=== PATIENT | male | born 1945 | race African-American/Black ===

== ENCOUNTER 2024-06-28 07:49 | Outpatient (AMB) | payer OTHER, SELFPAY ==
--- NOTE | 2024-06-28 07:51 | MHC.OFFVIS ---
Vital Signs 06/28/24 08:07 Height 5 ft 10 in Weight 211 lb 6.773 oz BMI 30.3 BP 132/70 Blood Pressure Location Lt brachial Position Sitting Respiration 18 Pulse 78 Pulse Source Pulse Oximeter Pulse Oximetry (%) 98 Oxygen Delivery Method Room Air Intake Visit Reasons: arthritis/cm Intake Note: Patient presents for Arthritis. I feel pain on both shoulders, neck, lower back, both hips, right knee, left heel and right ankle swells. I been in pain for over 20 years. I have taking over the counter medication for pain and Tylenol helps short term. Allergies No Known Allergies Allergy (Verified 06/28/24 08:00) Medication List - Last Reconciled 06/28/24 by Rachel Tamayo MD aspirin 81 mg PO DAILY atorvastatin 40 mg PO DAILY lisinopril 40 mg PO DAILY HPI Comments Details: Patient is a 79-year-old male with hypertension, hyperlipidemia who presents for evaluation of joint pain Patient states that for the past several years he has been having joint pain affecting several joints. Today when most concerns him is right hip pain No antecedent trauma Notes that the hip pain has been going on for several years and this has been associated with back pain also The pain is mainly located in his right buttock. He does not have intermittent claudication type symptoms. It is aggravated by prolonged sitting or driving. 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 He has previously received PRP injections, steroid injections to the right hip with improvement but the was not lasting. He is currently being evaluated for a hip replacement however was told that he does not meet criteria for a hip replacement. He also complains of back pain. Recently had an MRI of the lumbar spine which showed [id number] degenerative changes. Has seen a spinal orthopedic surgeon who stated that his spine was not severe and that there was nothing that he could offer him. He denies prolonged morning stiffness. He does get pain involving his hands but his hip pain is what most concerns him. He has also previously gotten corticosteroid injections for greater trochanteric bursitis. This provided relief but this was not sustained [facility] Medical History (Updated 06/28/24 @ 13:54 by Rachel Tamayo MD) Degenerative arthritis of lumbar spine Bilateral hip pain Social History (Updated 06/28/24 @ 08:06 by Anisa Tuttle [facility]) Household Members: None Housing: House Alcohol intake: current Comment: Daily Patient Tobacco Use Status: Never used Tobacco Review of Systems Const Details: Review of Systems Constitutional: Denies fever, chills, weight loss ENT: Denies vision changes, eye pain or eye redness, dental caries, dry mouth GI: Denies nausea, vomiting, diarrhea, abdominal pain, change in BM Pulm: Denies SOB, CATES, hemoptysis, wheezing Cards: Denies chest pain, palpitations Skin: Denies Raynaud's, rash, nail changes, photosensitivity, [employer]ER: Denies headaches, weakness, paresthesias, recurrent falls MSK: as per HPI All other systems reviewed and are unremarkable except noted above Physical Exam Vital Signs: Last Vital Signs Pulse 78 06/28/24 08:07 Resp 18 06/28/24 08:07 BP 132/70 06/28/24 08:07 Pulse Ox 98 06/28/24 08:07 Oxygen Delivery Method Room Air 06/28/24 08:07 BMI result Body Mass Index 30.3 Physical Examination CONSTITUITIONAL Patient alert and cooperative. Well appearing and in no apparent painful distress HEENT Conjunctiva and sclera clear. ?Pupils equal round and reactive to light. ?No lymphadenopathy. CHEST/RESPIRATORY SYSTEM Normal respiratory effort and able to speak in complete sentences. ?Clear to auscultation bilaterally. ?No crackles, rales, rhonchi, wheezes heard. CARDIAC SYSTEM Regular rate and rhythm. ?S1 and S2 heard no murmurs. ?Radial pulses intact bilaterally MSK Hands: ?Good plant facilities technician strength bilaterally. Heberden's nodes noted. ?No synovitis noted to the MCPs, PIPs or DIPs. ?No tenderness to palpation of these joints. Wrists: ?Full range of motion at the wrists without pain. ?No tenderness to palpation or synovitis noted to the wrists. Elbows: Full range of motion without pain. No tenderness, weakness, swelling, increased warmth or erythema. Shoulders: Full range of motion without pain. No tenderness, weakness, swelling, increased warmth or erythema. Hips: Right hip. Hip flexion leads to right buttock pain. Straight leg raise of the right leg reproduces pain extending past the knee. Left hip. Hip flexion leads to right buttock pain again. Negative straight leg raise Hip bursa: Bilateral tenderness to palpation, right worse than left Knees: ?Full range of motion. ?No tenderness, swelling, increased warmth or erythema.? Bilateral crepitations Ankles: Full range of motion. ?No tenderness, swelling, increased warmth or erythema.? Feet: ?Negative squeeze test. ?No tenderness to palpation or swelling of the MTPs. Tender points:??No tenderness to palpation of the neck, shoulders, chest, elbows, hips, buttocks or knees. SKIN Skin intact without rashes. Results Reviewed Results Reviewed: Results from referral reviewed WBC 5.1 HB 13.9 Platelets 207 Uric acid 5.1 CRP < 0.29 ESR 20 TSH 1.32 RF <10 MRI lumbar spine Degenerative changes of the lumbar spine greatest at L3-4 with [id number] central stenosis and mild crowding of the transversing left L4 nerve root XR Bilateral Hips 06/28/2024 (my read) Right hip with mild osteophytes and subcondral sclerosis Left with mild degenerative changes also Assessment & Plan Assessment & Plan (1) Bilateral hip pain: Code(s): M25.551 - Pain in right hip; M25.552 - Pain in left hip Category: Medical Plan: #Bilateral hip pain Patient here today to be evaluated for bilateral hip pain. Examination is consistent with a lumbar etiology for this hip pain especially with a positive straight leg raise. He denied intermittent claudication symptoms and he does not have any other signs of peripheral arterial disease and so this is less likely. He may also have osteoarthritis involving the right hip. At this time I do not believe the patient has any autoimmune or autoinflammatory disease such as rheumatoid arthritis, ankylosing spondylitis or seronegative arthritis. Plan - check bilateral hip x-rays - check right hip MRI without contrast - referred to pain management for evaluation of lumbar steroid injection - RTC p.r.n. (2) Degenerative arthritis of lumbar spine: Code(s): M47.816 - Spondylosis without myelopathy or radiculopathy, lumbar region Category: Medical Qualifiers: Spinal osteoarthritis complication: other spinal osteoarthritis Qualified Code(s): M47.896 - Other spondylosis, lumbar region Plan: #Lumbar OA MRI confirmed degenerative changes in L spine I think that this can be contributing to his hip pain especially with a positive leg raise consistent with sciatica Plan - refer to pain management for L spine injection Plan I spent 60 minutes reviewing the record and labs, seeing the patient, discussing the treatment plan, answering questions, contacting the patient after appointment to relay my read of his hips XRs and documenting in the medical record ? Orders: Orders XR hip RT min 2V Today M25.551 - Pain in right hip, M25.552 - Pain in left hip XR hip LT min 2V Today M25.551 - Pain in right hip, M25.552 - Pain in left hip MR hip RT wo con Today M25.551 - Pain in right hip, M25.552 - Pain in left hip Referrals Pain Management Referral M47.816 - Spondylosis without myelopathy or radiculopathy, lumbar region Coding Level of Care Code New Pt Level 5 (26261) Diagnoses Bilateral hip pain M25.551; M25.552 Other osteoarthritis of spine, lumbar region M47.896 Spinal osteoarthritis complication: other spinal osteoarthritis
[2024-06-28 08:07] VITALS: BP 132/70; PULSE 78; RESP 18; O2SAT 98; BMI 30.3
--- OUTSIDE RECORDS SUMMARY | 2024-07-03 05:05 | XMS_ITS | Continuity of Care Document ---
Author Organization [facility] Address [address] [place] [address]- Care Team Providers Care Local Truck Driver Name Role Phone Mohsen Boles MD Primary Care Physician Encounter [facility] Date(s): 05/02/24 - 06/26/24 [facility] [address] [place], [place] [address] [place] Attending Physician: Mohsen Boles MD Encounter Type: Pre Office Visit Allergies, Adverse Reactions, Alerts Substance Criticality Severity Reaction Reaction Severity Status penicillin swelling Active benzonatate headache Active Immunizations Given and Recorded Vaccine Date Status Refusal Reason influenza virus vaccine, inactivated 04/08/24 Jose Manuel rded influenza virus vaccine, inactivated 04/13/23 Jose Manuel rded influenza virus vaccine, inactivated 05/03/22 Give n influenza virus vaccine, inactivated 1 05/03/21 Gi alex influenza virus vaccine, inactivated 2 05/14/20 Gi alex influenza virus vaccine, inactivated 04/19/18 Give n influenza virus vaccine, inactivated 04/10/17 Give n SARS-CoV-2(COVID-19)mRNA-LNP vac([id number]) 04/08/24 Recorded SARS-CoV-2(COVID-19)mRNA-LNP vac([id number]) 04/13/23 Recorded [id number] 12y+ bivalent booster vax 04/27/22 Recorded SARS-CoV-2 mRNA ([id number]) vax 11/26/21 Recorded SARS-CoV-2 (COVID-19) mRNA BNT-162b2 vac 05/13/21 Recorded SARS-CoV-2 (COVID-19) mRNA BNT-162b2 vac 09/28/20 Recorded SARS-CoV-2 (COVID-19) mRNA BNT-162b2 vac 08/28/20 Recorded zoster vaccine, inactivated 05/05/21 Recorded pneumococcal 13-valent vaccine 3 10/11/17 Given tetanus/diphtheria/pertussis, acel(Tdap) 02/17/14 Given pneumococcal 23-valent vaccine 04/12/11 Given tetanus-diphtheria toxoids (Td) 4 02/21/11 Given 1Result Comment: [id number] 2Result Comment: [facility]: [id number] GIVEN WITHOUT COMPLICATIONS...DS 3Result Comment: [10/11/2017] [id number] 4Admin Note: given w/out incident, VIS info. sheet given/ mass bio Medications Aspirin Low Dose 81 mg oral delayed release tablet See Instructions, TAKE 1 TABLET BY MOUTH EVERY DAY, # 90 tablet, 3 Refills, Maintenance, 12/26/23 12:12:00 PM EDT, [facility]/pharmacy #[id number], 180, cm, 11/23/23 10:32:00 EDT, Height, 97.4, kg, 10/25/23 10:10:00 EDT, Dry Weight Start Date: 12/26/23 Status: Ordered Quantity: 90.0 Unit: tablet Repeat number: 4 atorvastatin 40 mg oral tablet 1 tablet, By Mouth, Daily, # 90 tablet, 3 Refills, Maintenance, 04/19/24 11:04:00 AM EDT, [facility]/pharmacy #[id number], 180, cm, 03/28/24 10:57:00 EDT, Height, 95.5, kg, 03/28/24 10:29:00 EDT, Dry Weight Start Date: 04/19/24 Status: Ordered Quantity: 90.0 Unit: tablet Repeat number: 4 lisinopril 40 mg oral tablet 1 tablet, By Mouth, Daily, # 90 tablet, 3 Refills, Maintenance, 11/23/23 11:14:00 AM EDT, [facility]/pharmacy #[id number], 180, cm, 11/23/23 10:32:00 EDT, Height, 97.4, kg, 10/25/23 10:10:00 EDT, Dry Weight Start Date: 11/23/23 Status: Ordered Quantity: 90.0 Unit: tablet Repeat number: 4 meloxicam 7.5 mg oral tablet 1 tablet = 7.5 mg, By Mouth, Daily, # 30 tablet, 5 Refills, Maintenance, 05/02/24 9:26:00 AM EDT, Tablet, [facility]/pharmacy #[id number], Partial fill upon patient request if the prescription is for a schedule II opioid drug., 180, cm, 05/02/24 8:58:00 EDT, Height, 95.5, kg, 05/02/24 8:58:00 EDT, Dry Weight Start Date: 05/02/24 Status: Ordered Quantity: 30.0 Unit: tablet Repeat number: 6 sertraline 100 mg oral tablet 1 tablet = 100 mg, By Mouth, Daily, # 30 tablet, 11 Refills, Maintenance, 05/02/24 9:25:00 AM EDT, Tablet, [id number], this is an increase, 180, cm, 05/02/24 8:58:00 EDT, Height, 95.5, kg, 05/02/24 8:58:00 EDT, Dry Weight Start Date: 05/02/24 Status: Ordered Quantity: 30.0 Unit: tablet Repeat number: 12 traZODone 50 mg oral tablet 1, tablet, By Mouth, Daily at bedtime, # 30 tablet, Refills 3, Maintenance, 05/20/24 5:31:00 PM EDT, Route to Pharmacy Electronically, [id number], 180, cm, 05/02/24 8:58:00 EDT, Height, 95.5, kg, 05/02/24 8:58:00 EDT, Dry Weight Start Date: 05/20/24 Status: Ordered Quantity: 30.0 Unit: tablet Repeat number: 1 Tylenol Arthritis Extended Release = 1,300 mg, By Mouth, Every 8 hours, 0 Refills, Maintenance, 04/07/22 2:26:00 PM EDT, Partial fill upon patient request if the prescription is for a schedule II opioid drug. 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 Confirmed 12/13/12 Active Glucose intolerance Confirmed 02/26/11 Active History of prostatectomy Confirmed 02/21/11 Active Hip pain, bilateral Confirmed Active History of cholecystectomy Confirmed 02/21/11 Active Personal history of prostate cancer Confirmed 02/21/11 Active Hyperlipidemia Confirmed 02/21/11 Active HBP (high blood pressure) Confirmed Active ITB syndrome- bilateral Confirmed Active Lumbar spondylosis with Moderate SS at L3-4 and mild at L4-5 Confirmed 01/30/22 Active 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 Confirmed 06/02/19 Active Polymorphous light eruption, 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, lumbar region with neurogenic claudication Confirmed Active Trochanteric bursitis Confirmed 04/12/11 Active Ulnar neuropathy at elbow of right upper extremity Confirmed Active Social History Social History Type Response Smoking Status Never smoker entered on: 07/22/13 Sex Sex Representation Male (finding) Patient Care team information Care Team Personnel Name: Shad Garcia RN Position: [facility] RN Member Role: Primary Care Nurse Name: Mohsen Boles MD Position: [facility] Physician - Primary Care Member Role: PCP Address: [address] [place] [address] [facility] [address] Telecom: Care Team Related Persons Name: PEYTON FONTENOT Name: CLAUDIA NUNES Name: JOSE NUNES Insurance Providers Guarantor name: PAUL NUNES [facility] Information #: 1 Payer: [facility] [employer] Member Number: [id number] Policy Number: NA Group Number: [id number] Health Plan Information #: 2 Payer: [facility] [employer] Member Number: [id number] Policy Number: NA Group Number: [id number]
--- OUTSIDE RECORDS SUMMARY | 2024-07-03 05:05 | XMS_ITS | Data Portability ---
Author Organization [place] [facility] [place] Address [address] [place] [address] Care Team Providers Care Park Maintenance Technician Name Role Phone MADELAINEAUDRA JANICE Referring Provider Unavailable ARABELLA BREEN OTHER [phone] Assessment Encounter Date Assessment Date Assessment LastModified by Organization Details LastModified Time 02/01/2024 02/01/2024 79-year-old male with extensive history of chronic bilateral hip pain. His history and exam today are consistent with greater trochanteric bursitis, perhaps mild contributory gluteal tendinitis as demonstrated on his imaging. Symptoms are not impressive for intra-articular etiology. No evidence of avascular necrosis on most recent MRI. At present the right seems to be slightly worse than the left. He has failed extensive injection therapy and I would not recommend that at this time. I do think it would be worthwhile to get him into some formal, regimented physical therapy and see how he responds. I reviewed with him and his that we will almost certainly take more than a couple of weeks for him to appreciate any improvement given the lengthy history of his symptoms. He is amenable to trying this. I will also send him in a prescription for meloxicam. He denies any adverse effects to NSAIDs and is not on a blood thinner. GI precautions reviewed. He will return to the office in 6 weeks for follow-up, sooner if his condition worsens. Questions invited and answered. Patient verbalizes understanding and agreement with plan. Patient was seen and evaluated by Rainer Stafford PA-C in indirect conjunction with Documenting Provider: Jose Kiran MD He/She agrees with history, physical examination, tests/diagnostic imaging, and treatment plan. Not available 03/02/2024 12:22:03 03/06/2024 03/06/2024 Chronic, refractory bilateral greater trochanteric bursitis. We again reviewed his long history of hip pain and that this will likely take more than a few weeks of therapy for him to see significant improvement. Cannot exclude potential lumbar etiology as he does demonstrate symptoms consistent with radiculopathy. It sounds like he was going to have a right bursectomy. At this time I recommended we defer an additional injection as he has previously not had lasting response and rather wait to keep his upcoming appt with Dr. Kiran on Monday. Questions invited and answered. Patient verbalizes understanding and agreement with plan. PRIOR : 79-year-old male with extensive history of chronic bilateral hip pain. His history and exam today are consistent with greater trochanteric bursitis, perhaps mild contributory gluteal tendinitis as demonstrated on his imaging. Symptoms are not impressive for intra-articular etiology. No evidence of avascular necrosis on most recent MRI. At present the right seems to be slightly worse than the left. He has failed extensive injection therapy and I would not recommend that at this time. I do think it would be worthwhile to get him into some formal, regimented physical therapy and see how he responds. I reviewed with him and his that we will almost certainly take more than a couple of weeks for him to appreciate any improvement given the lengthy history of his symptoms. He is amenable to trying this. I will also send him in a prescription for meloxicam. He denies any adverse effects to NSAIDs and is not on a blood thinner. GI precautions reviewed. He will return to the office in 6 weeks for follow-up, sooner if his condition worsens. Not available 03/11/2024 10:35:44 03/11/2024 03/11/2024 I went over my findings with him. He has fairly widespread symptomatology, certainly pain out of proportion to objective findings. He rates his pain between a 13 to a 20 on a 10 point scale. I am not certain that all of his pain is coming from the hip. This may be more of a spine etiology. I will have him see our spine team for consultation. In the interim he is going to continue home exercise program. If his symptoms localize more to the hip an intra-articular injection could be considered. He may be a candidate to consider hip arthroplasty. He is not a candidate for anything arthroscopic. Questions invited and answered at length. Greater than 20 minutes was spent with the encounter today, including face to face time with the patient, documentation, review of records/imaging if applicable, and coordination of care. PRIOR KATHE: Cannot exclude potential lumbar etiology. PRIOR : 79-year-old male with extensive history of chronic bilateral hip pain. His history and exam today are consistent with greater trochanteric bursitis, perhaps mild contributory gluteal tendinitis as demonstrated on his imaging. Symptoms are not impressive for intra-articular etiology. No evidence of avascular necrosis on most recent MRI. At present the right seems to be slightly worse than the left. He has failed extensive injection therapy and I would not recommend that at this time. I do think it would be worthwhile to get him into some formal, regimented physical therapy and see how he responds. I reviewed with him and his that we will almost certainly take more than a couple of weeks for him to appreciate any improvement given the lengthy history of his symptoms. He is amenable to trying this. I will also send him in a prescription for meloxicam. He denies any adverse effects to NSAIDs and is not on a blood thinner. GI precautions reviewed. He will return to the office in 6 weeks for follow-up, sooner if his condition worsens. [email or web address] Not available 04/25/2024 19:52:09 03/27/2024 03/27/2024 Negro Salinas is a 79 year old male who presents today for evaluation regarding his chronic low back pain. He has had low back pain for greater than 30 years. It worsened 15 years ago and now has again worsened. He complains of numbness in his bilateral lateral legs and feet. He also has lateral hip pain which he is treated for greater trochanteric bursitis and has had multiple rounds of injections with no significant relief. He did have an MRI of his lumbar spine in 2021 for similar symptoms however he reports that the focus was still on his bursitis. He recently attended physical therapy in January for 6 weeks however he did not find this helpful. He has a hard time going from the seated to standing position and with prolonged walking or standing. Other prior treatments include oxycodone, Tylenol, thermal modalities and prednisone. Denies saddle paresthesias, bowel or bladder incontinence, recent fevers or unexplained weight loss. Exam: Constitutional: appears well developed, in no acute distress. Respiratory: no respiratory distress Musculoskeletal: Normal gait Neck: Inspection of the cervical spine is unremarkable, no deformity noted. Back: Inspection of the thoracolumbar spine is unremarkable. No deformity noted. Neurologic: Sensation grossly intact to light touch in bilateral upper and lower extremities. 5/5 strength with muscle testing of the bilateral lower extremities. Able to toe raise and heel walk bilaterally Reflexes are normoactive in bilateral upper and lower extremities. Normal tone in all 4 extremities. Negative Clonus bilaterally. Negative Babinski bilaterally. Skin: skin intact Imaging: AP and lateral x-rays of the lumbar spine were obtained on 03/2024 which demonstrates multilevel degenerative changes. No acute osseous abnormalities. 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 At this time I would recommend repeating an MRI to further assess. He is interested in injection therapy versus surgical intervention should these be an option. Not wish to attend physical therapy for any additional length of time. He will continue with his medication that he currently has and thermal modalities. Plan to follow-up in 2 weeks to review results, sooner if condition worsens. Total time spent managing this patient on the date of the [id number] encounter (including direct patient interaction, wound care, review of applicable labs and imaging, documentation, and communication with other providers involved in patient s care): 25 minutes Patient was seen and evaluated by Gildardo Cullen PA-C in indirect conjunction with Documenting Provider: Zachery Hernandez MD He agrees with history, physical examination, tests/diagnostic imaging, and treatment plan [email or web address] Not available 03/27/2024 15:47:07 04/11/2024 04/11/2024 79-year-old felt to be generally healthy presents with his good friend Lora for whole body pain. He notes 20 years of worsening discomfort. More recently the pain has become intolerable. He notes hand pain arm pain neck pain low back pain foot pain hip and knee pain and ischial pain. He has difficulty getting up and down. He is seen a variety of orthopedic surgeons and has had various injections and even a proposal for a tendon reconstruction none of which has been helpful. He recently had a lumbar MRI which is shockingly normal. He has had x-rays of his hips which are quite normal in the trays of his lumbar spine are quite normal. Physical examination he appears quite uncomfortable although he has no focal neurologic findings. The patient is living I had an extended conversation. I do not believe he has a focal orthopedic condition that can be remedied with normative orthopedic care. I am concerned he has a systemic rheumatologic type disease and should be evaluated by burling and joining supervisor . He lives in the [facility] and is interested in finding a burling and joining supervisor near his home. We make the appropriate referral. In anticipation of seeing the burling and joining supervisor will order laboratory studies as noted below. He will follow-up with us on an as-needed basis [email or web address] Not available 04/11/2024 17:03:45 Plan of Treatment Reminders Order Date Submit Date Provider Last Modified By Organization Details Last Modified Time Details Appointments None recorded. Lab rf (rheumatoid factor) + anti-ccp abs, serum 2023 024 BILL Not available 13:46:47 TSH, serum or plasma 2023 024 [email or web address] Not available 11:29:48 uric acid, serum or plasma 2023 024 [email or web address] Not available 11:29:48 CBC w/ diff 2023 024 BILL Not available 13:46:47 C reactive protein, QN, serum or plasma 2023 024 BILL Not available 4 13:46:47 ESR (erythrocyt e sedimentati on rate), blood 2023 024 BILL Not available 13:46:47 lyme disease Ab, serum 2023 024 BILL Not available 13:46:47 Referral rheumatolog ist referral - Wide spread body pain. Normal X-rays,MRI. ?? Inflammator y arthritis?? 2023 024 [email or web address] Arabella Breen MD, [address], [place], [address], 17:15:27 Procedures None recorded. Surgeries None recorded. Imaging XR, hip, unilateral, 2 or 3 view 2023 024 [email or web address] 2 [facility], [address], [place], [address], 4 12:59:56 XR, hip, unilateral, 2 or 3 view 2023 024 [email or web address] 2 [facility], [address], [place], [address], 4 12:59:56 MRI, lumbar spine, w/o contrast - r/o canal stenosis 2023 024 [facility] ([facility] [address] [place], [address], 4 14:07:21 XR, lumbosacral spine, 2 or 3 view 2023 024 [email or web address] [facility], [address], [place], [address], 4 16:40:17 Medication Orders meloxicam 15 mg tablet 2023 024 [email or web address] [id number], [address] [place], [address], 4 15:14:40 Patient TargetsNo targets recorded. Patient Instructions Encounter Date Encounter Id Patient Instructions Last Modified By Organization Details Last Modified Time 02/01/2024 [id number] views of the bilateral hips were obtained today 02/01/2024 in the [place] office. Mild to moderate degenerative changes. Trace spurring versus calcification adjacent to the greater trochanters. No acute fracture or dislocation appreciated. Not available 03/02/2024 12:23:24 03/27/2024 [id number] AP and lateral x-rays of the lumbar spine were obtained on 03/2024 which demonstrates multilevel degenerative changes. No acute osseous abnormalities. 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 Normal X-rays,MRI. ?? Inflammatory arthritis?? Referring Physician: Zachery Hernandez, Orthopedic Surgery, Encounter Date: 04/11/2024 Results Created Date Observation Date Name Description Value Unit Range Abnormal Flag Note LastModifiedBy Organization Detail LastModifiedTime 01/29/20 MRI, hip, w/o contr ast No observ ation record ed. [email or web address] Not Available 2023 10:17:43 04/04/20 24 04/02/2024 MRI, lumba r spine , w/o contr ast No observ ation record ed. [email or web address] [facility] [address] [place], [address], 04/04/2024 14:14:32 Result Notes None recorded. 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 Procedures Surgical History Date Name Laterality Status Provider Name and Address Organization Details Recorded Time Shoulder Surgery completed Renetta Daniel [place] [facility] 02/01/2024 12:06:54 Knee Surgery completed Renetta Daniel [place] [facility] 02/01/2024 12:07:00 Imaging Results Imaging Date Name Status LastModified by Organiz ation Details LastModified Time 01/29/2024 MRI, hip, w/o contrast completed [email or web address] Information not available 01/29/2024 10:17:43 04/02/2024 MRI, lumbar spine, w/o contrast completed [email or web address] [facility] [address] [place], [address], 04/04/2024 14:14:32 Procedure Notes None recorded. Medical Equipment None Reported. Allergies No known drug allergies Medications Name Sig Start Date Stop Date Status Note LastModified by Organization Details LastModified Time atorvastati n 40 mg tablet TAKE 1 TABLET BY MOUTH EVERY DAY active Not Available Not Available No t Available trazodone 50 mg tablet TAKE 1 TABLET BY MOUTH EVERYDAY AT BEDTIME active Not Available Not Available No t Available meloxicam 15 mg tablet TAKE 1 TABLET BY MOUTH EVERY DAY 03/06 completed Not Available Not Available Not Available aspirin 81 mg tablet,lacey yed release TAKE 1 TABLET BY MOUTH EVERY DAY active Not Available Not Available No t Available tramadol 50 mg tablet TAKE 1 TO 2 TABS BY MOUTH EVERY 6 HOURS NEEDED FOR PAIN DO NOT DRIVE WHILE TAKING THIS MEDICATIO N active Not Available Not Available No t Available codeine 10 mg-guaifene sin 100 mg/5 mL oral liquid TAKE 5ML BY MOUTH EVERY 4 HOURS NEEDED FOR COUGH active Not Available Not Available No t Available lisinopril 40 mg tablet TAKE 1 TABLET BY MOUTH EVERY DAY active Not Available Not Available No t Available sertraline 50 mg tablet TAKE 1 TABLET BY MOUTH EVERY DAY active Not Available Not Available No t Available oxycodone 5 mg tablet TAKE ONE TAB THREE TIMES A DAY DO NOT DRIVE WHILE TAKING THIS MEDICATIO N active Not Available Not Available No t Available pregabalin 75 mg capsule TAKE 1 CAPSULE BY MOUTH AT BEDTIME active Not Available Not Available No t Available diclofenac 1 % topical gel DIRECTED APPLY 3-4 GRAMS TO AFFECTED AREA 3X DAILY active Not Available Not Available No t Available Vitals Date Recorded Body weight Provider Name an d Address Organization Details Last Updated DateTime 02/01/2024 [address] [place] [facility] 02/01/2024 12:06:02 Social History Question Answer Notes LastModified by Organizat ion Details LastModified Time Tobacco Smoking Status Never Smoker Renetta Daniel null, [place] [facility] 02/01/2024 12:06:26 What Is Your Level Of Alcohol Consumption? Moderate [email or web address] Information not available 02/01/2024 How Many Times Per Week Do You Consume Alcohol? 3-4 Times Per Week [email or web address] Information not available 02/01/2024 Do You Use Any Illicit Or Recreational Drugs? Yes [email or web address] Information not available 03/11/2024 Do You Or Have You Ever Used Any Other Forms Of Tobacco Or Nicotine? No [email or web address] Information not available 02/01/2024 Sex: Unknown Functional Status None recorded. Mental Status None recorded. Family History Nothing Reported. Medical History Condition Response Cancer Y Hypertension Y Past Encounters Encounter ID Performer Location Encounter Start Date Encounter Closed Date Diagnosis/Indication Diagnosis SNOMED-CT Code Diagnosis ICD10 Code [id number] Jose Kiran MD [place] [id number] 02/01/2024 10:36:07 02/01/2024 12:12:21 Pain in right hip joint 4632125285 56940 M25.551 Hip pain 76212843 M25.55 2 [id number] Jose Kiran MD [place] [id number] 03/06/2024 15:10:07 03/06/2024 15:45:57 Pain in right hip joint 7853930262 78478 M25.551 Hip pain 31994453 M25.55 2 [id number] Jose Kiran MD [address] [address] 03/11/2024 10:31:19 03/11/2024 11:22:02 Pain in right hip joint 5118946372 88709 M25.551 Hip pain 46707473 M25.55 2 [id number] Zachery Hernandez MD [address] [address] 03/27/2024 13:50:16 03/27/2024 14:43:09 Low back pain 296816349 M54.50 Lumbar spondylosis 66336 0009 M47.816 [id number] MD MAGALY Lubin [address] [place] [address] 04/11/2024 15:30:02 04/11/2024 16:31:06 Total body pain syndrome 166675998 R52 Health Concerns Section Related Observation LastModified by Organization Detai ls LastModified Time None Recorded Concern Status LastModified by Organization Details LastModified Time None Recorded Advance Directives Directive None Recorded Payers Encounter Date Sequence Insurance Name Policy Number Policy Blevins Covered Member ID Blevins Member ID Guarantor Name 02/01/2024 1 [employer]AN (MEDICARE REPLACEMENT HMO) [id number] Negro Salinas [id number] Negro Salinas 03/06/2024 1 [employer] PLAN (MEDICARE REPLACEMENT HMO) [id number] Negro Salinas [id number] Negro Rita 03/11/2024 1 [employer] PLAN (MEDICARE REPLACEMENT HMO) [id number] Negro Salinas [id number] Negro Rita 03/27/2024 1 [employer]AN (MEDICARE REPLACEMENT HMO) [id number] Negro Salinas [id number] Negro Rita 04/11/2024 1 [employer] (MEDICARE REPLACEMENT HMO) [id number] Negro Salinas [id number] Negro Salinas Notes Date Note Type Note Provider Name and Address Organization Details Recorded Time 02/01/2024 text/html 79-year-old male presents to the office today with his for evaluation of chronic bilateral hip pain referred by Dr. Oliveira. He estimates this has been ongoing for 30 years. States he has had extensive trusting and treatment over the years and nothing has ever provided permanent relief.He states his pain is always localized around the lateral aspect of the hips with some radiation down the thighs but consistently beyond. He has undergone numerous greater trochanteric bursal steroid injections over the years which he states helped for anywhere from a week to a month but never much longer than that. These was most recently completed bilaterally in November of this year. He has also had an intra-articular hip joint injection as well as PRP injections bilaterally in July of this year which did not help at all. He continues to have pain with ADLs and finds it difficult to sleep on either side. As an aside he reports a history of lumbar pain and has degenerative disease that has been treated nonoperatively. He uses Tylenol intermittently. He reports he has never done physical therapy for more than 4 weeks at a time. He denies saddle anesthesias. Denies groin pain. Denies bowel or bladder dysfunction. Most recently he had an MRI of the right hip in June 2023 which demonstrated mild to moderate degenerative changes as well as gluteal tendinosis and likely trochanteric bursitis. [address], [place], [address], [place] [facility] 03/02/2024 12:23:39 03/06/2024 text/html Patient returns to the office today for unscheduled visit as he is still in pain. He states he has been in physical therapy but is unable to identify if it is helping. He again recounts his long history of bilateral hip pain. He also notes chronic low back pain and the two in combination make getting up from a chair or bed particularly difficult. He continues to localize his predominant complaints over the lateral hips with radiation to the knee. He was unable to tolerate Meloxicam as it increased his blood pressure.He would like a second opinion regarding having surgery and is due to see Dr. Kiran. Chart review notes his last MRI was of the right hip in 06/2023 but he thinks he has had another more recently. PRIOR:79-year-old male presents to the office today with his for evaluation of chronic bilateral hip pain referred by Dr. Oliveira. He estimates this has been ongoing for 30 years. States he has had extensive trusting and treatment over the years and nothing has ever provided permanent relief.He states his pain is always localized around the lateral aspect of the hips with some radiation down the thighs but consistently beyond. He has undergone numerous greater trochanteric bursal steroid injections over the years which he states helped for anywhere from a week to a month but never much longer than that. These was most recently completed bilaterally in November of this year. He has also had an intra-articular hip joint injection as well as PRP injections bilaterally in July of this year which did not help at all. He continues to have pain with ADLs and finds it difficult to sleep on either side. As an aside he reports a history of lumbar pain and has degenerative disease that has been treated nonoperatively. He uses Tylenol intermittently. He reports he has never done physical therapy for more than 4 weeks at a time. He denies saddle anesthesias. Denies groin pain. Denies bowel or bladder dysfunction. Most recently he had an MRI of the right hip in June 2023 which demonstrated mild to moderate degenerative changes as well as gluteal tendinosis and likely trochanteric bursitis. RAINER STAFFORD PA-C [address], [place], [address], [place] [facility] 03/11/2024 10:35:59 03/11/2024 text/html Patient returns for ongoing evaluation of his bilateral hip pain. He tells me he has a history of multiple shots. The last injection was in November 2023 that did not provide any improvement. He also tells me he tried PRP injections. He walks with a cane. Pain has been present for at least 15 or more years. Physical therapy was ongoing for twice a week, he was going for 30 minutes at a time. He tells me that the physical therapy location would not treat him for more than 30 minutes. He was a bit frustrated at that. In general symptoms tend to be right greater than left. He notes some right sided ischial tuberosity pain with sitting. He notes pain that radiates into his hip and legs. Sometimes his feet are tender in the morning on waking up. He rates his pain at times between a 13 to a 20 on a 10 point scale. PRIOR KATHE:Patient returns to the office today for unscheduled visit as he is still in pain. PRIOR:79-year-old male presents to the office today with his for evaluation of chronic bilateral hip pain referred by Dr. Oliveira. He estimates this has been ongoing for 30 years. States he has had extensive trusting and treatment over the years and nothing has ever provided permanent relief.He states his pain is always localized around the lateral aspect of the hips with some radiation down the thighs but consistently beyond. He has undergone numerous greater trochanteric bursal steroid injections over the years which he states helped for anywhere from a week to a month but never much longer than that. These was most recently completed bilaterally in November of this year. He has also had an intra-articular hip joint injection as well as PRP injections bilaterally in July of this year which did not help at all. He continues to have pain with ADLs and finds it difficult to sleep on either side. As an aside he reports a history of lumbar pain and has degenerative disease that has been treated nonoperatively. He uses Tylenol intermittently. He reports he has never done physical therapy for more than 4 weeks at a time. He denies saddle anesthesias. Denies groin pain. Denies bowel or bladder dysfunction. Most recently he had an MRI of the right hip in June 2023 which demonstrated mild to moderate degenerative changes as well as gluteal tendinosis and likely trochanteric bursitis. oJse Kiran MD [address], [place], [address], [place] [facility] 04/25/2024 19:53:23
--- OUTSIDE RECORDS SUMMARY | 2024-07-03 05:05 | XMS_ITS | Continuity of Care Document ---
Author Organization [facility] Address [address] [place] [address]- Care Team Providers Care Polisher Brass Name Role Phone Mohsen Boles MD Primary Care Physician [place] [facility] [place]): [place]/26/24 [facility] [address] [place], [place] [address] Attending Physician: Mohsen Boles MD Encounter Type: Office Visit Allergies, Adverse Reactions, Alerts Substance [...] virus vaccine, inactivated 04/10/17 Give n SARS-CoV-2(COVID-19)mRNA-LNP vac([id number]) 04/08/24 Recorded SARS-CoV-2(COVID-19)mRNA-LNP vac([id number]) 04/13/23 Recorded [id number] 12y+ bivalent booster vax 04/27/22 Recorded SARS-CoV-2 mRNA ([id number]) vax 11/26/21 Recorded SARS-CoV-2 (COVID-19) mRNA BNT-162b2 vac 05/13/21 Recorded SARS-CoV-2 (COVID-19) mRNA BNT-162b2 vac 09/28/20 Recorded SARS-CoV-2 (COVID-19) mRNA BNT-162b2 vac 08/28/20 Recorded zoster vaccine, inactivated 05/05/21 Recorded pneumococcal 13-valent vaccine 3 10/11/17 Given tetanus/diphtheria/pertussis, acel(Tdap) 02/17/14 Given pneumococcal 23-valent vaccine 04/12/11 Given tetanus-diphtheria toxoids (Td) 4 02/21/11 Given 1Result Comment: [id number] 2Result Comment: [facility]: 33305-031-37 GIVEN WITHOUT COMPLICATIONS...DS 3Result Comment: [10/11/2017] [id number] 4Admin Note: given w/out incident, VIS info. sheet given/ mass bio Medications Aspirin Low Dose 81 mg oral delayed release tablet See Instructions, TAKE 1 TABLET BY MOUTH EVERY DAY, # 90 tablet, 3 Refills, Maintenance, 12/26/23 12:12:00 PM EDT, [facility]/pharmacy #[id number], 180, cm, 11/23/23 10:32:00 EDT, Height, 97.4, kg, 10/25/23 10:10:00 EDT, Dry Weight Start Date: 12/26/23 Status: Ordered Quantity: 90.0 Unit: tablet Repeat number: 4 atorvastatin 40 mg oral tablet 1 tablet, By Mouth, Daily, # 90 tablet, 3 Refills, Maintenance, 04/19/24 11:04:00 AM EDT, [facility]/pharmacy #[id number], 180, cm, 03/28/24 10:57:00 EDT, Height, 95.5, kg, 03/28/24 10:29:00 EDT, Dry Weight Start Date: 04/19/24 Status: Ordered Quantity: 90.0 Unit: tablet Repeat number: 4 lisinopril 40 mg oral tablet 1 tablet, By Mouth, Daily, # 90 tablet, 3 Refills, Maintenance, 11/23/23 11:14:00 AM EDT, [facility]/pharmacy #[id number], 180, cm, 11/23/23 10:32:00 EDT, Height, 97.4, kg, 10/25/23 10:10:00 EDT, Dry Weight Start Date: 11/23/23 Status: Ordered Quantity: 90.0 Unit: tablet Repeat number: 4 meloxicam 7.5 mg oral tablet 1 tablet = 7.5 mg, By Mouth, Daily, # 30 tablet, 5 Refills, Maintenance, 05/02/24 9:26:00 AM EDT, Tablet, [facility]/pharmacy #[id number], Partial fill upon patient request [...] Refills, Maintenance, 05/02/24 9:25:00 AM EDT, Tablet, [facility]/pharmacy #[id number], this is an increase, 180, cm, 05/02/24 8:58:00 EDT, Height, 95.5, kg, 05/02/24 8:58:00 EDT, Dry Weight Start Date: 05/02/24 Status: Ordered Quantity: 30.0 Unit: tablet Repeat number: 12 traZODone 50 mg oral tablet 1, tablet, By Mouth, Daily at bedtime, # 30 tablet, Refills 3, Maintenance, 05/20/24 5:31:00 PM EDT, Route to Pharmacy Electronically, [facility] STORE [id number], 180, cm, 05/02/24 8:58:00 EDT, Height, 95.5, [...] ventricle with trace to mild 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/13 Active Glucose intolerance Confirmed 02/26/11 Active History [...] elbow of right upper extremity Confirmed Active Vital Signs Most recent to oldest [Reference Range]: 1 2 Height 180 cm (06/19/24 10:52 AM) 180 cm (06/19/24 10:31 AM) Weight 93.9 kg (06/19/24 10:31 AM) Oxygen Saturation [94-100 %] 96 % (06/19/24 10:31 AM) Pulse Rate [55-90 bpm] 76 bpm (06/19/24 10:31 AM) Body Mass Index [18.5-24.99 kg/m2] 28.98 kg/m2 *H* (06/19/24 10:31 AM) Blood Pressure [90-138/55-84 mm Hg] 130/ 78mm Hg (06/19/24 10:52 AM) 151/79mm Hg *H* (06/19/24 10:31 AM) Mode of Delivery (Oxygen) Room air (06/19/24 10:31 AM) Blood pressure sites Arm, left (06/19/24 10:31 AM) Dry Weight 93.9 kg (06/19/24 10:31 AM) Weight Obtained Via Standing scale (06/19/24 10:31 AM) Social History Social History Type Response Smoking Status Never smoker entered on: 07/22/13 Sex Sex Representation Male (finding) Note * Sanjana Culver: PERFORM Event Display: Patient Education/Instruction Authored Date: [id number] Ambulatory Adult Visit Summary [facility] [address] [place] [address] Name: PAUL NUNES : 1945?? Visit: 06/19/2024 10:15?? Ambulatory Visit Instructions ?? Your Care Team Primary Care Provider Mohsen Boles MD? 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 Scheduled Follow-Up Appointments Monday 3:40 PM EST ?? With: Mohsen Boles MD Where: [facility] [address] [place] [address]- Status: Pending Medications The list below reflects the information in our records and provided by you today along with any changes made during this visit. Please continue your medications until treatment is completed or stopped by your provider. If this is different from the information you have or there are other questions,please contact the prescribing provider. What How Much When Instructions Unchanged Acetaminophen (Tylenol Arthritis Extended Release) 1,300 Milligram Oral Every 8 hours Unchanged Aspirin (Aspirin Low Dose 81 mg oral delayed release tablet) See instructions TAKE 1 TABLET BY MOUTH EVERY DAY ?? Unchanged Atorvastatin (atorvastatin 40 mg oral tablet) 1 tab(s) Oral Daily Unchanged Lisinopril (lisinopril 40 mg oral tablet) 1 tab(s) Oral Daily Unchanged Meloxicam (meloxicam 7.5 mg oral tablet) 1 tab(s) Oral Daily Unchanged Sertraline (sertraline 100 mg oral tablet) 1 tab(s) Oral Daily Unchanged Trazodone (traZODone 50 mg oral tablet) 1 tab(s) Oral Daily at Bedtime Medications and Immunizations Administered Medications Given During Visit No medications given during this visit.?? Allergies (NKA means No Known Allergies) benzonatate??(headache) penicillin??(swelling) Common Emergency Awareness Tips IS IT A STROKE? Act FAST and Check for these signs: FACE Does the face look uneven? ARM Does one arm drift down? SPEECH Does their speech sound strange? TIME Call at any sign of stroke ?? Heart Attack Signs Chest discomfort: Most heart attacks involve discomfort in the center of the chest and lasts more than a few minutes, or goes away and comes back. It can feel like uncomfortable pressure, squeezing, fullness or pain. Discomfort in upper body: Symptoms can include pain or discomfort in one or both arms, back, neck, jaw or stomach. Shortness of breath: With or without discomfort. Other signs: Breaking out in a cold sweat, nausea, or lightheaded. Remember, MINUTES DO MATTER. If you experience any of these heart attack warning signs, call to get immediate medical attention! ?? Smoking can increase your chances of developing chronic health problems and can cause harmful effects to other family members in your house. If you smoke, you are strongly encouraged to quit. Please call [employer] [place] Link at [phone] or [phone] ([phone]) or log in to [email or web address] for referrals to smoking cessation programs. ?? The National Suicide Prevention Hotline is available 13/02 if you or someone you know needs to find a reason to keep living. By calling 9-191-358-[employer] (2600) you'll be connected to a skilled, trained counselor at a crisis center in your area. [facility] [employer] Portal You can view and manage your care through the patient portal or by using a health care jennifer of your choosing. [employer] is a website that allows you to securely view your medical information including your hospital discharge summary, office visit summaries, medications and follow-up visits. You can also request appointments, renew medications, and request access to your medical information using a health care jennifer of your choosing, or just ask a question. You can enroll at [email or web address] or register during your next office visit. [facility], in keeping with [facility] guidance, no longer requires face masks for staff, patientsor visitors in most situations. Similiar to time spent indoors at other locations, there is the chance that you were exposed to repiratory viruses during your time with us (such as flu or COVID-19). If you develop symptoms concerning for a viral respiratory infection, please seek testing (and treatment if indicated) from your medical provider or home test kit. ?? Disclaimer: The information provided is of a general nature and is intended to be used in conjunction with the recommendations and advice of your health care practitioner. Every effort has been made to ensure that the information provided is accurate and complete at the time it is provided to you however, as your needs change, or, as new information becomes available, different or additional instructions may be required. ?? If you have questions, please consult with your primary care provider or pharmacist, as appropriate. This information is not intended to serve as substitution for assessment and evaluation by a qualified health care provider. If you do not have a primary care provider, you may find a [facility] provider by calling [facility] at [phone]. Patient Care team information Care Team Personnel Name: Shad Garcia RN Position: [facility] RN Member Role: Primary Care Nurse Name: Mohsen Boles MD Position: [facility] Physician - Primary Care Member Role: PCP Address: [address] [place] [address] Adult [facility] Pediatric [address] Telecom: Care Team Related Persons Name: PEYTON FONTENOT Name: CLAUDIA NUNES Name: JOSE NUNES Insurance Providers Guarantor name: PAUL NUNES Health Plan Information #: 1 Payer: [facility] [employer] Member Number: [id number] Policy Number: NA Group Number: [id number] Health Plan Information #: 2 Payer: [facility] [employer] Member Number: [id number] Policy Number: NA Group Number: [id number]
--- OUTSIDE RECORDS SUMMARY | 2024-07-03 05:05 | XMS_ITS | Continuity of Care Document ---
Author Organization [place] [facility] [place] Address [address] [place] [address] Care Team Providers Care Business Excellence Manager Name Role Phone JANICE REED Referring Provider Unavailable ARABELLA BREEN OTHER Assessment Encounter Date Assessment Date Assessment LastModified by Organization Details LastModified Time 04/11/2024 04/11/2024 79-year-old felt to be generally [...] type disease and should be evaluated by professional poker player . He lives in the [place] area and is interested in finding a professional poker player near his home. We make the appropriate referral. In anticipation of seeing the professional poker player will order laboratory studies as noted below. He will follow-up with us on an as-needed basis [email or web address] Not available 04/11/2024 17:03:45 Plan of Treatment Reminders Order Date Submit Date Provider Last Modified By Organization Details Last Modified Time Details Appointments None recorded. Lab rf (rheumatoid factor) + anti-ccp abs, serum 2023 024 BILL Not available 4 13:46:47 TSH, serum or plasma 2023 024 [email or web address] Not available 4 11:29:48 uric acid, serum or plasma 2023 024 [email or web address] Not available 4 11:29:48 CBC w/ diff 2023 024 BILL Not available 4 13:46:47 C reactive protein, QN, serum or plasma 2023 024 BILL Not available 4 13:46:47 ESR (erythrocyt e sedimentati on rate), blood 2023 024 BILL Not available 4 13:46:47 lyme disease Ab, serum 2023 024 BILL Not available 4 13:46:47 Referral rheumatolog ist referral - Wide spread body pain. Normal X-rays,MRI. ?? Inflammator y arthritis?? 2023 024 [email or web address] Arabella Breen MD, [address] , [place], [address], 4 17:15:27 Procedures None recorded. Surgeries None recorded. Imaging None recorded. Medication Orders None recorded. Patient TargetsNo targets recorded. Patient InstructionsNo instructions recorded. Reason for Referral [facility] Referral for Total body pain syndrome Wide spread body pain. Normal X-rays,MRI. ?? Inflammatory arthritis?? Referring Physician: Zachery Hernandez, Orthopedic Surgery, Encounter Date: 04/11/2024 Results Created Date Observation Date Name Description Value Unit Range Abnormal Flag Note LastModifiedBy Organization Detail LastModifiedTime 04/04/20 24 04/02/2024 MRI, lumba r spine , w/o contr ast No observ ation record ed. [email or web address] Maria Mri [address] [place], [address], 04/04/2024 14:14:32 Result Notes None recorded. 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 Procedures Surgical History Date Name Laterality Status Provider Name and Address Organization Details Recorded Time Shoulder Surgery completed [facility] [place] [facility] 02/01/2024 12:06:54 Knee Surgery completed [facility] [place] [facility] 02/01/2024 12:07:00 Imaging Results None recorded. Procedure Notes None recorded. Medical Equipment None [...] Available Not Available No t Available Vitals None Recorded Social History Question Answer Notes LastModified by Organizat ion Details LastModified Time Tobacco Smoking Status Never Smoker Renetta Fredy [place], [place] - [facility], 02/01/2024 12:06:26 What Is Your Level Of Alcohol Consumption? Moderate [email or web address] Information not available 02/01/2024 How Many Times Per Week Do You Consume Alcohol? 3-4 Times Per Week [email or web address] Information not available 02/01/2024 Do You Use Any Illicit Or Recreational Drugs? Yes [email or web address] Information not available 03/11/2024 Do You Or Have You Ever Used Any Other Forms Of Tobacco Or Nicotine? No [email or web address] Information not available 02/01/2024 Sex: Unknown Functional Status None recorded. Mental Status None recorded. Family History Nothing Reported. Medical History Condition Response Cancer Y Hypertension Y Past Encounters Encounter ID Performer Location Encounter Start Date Encounter Closed Date Diagnosis/Indication Diagnosis SNOMED-CT Code Diagnosis ICD10 Code [id number] Jose Kiran MD [address] [address] 03/11/2024 10:31:19 03/11/2024 11:22:02 Pain in right hip joint 7571036468 78669 M25.551 Hip pain 55777095 M25.55 2 [id number] Zachery Hernandez MD [address] [address] 03/27/2024 13:50:16 03/27/2024 14:43:09 Low back pain 322078716 M54.50 Lumbar spondylosis 10179 0009 M47.816 [id number] MD MAGALY Lubin [address] [place], [place] [address] [address] 04/11/2024 15:30:02 04/11/2024 16:31:06 Total body pain syndrome 923919394 R52 Health Concerns Section Related Observation LastModified by Organization Detai ls LastModified Time None Recorded Concern Status LastModified by Organization Details LastModified Time None Recorded Payers Encounter Date Sequence Insurance Name Policy Number Policy Blevins Covered Member ID Blevins Member ID Guarantor Name 04/11/2024 1 [facility] - MEDICARE ADVANTAGE PLAN (MEDICARE REPLACEMENT HMO) [id number] Negro Salinas [id number] Negro Salinas
--- OUTSIDE RECORDS SUMMARY | 2024-07-03 05:06 | XMS_ITS | Continuity of Care Document ---
Author Organization [place] - [facility] [address] [place] [address] Care Team Providers Care Bufferer Name Role Phone JANICE REED Primary Care Provider Assessment Encounter Date Assessment Date Assessment LastModified by Organization Details LastModified Time 05/08/2024 05/08/2024 A: See Eval P: 2xwk 6wk [email or web address] Not available 05/06/2024 19:26:04 Plan of Treatment Reminders Order Date Submit Date Provider Last Modified By Organization Details Last Modified Time Details Appointments NEW PATIENT 20 2024 10:20A M Nilo Garcia MD Not available Not available Not available RECHECK 15 2024 09:15A M Ghazala Medrano PA-C Not available Not available Not available Lab None recorded . Referral None recorded . Procedures None recorded . Surgeries None recorded . Imaging None recorded . Medication Orders None recorded . 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 -481783 Not available Not available Not available USP goal of Left Ankle/Foot Strength -974108 Not available Not available Not available USP goal of Left Ankle/Foot Strength -396067 Not available Not available Not available USP goal of Left Ankle/Foot Strength -539345 Not available Not available Not available 3 weeks of Walking up or down stairs NOTE Not available Not available Not available USP goal of Walking up or down stairs -835473 Not available Not available Not available 3 weeks of Ankle ROM Left -293573 Not available Not available Not available 3 weeks of Ankle ROM Left -766493 Not available Not available Not available 3 weeks of Ankle ROM Left -731502 Not available Not available Not available 3 weeks of Ankle ROM Left -582627 Not available Not available Not available USP goal of Ankle ROM Left -642889 Not available Not available Not available 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 [email or web address] Not available 05/08/2024 17:58:20 Patient InstructionsNo instructions recorded. Reason for Referral None Reported. Problems Name Problem SNOMED Code Status Onset Date Resolution Date Notes Provider Name and Address Organization Details Recorded Time Tear of lateral meniscus of knee 298499439 Active 2015 Problem Code: S83.271A ; Problem Code Type: ICD-10; Status: 'A'; Not Available Formerly [facility] 4 11:59:13 Spasm 25155933 Active 2018 Problem Code: R25.2; Problem Code Type: ICD-10; Status: 'A'; Not Available [facility] 4 11:59:13 Problem Notes None recorded. Procedures Surgical History Date Name Laterality Status Provider Name and Address Organization Details Recorded Time 05/23/20 Hip Kenalog 1cc Injection, L/R completed Ramsey Roach MD [address], [place], [address], [facility] 05/23/2024 17:43:54 05/20/20 24 19394 Therapeutic Exercise (1:1) completed Gil Pereira PTA [address], [place], [address], [facility] 05/20/2024 16:16:50 05/20/20 03721: Hot or Cold Pack completed Gil Pereira, [employer] [address], [place], [address], [facility] 05/17/2024 16:20:49 05/17/20 16532 Therapeutic Exercise (1:1) completed Gil Pereira, GRE[employer]UMBER [address], [place], [address], [facility] 05/17/2024 16:17:37 05/17/20 91488: Hot or Cold Pack completed Gil Pereira, GREEN PLUMBER [address], [place], [address], [facility] 05/17/2024 16:18:55 05/17/20 04620: Ultrasound completed Gil Pereira, GRE[employer]UMBER [address], [place], [address], [facility] 05/16/2024 14:10:17 05/15/20 45892 Therapeutic Exercise (1:1) completed Negro Louie, PT [address], [place], [address], [facility] 05/15/2024 17:16:28 05/15/20 39015: Ultrasound completed Negro Louie, PT [address], [place], [address], [facility] 05/15/2024 17:18:11 05/15/20 86289: Manual therapy completed Negro Louie, PT [address], [place], [address], [facility] 05/15/2024 17:16:36 05/08/20 65315 Therapeutic Exercise (1:1) completed Negro Louie, PT [address], [place], [address], [facility] 05/08/2024 17:55:08 05/08/20 32018: Low complexity PT Eval completed Negro Louie, PT [address], [place], [address], [facility] 05/06/2024 19:24:50 11/24/19 24 Hip Kenalog 1cc Injection, Bilateral completed Ramsey Roach MD [address], [place], [address], [facility] 11/24/2023 12:49:22 [facility]/03/[facility] Ned Botello [facility]-C [address], [place], [address], [facility] 11/03/2023 13:23:35 10/19/19 24 70351 Therapeutic Exercise (1:1) completed Alyse Haywodo PTA [address], [place], [address], [facility] 10/19/2023 10:57:43 10/17/19 24 80557 Therapeutic Exercise (1:1) completed Alyse Haywood PTA [address], [place], [address], [facility] 10/17/2023 11:12:56 10/12/19 24 08396 Therapeutic Exercise (1:1) completed Edgar Krishna DPT [address], [place], [address], [facility] 10/11/2023 20:23:25 10/10/19 24 54344 Therapeutic Exercise (1:1) completed Edgar Krishna DPT [address], [place], [address], [facility] 10/09/2023 20:08:30 10/06/19 24 20002 Therapeutic Exercise (1:1) completed Edgar Krishna DPT [address], [place], [address], [facility] 10/06/2023 10:28:11 10/04/19 24 06653 Therapeutic Exercise (1:1) completed Edgar Krishna DPT [address], [place], [address], [facility] 10/04/2023 15:18:09 incision of prostate completed [facility] 10/13/2023 10:19:04 Knee Surgery completed [facility] 10/13/2023 10:19:10 Shoulder Surgery completed [facility] 10/13/2023 10:19:15 Hand Surgery completed [facility] 10/13/2023 10:19:20 Head or Neck Surgery completed [facility] 10/13/2023 10:19:27 Imaging Results None recorded. Procedure Notes None recorded. Medical Equipment None Reported. Allergies Allergen ID Allergen Name Allergen Category Reaction Reaction Severity Criticality Documentation Date Start Date Code Code System Note Provider Name and Address Organization Details Recorded Time 048216 Medicinal product containin g penicilli n and acting as antibacte rial agent (product) medicatio n Not available Not available Not available 09/25/20232006 67614 05 SNOMED Aller gyRea ction : 'Skin React ion, rash' ; Not Available [facility] 15:39:03 Medications Name Sig Start Date Stop Date Status Note LastModified by Organization Details LastModified Time celecoxib 200 mg capsule TAKE 1 CAPSULE BY MOUTH EVERY DAY 05/23 completed Not Available Not Available Not Available atorvastati n 40 mg tablet TAKE 1 TABLET BY MOUTH EVERY DAY active Not Available Not Available No t Available trazodone 50 mg tablet TAKE 1 TABLET BY MOUTH EVERYDAY AT BEDTIME active Not Available Not Available No t Available meloxicam 15 mg tablet TAKE 1 TABLET BY MOUTH EVERY DAY 05/23 completed Not Available Not Available Not Available doxycycline hyclate 50 mg capsule TAKE 1 CAPSULE BY MOUTH TWICE A DAY 05/23 completed Not Available Not Available Not Available sertraline 100 mg tablet TAKE 1 TABLET BY MOUTH EVERY DAY active Not Available Not Available No t Available aspirin 81 mg tablet,lacey yed release TAKE 1 TABLET BY MOUTH EVERY DAY active Not Available Not Available No t Available tramadol 50 mg tablet TAKE 1 TO 2 TABS BY MOUTH EVERY 6 HOURS NEEDED FOR PAIN DO NOT DRIVE WHILE TAKING THIS MEDICATIO N 10/26 completed Not Available Not Available Not Available sildenafil 100 mg tablet PLEASE SEE ATTACHED FOR DETAILED DIRECTION S active Not Available Not Available No t Available meloxicam 7.5 mg tablet TAKE 1 TABLET BY MOUTH EVERY DAY 05/23 completed Not Available Not Available Not Available pseudoephed rine-guaife nesin ER 80-700 mg tablet,exte nded release DO NOT DRIVE WHILE ON THIS MEDICATIO N 10/18 completed Statu s: 'Disc ontin ued'; Not Available Not Available Not Available codeine 10 mg-guaifene sin 100 mg/5 mL oral liquid TAKE 5ML BY MOUTH EVERY 4 HOURS NEEDED FOR COUGH 11/02 completed Not Available Not Available Not Available lisinopril 40 mg tablet TAKE 1 TABLET BY MOUTH EVERY DAY active Not Available Not Available No t Available sertraline 50 mg tablet TAKE 1 TABLET BY MOUTH EVERY DAY active Not Available Not Available No t Available oxycodone 5 mg tablet TAKE ONE TAB THREE TIMES A DAY DO NOT DRIVE WHILE TAKING THIS MEDICATIO N 10/26 completed Not Available Not Available Not Available neomycin 3.5 mg/g-polymy desmond B 10,000 unit/g-dexa meth 0.1 % eye oint APPLY TO LEFT EYE THREE TIMES A DAY active Not Available Not Available No t Available pregabalin 75 mg capsule TAKE 1 CAPSULE BY MOUTH AT BEDTIME 05/23 completed Not Available Not Available Not Available fluticasone propionate Fluticaso ne Propionat e 0.005% Ointment 10/18 completed Statu s: 'Disc ontin ued'; Not Available Not Available Not Available diclofenac 1 % topical gel DIRECTED APPLY 3-4 GRAMS TO AFFECTED AREA 3X DAILY active Not Available Not Available No t Available oxycodone HCl-oxycodo ne-ASA take one tab three times a dayDO NOT DRIVE WHILE TAKING THIS MEDICATIO N 05/23 completed Statu s: 'Curr ent'; Not Available Not Available Not Available Vitals None Recorded Social History Question Answer Notes LastModified by Organizat ion Details LastModified Time Tobacco Smoking Status Never Smoker MANASA white [place] - [facility] 10/13/2023 10:18:39 What Is Your Level Of Alcohol Consumption? Moderate Information not available 10/13/2023 How Many Times Per Week Do You Consume Alcohol? 5-7 Times Per Week Information not available 10/13/2023 Have You Ever Been Counseled For Unhealthy Alcohol Use? No Information not available 10/13/2023 Do You Use Any Illicit Or Recreational Drugs? No Information not available 10/13/2023 Do You Or Have You Ever Used Any Other Forms Of Tobacco Or Nicotine? No Information not available 10/13/2023 Sex: Unknown Functional Status None recorded. Mental Status None recorded. Family History Nothing Reported. Medical History Condition Response Coronary Artery Disease N Anxiety/Depression N Emphysema N COPD N Pacemaker N Vascular Disease N Gastrointestinal Disease N Autoimmune disease N Orthotics N Arthritis N Blood Clot N Acid Reflux (GERD) N Cancer N Stroke N Rheumatoid Arthritis N Arrhythmia N Fibromyalgia N Allergies/Hayfever N Thyroid Problems N Anemia N Kidney/Bladder Problems N Heart Attack ([place]) N Diabetes N Bleeding Disorder Y Seizures/Epilepsy N AIDS/HIV N Congestive Heart Failure (CHF) N Asthma N Peripheral Vascular Disease N Sleep Apnea N Hepatitis N Heart Disease N Pulmonary Embolism N Hypertension Y Osteoporosis N Past Encounters Encounter ID Performer Location Encounter Start Date Encounter Closed Date Diagnosis/Indication Diagnosis SNOMED-CT Code Diagnosis ICD10 Code [id number] MD [facility] [address] [place] [address] 05/02/2024 12:32:42 05/28/2024 11:53:21 Bilateral plantar fasciitis 0533885280 7092203 M72.2 Tightness of left gastrocnemius muscle 7761862499 6693379 R29.898 Tightness of right gastrocnemius muscle 5614818260 2613675 R29.035 [id number] MARCY Spangler PT [address] [place] [address] 05/08/2024 16:42:48 05/08/2024 17:58:46 Plantar fasciitis 058761999 M72.2 Health Concerns Section Related Observation LastModified by Organization Detai ls LastModified Time None Recorded Concern Status LastModified by Organization Details LastModified Time None Recorded Payers Encounter Date Sequence Insurance Name Policy Number Policy Blevins Covered Member ID Blevins Member ID Guarantor Name 05/08/2024 1 [facility] [id number] Negro Salinas [id number] Nergo Salinas Notes Date Note Type Note Provider Name and Address Organization Details Recorded Time 05/08/2024 text/html Pt states that his feet started bothering him about 15 years ago. Over the past two years it worsened. Pain is 0/10 now. Pain is 15/10 at its worst. It is worse in the morning. He is using a spc. His left foot is worse than his right. He limps all the time. He ascends/descends stairs one at a time. Negro Louie, PT [address], [place], [address], [facility] [place] [facility] 05/08/2024 17:58:39
--- OUTSIDE RECORDS SUMMARY | 2024-07-03 05:06 | XMS_ITS | Continuity of Care Document ---
Author Organization [facility] Clinical Address [address] [place] [address] Care Team Providers Care Admitting Representative Name Role Phone JANICE REED Primary Care Provider Assessment No assessment recorded. Plan of Treatment Reminders Order Date Submit [...] . Medication Orders None recorded . Patient TargetsNo targets recorded. Patient InstructionsNo instructions recorded. Reason for Referral None Reported. Problems Name Problem SNOMED Code Status Onset Date Resolution Date Notes Provider Name and Address Organization Details Recorded Time Tear of lateral meniscus of knee 706296226 Active 2015 Problem Code: S83.271A ; Problem Code Type: ICD-10; Status: 'A'; Not Available [facility] 4 11:59:13 Spasm 15728873 Active 2018 Problem Code: R25.2; Problem Code Type: ICD-10; Status: 'A'; Not Available [facility] 4 11:59:13 Problem Notes None recorded. Procedures Surgical History Date Name Laterality Status Provider Name and Address Organization Details Recorded Time 05/23/20 24 Hip Kenalog 1cc Injection, L/R completed Ramsey Roach MD [address] [facility], [place], [address], [facility] 05/23/2024 17:43:54 05/20/20 24 76358 Therapeutic Exercise (1:1) completed Gil Pereira, FILBERT GROWER [address], [place], [address], [facility] 05/20/2024 16:16:50 05/20/20 96737: Hot or Cold Pack completed Gil Pereira, FILBERT GROWER [address], [place], [address], [facility] 05/17/2024 16:20:49 05/17/20 33674 Therapeutic Exercise (1:1) completed Gil Pereira, FILBERT GROWER [address], [place], [address], [facility] 05/17/2024 16:17:37 05/17/20 35355: Hot or Cold Pack completed Gil Pereira, FILBERT GROWER [address], [place], [address], [facility] 05/17/2024 16:18:55 05/17/20 32234: Ultrasound completed Gil Pereira, FILBERT GROWER [address], [place], [address], [facility] 05/16/2024 14:10:17 05/15/20 30479 Therapeutic Exercise (1:1) completed Negro Louie, PT [address], [place], [address], [facility] 05/15/2024 17:16:28 05/15/20 04781: Ultrasound completed Negro Louie PT [address], [place], [address], [facility] 05/15/2024 17:18:11 05/15/20 46208: Manual therapy completed Negro Louie PT [address], [place], [address], [facility] 05/15/2024 17:16:36 05/08/20 84597 Therapeutic Exercise (1:1) completed Negro Louie PT [address], [place], [address], [facility] 05/08/2024 17:55:08 05/08/20 42382: Low complexity PT Eval completed Negro Louie, PT [address], [place], [address], [facility] 05/06/2024 19:24:50 11/24/19 Hip Kenalog 1cc Injection, Bilateral completed Ramsey Roahc MD [address], [place], [address], [facility] 11/24/2023 12:49:22 11/03/19 24 JZHip completed Ned Botello PA-C [address], [place], [address], [facility] 11/03/2023 13:23:35 10/19/19 93159 Therapeutic Exercise (1:1) completed Alyse Haywood PTA [address], [place], [address], [facility] 10/19/2023 10:57:43 10/17/19 69367 Therapeutic Exercise (1:1) completed Alyse Haywood PTA [address], [place], [address], [facility] 10/17/2023 11:12:56 10/12/19 75151 Therapeutic Exercise (1:1) completed Edgar Krishna DPT [address], [place], [address], [facility] 10/11/2023 20:23:25 10/10/19 80411 Therapeutic Exercise (1:1) completed Edgar Krishna DPT [address], [place], [address], [facility] 10/09/2023 20:08:30 10/06/19 20340 Therapeutic Exercise (1:1) completed Edgar Krishna DPT [address], [place], [address], [facility] 10/06/2023 10:28:11 10/04/19 24 67672 Therapeutic Exercise (1:1) completed Edgar Krishna DPT [address], [place], [address], [facility] 10/04/2023 15:18:09 incision of prostate completed [facility] 10/13/2023 10:19:04 Knee Surgery completed [facility] 10/13/2023 10:19:10 Shoulder Surgery completed [facility] 10/13/2023 10:19:15 Hand Surgery completed [facility] 10/13/2023 10:19:20 Head or Neck Surgery completed [facility] 10/13/2023 10:19:27 Imaging Results None recorded. Procedure Notes None recorded. Medical Equipment None Reported. Allergies Allergen ID Allergen Name Allergen Category Reaction Reaction Severity Criticality Documentation Date Start Date Code Code System Note Provider Name and Address Organization Details Recorded Time 168231 Medicinal product containin g penicilli n and acting as antibacte rial agent (product) medicatio n Not available Not available Not available 09/25/20232006 35924 05 SNOMED Aller gyRea ction : 'Skin React ion, rash' ; Not Available [facility] 15:39:03 Medications Name Sig Start Date Stop [...] Not Available Not Available Not Available Vitals Date Recorded Body height Body mass index (BMI) Body weight Provider Name and Address Organization Details Last Updated DateTime 05/23/2024 177.8 cm 30.1 kg/m2 41217.4 g Tonja garza [facility] 05/23/2024 10:20:08 Social History Question Answer Notes LastModified by Organizat ion Details LastModified Time Tobacco Smoking Status Never Smoker MANASA BROOKS cindy [facility] [place] [facility] 10/13/2023 10:18:39 What Is Your Level Of [...] Anemia N Kidney/Bladder Problems N Heart Attack ([place]) N Diabetes N Bleeding Disorder Y Seizures/Epilepsy N AIDS/HIV N Congestive Heart Failure (CHF) N Asthma N Peripheral Vascular Disease N Sleep Apnea N Hepatitis N Heart Disease N Pulmonary Embolism N Hypertension Y Osteoporosis N Past Encounters Encounter ID Performer Location Encounter Start Date Encounter Closed Date Diagnosis/Indication Diagnosis SNOMED-CT Code Diagnosis ICD10 Code [id number] MD Sabina Panchal Clinical [address] [place] [address] 05/02/2024 12:32:42 05/28/2024 11:53:21 Bilateral plantar fasciitis 4015924817 1845351 M72.2 Tightness of left gastrocnemius muscle 7079886022 1979272 R29.898 Tightness of right gastrocnemius muscle 9459892702 9883555 R29.183 [id number] MARCY Spangleron PT [address] [address] 05/08/2024 16:42:48 05/08/2024 17:58:46 Plantar fasciitis 066523849 M72.2 [id number] Negro Louie, PT Ang PT [address] [place] [address] 05/15/2024 16:26:09 05/15/2024 17:18:47 Plantar fasciitis 937394901 M72.2 [id number] Negro Louie, PT Ang PT [address] [place] [address] 05/17/2024 14:55:45 05/17/2024 16:19:59 Plantar fasciitis M72.2 [id number] Negro Louie, PT Ang PT [address] [facility] [place] [address] 05/20/2024 15:26:16 05/20/2024 16:17:42 Plantar fasciitis 116092477 M72.2 [id number] Ramsey Roach MD [facility] Clinical [address] [place] [address] 05/23/2024 09:43:38 06/15/2024 06:31:59 Osteoarthritis of right hip joint 3097937240 73714 M16.11 Health Concerns Section Related Observation LastModified by Organization Detai ls LastModified Time None Recorded Concern Status LastModified by Organization Details LastModified Time None Recorded Payers Encounter Date Sequence Insurance Name Policy Number Policy Blevins Covered Member ID Blevins Member ID Guarantor Name 05/23/[address] [place] [address] [id number] Negro Salinas [id number] Negro Salinas Notes Date Note Type Note Provider Name and Address Organization Details Recorded Time 05/23/2024 text/html Chief complaint: Right hip painInterval history: Patient following up today for his right hip. We last discussedover telemedicine visit in November 2023. He continues to have complaints of severe pain to the right lateral hip, posterior hip, groin, and lower back. He has been attending physical therapy for left foot plantar fasciitis which was stopped secondary to his hip pain. He recently saw a spine surgeon in [place]. MRI of the lumbar spine obtained demonstrating degenerative changes greatest at L3-L4 with moderate stenosis. He reports spine surgeon recommended nonoperative treatment, referral to rheumatology, and to have evaluation for possible hip replacement. Physical examAmbulates with a Trendelenburg gait Unable to perform single leg squat. Pain with single leg stance with pelvic tilt bilaterally.SIDE: RightINSPECTION: No swelling, ecchymosis, or muscle atrophy of the hipPALPATION: Positive tenderness to palpation over the posterolateral aspect of the greater trochanter Positive tenderness to palpation over the ischial gluteal bursaROM:Supine hip flexion: 90 degreesInternal rotation: 20degreesExternal rotation.20DegreesMil d pain with passive hip range of motion.FADIR: NegativeFABER:. NegativeOBER: NegativeTHOMAS: NegativeLogroll: NegativeSTRENGTH: 5/5 strength to resisted straight leg raise bilateral. 5/5 strength resisted hip abduction with pain Imaging previously reviewed:X-rays AP pelvis, false profile view, and 45?? Otoole view of the bilateral hip shows: Bilateral hip osteoarthritis with joint space narrowing and sclerosisMRI bilateral hips have been obtained on July 22, 2023. Images and report independent reviewedRight: It is not reported however my interpretration there is a partial thickness tear involving gluteus medius and minimus with tendinosis of gluteus medius and minimus. There is atrophy and fatty infiltration of anterior gluteus minimus. Right hip arthritis diffuse chondral thinning hip joint. MRI lumbar spine obtained on April 02, 2024, images and report independently reviewed demonstrating multilevel degenerative changes greatest at L3-L4 with central stenosis and crowding of the left side L4 traversing nerve rootImpression: 1. Right hip osteoarthritis 2. Greater trochanteric pain syndrome 3. Lower back pain/lumbar radiculopathy Plan: We had another long discussion with the patient and his today. He has complaints of pain multiple areas likely secondary to multiple etiologies including right hip arthritis, trochanteric bursitis/abductor tendinosis/partial tear, and spinal stenosis. He recently saw spine surgeon in [place] who recommended nonsurgical care for his spine. He has been referred for rheumatology evaluation which is pending. In regards to his hip symptoms, he has right hip arthritis and remains symptomatic despite extensive conservative management. He may benefit from total hip arthroplasty which should improve any potential pain from the hip joint. We did discuss that he may continue to have lateral hip symptoms. If we were not a candidate for total hip arthroplasty or did not wish to have the surgery, we did discuss role for right hip trochanteric bursectomy, IT band lengthening, and abductor tendon repair. We are going to refer the patient to Dr. Garcia to discuss hip replacement. Repeat right hip trochanteric bursa steroid injection was administered today. Follow-up with me can be arranged as needed after discussion for hip replacement. Ramsey Roach MD [address] [place], [place] [address], [place], [address], [facility] [place] [facility] 05/23/2024 17:44:16
--- OUTSIDE RECORDS SUMMARY | 2024-07-03 05:06 | XMS_ITS | Continuity of Care Document ---
Author Organization [place] [facility] [place] [facility] [address] [place] [address] Care Team Providers Care Charting Clerk Name Role Phone MADELAINEAUDRA JANICE Primary Care Provider Assessment Encounter Date Assessment Date Assessment LastModified by Organization Details LastModified Time 05/20/2024 05/20/2024 A: Pt is unable to progress 2/2 to R hip pain. Pt experience more pain with exercises. Pt agreed to DC bc therapy is not helping and only exacerbating symptoms. P: cont Progress to tolerance. Pt DC [email or web address] Not available 05/20/2024 16:16:03 Plan of Treatment Reminders Order Date Submit [...] Time Tear of lateral meniscus of knee 246258548 Active 2015 Problem Code: S83.271A ; Problem Code Type: ICD-10; Status: 'A'; Not Available [facility] 4 11:59:13 Spasm 92352033 Active 2018 Problem Code: R25.2; Problem Code Type: ICD-10; Status: 'A'; Not Available [facility] 4 11:59:13 Problem Notes None recorded. Procedures Surgical History Date Name Laterality Status Provider Name and Address Organization Details Recorded Time 05/23/20 Hip Kenalog 1cc Injection, L/R completed Ramsey Roach MD [address], [place], [address], [facility] 05/23/2024 17:43:54 05/20/20 84183 Therapeutic Exercise (1:1) completed Gil Pereira PTA [address], [place], [address], [facility] [employer] [facility] 05/20/2024 16:16:50 05/20/20 36711: Hot or Cold Pack completed Gil Pereira PTA [address], [place], [address], [facility] 05/17/2024 16:20:49 05/17/20 55309 Therapeutic Exercise (1:1) completed Gil Pereira PTA [address], [place], [address], [facility] [employer] [facility] 05/17/2024 16:17:37 05/17/20 31582: Hot or Cold Pack completed Gil Pereira PTA [address], [place], [address], [facility] [employer] [facility] 05/17/2024 16:18:55 05/17/20 67297: Ultrasound completed Gil Pereira PTA [address], [place], [address], [facility] 05/16/2024 14:10:17 05/15/20 62665 Therapeutic Exercise (1:1) completed Negro Louie, PT [address], [place], [address], [facility] 05/15/2024 17:16:28 05/15/20 53520: Ultrasound completed Negro Louie, PT [address], [place], [address], [facility] 05/15/2024 17:18:11 10/23/20 24 08122: Manual therapy completed Negro Louie, PT [address], [place], [address], [facility] 05/15/2024 17:16:36 05/08/20 24 73326 Therapeutic Exercise (1:1) completed Negro Louie, PT [address], [place], [address], [facility] 05/08/2024 17:55:08 05/08/20 13766: Low complexity PT Eval completed Negro Louie, PT [address], [place], [address], [facility] 05/06/2024 19:24:50 11/24/19 Hip Kenalog 1cc Injection, Bilateral completed Ramsey Roach MD [address], [place], [address], [facility] 11/24/2023 12:49:22 11/03/19 24 [facility] completed Ned Botello PA-C [address], [place], [address], [facility] 11/03/2023 13:23:35 10/19/19 24 19521 Therapeutic Exercise (1:1) completed Alyse Haywood PTA [address], [place], [address], [facility] 10/19/2023 10:57:43 10/17/19 24 59047 Therapeutic Exercise (1:1) completed Alyse Haywood PTA [address], [place], [address], [facility] 10/17/2023 11:12:56 10/12/19 24 66107 Therapeutic Exercise (1:1) completed Edgar Krishna DPT [address], [place], [address], [facility] 10/11/2023 20:23:25 10/10/19 24 52715 Therapeutic Exercise (1:1) completed Edgar Krishna DPT [address], [place], [address], [facility] 10/09/2023 20:08:30 10/06/19 24 54080 Therapeutic Exercise (1:1) completed Edgar Krishna DPT [address], [place], [address], [facility] 10/06/2023 10:28:11 10/04/19 24 09990 Therapeutic Exercise (1:1) completed Edgar Krishna DPT [address], [place], [address], [facility] 10/04/2023 15:18:09 incision of prostate completed [facility] 10/13/2023 10:19:04 Knee Surgery completed [facility] 10/13/2023 10:19:10 Shoulder Surgery completed [facility] 10/13/2023 10:19:15 Hand Surgery completed [facility] 10/13/2023 10:19:20 Head or Neck Surgery completed [facility] 10/13/2023 10:19:27 Imaging Results None recorded. Procedure Notes None recorded. Medical Equipment None Reported. Allergies Allergen ID Allergen Name Allergen Category Reaction Reaction Severity Criticality Documentation Date Start Date Code Code System Note Provider Name and Address Organization Details Recorded Time 468749 Medicinal product containin g penicilli n and acting as antibacte rial agent (product) medicatio n Not available Not available Not available 09/25/20232006 27678 05 SNOMED Aller gyRea ction : 'Skin [...] Status Never Smoker MANASA white [place] [facility] 10/13/2023 10:18:39 What Is Your Level Of [...] History Nothing Reported. Medical History Condition Response Allergies/Hayfever N Coronary Artery Disease N Anxiety/Depression N Emphysema N Thyroid Problems N COPD N Pacemaker N Anemia N Kidney/Bladder Problems N Vascular Disease N Gastrointestinal Disease N Heart Attack ([place]) N Diabetes N Autoimmune disease N Bleeding Disorder Y Orthotics N Seizures/Epilepsy N Arthritis N Blood Clot N AIDS/HIV N Congestive Heart Failure (CHF) N Acid Reflux (GERD) N Cancer N Stroke N Asthma N Peripheral Vascular Disease N Sleep Apnea N Hepatitis N Heart Disease N Rheumatoid Arthritis N Pulmonary Embolism N Arrhythmia N Fibromyalgia N Hypertension Y Osteoporosis N Past Encounters Encounter ID Performer Location Encounter Start Date Encounter Closed Date Diagnosis/Indication Diagnosis SNOMED-CT Code Diagnosis ICD10 Code [id number] MD [facility]ina Panchal Clinical [address] [place] [address] 05/02/2024 12:32:42 05/28/2024 11:53:21 Bilateral plantar fasciitis [id number] 7268632 M72.2 Tightness of left gastrocnemius muscle 7615027718 3246466 R29.898 Tightness of right gastrocnemius muscle 1025880984 6370867 R29.049 [id number] Negro Louie, PT Ang [place] [address] [place] [address] 05/08/2024 16:42:48 05/08/2024 17:58:46 Plantar fasciitis M72.2 [id number] Negro Louie, PT Ang [place] [address] [place] [address] 05/15/2024 16:26:09 05/15/2024 17:18:47 Plantar fasciitis M72.2 [id number] Negro Louie, PT Ang PT [address] [place] [address] 05/17/2024 14:55:45 05/17/2024 16:19:59 Plantar fasciitis M72.2 [id number] Negro Louie, PT Ang [place] [address] [place] [address] 05/20/2024 15:26:16 05/20/2024 16:17:42 Plantar fasciitis M72.2 Health Concerns Section Related Observation LastModified by Organization Detai ls LastModified Time None Recorded Concern Status LastModified by Organization Details LastModified Time None Recorded Payers Encounter Date Sequence Insurance Name Policy Number Policy Blevins Covered Member ID Blevins Member ID Guarantor Name 05/20/2024 1 [facility] [id number] Negro Salinas [id number] Negro Salinas Notes Date Note Type Note Provider Name and Address Organization Details Recorded Time 05/20/2024 text/html Pt states symptoms unchanged. I can't do a lof of the exercises bc of the R hip pain and the pain is very high 07/05. Gil Pereira, FOOD PREP WORKER [address] [facility] [address], [place], [address], [facility] - [place] [facility] 05/20/2024 16:17:08
--- OUTSIDE RECORDS SUMMARY | 2024-07-03 05:06 | XMS_ITS | Data Portability ---
Author Organization [facility], [facility] Address [address] [place] [address] Care Team Providers Care [employer] Officer Name Role Phone MADELAINEJANICE ZHU Primary Care Provider [phone] Assessment Encounter Date Assessment Date Assessment LastModified by Organization Details LastModified Time 05/08/2024 05/08/2024 A: See Eval P: 2xwk 6wk [email or web address] Not available 05/06/2024 19:26:04 05/15/2024 05/15/2024 A: Pt had less heel discomfort after treatment. P: cont [email or web address] Not available 05/15/2024 17:17:48 05/17/2024 05/17/2024 A: Pt is very limited in therapy d/t R hip pain. Pt have a difficult time wbing or performing ckc exercises bc of R hip pain and L heel pain. P: cont Progress to tolerance. [email or web address] Not available 05/17/2024 16:17:16 05/20/2024 05/20/2024 A: Pt is unable to progress 2/2 to R hip pain. Pt experience more pain with exercises. Pt agreed to DC bc therapy is not helping and only exacerbating symptoms. P: cont Progress to tolerance. Pt DC [email or web address] Not available 05/20/2024 16:16:03 Plan of Treatment [...] By Organization Details Last Modified Time 05/08/2024 [id number] 3 weeks of Left Ankle/Foot Strength -11796 Not available Not available Not available 3 weeks of Left Ankle/Foot Strength -66368 Not available Not available Not available 3 weeks of Left Ankle/Foot Strength -50769 Not available Not available Not available 3 weeks of Left Ankle/Foot Strength -49231 Not available Not available Not available long term care social worker goal of Left Ankle/Foot Strength -340682 Not available Not available Not available long term care social worker goal of Left Ankle/Foot Strength -647796 Not available Not available Not available long term care social worker goal of Left Ankle/Foot Strength -107491 Not available Not available Not available long term care social worker goal of Left Ankle/Foot Strength -290366 Not available Not available Not available 3 weeks of Walking up or down stairs NOTE Not available Not available Not available senior care goal of Walking up or down stairs -388129 Not available Not available Not available 3 weeks of Ankle ROM Left -500860 Not available Not available Not available 3 weeks of Ankle ROM Left -958293 Not available Not available Not available 3 weeks of Ankle ROM Left -108993 Not available Not available Not available 3 weeks of Ankle ROM Left -784369 Not available Not available Not available senior care goal of Ankle ROM Left -358704 Not available Not available Not available senior care goal of Ankle ROM Left -694910 Not available Not available Not available long term care social worker goal of Ankle ROM Left -319158 Not available Not available Not available long term care social worker goal of Ankle ROM Left -049524 Not available Not available Not available 3 weeks of Gait and Stance: NOTE Not available Not available Not available senior care goal of Gait and Stance: -279307 Not available Not available Not available 3 weeks of Pain NOTE Not available Not available Not available long term care social worker goal of Pain NOTE Not available Not available Not available ambulate with a normal gait. [email or web address] Not available 05/08/2024 17:58:20 Patient InstructionsNo instructions recorded. Reason for Referral None Reported. Problems Name Problem SNOMED Code Status Onset Date Resolution Date Notes Provider Name and Address Organization Details Recorded Time Tear of lateral meniscus of knee 005605270 Active 2015 Problem Code: S83.271A ; Problem Code Type: ICD-10; Status: 'A'; Not Available [facility] 4 11:59:13 Spasm 47972170 Active 2018 Problem Code: R25.2; Problem Code Type: ICD-10; Status: 'A'; Not Available [facility] 4 11:59:13 Problem Notes None recorded. Procedures Surgical History Date Name Laterality Status Provider Name and Address Organization Details Recorded Time 05/23/20 Hip Kenalog 1cc Injection, L/R completed Ramsey Roach MD [address], [place], [address], [facility] 05/23/2024 17:43:54 05/20/20 57845 Therapeutic Exercise (1:1) completed Gil Pereira PTA [address], [place], [address], [facility] 05/20/2024 16:16:50 05/20/20 71578: Hot or Cold Pack completed Gil Pereira PRODUCT DEVELOPMENT SCIENTIST [address], [place], [address], [facility] 05/17/2024 16:20:49 05/17/20 17045 Therapeutic Exercise (1:1) completed Gil Pereira PTA [address], [place], [address], [facility] 05/17/2024 16:17:37 05/17/20 87047: Hot or Cold Pack completed Gil Pereira PTA [address], [place], [address], [facility] 05/17/2024 16:18:55 05/17/20 99175: Ultrasound completed Gil Pereira PRODUCT DEVELOPMENT SCIENTIST [address], [place], [address], [facility] 05/16/2024 14:10:17 05/15/20 86534 Therapeutic Exercise (1:1) completed Negro Louie PT [address], [place], [address], [facility] 05/15/2024 17:16:28 05/15/20 77471: Ultrasound completed Negro Louie, PT [address], [place], [address], [facility] 05/15/2024 17:18:11 05/15/20 41793: Manual therapy completed Negro Louie, PT [address], [place], [address], [facility] 05/15/2024 17:16:36 05/08/20 42352 Therapeutic Exercise (1:1) completed Negro Louie, PT [address], [place], [address], [facility] 05/08/2024 17:55:08 05/08/20 30448: Low complexity PT Eval completed Negro Louie, PT [address], [place], [address], [facility] 05/06/2024 19:24:50 11/24/19 Hip Kenalog 1cc Injection, Bilateral completed Ramsey Roach MD [address], [place], [address], [facility] 11/24/2023 12:49:22 11/03/19 [facility] completed Ned Botello PA-C [address], [place], [address], [facility] 11/03/2023 13:23:35 10/19/19 46552 Therapeutic Exercise (1:1) completed Alyse Haywood PTA [address], [place], [address], [facility] 10/19/2023 10:57:43 10/17/19 87947 Therapeutic Exercise (1:1) completed Alyse Haywood PTA [address], [place], [address], [facility] 10/17/2023 11:12:56 10/12/19 71122 Therapeutic Exercise (1:1) completed Edgar Krishna DPT [address], [place], [address], [facility] 10/11/2023 20:23:25 10/10/19 24 77037 Therapeutic Exercise (1:1) completed Edgar Krishna DPT [address], [place], [address], [facility] 10/09/2023 20:08:30 10/06/19 24 37770 Therapeutic Exercise (1:1) completed Edgar Krishna DPT [address], [place], [address], [facility] 10/06/2023 10:28:11 10/04/19 24 64660 Therapeutic Exercise (1:1) completed Edgar Krishna DPT [address], [place], [address], [facility] 10/04/2023 15:18:09 incision of prostate completed MANASA THERRIAULT [facility] 10/13/2023 10:19:04 Knee Surgery completed MANASA THERRIAULT [facility] 10/13/2023 10:19:10 Shoulder Surgery completed MANASA THERRIAULT [facility] 10/13/2023 10:19:15 Hand Surgery completed MANASA THERRIAULT [facility] 10/13/2023 10:19:20 Head or Neck Surgery completed MANASA THERRIAULT [facility] 10/13/2023 10:19:27 Imaging Results None recorded. Procedure Notes None recorded. Medical Equipment None Reported. Allergies Allergen ID Allergen Name Allergen Category Reaction Reaction Severity Criticality Documentation Date Start Date Code Code System Note Provider Name and Address Organization Details Recorded Time 023613 Medicinal product containin g penicilli n and acting as antibacte rial agent (product) medicatio n Not available Not available Not available 09/25/20232006 84068 05 SNOMED Aller gyRea ction : 'Skin [...] Updated DateTime 05/23/2024 177.8 cm 30.1 kg/m2 54279.4 g Tonja garza [facility] 05/23/2024 10:20:08 Social History Question Answer Notes LastModified by Organizat ion Details LastModified Time Tobacco Smoking Status Never Smoker MANASA white [place] [facility] 10/13/2023 10:18:39 What Is Your Level [...] Thyroid Problems N COPD N Pacemaker N Kidney/Bladder Problems N Anemia N Vascular Disease N Heart Attack ([place]) N Gastrointestinal Disease N Diabetes N Autoimmune disease N Bleeding [...] Diagnosis/Indication Diagnosis SNOMED-CT Code Diagnosis ICD10 Code [id number] Edgar Krishna DPT [facility] [address] [place] [address] 10/04/2023 13:25:53 10/04/2023 18:04:24 Trochanteric bursitis of right hip 1749226071 20041 M70.61 Trochanter ic bursitis of left hip 1404317519 25818 M70.62 [id number] Edgar Krishna DPT [facility] [address] [place] [address] 10/06/2023 09:26:11 10/06/2023 11:28:37 Trochanteric bursitis of right hip 6139681153 04860 M70.61 Trochanter ic bursitis of left hip 2117801392 17226 M70.62 [id number] Edgar Krishna DPT [facility] [address] [place] [address] 10/10/2023 11:26:31 10/10/2023 14:37:41 Trochanteric bursitis of right hip 0105804817 59232 M70.61 Trochanter ic bursitis of left hip 9138871438 77752 M70.62 [id number] Edgar Krishna DPT [facility] [address] [place] [address] 10/12/2023 11:21:37 10/12/2023 12:26:16 Trochanteric bursitis of right hip 8864894025 91854 M70.61 Trochanter ic bursitis of left hip 3945119448 20283 M70.62 [id number] Ramsey Roach MD [facility] [address] [place] [address] 10/13/2023 09:53:31 11/06/2023 12:23:09 Pain in right hip joint 7443758166 25530 M25.453 [id number] Edgar Krishna DPT [facility] [address] [place] [address] 10/17/2023 09:56:04 10/17/2023 10:45:55 Trochanteric bursitis of right hip 9769800306 81971 M70.61 Trochanter ic bursitis of left hip 3697901113 16494 M70.62 [id number] Edgar Krishna, DPT [facility] [address] [place] [address] 10/19/2023 10:00:42 10/19/2023 10:48:39 Trochanteric bursitis of right hip 5406354417 37949 M70.61 Trochanter ic bursitis of left hip 1347127198 33926 M70.62 [id number] SAUL Agrawal [address] [place] [address] 11/03/2023 12:39:53 11/23/2023 13:16:31 Osteoarthritis of hip 852782224 M16.9 [id number] Ramsey Roach MD [facility] [address] [place] [address] 11/24/2023 10:37:27 12/17/2023 08:40:49 Pain in right hip joint 1660420583 71029 M25.551 Bilateral trochanteric bursitis 3865609870 4122192 M70.61 M70.62 [id number] Ramsey Roach MD [facility] [address] [place] [address] 12/22/2023 10:58:16 01/22/2024 12:32:13 Trochanteric bursitis of right hip 5952392923 05048 M70.61 [id number] MD [facility] [address] [place] [address] 05/02/2024 12:32:42 05/28/2024 11:53:21 Bilateral plantar fasciitis 0582593995 6722038 M72.2 Tightness of left gastrocnemius muscle 0113216374 9784652 R29.898 Tightness of right gastrocnemius muscle 2480636324 7671714 R29.492 [id number] Negro Louie, MARCY [facility] [address] [place] [address] 05/08/2024 16:42:48 05/08/2024 17:58:46 Plantar fasciitis M72.2 [id number] Negro Louie, PT [facility] [address] [place] [address] 05/15/2024 16:26:09 05/15/2024 17:18:47 Plantar fasciitis 184758402 M72.2 [id number] Negro Louie, PT [facility] [address] [place] [address] 05/17/2024 14:55:45 05/17/2024 16:19:59 Plantar fasciitis M72.2 [id number] Negro Louie, PT [facility] [address] [place] [place] [address] 05/20/2024 15:26:16 05/20/2024 16:17:42 Plantar fasciitis M72.[id number] [facility] [address] [address] 05/23/2024 09:43:38 06/15/2024 06:31:59 Osteoarthritis of right hip joint 1457075356 48818 M16.11 Health Concerns Section Related Observation LastModified by Organization Detai ls LastModified Time None Recorded Concern Status LastModified by Organization Details LastModified Time None Recorded Advance Directives Directive None Recorded Payers Encounter Date Sequence Insurance Name Policy Number Policy Blevins Covered Member ID Blevins Member ID Guarantor Name 05/08/2024 [facility] [id number] Negro Rita [id number] Negro Rita 05/15/[address] [place] [address] [id number] Negro Rita [id number] Negro Rita 05/17/2024 [facility] [id number] Negro [place] [id number] Negro Rita 05/20/2024 [facility] [id number] Negro Rita [id number] Negro Rita 05/23/2024 [facility] [id number] Negro Rita [id number] Negro Rita Notes Date Note Type Note Provider Name and Address Organization Details Recorded Time 05/08/2024 text/html Pt states that h is feet started bothering him about 15 years ago. Over the past two years it worsened. Pain is 0/10 now. Pain is 15/10 at its worst. It is worse in the morning. He is using a spc. His left foot is worse than his right. He limps all the time. He ascends/descends stairs one at a time. Negro Louie, PT [address], [place], [address], [facility] 05/08/2024 17:58:39 05/15/2024 text/html Pt states that h is hip bothers him more than his foot. He has difficulty sleeping. Negro Louie, PT [address], [place], [address], [facility] 05/15/2024 17:18:26 05/17/2024 text/html Pt reporting 9/1 0 L hip pain. My L foot is hurting a lot bc my R hip is killing me, I can't sleep good at night w/o the pain waking me up. Gil Pereira, PRODUCT DEVELOPMENT SCIENTIST [address], [place], [address], [facility] 05/17/2024 16:19:51 05/20/2024 text/html Pt states sympto ms unchanged. I can't do a lof of the exercises bc of the R hip pain and the pain is very high 15/10. Gil Pereira, PRODUCT DEVELOPMENT SCIENTIST [address], [place], [address], [facility] 05/20/2024 16:17:08 05/23/2024 text/html Chief complaint: Right hip painInterval [...] He recently saw a spine surgeon in [place]. MRI of the lumbar spine obtained demonstrating [...] stenosis. He recently saw spine surgeon in [place] who recommended nonsurgical care for his spine. [...] discussion for hip replacement. Ramsey Roach MD [address] [place] [address] [address], [place], [address], [facility] 05/23/2024 17:44:16
--- OUTSIDE RECORDS SUMMARY | 2024-07-03 05:06 | XMS_ITS | Continuity of Care Document ---
Author Organization [place] [facility] [address] [facility] [place] [address] Care Team Providers Care Grad Intern Name Role Phone MADELAINEAUDRA JANICE Primary Care Provider [phone] Assessment Encounter Date Assessment Date Assessment LastModified by Organization Details LastModified Time 05/17/2024 05/17/2024 A: Pt is very limited in therapy d/t R hip pain. Pt have a difficult time wbing or performing ckc exercises bc of R hip pain and L heel pain. P: cont Progress to tolerance. [email or web address] Not available 05/17/2024 16:17:16 Plan of Treatment Reminders Order Date Submit [...] Time Tear of lateral meniscus of knee [id number] Active 2015 Problem Code: S83.271A ; Problem Code Type: ICD-10; Status: 'A'; Not Available [facility] 4 11:59:13 Spasm [id number] Active 2018 Problem Code: R25.2; Problem Code Type: ICD-10; Status: 'A'; Not Available [facility] 4 11:59:13 Problem Notes None recorded. Procedures Surgical History Date Name Laterality Status Provider Name and Address Organization Details Recorded Time 05/23/20 Hip Kenalog 1cc Injection, L/R completed Ramsey Roach MD [address], [place], [address], [facility] 05/23/2024 17:43:54 05/20/20 39043 Therapeutic Exercise (1:1) completed Gil Pereira FOLLOW UP CLERK [address], [place], [address], [facility] 05/20/2024 16:16:50 05/20/20 02659: Hot or Cold Pack completed Gil Pereira FOLLOW UP CLERK [address], [place], [address], [facility] 05/17/2024 16:20:49 05/17/20 24235 Therapeutic Exercise (1:1) completed Gil Pereira FOLLOW UP CLERK [address], [place], [address], [facility] 05/17/2024 16:17:37 05/17/20 24773: Hot or Cold Pack completed Gil Pereira PTA [address], [place], [address], [facility] 05/17/2024 16:18:55 05/17/20 91538: Ultrasound completed Gil Pereira PTA [address], [place], [address], [facility] 05/16/2024 14:10:17 05/15/20 35771 Therapeutic Exercise (1:1) completed Negro Louie PT [address], [place], [address], [facility] 05/15/2024 17:16:28 05/15/20 83234: Ultrasound completed Negro Louie PT [address], [place], [address], [facility] 05/15/2024 17:18:11 05/15/20 36925: Manual therapy completed Negro Louie, PT [address], [place], [address], [facility] 05/15/2024 17:16:36 05/08/20 77447 Therapeutic Exercise (1:1) completed Negro Louie, PT [address], [place], [address], [facility] 05/08/2024 17:55:08 05/08/20 38095: Low complexity PT Eval completed Negro Louie, PT [address], [place], [address], [facility] 05/06/2024 19:24:50 11/24/19 Hip Kenalog 1cc Injection, Bilateral completed Ramsey Roach MD [address], [place], [address], [facility] 11/24/2023 12:49:22 11/03/19 [facility] Ned Botello PA-C [address], [place], [address], [facility] 11/03/2023 13:23:35 10/19/19 24 63771 Therapeutic Exercise (1:1) completed Alyse Haywood PTA [address], [place], [address], [facility] 10/19/2023 10:57:43 10/17/19 09845 Therapeutic Exercise (1:1) completed Alyse Haywood PTA [address], [place], [address], [facility] 10/17/2023 11:12:56 10/12/19 24 79738 Therapeutic Exercise (1:1) completed Edgar Krishna DPT [address], [place], [address], [facility] 10/11/2023 20:23:25 10/10/19 24 87018 Therapeutic Exercise (1:1) completed Edgar Krishna DPT [address], [place], [address], [facility] 10/09/2023 20:08:30 10/06/19 24 72097 Therapeutic Exercise (1:1) completed Edgar Krishna DPT [address], [place], [address], [facility] 10/06/2023 10:28:11 10/04/19 24 56958 Therapeutic Exercise (1:1) completed Edgar Krishna DPT [address], [place], [address], [facility] 10/04/2023 15:18:09 incision of prostate completed [facility] 10/13/2023 10:19:04 Knee Surgery completed MANASA THERRIAULT [facility] 10/13/2023 10:19:10 Shoulder Surgery completed MANASA THERRIAULT [facility] 10/13/2023 10:19:15 Hand Surgery completed MANASA THERRIAULT [facility] 10/13/2023 10:19:20 Head or Neck Surgery completed MANASA THERRIAULT [facility] 10/13/2023 10:19:27 Imaging Results None recorded. Procedure Notes None recorded. Medical Equipment None Reported. Allergies Allergen ID Allergen Name Allergen Category Reaction Reaction Severity Criticality Documentation Date Start Date Code Code System Note Provider Name and Address Organization Details Recorded Time 896084 Medicinal product containin g penicilli n and acting as antibacte rial agent (product) medicatio n Not available Not available Not available 09/25/20232006 59608 05 SNOMED Aller gyRea ction : 'Skin [...] Status Never Smoker MANASA white [place] [facility] 10/13/2023 10:18:39 What Is Your Level [...] Diagnosis/Indication Diagnosis SNOMED-CT Code Diagnosis ICD10 Code [id number] MD Sabina Panchal [address] [place] [address] 05/02/2024 12:32:42 05/28/2024 11:53:21 Bilateral plantar fasciitis [id number] 1388238 M72.2 Tightness of left gastrocnemius muscle 8103629181 6172295 R29.898 Tightness of right gastrocnemius muscle 1121894562 1777228 R29.980 [id number] Ngero Louie, PT [facility] [address] [place] [address] 05/08/2024 16:42:48 05/08/2024 17:58:46 Plantar fasciitis M72.2 [id number] Negro Louie, PT [facility] [address] [place] [address] 05/15/2024 16:26:09 05/15/2024 17:18:47 Plantar fasciitis M72.2 [id number] Negro Louie, PT [facility] [address] [place] [address] 05/17/2024 14:55:45 05/17/2024 16:19:59 Plantar fasciitis M72.2 Health Concerns Section Related Observation LastModified by Organization Detai ls LastModified Time None Recorded Concern Status LastModified by Organization Details LastModified Time None Recorded Payers Encounter Date Sequence Insurance Name Policy Number Policy Blevins Covered Member ID Blevins Member ID Guarantor Name 05/17/2024 1 [facility] [id number] Negro Salinas [id number] Negro Salinas Notes Date Note Type Note Provider Name and Address Organization Details Recorded Time 05/17/2024 text/html Pt reporting 04/02 L hip pain. My L foot is hurting a lot bc my R hip is killing me, I can't sleep good at night w/o the pain waking me up. Gil Pereira, FOLLOW UP CLERK [address], [place], [address], [facility] 05/17/2024 16:19:51
--- OUTSIDE RECORDS SUMMARY | 2024-07-03 05:06 | XMS_ITS | Continuity of Care Document ---
Author Organization [place] [facility] Address [address] [place] [address] Care Team Providers Care Matcher Operator Name Role Phone MADELAINEJANICE ZHU Primary Care Provider Assessment Encounter Date Assessment Date Assessment LastModified by Organization Details LastModified Time 05/15/2024 05/15/2024 A: Pt had less heel discomfort after treatment. P: cont [email or web address] Not available 05/15/2024 17:17:48 Plan of Treatment Reminders Order Date Submit [...] Time Tear of lateral meniscus of knee 057915860 Active 2015 Problem Code: S83.271A ; Problem Code Type: ICD-10; Status: 'A'; Not Available [facility] 4 11:59:13 Spasm 23177709 Active 2018 Problem Code: R25.2; Problem Code Type: ICD-10; Status: 'A'; Not Available [facility] 4 11:59:13 Problem Notes None recorded. Procedures Surgical History Date Name Laterality Status Provider Name and Address Organization Details Recorded Time 05/23/20 24 Hip Kenalog 1cc Injection, L/R completed Ramsey Roach MD [address], [place], [address], [facility] 05/23/2024 17:43:54 05/20/20 39551 Therapeutic Exercise (1:1) completed Gil Pereira [facility]ANCE SERVICES [facility] [address], [place], [address], [facility] 05/20/2024 16:16:50 05/20/20 42376: Hot or Cold Pack completed Gil Pereira [facility]ANCE SERVICES [facility] [address], [place], [address], [facility] 05/17/2024 16:20:49 05/17/20 20031 Therapeutic Exercise (1:1) completed Gil Pereira PTA [address], [place], [address], [facility] 05/17/2024 16:17:37 05/17/20 43894: Hot or Cold Pack completed Gil Pereira PTA [address], [place], [address], [facility] 05/17/2024 16:18:55 05/17/20 76262: Ultrasound completed Gil Pereira PTA [address], [place], [address], [facility] 05/16/2024 14:10:17 05/15/20 80106 Therapeutic Exercise (1:1) completed Negro Louie PT [address], [place], [address], [facility] 05/15/2024 17:16:28 05/15/20 21336: Ultrasound completed Negro Louie PT [address], [place], [address], [facility] 05/15/2024 17:18:11 05/15/20 78188: Manual therapy completed Negro Louie PT [address], [place], [address], [facility] 05/15/2024 17:16:36 05/08/20 09765 Therapeutic Exercise (1:1) completed Negro Louie PT [address] [facility], [place], [address], [facility] 05/08/2024 17:55:08 05/08/20 34805: Low complexity PT Eval completed Negro Louie, PT [address], [place], [address], [facility] 05/06/2024 19:24:50 11/24/19 Hip Kenalog 1cc Injection, Bilateral completed Ramsey Roach MD [address], [place], [address], [facility] 11/24/2023 12:49:22 11/03/19 [facility] Ned Botello PA-C [address], [place], [address], [facility] 11/03/2023 13:23:35 10/19/19 46096 Therapeutic Exercise (1:1) completed Alyse Haywood PTA [address], [place], [address], [facility] 10/19/2023 10:57:43 10/17/19 52071 Therapeutic Exercise (1:1) completed Alyse Haywood PTA [address], [place], [address], [facility] 10/17/2023 11:12:56 10/12/19 70409 Therapeutic Exercise (1:1) completed Edgar Krishna DPT [address], [place], [address], [facility] 10/11/2023 20:23:25 10/10/19 92139 Therapeutic Exercise (1:1) completed Edgar Krishna DPT [address], [place], [address], [facility] 10/09/2023 20:08:30 10/06/19 95732 Therapeutic Exercise (1:1) completed GIBRAN TaylorT [address], [place], [address], [facility] 10/06/2023 10:28:11 10/04/19 04398 Therapeutic Exercise (1:1) completed GIBRAN TaylorT [address], [place], [address], [facility] 10/04/2023 15:18:09 incision [facility] prostate [facility] 10/13/2023 10:19:04 Knee Surgery completed [place] [facility] 10/13/2023 10:19:10 Shoulder Surgery completed [facility] 10/13/2023 10:19:15 Hand Surgery completed [facility] 10/13/2023 10:19:20 Head or Neck Surgery completed [facility] 10/13/2023 10:19:27 Imaging Results None recorded. Procedure Notes None recorded. Medical Equipment None Reported. Allergies Allergen ID Allergen Name Allergen Category Reaction Reaction Severity Criticality Documentation Date Start Date Code Code System Note Provider Name and Address Organization Details Recorded Time 699435 Medicinal product containin g penicilli n and acting as antibacte rial agent (product) medicatio n Not available Not available Not available 09/25/20232006 96190 05 SNOMED Aller gyRea ction : 'Skin [...] Time Tobacco Smoking Status Never Smoker MANASA TODD white [place] - [facility] 10/13/2023 10:18:39 What Is Your Level [...] Anemia N Kidney/Bladder Problems N Heart Attack ([place]) N Diabetes N Bleeding Disorder Y Seizures/Epilepsy N AIDS/HIV N Congestive Heart Failure (CHF) N Asthma N Peripheral Vascular Disease N Sleep Apnea N Hepatitis N Heart Disease N Pulmonary Embolism N Hypertension Y Osteoporosis N Past Encounters Encounter ID Performer Location Encounter Start Date Encounter Closed Date Diagnosis/Indication Diagnosis SNOMED-CT Code Diagnosis ICD10 Code [id number] MD Sabina Panchal Clinical [address] [place] [address] 05/02/2024 12:32:42 05/28/2024 11:53:21 Bilateral plantar fasciitis [id number] 7176446 M72.2 Tightness of left gastrocnemius muscle 6621111258 0804893 R29.898 Tightness of right gastrocnemius muscle 9012474364 1633694 R29.577 [id number] Negro Louie, PT [facility] [address] [place] [address] 05/08/2024 16:42:48 05/08/2024 17:58:46 Plantar fasciitis 504803419 M72.2 [id number] MARCY Spangler PT [address] [place] [address] 05/15/2024 16:26:09 05/15/2024 17:18:47 Plantar fasciitis 349520029 M72.2 Health Concerns Section Related Observation LastModified by Organization Detai ls LastModified Time None Recorded Concern Status LastModified by Organization Details LastModified Time None Recorded Payers Encounter Date Sequence Insurance Name Policy Number Policy Blevins Covered Member ID Blevins Member ID Guarantor Name 05/15/2024 1 [facility] [id number] Negro Salinas [id number] Negro Salinas Notes Date Note Type Note Provider Name and Address Organization Details Recorded Time 05/15/2024 text/html Pt states that his hip bothers him more than his foot. He has difficulty sleeping. Negro Louie, PT [address], [place], [address], [facility] - [facility] 05/15/2024 17:18:26
--- OUTSIDE RECORDS SUMMARY | 2024-07-03 05:07 | XMS_ITS ---
Author Name [facility] Organization Unknown History of Medication Use Medication Directions Dispensed Refills Start Date End Date Stat pregabalin 75 mg capsule TAKE 1 CAPSULE BY MOUTH AT BEDTIME 04/14/2024 active atorvastatin 40 mg tablet TAKE 1 TABLET BY MOUTH EVERY DAY 04/13/2024 active trazodone 50 mg tablet TAKE 1 TABLET BY MOUTH EVERYDAY AT BEDTIME 04/14/2024 active codeine 10 mg-guaifenesin 100 mg/5 mL oral liquid TAKE 5ML BY MOUTH EVERY 4 HOURS NEEDED FOR COUGH 04/14/2024 active oxycodone 5 mg tablet TAKE ONE TAB THREE TIMES A DAY DO NOT DRIVE WHILE TAKING THIS MEDICATION 04/14/2024 active lisinopril 40 mg tablet TAKE 1 TABLET BY MOUTH EVERY DAY 04/14/2024 active tramadol 50 mg tablet TAKE 1 TO 2 TABS B Y MOUTH EVERY 6 HOURS NEEDED FOR PAIN DO NOT DRIVE WHILE TAKING THIS MEDICATION 04/13/2024 active sertraline 50 mg tablet TAKE 1 TABLET BY MOUTH EVERY DAY 04/14/2024 active aspirin 81 mg tablet,delayed release TAKE 1 TABLET BY MOUTH EVERY DAY 04/14/2024 active diclofenac 1 % topical gel DIRECTED APPLY 3-4 GRAMS TO AFFECTED AREA 3X DAILY 04/13/2024 active meloxicam 15 mg tablet TAKE 1 TABLET BY MOUTH EVERY DAY 03/04/2024 active Problems Problem Status Onset Date Problem Type Date of Resoluti on Source Hip pain active 2024-03-06 ProblemAct [facility] 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
--- OUTSIDE RECORDS SUMMARY | 2024-07-03 05:07 | XMS_ITS | Continuity of Care Document ---
[facility] [address] [place] [address] Care Team Providers Care Steel Pan Form Placing Supervisor Name Role Phone JANICE REED Primary Care Provider Assessment Encounter Date Assessment Date Assessment LastModified by Organization Details LastModified Time 05/02/2024 05/02/2024 HPI: Negro is a very pleasant 79-year-old gentleman here today with his who has experienced chronic bilateral plantar heel pain, left greater than right. This has been going on for years. He saw Ghazala KEBEDE in early September 2023. He has been treated with OTC orthotics and a left plantar fascial origin cortisone injection. The injection provided mild temporary relief. He comes in today wearing a pair of dress shoes without orthotics. He has not tried physical therapy, does not stretch regularly and has not tried a Viscoheel insert. He is troubled by bilateral trochanteric bursitis was well his lumbar spine arthritis. He has difficulty externally rotating his right hip secondary to arthritis. He is here today to discuss additional treatment options. He has seen Dr. Roach for his hips. He paid out of pocket for PRP injections, which were not beneficial. Past family, medical, social history and review of systems has been reviewed, updated and signed by me and is located in the patient? s chart. PHYSICAL EXAM: General: 5'9 , 210 lbs, healthy appearing, in no acute distress Psych: alert and oriented x3, normal mood Skin: intact without ulceration or lesion, normal turgor Lungs: respirations unlabored Cardiac: heart rate regular, normal peripheral pulses Musculoskeletal: He has symmetric pes planus alignment. On seated exam, he is most tender over the left plantar fascial origin. He is tender about the right plantar fascial origin to a lesser degree. He has significant bilateral gastrocnemius contractures, left greater than right. There is no pain with calcaneal squeeze. There is no Achilles tenderness. He is otherwise nontender and distally neurovascularly intact. X-RAYS: Previous x-ray images were independently reviewed, demonstrate pes planus alignment, left posterior calcaneal traction enthesophyte. IMPRESSION: Bilateral plantar fasciitis, gastrocnemius contractures, pes planus PLAN: I discussed these findings with Negro and his . We agree to maximize conservative treatment. I have recommended trial of Viscoheel inserts along with frequent calf and hamstring stretching exercises. I explained the association between gastrocnemius contracture and plantar fasciitis. I recommended a course of physical therapy focusing on stretching exercises and plantar fasciitis protocol. He will follow up in 2-3 months for reevaluation. If conservative measures fail, surgical options include gastrocnemius recession and plantar fascial release. I discussed this with them today. All questions were answered. Risks include, but are not limited to, wound healing problems, deep infection, persistent pain, stiffness, nerve injury/neuritis, need for further surgery. The expected postoperative course was outlined in detail. The patient understands the nature and magnitude of this surgery. All questions were answered. The patient is ambulatory, but has weakness and/or instability of their extremity which requires stabilization from this semi-rigid/rigid orthosis to improve their function. Verbal and written instructions for the use and application of this item were given. Patient was instructed that should the brace result in increased pain, decreased sensation, increased swelling or an overall worsening of their medical condition, to please contact our office immediately. [email or web address] Not available 05/02/2024 13:02:35 Plan of Treatment Reminders Order Date Submit Date Provider Last Modified By Organization Details Last Modified Time Details Appointments NEW PATIENT 20 2024 10:20A M Nilo Garcia MD Not available Not available Not available RECHECK 15 2024 09:15A Emmanuel Medrano PA-C Not available Not available Not available Lab None recorded . Referral physical therapis t referral 2023 024 [email or web address] Not available 05/28/2024 11:53:21 Procedures None recorded . Surgeries None recorded . Imaging None recorded . Medication Orders None recorded . Patient TargetsNo targets recorded. Patient InstructionsNo instructions recorded. Reason for Referral Physical Therapist Referral for Bilateral plantar fasciitis Referring Physician: Tod Arreguin, Orthopedic Surgery, Encounter Date: 05/02/2024 Problems Name Problem SNOMED Code Status Onset Date Resolution Date Notes Provider Name and Address Organization Details Recorded Time Tear of lateral meniscus of knee 011655905 Active 2015 Problem Code: S83.271A ; Problem Code Type: ICD-10; Status: 'A'; Not Available [facility] 4 11:59:13 Spasm 44189942 Active 2018 Problem Code: R25.2; Problem Code Type: ICD-10; Status: 'A'; Not Available [facility] 4 11:59:13 Problem Notes None recorded. Procedures Surgical History Date Name Laterality Status Provider Name and Address Organization Details Recorded Time 05/23/20 Hip Kenalog 1cc Injection, L/R completed Ramsey Roach MD [address], [place], [address], [facility] 05/23/2024 17:43:54 05/20/20 [id number] Therapeutic Exercise (1:1) completed Gil Pereira CINDER CRUSHER OPERATOR [address], [place], [address], [facility] 05/20/2024 16:16:50 05/20/20 36542: Hot or Cold Pack completed Gil Pereira CINDER CRUSHER OPERATOR [address], [place], [address], [facility] 05/17/2024 16:20:49 05/17/20 [id number] Therapeutic Exercise (1:1) completed Gil Pereira CINDER CRUSHER OPERATOR [address], [place], [address], [facility] 05/17/2024 16:17:37 05/17/20 [id number]: Hot or Cold Pack completed Gil Pereira CINDER CRUSHER OPERATOR [address], [place], [address], [facility] 05/17/2024 16:18:55 05/17/20 88829: Ultrasound completed Gil Pereira, CINDER CRUSHER OPERATOR [address], [place], [address], [facility] 05/16/2024 14:10:17 05/15/20 45586 Therapeutic Exercise (1:1) completed Negro Louie, PT [address], [place], [address], [facility] 05/15/2024 17:16:28 05/15/20 04244: Ultrasound completed Negro Louie, PT [address], [place], [address], [facility] 05/15/2024 17:18:11 05/15/20 69790: Manual therapy completed Negro Louie, PT [address], [place], [address], [facility] 05/15/2024 17:16:36 05/08/20 54805 Therapeutic Exercise (1:1) completed Negro Louie, PT [address], [place], [address], [facility] 05/08/2024 17:55:08 05/08/20 56796: Low complexity PT Eval completed Negro Louie, PT [address], [place], [address], [facility] 05/06/2024 19:24:50 11/24/19 Hip Kenalog 1cc Injection, Bilateral completed Ramsey Roach MD [address], [place], [address], [facility] 11/24/2023 12:49:22 [facility]03[facility] Ned Botello PA-C [address], [place], [address], [facility] 11/03/2023 13:23:35 10/19/19 [id number] Therapeutic Exercise (1:1) completed Alyse Haywood, CINDER CRUSHER OPERATOR [address], [place], [address], [facility] 10/19/2023 10:57:43 10/17/19 68295 Therapeutic Exercise (1:1) completed Alyse Haywood PTA [address], [place], [address], [facility] 10/17/2023 11:12:56 10/12/19 44634 Therapeutic Exercise (1:1) completed Edgar Krishna DPT [address], [place], [address], [facility] 10/11/2023 20:23:25 10/10/19 [id number] Therapeutic Exercise (1:1) completed Edgar Krishna DPT [address], [place], [address], [facility] 10/09/2023 20:08:30 10/06/19 71376 Therapeutic Exercise (1:1) completed Edgar Krishna DPT [address], [place], [address], [facility] 10/06/2023 10:28:11 10/04/19 34859 Therapeutic Exercise (1:1) completed Edgar Krishna DPT [address], [place], [address], [facility] 10/04/2023 15:18:09 incision of prostate completed MANASA [facility] 10/13/2023 10:19:04 Knee Surgery completed MANASA THERRIA[facility] 10/13/2023 10:19:10 Shoulder Surgery completed MANASA [facility]RIA[facility] 10/13/2023 10:19:15 Hand Surgery completed MANASA [facility]RIA[facility] 10/13/2023 10:19:20 Head or Neck Surgery completed MANASA [facility] 10/13/2023 10:19:27 Imaging Results None recorded. Procedure Notes None recorded. Medical Equipment None Reported. Allergies Allergen ID Allergen Name Allergen Category Reaction Reaction Severity Criticality Documentation Date Start Date Code Code System Note Provider Name and Address Organization Details Recorded Time 178477 Medicinal product containin g penicilli n and acting as antibacte rial agent (product) medicatio n Not available Not available Not available 09/25/20232006 38824 05 SNOMED Aller gyRea ction : 'Skin React ion, rash' ; Not Available [facility] 15:39:03 Medications Name Sig Start Date Stop [...] and Address Organization Details Last Updated DateTime 05/02/2024 177.8 cm 30.1 kg/m2 99140.4 g ROSSI Siddiqui [facility] 05/02/2024 12:43:09 Social History Question Answer Notes LastModified by Organizat ion Details LastModified Time Tobacco Smoking Status [facility] Smoker [facility] 10/13/2023 10:18:39 What Is Your Level [...] Anemia N Kidney/Bladder Problems N Heart Attack ([place]) N Diabetes N Bleeding Disorder Y Seizures/Epilepsy N AIDS/HIV N Congestive Heart Failure (CHF) N Asthma N Peripheral Vascular Disease N Sleep Apnea N Hepatitis N Heart Disease N Pulmonary Embolism N Hypertension Y Osteoporosis N Past Encounters Encounter ID Performer Location Encounter Start Date Encounter Closed Date Diagnosis/Indication Diagnosis SNOMED-CT Code Diagnosis ICD10 Code [id number] MD [facility] [address] [place] [address] 05/02/2024 12:32:42 05/28/2024 11:53:21 Bilateral plantar fasciitis 0551447029 3903230 M72.2 Tightness of left gastrocnemius muscle 0391939469 6314784 R29.898 Tightness of right gastrocnemius muscle 0123496228 2987466 R29.898 Health Concerns Section Related Observation LastModified by Organization Detai ls LastModified Time None Recorded Concern Status LastModified by Organization Details LastModified Time None Recorded Payers Encounter Date Sequence Insurance Name Policy Number Policy Blevins Covered Member ID Blevins Member ID Guarantor Name 05/02/[address] [place] [address] [id number] Negro Salinas [id number] Negro Salinas
== END 2024-06-28 09:32 | disposition home or self-care (01) ==
PROVIDERS: Visit Provider Student in an Organized Health Care Education/Training Program
DX: M25.551 Pain in right hip (principal); M25.552 Pain in left hip; M47.896 Other spondylosis, lumbar region
CPT/HCPCS: 99205

== ENCOUNTER 2024-06-28 07:49 | Outpatient (REF) | payer OTHER, SELFPAY | END 2024-06-28 07:50 | disposition home or self-care (01) | LOC: HO.XRAY 07:49 | PROVIDERS: Visit Provider Student in an Organized Health Care Education/Training Program | DX: M25.551 Pain in right hip (principal); M25.552 Pain in left hip | CPT/HCPCS: 73502 ==

== ENCOUNTER 2024-07-11 10:58 | Outpatient (AMB) | payer OTHER, SELFPAY ==
--- NOTE | 2024-07-11 11:01 | A.OFFVIS_ITS ---
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 Pain affects his daily activities and functioning, mood, recreational and social activities, mobility, and quality of life. Patient was previously seen by Neurosurgery few years ago and was told he was not a surgical candidate and that there was nothing that they could offer him. Patient reports I was kicked out from PT one month ago due to not able to do what they wanted me to do due to severe pain in my back and hips. He reports multiple stairs at home which increases his pain with climbing stairs. Patient also reports he has to stop on the road when driving over 20-30 minutes due to worsening low back and right leg pain with increasing numbness and paresthesia. Patient was previously treated by Orthopedic surgeons and pain management and has received multiple injections including PRP injections, right hip and greater trochanteric bursitis cortisone injections with temporary but good pain relief. He was recently evaluated by his Orthopedic provider and was deemed nonsurgical. He has pending right hip MRI per Rheumatology. Patient reports radicular back pain and right hip pain have been progressively getting worse and limiting his daily functioning and walking capacity. Patient denies fever, chills, cough, shortness of breath, abdominal pain, bladder or bowel dysfunction or saddle anesthesia. Reports right lower extremity weakness. Location: Lower back radiates down bilateral legs, right hip, RLE weakness Duration: Chronic pain for > 10 + years Characteristics of symptom or complaint: Spasming, stabbing, shooting, burning, numbness, tingling, sore, sharp Aggravating or associated factors: Prolonged driving, sitting, bending, lifting, twisting, climbing stairs Relieving factors: Tylenol, tried opioids and pregabalin in the past, activity modifications Treatment: PT, right hip/GTBinjections, h/o Ortho and Neurosugery evaluations, cane [facility] Medical History (Updated 07/11/24 @ 22:35 by COOPER Mccabe) Polyarthralgia Lumbosacral spondylosis Chronic pain syndrome Degenerative arthritis of lumbar spine Bilateral hip pain Surgical History (Updated 07/11/24 @ 22:35 by COOPER Mccabe) History of shoulder surgery H/O right knee surgery Social History (Updated 07/11/24 @ 11:34 by COOPER Mccabe) Household Members: Family Housing: House Alcohol intake: current Alcohol intake frequency: 0-2 drinks per day Alcohol type: other Comment: [employer] Patient Tobacco Use Status: Never used Tobacco Use of substances other than those prescribed or required for medical reasons: No Review of Systems Const All systems reviewed & are unremarkable except as noted in HPI and below Physical Exam Vital Signs: Last Vital Signs Pulse 81 07/11/24 11:06 BP 139/77 07/11/24 11:06 Pulse Ox 96 07/11/24 11:06 Oxygen Delivery Method Room Air 07/11/24 11:06 BMI result Body Mass Index 29.4 General: Appears afebrile. Alert and oriented. Mood and affect appropriate. Follows and participates in conversation appropriately. Respiratory effort is unlabored. No cough. Able to transition from sit to stand unassisted. Uses cane with ambulation. Ambulates with normal heel strike and toe off on the left, increased back and right leg pain with weakness with heel standing. General: Yes no CVA tenderness Back/Spine/Pelvis Other: Limited lumbar ROM due to pain. Antalgic gait with limping. Lumbar extension, flexion forward and bending reproduce moderate-severe pain. Demonstrates 5/5 left and 4/5 right strength of quadriceps bilaterally as well as flexion/dorsiflexion of bilateral feet against resistance. 2+ pedal pulses bilaterally. Straight leg rise with dorsiflexion positive bilaterally, worse on the right. Diminished patellar and achilles reflexes bilaterally. Facet loading test positive bilaterally. María sign positive bilaterally, Oscar?s limited test reproduces lateral right hip pain and mild groin pain. Pelvic compression and Stinchfield tests are positive on the right. Moderate right and mild left groin pain with I/E hip rotations, worse on the right with external hip rotations and weight bearing. Mild TTP to right GTB. Valsalva maneuver is positive. Back: no CVA tenderness Cervical Spine: loss of normal cervical lordosis, cervical muscular tenderness, pain with cervical ROM, Cervical spine scars present (anterior neck) and No Cervical spine tenderness Thoracic/Lumbar Spine: thoracic and lumbar spine normal to inspection, No Thoracic/lumbar spine scar(s), Lasegue's sign positive (diffuse on the left L5- S1, localized on the right L4-L5 distribution) bilateral, pain with thoraco- lumbar ROM, paraspinal muscle tenderness on the right greater than left, thoraco-lumbar ROM limited, No thoracic spinal tenderness and lumbar spinal tenderness (L4-S1) Pelvis: buttock tenderness bilaterally Sacroiliac joints: bilaterally tender to palpation Extrem General: Yes capillary refill normal, Yes no clubbing, cyanosis or edema and Yes no calf tenderness Results Reviewed Results Reviewed: MR LUMBAR SPINE WITHOUT CONTRAST 01/07/22 CLINICAL INFORMATION: Lumbar pain radiating down the legs. FINDINGS: Minimal degenerative retrolisthesis of L1 on L2. Otherwise, normal anatomic alignment. Moderate degenerative disc disease at T12-L1 and L5-S1. Mild degenerative disc disease at all additional levels. Associated mixed Modic type discogenic endplate changes including minimal Modic type I discogenic edema from T11-L2 and at L4-L5. No additional suspicious marrow edema. Moderate central endplate depressions throughout without associated endplate edema. Otherwise, the vertebral body heights are well-maintained. The conus medullaris terminates at the level of L1-L2. The distal spinal cord is normal in appearance. Moderate subcutaneous edema within the soft tissues of the back from L3-S1. No significant abnormalities of the paraspinal musculature. Bilateral T2 hyperintense renal cysts, measuring up to 4.1 cm in the right kidney. Otherwise, limited evaluation of the intra-abdominal structures without significant abnormalities. The abdominal aorta is of normal contour and caliber. AXIAL SPINAL LEVELS: T12-L1: Normal annular contour. There is mild bilateral facet joint arthropathy. There is no neural foraminal stenosis. There is no spinal canal stenosis. L1-L2: Mild diffuse disc bulge. There is moderate left and mild right facet joint arthropathy. There is mild bilateral neural foraminal stenosis. There is no spinal canal stenosis. L2-L3: Moderate diffuse disc bulge. There is moderate bilateral facet joint arthropathy. There is moderate left and mild right neural foraminal stenosis. There is narrowing of the subarticular zones with minimal spinal canal stenosis centrally. L3-L4: Moderate diffuse disc bulge. There is moderate to severe bilateral facet joint arthropathy. There is moderate left and mild right neural foraminal stenosis. There is stenosis of the left greater than right subarticular zones with moderate spinal canal stenosis centrally exacerbated by prominent dorsal epidural lipomatous tissue. L4-L5: Moderate diffuse disc bulge. There is moderate bilateral facet joint arthropathy. There is moderate bilateral neural foraminal stenosis. There is stenosis of the subarticular zones with mild spinal canal stenosis centrally exacerbated by prominent dorsal epidural lipomatous tissue. L5-S1: Mild diffuse disc bulge. There is moderate right and mild left facet joint arthropathy. There is mild bilateral neural foraminal stenosis. There is no spinal canal stenosis. IMPRESSION: Moderate multilevel degenerative spondyloarthropathy of the lumbar spine as described in detail above. Most notably, there is moderate spinal canal stenosis at L3-L4. Mild spinal canal stenosis at L4-L5. Narrowings/stenoses of the subarticular zones and moderate neural foraminal stenoses from L2-L5. Moderate central endplate depressions throughout the visualized spine without residual marrow edema. This appearance is nonspecific but may be seen in the setting of underlying metabolic or hematopoietic disorders. Assessment & Plan Assessment & Plan (1) Degenerative arthritis of lumbar spine: Code(s): M47.816 - Spondylosis without myelopathy or radiculopathy, lumbar region Category: Medical Qualifiers: Spinal osteoarthritis complication: other spinal osteoarthritis Qualified Code(s): M47.896 - Other spondylosis, lumbar region (2) Bilateral hip pain: Code(s): M25.551 - Pain in right hip; M25.552 - Pain in left hip Category: Medical (3) Chronic pain syndrome: Code(s): G89.4 - Chronic pain syndrome Category: Medical (4) Polyarthralgia: Code(s): M25.50 - Pain in unspecified joint Category: Medical (5) Lumbosacral spondylosis: Code(s): M47.817 - Spondylosis without myelopathy or radiculopathy, lumbosacral region Category: Medical (6) Lumbar spinal stenosis: Code(s): M48.061 - Spinal stenosis, lumbar region without neurogenic claudication Category: Medical (7) Vertebrogenic low back pain: Code(s): M54.51 - Vertebrogenic low back pain Category: Medical Plan Discussed interventional treatments for chronic low back pain with right-sided radiculopathy and right hip pain. Lumbar spine imaging to assess degree of degenerative changes, any subluxation, listhesis, compression fractures or pars defects. MRI of the lumbar spine to assess for neural integrity and compression and follow up on previous MRI findings. His pain generators have been resistant to conservative treatments, including to physical therapy which she could not tolerate due to significant increase in back and hip pain this exercises. Patient will return to the clinic to discuss results of the MRI findings when it is done and consider interventional therapy as indicated. In meantime, we will proceed with right hip intra-articular steroid injection with local and fluoroscopy guidance. Expectations, risks and benefits were reviewed. Patient is aware he will be contacted to schedule this procedure. All questions were answered and the patient is in agreement of plan. Follow-up for MRI/xray review and sooner as needed. Orders: Orders MR lumbar spine wo con Today M47.817 - Spondylosis without myelopathy or radiculopathy, lumbosacral region, M47.896 - Other spondylosis, lumbar region, M48.061 - Spinal stenosis, lumbar region without neurogenic claudication, M54.51 - Vertebrogenic low back pain XR lumbar spine 4V min Today M47.817 - Spondylosis without myelopathy or radiculopathy, lumbosacral region, M47.896 - Other spondylosis, lumbar region, M48.061 - Spinal stenosis, lumbar region without neurogenic claudication Coding Level of Care Code New Pt Level 4 (10896) Complex EM visit Add On G2211 Diagnoses Other osteoarthritis of spine, lumbar region M47.896 Spinal osteoarthritis complication: other spinal osteoarthritis Bilateral hip pain M25.551; M25.552 Chronic pain syndrome G89.4 Polyarthralgia M25.50 Lumbosacral spondylosis M47.817 Lumbar spinal stenosis M48.061 Vertebrogenic low back pain M54.51
--- OUTSIDE RECORDS SUMMARY | 2024-07-11 11:01 | XMS_ITS | Data Portability ---
Author Organization [facility], [facility] Address [address] [place] [address] Care Team Providers Care Supervisor Tree Trimming Name Role Phone MADELAINEJANICE ZHU Primary Care Provider Assessment Encounter Date Assessment Date Assessment LastModified by Organization Details LastModified Time 05/08/2024 05/08/2024 A: See Eval P: 2xwk 6wk [email or web address] Not available 05/06/2024 19:26:04 05/15/2024 05/15/2024 A: Pt had less heel discomfort after treatment. P: cont [email or web address] Not available 05/15/2024 17:17:48 05/17/2024 05/17/2024 A: Pt is very limited in therapy d/t R hip pain. Pt have a difficult time wbing or performing ckc exercises bc of R hip pain and L heel pain. P: cont Progress to tolerance. [email or web address] Not available 05/17/2024 16:17:16 05/20/2024 05/20/2024 A: Pt is unable to progress 2/2 to R hip pain. Pt experience more pain with exercises. Pt agreed to DC bc therapy is not helping and only exacerbating symptoms. P: cont Progress to tolerance. 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/Foot Strength -454685 Not available Not available 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/Foot Strength -525304 Not available Not available 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/Foot Strength -287859 Not available Not available Not available 3 weeks of Walking up or down stairs NOTE Not available Not available Not available [facility] goal of Walking up or down stairs -541477 Not available Not available Not available 3 weeks of Ankle ROM Left -207337 Not available Not available Not available 3 weeks of Ankle ROM Left -328407 Not available Not available Not available 3 weeks of Ankle ROM Left -020836 Not available Not available Not available 3 weeks of Ankle ROM Left -079284 Not available Not available Not available [facility]FP goal of Ankle ROM Left -354392 Not available Not available Not available [facility] goal of Ankle ROM Left -460739 Not available Not available Not available [employer] goal of Ankle ROM Left -455097 Not available Not available Not available [employer]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 Not available 05/08/2024 17:58:20 Patient InstructionsNo instructions recorded. Reason for Referral None Reported. Problems Name Problem SNOMED Code Status Onset Date Resolution Date Notes Provider Name and Address Organization Details Recorded Time Tear of lateral meniscus of knee 003375197 Active 2015 Problem Code: S83.271A ; Problem Code Type: ICD-10; Status: 'A'; Not Available [facility] 4 11:59:13 Spasm 39772624 Active 2018 Problem Code: R25.2; Problem Code Type: ICD-10; Status: 'A'; Not Available [facility] 4 11:59:13 Problem Notes None recorded. Procedures Surgical History Date Name Laterality Status Provider Name and Address Organization Details Recorded Time 05/23/20 Hip Kenalog 1cc Injection, L/R completed Ramsey Roach MD [address], [place], [address], [facility] 05/23/2024 17:43:54 05/20/20 82341 Therapeutic Exercise (1:1) completed Gil Pereira PTA [address], [place], [address], [facility] 05/20/2024 16:16:50 05/20/20 67075: Hot or Cold Pack completed Gil Pereira PANTOGRAPH TRANSFERRER [address], [place], [address], [facility] [employer] [facility] 05/17/2024 16:20:49 05/17/20 21390 Therapeutic Exercise (1:1) completed Gil Pereira PTA [address], [place], [address], [facility] [employer] [facility] 05/17/2024 16:17:37 05/17/20 56710: Hot or Cold Pack completed Gil Pereira PTA [address], [place], [address], [facility] 05/17/2024 16:18:55 05/17/20 68079: Ultrasound completed Gil Pereira PANTOGRAPH TRANSFERRER [address], [place], [address], [facility] 05/16/2024 14:10:17 05/15/20 92274 Therapeutic Exercise (1:1) completed Negro Louie PT [address], [place], [address], [facility] 05/15/2024 17:16:28 05/15/20 10229: Ultrasound completed Negro Louie, PT [address], [place], [address], [facility] 05/15/2024 17:18:11 05/15/20 13627: Manual therapy completed Negro Louie, PT [address], [place], [address], [facility] 05/15/2024 17:16:36 05/08/20 17562 Therapeutic Exercise (1:1) completed Negro Louie, PT [address], [place], [address], [facility] 05/08/2024 17:55:08 05/08/20 02602: Low complexity PT Eval completed Negro Louie, PT [address], [place], [address], [facility] 05/06/2024 19:24:50 11/24/19 Hip Kenalog 1cc Injection, Bilateral completed Ramsey Roach MD [address], [place], [address], [facility], [facility] 11/24/2023 12:49:22 11/03/19 [facility] completed Ned Botello PA-C [address], [place], [address], [facility] 11/03/2023 13:23:35 10/19/19 27354 Therapeutic Exercise (1:1) completed Alyse Haywood PTA [address], [place], [address], [facility] 10/19/2023 10:57:43 10/17/19 48402 Therapeutic Exercise (1:1) completed Alyse Haywood PTA [address], [place], [address], [facility] 10/17/2023 11:12:56 10/12/19 56616 Therapeutic Exercise (1:1) completed Edgar Krishna DPT [address], [place], [address], [facility] 10/11/2023 20:23:25 10/10/19 24 65384 Therapeutic Exercise (1:1) completed Edgar Krishna DPT [address], [place], [address], [facility] 10/09/2023 20:08:30 10/06/19 24 81415 Therapeutic Exercise (1:1) completed Edgar Krishna DPT [address], [place], [address], [facility] 10/06/2023 10:28:11 10/04/19 24 13141 Therapeutic Exercise (1:1) completed Edgar Krishna DPT [address], [place], [address], [facility] 10/04/2023 15:18:09 incision of prostate completed MANASA THERRIAULT [facility] 10/13/2023 10:19:04 Knee Surgery completed MANASA THERRIAULT [facility] 10/13/2023 10:19:10 Shoulder Surgery completed MANASA THERRIAULT [facility] 10/13/2023 10:19:15 Hand Surgery completed MANASA THERRIAULT [facility] 10/13/2023 10:19:20 Head or Neck Surgery completed MANASA THERRIAULT [facility] 10/13/2023 10:19:27 Imaging Results None recorded. Procedure Notes None recorded. Medical Equipment None Reported. Allergies Allergen ID Allergen Name Allergen Category Reaction Reaction Severity Criticality Documentation Date Start Date Code Code System Note Provider Name and Address Organization Details Recorded Time 147032 Medicinal product containin g penicilli n and acting as antibacte rial agent (product) medicatio n Not available Not available Not available 09/25/20232006 72109 05 SNOMED Aller gyRea ction : 'Skin [...] Updated DateTime 05/23/2024 177.8 cm 30.1 kg/m2 06803.4 g Tonja garza [facility] 05/23/2024 10:20:08 Social History Question Answer Notes LastModified by Organizat ion Details LastModified Time Tobacco Smoking Status Never Smoker MANASA white [place] [facility] 10/13/2023 10:18:39 What Is Your Level [...] N Kidney/Bladder Problems N Vascular Disease N Heart Attack (HI) N Gastrointestinal Disease N Diabetes N Autoimmune disease N Bleeding Disorder Y Orthotics N Arthritis N Seizures/Epilepsy N Blood Clot N AIDS/HIV N Congestive Heart Failure (CHF) N Acid Reflux (GERD) N Cancer N Stroke N Asthma N Peripheral Vascular Disease N Sleep Apnea N Hepatitis N Heart Disease N Rheumatoid Arthritis N Arrhythmia N Pulmonary Embolism N Fibromyalgia N Hypertension Y Osteoporosis N Past Encounters Encounter ID Performer Location Encounter Start Date Encounter Closed Date Diagnosis/Indication Diagnosis SNOMED-CT Code Diagnosis ICD10 Code [id number] Edgar Krishna DPT [facility] [address] [place] [address] 10/04/2023 13:25:53 10/04/2023 18:04:24 Trochanteric bursitis of right hip 0548112357 87463 M70.61 Trochanter ic bursitis of left hip 2389515137 81427 M70.62 [id number] Edgar Krishna DPT [facility] [address] [place] [address] 10/06/2023 09:26:11 10/06/2023 11:28:37 Trochanteric bursitis of right hip 2361625471 80566 M70.61 Trochanter ic bursitis of left hip 0596503106 60070 M70.62 [id number] Edgar Krishna DPT [facility] [address] [place] [address] 10/10/2023 11:26:31 10/10/2023 14:37:41 Trochanteric bursitis of right hip 2199790835 42586 M70.61 Trochanter ic bursitis of left hip 7636583147 24889 M70.62 [id number] Edgar Krishna DPT [facility] [address] [place] [address] 10/12/2023 11:21:37 10/12/2023 12:26:16 Trochanteric bursitis of right hip 8357153623 52379 M70.61 Trochanter ic bursitis of left hip 5956502435 41071 M70.62 [id number] Ramsey Roach MD [facility] [address] [address] 10/13/2023 09:53:31 11/06/2023 12:23:09 Pain in right hip joint 2160553145 11392 M25.271 [id number] Edgar Krishna DPT [facility] [address] [place] [address] 10/17/2023 09:56:04 10/17/2023 10:45:55 Trochanteric bursitis of right hip 0441363704 26261 M70.61 Trochanter ic bursitis of left hip 0743837201 29783 M70.62 [id number] Edgar Krishna, DPT [facility] [address] [place] [address] 10/19/2023 10:00:42 10/19/2023 10:48:39 Trochanteric bursitis of right hip 5797566139 60561 M70.61 Trochanter ic bursitis of left hip 8237702292 24071 M70.62 [id number] SAUL Agrawal [address] [place] [address] 11/03/2023 12:39:53 11/23/2023 13:16:31 Osteoarthritis of hip 494731920 M16.9 [id number] Ramsey Roach MD [facility] [address] [place] [address] 11/24/2023 10:37:27 12/17/2023 08:40:49 Pain in right hip joint 1442314316 38449 M25.551 Bilateral trochanteric bursitis 5499416667 2073849 M70.61 M70.62 [id number] Ramsey Roach MD [facility] [address] [place] [address] 12/22/2023 10:58:16 01/22/2024 12:32:13 Trochanteric bursitis of right hip 1412355947 71567 M70.61 [id number] MD [facility] [address] [place] [address] 05/02/2024 12:32:42 05/28/2024 11:53:21 Bilateral plantar fasciitis 4760681703 3103860 M72.2 Tightness of left gastrocnemius muscle 0943259341 1707081 R29.898 Tightness of right gastrocnemius muscle 6386045436 6114064 R29.510 [id number] Negro Louie, MARCY [facility] [address] [place] [address] 05/08/2024 16:42:48 05/08/2024 17:58:46 Plantar fasciitis M72.2 [id number] Negro Louie, PT [facility] [address] [place] [address] 05/15/2024 16:26:09 05/15/2024 17:18:47 Plantar fasciitis 245205897 M72.2 [id number] Negro Louie, PT [facility] [address] [place] [address] 05/17/2024 14:55:45 05/17/2024 16:19:59 Plantar fasciitis M72.2 [id number] Negro Louie, PT [facility] [address] [place] [address] 05/20/2024 15:26:16 05/20/2024 16:17:42 Plantar fasciitis M72.[id number] [facility] [address], [place] [address] 05/23/2024 09:43:38 06/15/2024 06:31:59 Osteoarthritis of right hip joint 0133765137 17386 M16.11 Health Concerns Section Related Observation LastModified by Organization Detai ls LastModified Time None Recorded Concern Status LastModified by Organization Details LastModified Time None Recorded Advance Directives Directive None Recorded Payers Encounter Date Sequence Insurance Name Policy Number Policy Blevins Covered Member ID Blevins Member ID Guarantor Name 05/08/2024 [facility] [id number] Negro Rita [id number] Negro Rita 05/15/[address] [place] [address] [id number] Negro Rita [id number] Negro Rita 05/17/2024 [facility] [id number] Negro Salinas [id number] Negro Rita 05/20/2024 [facility] [id number] Negro Rita [id number] Negro Rita 05/23/2024 [facility] [id number] Negro Rita [id number] Negro Rita Notes Date Note Type Note [...] Louie, PT [address], [place], [address], [facility] 05/08/2024 17:58:39 05/15/2024 text/html Pt states that h is hip bothers him more than his foot. He has difficulty sleeping. Negro Louie, PT [address], [place], [address], [facility] 05/15/2024 17:18:26 05/17/2024 text/html Pt reporting 9/1 0 L hip pain. My L foot is hurting a lot bc my R hip is killing me, I can't sleep good at night w/o the pain waking me up. Gil Pereira, PANTOGRAPH [employer]SF[employer] [address], [place], [address], [facility] 05/17/2024 16:19:51 05/20/2024 text/html Pt states sympto ms unchanged. I can't do a lof of the exercises bc of the R hip pain and the pain is very high 15/10. Gil Pereira, PANTOGRAPH TRANSFERRER [address], [place], [address], [facility] 05/20/2024 16:17:08 05/23/2024 text/html [...] He recently saw a spine surgeon in [place]. MRI of the lumbar spine obtained demonstrating [...] stenosis. He recently saw spine surgeon in [place] who recommended nonsurgical care for his spine. [...] discussion for hip replacement. Ramsey Roach MD [address] [place] [address] [address], [place], [address], [facility] 05/23/2024 17:44:16
--- OUTSIDE RECORDS SUMMARY | 2024-07-11 11:01 | XMS_ITS | Continuity of Care Document ---
Author Organization [place] [facility] [address] [place] [address] Care Team Providers Care Etl Tester Name Role Phone MADELAINEAUDRA JANICE Primary Care Provider [phone] Assessment Encounter Date Assessment Date Assessment LastModified by Organization Details LastModified Time 05/17/2024 05/17/2024 A: Pt is very limited in therapy d/t R hip pain. Pt have a difficult time wbing or performing ckc exercises bc of R hip pain and L heel pain. P: cont Progress to tolerance. Not available 05/17/2024 16:17:16 Plan of Treatment [...] Time Tear of lateral meniscus of knee [id number] Active 2015 Problem Code: S83.271A ; Problem Code Type: ICD-10; Status: 'A'; Not Available [facility] 4 11:59:13 Spasm [id number] Active 2018 Problem Code: R25.2; Problem Code Type: ICD-10; Status: 'A'; Not Available [facility] hospital 4 11:59:13 Problem Notes None recorded. Procedures Surgical History Date Name Laterality Status Provider Name and Address Organization Details Recorded Time 05/23/20 Hip Kenalog 1cc Injection, L/R completed Ramsey Roach MD [address], [place], [address], [facility] 05/23/2024 17:43:54 05/20/20 [id number] Therapeutic Exercise (1:1) completed Gil Pereira [employer] [address], [place], [address], [facility] 05/20/2024 16:16:50 05/20/20 81388: Hot or Cold Pack completed Gil Pereira [employer] [address], [place], [address], [facility] 05/17/2024 16:20:49 05/17/20 67515 Therapeutic Exercise (1:1) completed Gil Pereira [employer] [address], [place], [address], [facility] 05/17/2024 16:17:37 05/17/20 81819: Hot or Cold Pack completed Gil Pereira PTA [address], [place], [address], [facility] 05/17/2024 16:18:55 05/17/20 65655: Ultrasound completed Gil Pereira PTA [address], [place], [address], [facility] 05/16/2024 14:10:17 05/15/20 61755 Therapeutic Exercise (1:1) completed Negro Louie PT [address], [place], [address], [facility] 05/15/2024 17:16:28 05/15/20 77816: Ultrasound completed Negro Louie PT [address], [place], [address], [facility] 05/15/2024 17:18:11 05/15/20 78584: Manual therapy completed Negro Louie, PT [address], [place], [address], [facility] 05/15/2024 17:16:36 05/08/20 71324 Therapeutic Exercise (1:1) completed Negro Louie, PT [address], [place], [address], [facility] 05/08/2024 17:55:08 05/08/20 89889: Low complexity PT Eval completed Negro Louie, PT [address], [place], [address], [facility] 05/06/2024 19:24:50 11/24/19 Hip Kenalog 1cc Injection, Bilateral completed Ramsey Roach MD [address], [place], [address], [facility] 11/24/2023 12:49:22 11/03/[facility] Ned Botello PA-C [address], [place], [address], [facility] 11/03/2023 13:23:35 10/19/19 24 47071 Therapeutic Exercise (1:1) completed Alyse Haywood PTA [address], [place], [address], [facility] 10/19/2023 10:57:43 10/17/19 18961 Therapeutic Exercise (1:1) completed Alyse Haywood PTA [address], [place], [address], [facility] 10/17/2023 11:12:56 10/12/19 24 15887 Therapeutic Exercise (1:1) completed Edgar Krishna DPT [address], [place], [address], [facility] 10/11/2023 20:23:25 10/10/19 24 51112 Therapeutic Exercise (1:1) completed Edgar Krishna DPT [address], [place], [address], [facility] 10/09/2023 20:08:30 10/06/19 24 46216 Therapeutic Exercise (1:1) completed Edgar Krishna DPT [address], [place], [address], [facility] 10/06/2023 10:28:11 10/04/19 24 43848 Therapeutic Exercise (1:1) completed Edgar Krishna DPT [address], [place], [address], [facility] 10/04/2023 15:18:09 [facility] 10/13/2023 10:19:04 Knee Surgery completed MANASA THERRIAULT [facility] 10/13/2023 10:19:10 Shoulder Surgery completed MANASA THERRIAULT [facility] 10/13/2023 10:19:15 Hand Surgery completed MANASA THERRIAULT [facility] 10/13/2023 10:19:20 Head or Neck Surgery completed MANASA THERRIAULT [facility] 10/13/2023 10:19:27 Imaging Results None recorded. Procedure Notes None recorded. Medical Equipment None Reported. Allergies Allergen ID Allergen Name Allergen Category Reaction Reaction Severity Criticality Documentation Date Start Date Code Code System Note Provider Name and Address Organization Details Recorded Time 555774 Medicinal product containin g penicilli n and acting as antibacte rial agent (product) medicatio n Not available Not available Not available 09/25/20232006 18258 05 SNOMED Aller gyRea ction : 'Skin [...] Status Never Smoker MANASA white [place] [facility] 10/13/2023 10:18:39 What Is Your Level [...] Disease N Gastrointestinal Disease N Heart Attack (PR) N Diabetes N Autoimmune disease N Bleeding [...] Diagnosis/Indication Diagnosis SNOMED-CT Code Diagnosis ICD10 Code [id number] MD Sabina Panchal [address] [place] [address] 05/02/2024 12:32:42 05/28/2024 11:53:21 Bilateral plantar fasciitis [id number] 9438101 M72.2 Tightness of left gastrocnemius muscle 1420640615 9945667 R29.898 Tightness of right gastrocnemius muscle 4906385584 5411604 R29.758 [id number] Negro Louie, PT [facility] [address] [place] [address] 05/08/2024 16:42:48 05/08/2024 17:58:46 Plantar fasciitis M72.2 [id number] Negro Louie, PT [facility] [address] [place] [address] 05/15/2024 16:26:09 05/15/2024 17:18:47 Plantar fasciitis M72.2 [id number] Negro Louie, PT [facility] [address] [place] [address] 05/17/2024 14:55:45 05/17/2024 16:19:59 Plantar fasciitis M72.2 Health Concerns Section Related Observation LastModified by Organization Detai ls LastModified Time None Recorded Concern Status LastModified by Organization Details LastModified Time None Recorded Payers Encounter Date Sequence Insurance Name Policy Number Policy Blevins Covered Member ID Blevins Member ID Guarantor Name 05/17/2024 1 [facility] [id number] Negro Salinas [id number] Negro Salinas Notes Date Note Type Note Provider Name and Address Organization Details Recorded Time 05/17/2024 text/html Pt reporting 04/02 L hip pain. My L foot is hurting a lot bc my R hip is killing me, I can't sleep good at night w/o the pain waking me up. Gil Pereira, [employer] [address], [place], [address], [facility] 05/17/2024 16:19:51
[2024-07-11 11:06] VITALS: BP 139/77; PULSE 81; O2SAT 96; BMI 29.4
== END 2024-07-11 11:47 | disposition home or self-care (01) ==
PROVIDERS: Referring Provider Student in an Organized Health Care Education/Training Program; Visit Provider Nurse Practitioner Family
DX: M47.896 Other spondylosis, lumbar region (principal); M25.551 Pain in right hip; M25.552 Pain in left hip; G89.4 Chronic pain syndrome; M25.50 Pain in unspecified joint; M47.817 Spondylosis without myelopathy or radiculopathy, lumbosacral region; M48.061 Spinal stenosis, lumbar region without neurogenic claudication; M54.51 Vertebrogenic low back pain
CPT/HCPCS: 99204

== ENCOUNTER → 2024-07-11 10:58 | Outpatient (BNVA) | payer OTHER, SELFPAY | PROVIDERS: Referring Provider Student in an Organized Health Care Education/Training Program; Visit Provider Nurse Practitioner Family ==

== ENCOUNTER 2024-08-02 12:48 | Outpatient (AMB) | payer OTHER, SELFPAY ==
[2024-08-02 12:53] VITALS: BP 158/77; PULSE 78; RESP 16; O2SAT 100; BMI 29.4
--- NOTE | 2024-08-02 12:53 | A.OFFVIS_ITS ---
Vital Signs 3 08/02/24 12:53 Height 5 ft 10 in Weight 205 lb BMI 29.4 BP 158/77 H Blood Pressure Location Lt brachial Position Sitting Respiration 16 Pulse 78 Pulse Source Pulse Oximeter Pulse Oximetry (%) 100 Oxygen Delivery Method Room Air Intake Visit Reasons: MRI results Accompanied by: Spouse Allergies No Known Allergies Allergy (Verified 08/02/24 12:55) Medication List - Last Reconciled 08/02/24 by Regla Juan LPN aspirin 81 mg PO DAILY atorvastatin 40 mg PO DAILY lisinopril 40 mg PO DAILY sertraline 100 mg PO DAILY HPI Comments Details: Patient presents today for follow up to discuss recent lumbar spine MRI and xray results. Patient reports worsening low back pain with right leg weakness and pain and intermittent left leg pain. He also suffers from chronic right hip pain without significant groin pain. He was seen by Rheumatology last month, right hip MRI was ordered on 06/28/24 but has not been scheduled yet. Patient request to resubmit this to [facility] as his hip pain is worsening. He is seeing Orthopedic provider at [facility] tomorrow morning for diagnostic right GTB injection. Aj is interested to undergo therapeutic CHATA injection to address lumbar spinal stenosis related pain. Denies bladder or bowel dysfunction or saddle anesthesia. Pain radiates into his buttocks and lateral hips and into right anterior thigh and lateral right leg with weakness, numbness and tingling. Denies any recent cough, cold, infection, fever, or any significant changes in his medical history, medications or recent hospitalizations. PRIOR: Patient is a pleasant 79-year-old male with prior history of polyarthralgia, lumbar degenerative arthritis, bilateral hip pain, h/o C7-C8 ACDF (1986), right shoulder surgery, and right knee arthroscopic surgery, presents today for initial evaluation of low back pain with radiation into hips and down into his bilateral lower extremities, worse on the right side. Pain affects his daily activities and functioning, mood, recreational and social activities, mobility, and quality of life. Patient was previously seen by Neurosurgery few years ago and was told he was not a surgical candidate and that there was nothing that they could offer him. Patient reports I was kicked out from PT one month ago due to not able to do what they wanted me to do due to severe pain in my back and hips. He reports multiple stairs at home which increases his pain with climbing stairs. Patient also reports he has to stop on the road when driving over 20-30 minutes due to worsening low back and right leg pain with increasing numbness and paresthesia. Patient was previously treated by Orthopedic surgeons and pain management and has received multiple injections including PRP injections, right hip and greater trochanteric bursitis cortisone injections with temporary but good pain relief. He was recently evaluated by his Orthopedic provider and was deemed nonsurgical. He has pending right hip MRI per Rheumatology. Patient reports radicular back pain and right hip pain have been progressively getting worse and limiting his daily functioning and walking capacity. Patient denies fever, chills, cough, shortness of breath, abdominal pain, bladder or bowel dysfunction or saddle anesthesia. Reports right lower extremity weakness. Location: Lower back radiates down bilateral legs, right hip, RLE weakness Duration: Chronic pain for > 10 + years Characteristics of symptom or complaint: Spasming, stabbing, shooting, burning, numbness, tingling, sore, sharp Aggravating or associated factors: Prolonged driving, sitting, bending, lifting, twisting, climbing stairs Relieving factors: Tylenol, tried opioids and pregabalin in the past, activity modifications Treatment: PT, right hip/GTBinjections, h/o Ortho and Neurosugery evaluations, cane [facility] Medical History Polyarthralgia Lumbosacral spondylosis Chronic pain syndrome Degenerative arthritis of lumbar spine Bilateral hip pain Surgical History History of shoulder surgery H/O right knee surgery Social History Household Members: Family Housing: House Alcohol intake: current Alcohol intake frequency: 0-2 drinks per day Alcohol type: other Comment: [employer] Child and [place] [employer] Patient Tobacco Use Status: Never used Tobacco Review of Systems Const All systems reviewed & are unremarkable except as noted in HPI and below Physical Exam Vital Signs: Last Vital Signs Pulse 78 08/02/24 12:53 Resp 16 08/02/24 12:53 BP 158/77 H 08/02/24 12:53 Pulse Ox 100 08/02/24 12:53 Oxygen Delivery Method Room Air 08/02/24 12:53 BMI result Body Mass Index 29.4 General: Appears afebrile. Alert and oriented. Mood and affect appropriate. Follows and participates in conversation appropriately. Respiratory effort is unlabored. No cough. Able to transition from sit to stand unassisted. Uses cane with ambulation. Ambulates with normal heel strike and toe off on the left, increased back and right leg pain with weakness with heel and toe standing. General: Yes no CVA tenderness Back/Spine/Pelvis Other: Limited lumbar ROM due to pain. Antalgic gait with limping. Lumbar extension, flexion forward and bending reproduce moderate-severe pain. Demonstrates 5/5 left and 4/5 right strength of quadriceps bilaterally as well as flexion/dorsiflexion of bilateral feet against resistance. 2+ pedal pulses bilaterally. Straight leg rise with dorsiflexion positive bilaterally, worse on the right. Diminished patellar and achilles reflexes bilaterally. Facet loading test positive bilaterally. María sign positive bilaterally, Oscar?s limited test reproduces lateral right hip pain and mild groin pain. Pelvic compression and Stinchfield tests are positive on the right. Moderate right and mild left groin pain with I/E hip rotations, worse on the right with external hip rotations and weight bearing. Mild TTP to right GTB. Valsalva maneuver is positive. Back: no CVA tenderness Cervical Spine: cervical muscular tenderness, pain with cervical ROM, Cervical spine scars present (anterior neck) and No Cervical spine tenderness Thoracic/Lumbar Spine: thoracic and lumbar spine normal to inspection, No Thoracic/lumbar spine scar(s), Lasegue's sign positive bilateral and localized, pain with thoraco-lumbar ROM, paraspinal muscle tenderness on the right greater than left, thoraco-lumbar ROM limited, No thoracic spinal tenderness and lumbar spinal tenderness (L4-S1) Pelvis: buttock tenderness bilaterally Sacroiliac joints: bilaterally tender to palpation Extrem General: Yes capillary refill normal, Yes no clubbing, cyanosis or edema and Yes no calf tenderness Results Reviewed Results Reviewed: MR SPINE LUMBAR without CONTRAST 07/30/24 at [facility] INDICATION: Spondylosis, lumbar region. Spinal stenosis. Lower back pain radiating to bilateral hips, legs and feet for 20 years. TECHNIQUE: Unenhanced multiplanar, multisequence MR imaging of the lumbar spine. COMPARISON: MR lumbar spine 01/07/2022. FINDINGS: Normal lumbar alignment is demonstrated. Vertebral heights are well maintained. Bone marrow signal is within normal limits, and no suspicious osseous lesion is identified. There appears to be some congenital narrowing of the lumbar portion of the canal. This is causing a generalized mild stenosis starting at L2-3 and extending down to L4-5. The findings are again most severe at L3-4 where there is facet joint arthropathy and hypertrophy of the ligamentum flavum, as well as a mild diffuse bulge causing a moderate stenosis. There has been slight worsening when compared to the prior exam. Normal signal intensity in the distal cord. Conus ends normally at L1 level. Paraspinal soft tissues are unremarkable. Incidental finding of multiple cystic lesions in both renal cortices. At L1-2 there is no significant disc herniation or protrusion. No central canal or neural foraminal stenosis is demonstrated. At L2-3 there is no significant disc herniation or protrusion. No neural foraminal stenosis is demonstrated. At L3-4 there is no significant disc herniation or protrusion. There is facet joint arthropathy and hypertrophy of the ligamentum flavum, as well as a mild diffuse bulge causing a moderate stenosis. There has been slight worsening when compared to the prior exam. No neural foraminal stenosis is demonstrated. At L4-5 there is no significant disc herniation or protrusion. There is bilateral facet joint arthropathy not causing any significant mass effect at L4-5. No central canal or neural foraminal stenosis is demonstrated. At L5-S1 there is no significant disc herniation or protrusion. There is bilateral facet joint arthropathy not causing any significant mass effect at L5-S1. No neural foraminal stenosis is demonstrated. 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 More moderate stenosis at L3-4 due to the narrowing and diffuse bulge facet joint arthropathy and hypertrophy of ligamentum flavum. Slight worsening when compared to the prior exam. Assessment & Plan Assessment & Plan (1) Degenerative arthritis of lumbar spine: Code(s): M47.816 - Spondylosis without myelopathy or radiculopathy, lumbar region Category: Medical Qualifiers: Spinal osteoarthritis complication: other spinal osteoarthritis Q ualified Code(s): M47.896 - Other spondylosis, lumbar region (2) Bilateral hip pain: Code(s): M25.551 - Pain in right hip; M25.552 - Pain in left hip Category: Medical (3) Chronic pain syndrome: Code(s): G89.4 - Chronic pain syndrome Category: Medical (4) Lumbosacral spondylosis: Code(s): M47.817 - Spondylosis without myelopathy or radiculopathy, lumbosacral region Category: Medical (5) Lumbar spinal stenosis: Code(s): M48.061 - Spinal stenosis, lumbar region without neurogenic claudication Category: Medical (6) Low back pain radiating to both legs: Code(s): M54.50 - Low back pain, unspecified; M79.604 - Pain in right leg; M79.605 - Pain in left leg Category: Medical Plan Discussed lumbar spine imaging xray and MRI results. Patient has pending right hip MRI from 06/28/24, will resubmit to [facility] per patient's request due to worsening right hip pain. He is undergoing diagnostic right GTB injection at [facility] tomorrow. Schedule Bilateral L3-L4 TFESI with local and fluoroscopy guidance. Expectations, risks and benefits were reviewed. Patient is aware he will be contacted to schedule this procedure. Patient will stop Aspirin 1 week prior to injections. He is aware of hyperglycemic effects of steroids. Short script provided for Tylenol #3 for symptomatic relief. Patient reported drowsiness with oxycodone and tramadol use last 2 year. Side effects and precautions were discussed with patient and his . All questions were answered and the patient is in agreement of plan. Follow-up after injections and sooner as needed. Orders: Orders 2 MR hip RT wo con 06/28/24 M25.551 - Pain in right hip, M25.552 - Pain in left hip Medications: New 2 acetaminophen-codeine 300-30 mg 1 tab PO Q8H 10 days PRN 30 tabs 0RF pain M25.551 - Pain in right hip, M25.552 - Pain in left hip, M47.896 - Other spondylosis, lumbar region, M48.061 - Spinal stenosis, lumbar region without neurogenic claudication Coding Level of Care Code Est Pt Level 4 (83982) Complex EM visit Add On G2211 Diagnoses Other osteoarthritis of spine, lumbar region M47.896 Spinal osteoarthritis complication: other spinal osteoarthritis Bilateral hip pain M25.551; M25.552 Chronic pain syndrome G89.4 Lumbosacral spondylosis M47.817 Lumbar spinal stenosis M48.061 Low back pain radiating to both legs M54.50; M79.604; M79.605
== END 2024-08-02 13:49 | disposition home or self-care (01) ==
PROVIDERS: PCP Internal Medicine; Visit Provider Nurse Practitioner Family
DX: M47.896 Other spondylosis, lumbar region (principal); M25.551 Pain in right hip; M25.552 Pain in left hip; G89.4 Chronic pain syndrome; M47.817 Spondylosis without myelopathy or radiculopathy, lumbosacral region; M48.061 Spinal stenosis, lumbar region without neurogenic claudication; M54.50 Low back pain, unspecified; M79.604 Pain in right leg; M79.605 Pain in left leg
CPT/HCPCS: 99214

== ENCOUNTER 2024-08-20 09:56 | Outpatient (AMB) | payer OTHER, SELFPAY ==
[2024-08-20 09:57] VITALS: BMI 30.1
--- NOTE | 2024-08-20 09:57 | MHC.OFFVIS ---
Vital Signs 08/20/24 09:57 Height 5 ft 10 in Weight 210 lb BMI 30.1 Intake Visit Reasons: MRI results Intake Note: Pain today 12/31 Performance Engineer Required: No Accompanied by: Self / Same As Patient Allergies No Known Allergies Allergy (Verified 08/20/24 09:57) HPI Comments Details: Patient presents today via telehealth encounter to discuss recent right hip MRI results. He continues to endorse significant right hip and right buttock pain with walking, climbing stairs or sleeping on his right side. Patient reports he has not received right GTB injection at [facility] yet. Denies any recent cough, cold, infection, fever or other significant changes in medical history since last office visit. PRIOR: Patient presents today for follow up to discuss recent lumbar spine MRI and xray results. Patient reports worsening low back pain with right leg weakness and pain and intermittent left leg pain. He also suffers from chronic right hip pain without significant groin pain. He was seen by Rheumatology last month, right hip MRI was ordered on 06/28/24 but has not been scheduled yet. Patient request to resubmit this to [facility] as his hip pain is worsening. He is seeing Orthopedic provider at [facility] tomorrow morning for diagnostic right GTB injection. Aj is interested to undergo therapeutic CHATA injection to address lumbar spinal stenosis related pain. Denies bladder or bowel dysfunction or saddle anesthesia. Pain radiates into his buttocks and lateral hips and into right anterior thigh and lateral right leg with weakness, numbness and tingling. Denies any recent cough, cold, infection, fever, or any significant changes in his medical history, medications or recent hospitalizations. PRIOR: Patient is a pleasant 79-year-old male with prior history of polyarthralgia, lumbar degenerative arthritis, bilateral hip pain, h/o C7-C8 ACDF (1986), right shoulder surgery, and right knee arthroscopic surgery, presents today for initial evaluation of low back pain with radiation into hips and down into his bilateral lower extremities, worse on the right side. Pain affects his daily activities and functioning, mood, recreational and social activities, mobility, and quality of life. Patient was previously seen by Neurosurgery few years ago and was told he was not a surgical candidate and that there was nothing that they could offer him. Patient reports I was kicked out from PT one month ago due to not able to do what they wanted me to do due to severe pain in my back and hips. He reports multiple stairs at home which increases his pain with climbing stairs. Patient also reports he has to stop on the road when driving over 20-30 minutes due to worsening low back and right leg pain with increasing numbness and paresthesia. Patient was previously treated by Orthopedic surgeons and pain management and has received multiple injections including PRP injections, right hip and greater trochanteric bursitis cortisone injections with temporary but good pain relief. He was recently evaluated by his Orthopedic provider and was deemed nonsurgical. He has pending right hip MRI per Rheumatology. Patient reports radicular back pain and right hip pain have been progressively getting worse and limiting his daily functioning and walking capacity. Patient denies fever, chills, cough, shortness of breath, abdominal pain, bladder or bowel dysfunction or saddle anesthesia. Reports right lower extremity weakness. Location: Lower back radiates down bilateral legs, right hip, RLE weakness Duration: Chronic pain for > 10 + years Characteristics of symptom or complaint: Spasming, stabbing, shooting, burning, numbness, tingling, sore, sharp Aggravating or associated factors: Prolonged driving, sitting, bending, lifting, twisting, climbing stairs Relieving factors: Tylenol, tried opioids and pregabalin in the past, activity modifications Treatment: PT, right hip/GTBinjections, h/o Ortho and Neurosugery evaluations, cane [facility] Medical History (Updated 08/20/24 @ 10:40 by COOPER Mccabe) Greater trochanteric bursitis of right hip Polyarthralgia Lumbosacral spondylosis Chronic pain syndrome Degenerative arthritis of lumbar spine Bilateral hip pain Surgical History History of shoulder surgery H/O right knee surgery Social History Household Members: Family Housing: House Alcohol intake: current Alcohol intake frequency: 0-2 drinks per day Alcohol type: other Comment: Abram Child and Jovi Diaz Patient Tobacco Use Status: Never used Tobacco Review of Systems Const All systems reviewed & are unremarkable except as noted in HPI and below ENT Reports Normal hearing present Neuro Reports Normal hearing present and Denies confusion Psych Denies confusion Physical Exam Vital Signs: BMI result Body Mass Index 30.1 Const General: cooperative, alert and awake; No confusion Orientation/consciousness: patient oriented x3 and No confusion Resp Effort & Inspection: able to speak in complete sentences, no audible wheezes and no cough Neuro General: patient oriented x3 and No confusion Cranial nerves: Yes Normal hearing present Cognition (Neuro): normal cognition Psych Mental Status: mental status grossly normal Speech and movement: Clear speech present Affect: normal affect Attitude: cooperative Thought process: Normal thought process present Thought content: Normal thought content present and No Depressive thoughts present Insight: Good insight present (Psych) Judgement: Good judgement present (Psych) Telehealth Telehealth Telehealth Platform: Telephone Location of provider rendering services: practice address Location of patient: address on file Patient Identification confirmed using: Name, : Yes Telehealth method: voice only Patient verbally consented to treatment: Yes Patient verbally consented to billing insurance company: Yes Patient informed of any privacy concerns related to visit: Yes Minutes spent on Phone/Video with Pt.: 17 Results Reviewed Results Reviewed: MR SPINE LUMBAR without CONTRAST 07/30/24 at [facility] INDICATION: Spondylosis, lumbar region. Spinal stenosis. Lower back pain radiating to bilateral hips, legs and feet for 20 years. TECHNIQUE: Unenhanced multiplanar, multisequence MR imaging of the lumbar spine. COMPARISON: MR lumbar spine 01/07/2022. FINDINGS: Normal lumbar alignment is demonstrated. Vertebral heights are well maintained. Bone marrow signal is within normal limits, and no suspicious osseous lesion is identified. There appears to be some congenital narrowing of the lumbar portion of the canal. This is causing a generalized mild stenosis starting at L2-3 and extending down to L4-5. The findings are again most severe at L3-4 where there is facet joint arthropathy and hypertrophy of the ligamentum flavum, as well as a mild diffuse bulge causing a moderate stenosis. There has been slight worsening when compared to the prior exam. Normal signal intensity in the distal cord. Conus ends normally at L1 level. Paraspinal soft tissues are unremarkable. Incidental finding of multiple cystic lesions in both renal cortices. At L1-2 there is no significant disc herniation or protrusion. No central canal or neural foraminal stenosis is demonstrated. At L2-3 there is no significant disc herniation or protrusion. No neural foraminal stenosis is demonstrated. At L3-4 there is no significant disc herniation or protrusion. There is facet joint arthropathy and hypertrophy of the ligamentum flavum, as well as a mild diffuse bulge causing a moderate stenosis. There has been slight worsening when compared to the prior exam. No neural foraminal stenosis is demonstrated. At L4-5 there is no significant disc herniation or protrusion. There is bilateral facet joint arthropathy not causing any significant mass effect at L4-5. No central canal or neural foraminal stenosis is demonstrated. At L5-S1 there is no significant disc herniation or protrusion. There is bilateral facet joint arthropathy not causing any significant mass effect at L5-S1. No neural foraminal stenosis is demonstrated. 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 More moderate stenosis at L3-4 due to the narrowing and diffuse bulge facet joint arthropathy and hypertrophy of ligamentum flavum. Slight worsening when compared to the prior exam. Assessment & Plan Assessment & Plan (1) Bilateral hip pain: Code(s): M25.551 - Pain in right hip; M25.552 - Pain in left hip Category: Medical (2) Tear of right gluteus medius tendon: Code(s): S76.011A - Strain of muscle, fascia and tendon of right hip, initial encounter Category: Medical (3) Tear of right gluteus minimus tendon: Code(s): S76.011A - Strain of muscle, fascia and tendon of right hip, initial encounter Category: Medical (4) Osteoarthritis of right hip: Code(s): M16.11 - Unilateral primary osteoarthritis, right hip Category: Medical (5) Greater trochanteric bursitis of right hip: Code(s): M70.61 - Trochanteric bursitis, right hip Category: Medical (6) Lumbar spinal stenosis: Code(s): M48.061 - Spinal stenosis, lumbar region without neurogenic claudication Category: Medical (7) Low back pain radiating to both legs: Code(s): M54.50 - Low back pain, unspecified; M79.604 - Pain in right leg; M79.605 - Pain in left leg Category: Medical Plan Discussed right hip MRI results with patient today as noted above. Plan to proceed with Orthopedic re-evaluation for right hip tendinopathy related to right gluteal medius and minimus tears. Recommend dedicated formal PT for right hip tendinopathy to reduce pain, strengthen both hip muscles and improve range of motion and stability. Script sent to location closer to patient's home. He tried several right hip and GTB cortisone injections in the past and physical therapy with continued symptoms and debilitating pain which affects his ADLs, mobility, sleep and quality of life. Patient is scheduled for Bilateral L3-L4 TFESI with local and fluoroscopy guidance on 08/27/24 for radicular low back pain. All questions were answered and the patient is in agreement of plan. Follow-up after injections and sooner as needed. I hereby testify that I spent 17 minutes in conversation with this patient as well as with planning and coordinating care for this patient and organizing this note. Orders: Orders PT Evaluation and Treatment Today M16.11 - Unilateral primary osteoarthritis, right hip, M25.551 - Pain in right hip, M25.552 - Pain in left hip, M70.61 - Trochanteric bursitis, right hip, S76.011A - Strain of muscle, fascia and tendon of right hip, initial encounter Coding Level of Care Code Tele Est Pt Level 4 (03116) Complex EM visit Add On G2211 Diagnoses Bilateral hip pain M25.551; M25.552 Tear of right gluteus medius tendon S76.011A Tear of right gluteus minimus tendon S76.011A Osteoarthritis of right hip M16.11 Greater trochanteric bursitis of right hip M70.61 Lumbar spinal stenosis M48.061 Low back pain radiating to both legs M54.50; M79.604; M79.605
--- OUTSIDE RECORDS SUMMARY | 2024-08-20 10:38 | XMS_ITS | Clinical Summary ---
Author Organization [address] [place] [address] [place] [address] Phone Care Team Providers Care Podiatric Physician Name Role Phone Mohsen Boles MD Primary Care Provider [phone] Encounters Date Type Department Care Team Description 07/11/2024 1:30 PM EST Office Visit [facility] [address] [address] Zachery Horton MD Acute rhinitis (Primary Dx); COVID-19 ruled out by laboratory testing from Last 3 Months Social History Tobacco Use Types Packs/Day Years Used Date Smoking Tobacco: Never Assessed Sex and Gender Information Value Date Recorded Sex Assigned at Not on file Gender Identity Not on file Sexual Orientation Not on file Job Start Date Occupation Industry Not on file Not on file Not on file Last Filed Vital Signs Vital Sign Reading Time Taken Comments Blood Pressure 136/70 07/11/2024 1:24 PM EST Pulse 78 07/11/2024 1:24 PM EST Temperature 36.2 ??C (97.2 ??F) 07/11/2024 1:24 PM ES T Respiratory Rate - - Oxygen Saturation 97% 07/11/2024 1:24 PM EST Inhaled Oxygen Concentration - - Weight - - Height - - Body Mass Index - - Plan of Treatment Health Maintenance Due Date Last Done Comments RSV Immunization Patients 60+ Years Old (1 - 1-dose 75+ series) 02/24/2020 Zoster Vaccines (2 of 2) 06/30/2021 05/05/2021 DTaP,Tdap,and Td Vaccines (3 - Td or Tdap) 02/18/2024 02/17/2014, 02/21/2011 Cholesterol Screening (Lipid Panel) 04/30/2024 Depression Screening 04/30/2024 Falls Risk Assessment 04/30/2024 Hepatitis C Screening 04/30/2024 Medicare Annual Wellness Visit 04/30/2024 Social Influencers of Health Screening 04/30/2024 Hypertension/CHF/CAD Annual BMP Blood Test 03/09/2025 03/09/2024 Pneumococcal Vaccine: 65+ Years Completed 10/11/2017, 04/12/2011 COVID-19 Vaccine Completed 04/08/2024, , 04/27/2022, Additional history exists Influenza Vaccine Completed 04/08/2024, , 05/03/2022, Additional history exists HIB Vaccines Aged Out No longer eligi ble based on patient's age to complete this topic HPV Vaccines Aged Out No longer eligi ble based on patient's age to complete this topic Hepatitis A Vaccines Aged Out No long er eligible based on patient's age to complete this topic Hepatitis B Vaccines Aged Out No long er eligible based on patient's age to complete this topic IPV Vaccines Aged Out No longer eligi ble based on patient's age to complete this topic MMR Vaccines Aged Out No longer eligi ble based on patient's age to complete this topic Meningococcal ACWY Vaccine Aged Out N o longer eligible based on patient's age to complete this topic RSV Immunization Patients Under 20 months Aged Out No longer eligible based on patient's age to complete this topic Varicella Vaccines Aged Out No longer eligible based on patient's age to complete this topic Procedures Procedure Name Priority Date/Time Associated Diagnosis Comments POC RAPID [id number], MOLECULAR Routine 07/11/2024 3:27 PM EST Acute rhinitis from Last 3 Months Results * Poc Rapid [id number], MOLECULAR (07/11/2024 3:27 PM EST) COVID-19/SARS- COV-2 Rapid POC Negative Negative Internal Control Pass Yes Yes Swab Nasopharyngeal structure / Unknown 07/11/2024 3:27 PM EST Zachery Horton MD POINT OF CARE TEST E NTER/EDIT ORDERABLES from Last 3 Months Care Teams Podiatric Physician Relationship Specialty Start Date End Date Mohsen Boles MD [address] [place] [address] PCP - General Internal Medicine 01/30/18
--- OUTSIDE RECORDS SUMMARY | 2024-08-20 10:38 | XMS_ITS | Data Portability ---
Author Organization [facility] [place] Address [address] [place] [address] Care Team Providers Care Otr Tanker Truck Driver Name Role Phone MADELAINEAUDRA JANICE Referring Provider Unavailable ARABELLA BREEN OTHER Assessment [...] this patient on the date of the retq-bk-upjv encounter (including direct patient interaction, wound care, review of applicable labs and imaging, documentation, and communication with other providers involved in patient s care): 25 minutes Patient was seen and evaluated by Gildardo Cullen PA-C in indirect conjunction with Documenting Provider: Zachery Hernandez MD He agrees with history, physical examination, tests/diagnostic imaging, and treatment plan [email or web address] Not available 03/27/2024 15:47:07 04/11/2024 04/11/2024 79-year-old [...] type disease and should be evaluated by gum dipper . He lives in the [facility] and is interested in finding a gum dipper near his home. We make the appropriate referral. In anticipation of seeing the gum dipper will order laboratory studies as noted below. He will follow-up with us on an as-needed basis [email or web address] Not available 04/11/2024 17:03:45 Plan of Treatment Reminders Order Date Submit Date Provider Last Modified By Organization Details Last Modified Time Details Appointments None recorded. Lab rf (rheumatoid factor) + anti-ccp abs, serum 2023 024 BILL Not available 13:46:47 TSH, serum or plasma 2023 024 Not available 11:29:48 uric acid, serum or plasma 2023 024 [email or web address] Not available 11:29:48 CBC w/ diff 2023 [...] X-rays,MRI. ?? Inflammator y arthritis?? 2023 024 [email or web address] Arabella Breen MD, [address], [place], [address], 17:15:27 Procedures None recorded. Surgeries None recorded. Imaging XR, hip, unilateral, 2 or 3 view 2023 024 [email or web address] 2 [facility], [address], [place], [address], 4 12:59:56 XR, hip, unilateral, 2 or 3 view 2023 024 [email or web address] 2 [facility], [address], [address], [place], [address], 4 12:59:56 MRI, lumbar spine, w/o contrast - r/o canal stenosis 2023 024 [facility] ([facility]), [address] [place], [address], 4 14:07:21 XR, lumbosacral spine, 2 or 3 view 2023 024 [email or web address] [facility], [address], [address], [place], [address], 4 16:40:17 Medication Orders meloxicam 15 mg tablet 2023 024 [email or web address] [facility] #[id number], [address] [place], [address], 4 15:14:40 Patient TargetsNo targets recorded. Patient Instructions Encounter Date Encounter Id Patient Instructions Last Modified By Organization Details Last Modified Time 02/01/2024 [id number] 2 views of the bilateral hips were obtained today 02/01/2024 in the [place] office. Mild to moderate degenerative changes. Trace spurring versus calcification adjacent to the greater trochanters. No acute fracture or dislocation appreciated. Not available 03/02/2024 12:23:24 03/27/2024 [id number] AP and lateral x-rays of the lumbar spine were obtained on 03/2024 which demonstrates multilevel degenerative changes. No acute osseous abnormalities. 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 Normal X-rays,MRI. ?? Inflammatory arthritis?? Referring Physician: Zacehry Hernandez, Orthopedic Surgery, Encounter Date: 04/11/2024 Results Created Date Observation Date Name Description Value Unit Range Abnormal Flag Note LastModifiedBy Organization Detail LastModifiedTime 01/29/20 MRI, hip, w/o contr ast No observ ation record ed. [email or web address] Not Available 2023 10:17:43 04/04/20 24 04/02/2024 MRI, lumba r spine , w/o contr ast No observ ation record ed. [facility] [address] [place], [address], 04/04/2024 14:14:32 Result Notes None recorded. 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 Procedures Surgical History Date Name Laterality Status Provider Name and Address Organization Details Recorded Time Shoulder Surgery completed Renetta Daniel [facility] 02/01/2024 12:06:54 Knee Surgery completed Renetta Daniel [facility] 02/01/2024 12:07:00 Imaging Results Imaging Date Name Status LastModified by Organiz ation Details LastModified Time 01/29/2024 MRI, hip, w/o contrast completed [email or web address] Information not available 01/29/2024 10:17:43 04/02/2024 MRI, lumbar spine, w/o contrast completed [email or web address] [facility] [address] [place], [address], 04/04/2024 14:14:32 Procedure Notes None recorded. Medical [...] Address Organization Details Last Updated DateTime 02/01/2024 [address] [place] [facility] 02/01/2024 12:06:02 Social History Question Answer Notes LastModified by Organizat ion Details LastModified Time Tobacco Smoking Status Never Smoker Renetta Daniel null, [place] [facility] 02/01/2024 12:06:26 What Is Your Level Of Alcohol Consumption? Moderate [email or web address] Information not available 02/01/2024 How Many Times Per Week Do You Consume Alcohol? 3-4 Times Per Week Information not available 02/01/2024 Do You Use Any Illicit Or Recreational Drugs? Yes [email or web address] Information not available 03/11/2024 Do You Or Have You Ever Used Any Other Forms Of Tobacco Or Nicotine? No [email or web address] Information not available 02/01/2024 Sex: Unknown Functional Status None recorded. Mental Status None recorded. Family History Nothing Reported. Medical History Condition Response Cancer Y Hypertension Y Past Encounters Encounter ID Performer Location Encounter Start Date Encounter Closed Date Diagnosis/Indication Diagnosis SNOMED-CT Code Diagnosis ICD10 Code Diagnosis Note [id number] Jose Kiran MD [place] [id number] 02/01/2024 10:36:07 02/01/2024 12:12:21 Pain in right hip joint 1445378370 13470 M25.551 Additional diagnosis detail: Hip pain, right Hip pain 80380910 M25.55 2 Additional diagnosis detail: Left hip pain [id number] Jose Kiran MD [place] [id number] 03/06/2024 15:10:07 03/06/2024 15:45:57 Pain in right hip joint 0191190611 68713 M25.551 Additional diagnosis detail: Hip pain, right Hip pain 29886695 M25.55 2 Additional diagnosis detail: Left hip pain [id number] Jose Kiran MD [address] [id number] 03/11/2024 10:31:19 03/11/2024 11:22:02 Pain in right hip joint 9292033631 35667 M25.551 Additional diagnosis detail: Hip pain, right Hip pain 54354689 M25.55 2 Additional diagnosis detail: Left hip pain [id number] Zachery Hernandez MD [place] [id number] 03/27/2024 13:50:16 03/27/2024 14:43:09 Low back pain 901562613 M54.50 Lumbar spondylosis 60451 0009 M47.816 [id number] MD GUILLERMO LubinSID Younon [address] [place] [address] [place] [address] 04/11/2024 15:30:02 04/11/2024 16:31:06 Total body pain syndrome 939066847 R52 Health Concerns Section Related Observation LastModified by Organization Detai ls LastModified Time None Recorded Concern Status LastModified by Organization Details LastModified Time None Recorded Advance Directives Directive None Recorded Payers Encounter Date Sequence Insurance Name Policy Number Policy Blevins Covered Member ID Blevins Member ID Guarantor Name 02/01/2024 1 [employer] MEDICARE ADVANTAGE PLAN (MEDICARE REPLACEMENT HMO) [id number] [employer] [place] [id number] [employer] [place] 03/06/2024 1 [employer] - MEDIC[employer] ADVANTAGE PLAN (MEDICARE REPLACEMENT HMO) [id number] [employer] [place] [id number] [employer] [place] 03/11/2024 1 [employer] - MEDICARE ADVANTAGE PLAN (MEDICARE REPLACEMENT HMO) [id number] [employer] [place] [id number] Negro [place] 03/27/2024 1 [employer] - MEDICARE ADVANTAGE PLAN (MEDICARE REPLACEMENT HMO) [id number] [employer] [place] [id number] Negro [place] 04/11/2024 1 [employer] MEDIC[employer] ADVANTAGE PLAN (MEDICARE REPLACEMENT HMO) [id number] [employer] [place] [id number] Negro [place] Notes Date Note Type Note [...] RAINER STAFFORD PA-C [address], [place], [address], [place] [facility] 03/02/2024 12:23:39 03/06/2024 text/html Patient returns [...] RAINER STAFFORD PA-C [address], [place], [address], [place] [facility] 03/11/2024 10:35:59 03/11/2024 text/html Patient returns [...] as gluteal tendinosis and likely trochanteric bursitis. Jose Kiran MD [address], [place], [address], [place] [facility] 04/25/2024 19:53:23
== END 2024-08-20 10:06 | disposition home or self-care (01) ==
LOC: HO.PMC 09:56
PROVIDERS: PCP Internal Medicine; Visit Provider Nurse Practitioner Family
DX: M25.551 Pain in right hip (principal); M25.552 Pain in left hip; S76.011A Strain of muscle, fascia and tendon of right hip, initial encounter; M16.11 Unilateral primary osteoarthritis, right hip; M70.61 Trochanteric bursitis, right hip; M48.061 Spinal stenosis, lumbar region without neurogenic claudication; M54.50 Low back pain, unspecified; M79.604 Pain in right leg; M79.605 Pain in left leg
CPT/HCPCS: 98014

== ENCOUNTER → 2024-08-20 09:56 | Outpatient (BNVA) | payer OTHER, SELFPAY | PROVIDERS: PCP Internal Medicine; Visit Provider Nurse Practitioner Family ==

== ENCOUNTER 2024-08-27 06:15 | Outpatient (REF) | payer OTHER, SELFPAY ==
--- NOTE | ~2024-08-27 | FL_ITS ---
EXAMINATION: FL GUIDANCE ONLY HISTORY: M54.50 - Low back pain, unspecified COMPARISON: None available. TECHNIQUE: Fluoroscopy time: 0.5 minutes. Cumulative Dose: 7.10 mGy. DAP: 0.123 mGym2 Images: 3. FINDINGS: Images demonstrate needles and contrast in the regions of the bilateral L3-4 facet joints. FL/FL guidance in treatment room IMPRESSION: Fluoroscopy during procedure. Please see procedure report for additional information. Electronically signed by: Constantin Thomason MD 08/27/2024 12:25 PM TED
--- OUTSIDE RECORDS SUMMARY | 2024-08-27 06:17 | XMS_ITS | Clinical Summary ---
Author Organization [address] [place] [address] [place] [phone] Phone Care Team Providers Care Arranging Funeral Director Name Role Phone Mohsen Boles MD Primary Care Provider [phone] Encounters Date Type Department Care Team Description 07/11/2024 1:30 PM EST Office Visit [facility] Clinic [address] [address] Zachery Horton MD Acute rhinitis [...] Priority Date/Time Associated Diagnosis Comments POC RAPID [id number], MOLECULAR Routine 07/11/2024 3:27 PM EST Acute rhinitis from Last 3 Months Results * Poc Rapid [id number], MOLECULAR (07/11/2024 3:27 PM EST) COVID-19/SARS- COV-2 Rapid POC Negative Negative Internal Control Pass Yes Yes Swab Nasopharyngeal structure / Unknown 07/11/2024 3:27 PM EST Zachery Horton MD POINT OF CARE TEST E NTER/EDIT ORDERABLES from Last 3 Months Care Teams Arranging Funeral Director Relationship Specialty Start Date End Date Mohsen Boles MD [address] [place] [address] PCP - General Internal Medicine 01/30/18
--- OUTSIDE RECORDS SUMMARY | 2024-08-27 06:17 | XMS_ITS | Data Portability ---
Author Organization [facility] [place] Address [address] [place] [address] Care Team Providers Care Social Group Worker Name Role Phone MADELAINEAUDRA JANICE Referring Provider Unavailable ARABELLA BREEN OTHER [phone] Assessment Encounter Date Assessment Date Assessment LastModified [...] this patient on the date of the eime-yx-zbvl encounter (including direct patient interaction, wound care, review of applicable labs and imaging, documentation, and communication with other providers involved in patient s care): 25 minutes Patient was seen and evaluated by Gildardo Cullen PA-C in indirect conjunction with Documenting Provider: Zachery Hernandez MD He agrees with history, physical examination, tests/diagnostic imaging, and treatment plan [email or web address] Not available 03/27/2024 15:47:07 04/11/2024 04/11/2024 79-year-old [...] type disease and should be evaluated by signal intelligence analyst . He lives in the [facility] and is interested in finding a signal intelligence analyst near his home. We make the appropriate referral. In anticipation of seeing the signal intelligence analyst will order laboratory studies as noted below. He will follow-up with us on an as-needed basis [email or web address] Not available 04/11/2024 17:03:45 Plan of Treatment Reminders Order Date Submit Date Provider Last Modified By Organization Details Last Modified Time Details Appointments None recorded. Lab rf (rheumatoid factor) + anti-ccp abs, serum 2023 024 BILL Not available 13:46:47 TSH, serum or plasma 2023 024 [email or web address] Not available 11:29:48 uric acid, serum or plasma 2023 024 [email or web address] Not available 11:29:48 CBC w/ diff 2023 [...] X-rays,MRI. ?? Inflammator y arthritis?? 2023 024 [email or web address] Arabella Breen MD, [address], [place], [address], 17:15:27 Procedures None recorded. Surgeries None recorded. Imaging XR, hip, unilateral, 2 or 3 view 2023 024 [email or web address] 2 [facility], [address], [place], [address], 4 12:59:56 XR, hip, unilateral, 2 or 3 view 2023 024 [email or web address] 2 [facility], [address], [address], [place], [address], 4 12:59:56 MRI, lumbar spine, w/o contrast - r/o canal stenosis [address] [facility] ([facility]), [address] [place], [address], 4 14:07:21 XR, lumbosacral spine, 2 or 3 view 2023 024 [email or web address] [facility], [address], [place], [address], 4 16:40:17 Medication Orders meloxicam 15 mg tablet 2023 024 [email or web address] [facility] #[id number], [address] [place], [address], 4 15:14:40 Patient TargetsNo targets recorded. Patient Instructions Encounter Date Encounter Id Patient Instructions Last Modified By Organization Details Last Modified Time 02/01/2024 [id number] 2 views of the bilateral hips were obtained today 02/01/2024 in the [place] office. Mild to moderate degenerative changes. Trace spurring versus calcification adjacent to the greater trochanters. No acute fracture or dislocation appreciated. Not available 03/02/2024 12:23:24 03/27/2024 [id number] AP and lateral x-rays of the lumbar spine were obtained on 03/2024 which demonstrates multilevel degenerative changes. No acute osseous abnormalities. 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 Normal X-rays,MRI. ?? Inflammatory arthritis?? Referring Physician: Zachery Hernandez, Orthopedic Surgery, Encounter Date: 04/11/2024 Results Created Date Observation Date Name Description Value Unit Range Abnormal Flag Note LastModifiedBy Organization Detail LastModifiedTime 01/29/20 MRI, hip, w/o contr ast No observ ation record ed. Not Available 2023 10:17:43 04/04/20 24 04/02/2024 MRI, lumba r spine , w/o contr ast No observ ation record ed. [email or web address] [facility] [address] [place], [address], 04/04/2024 14:14:32 Result Notes None recorded. 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 Procedures Surgical History Date Name Laterality Status Provider Name and Address Organization Details Recorded Time Shoulder Surgery completed Renetta Daniel [facility] 02/01/2024 12:06:54 Knee Surgery completed Renetta Daniel [facility] 02/01/2024 12:07:00 Imaging Results Imaging Date Name Status LastModified by Organiz ation Details LastModified Time 01/29/2024 MRI, hip, w/o contrast completed [email or web address] Information not available 01/29/2024 10:17:43 04/02/2024 MRI, lumbar spine, w/o contrast completed [email or web address] [facility] [address] [place], [address], 04/04/2024 14:14:32 Procedure Notes None recorded. Medical [...] Address Organization Details Last Updated DateTime 02/01/2024 [address] [facility] 02/01/2024 12:06:02 Social History Question Answer Notes LastModified by Organizat ion Details LastModified Time Tobacco Smoking Status Never Smoker Renetta Daniel null, [place] [facility] 02/01/2024 12:06:26 What Is Your Level Of Alcohol Consumption? Moderate [email or web address] Information not available 02/01/2024 How Many Times Per Week Do You Consume Alcohol? 3-4 Times Per Week [email or web address] Information not available 02/01/2024 Do You Use Any Illicit Or Recreational Drugs? Yes [email or web address] Information not available 03/11/2024 Do You Or Have You Ever Used Any Other Forms Of Tobacco Or Nicotine? No [email or web address] Information not available 02/01/2024 Sex: Unknown Functional Status None recorded. Mental Status None recorded. Family History Nothing Reported. Medical History Condition Response Cancer Y Hypertension Y Past Encounters Encounter ID Performer Location Encounter Start Date Encounter Closed Date Diagnosis/Indication Diagnosis SNOMED-CT Code Diagnosis ICD10 Code Diagnosis Note [id number] Jose Kiran MD [place] [id number] 02/01/2024 10:36:07 02/01/2024 12:12:21 Pain in right hip joint 6622941730 03875 M25.551 Additional diagnosis detail: Hip pain, right Hip pain 50858106 M25.55 2 Additional diagnosis detail: Left hip pain 10145 Jose Kiran MD [place] [id number] 03/06/2024 15:10:07 03/06/2024 15:45:57 Pain in right hip joint 2592089784 82540 M25.551 Additional diagnosis detail: Hip pain, right Hip pain 65879005 M25.55 2 Additional diagnosis detail: Left hip pain [id number] Jose Kiran MD [address] [address] 03/11/2024 10:31:19 03/11/2024 11:22:02 Pain in right hip joint 1843271418 69530 M25.551 Additional diagnosis detail: Hip pain, right Hip pain 20002929 M25.55 2 Additional diagnosis detail: Left hip pain [id number] Zachery Hernandez MD [place] [id number] 03/27/2024 13:50:16 03/27/2024 14:43:09 Low back pain 867085762 M54.50 Lumbar spondylosis 46715 0009 M47.816 [id number] MD GUILLERMO LubinSID Younon [address] [place] [address] [place] [address] 04/11/2024 15:30:02 04/11/2024 16:31:06 Total body pain syndrome 176428175 R52 Health Concerns Section Related Observation LastModified by Organization Detai ls LastModified Time None Recorded Concern Status LastModified by Organization Details LastModified Time None Recorded Advance Directives Directive None Recorded Payers Encounter Date Sequence Insurance Name Policy Number Policy Blevins Covered Member ID Blevins Member ID Guarantor Name 02/01/2024 1 [employer] - MED[employer]ARE ADVANTAGE PLAN (MEDICARE REPLACEMENT HMO) [id number] [employer] [place] [id number] [employer] [place] 03/06/2024 1 [employer] - MEDICARE ADVANTAGE PLAN (MEDICARE REPLACEMENT HMO) [id number] [employer] [place] [id number] Negro [place] 03/11/2024 1 [employer] - MEDICARE ADVANTAGE PLAN (MEDICARE REPLACEMENT HMO) [id number] Negro [place] [id number] Negro [place] 03/27/2024 1 [employer] - MEDICARE ADVANTAGE PLAN (MEDICARE REPLACEMENT HMO) [id number] Negro [place] [id number] Negro [place] 04/11/2024 1 [employer] - MEDICARE ADVANTAGE PLAN (MEDICARE REPLACEMENT HMO) [id number] [employer] [place] [id number] Negro [place] Notes Date Note Type Note [...] RAINER STAFFORD PA-C [address], [place], [address], [place] [facility] 03/02/2024 12:23:39 03/06/2024 text/html Patient returns [...] RAINER STAFFORD PA-C [address], [place], [address], [place] [facility] 03/11/2024 10:35:59 03/11/2024 text/html Patient returns [...] Jose Kiran MD [address], [place], [address], [facility] 04/25/2024 19:53:23
== END 2024-08-27 06:16 | disposition home or self-care (01) ==
LOC: CF 06:15
PROVIDERS: Visit Provider Anesthesiology
DX: M54.16 Radiculopathy, lumbar region (principal); M54.50 Low back pain, unspecified; M79.604 Pain in right leg; M79.605 Pain in left leg
CPT/HCPCS: 64483; J2003; J3301; Q9967

== ENCOUNTER 2024-08-27 10:04 | Outpatient (AMB) | payer OTHER, SELFPAY ==
[2024-08-27 10:29] VITALS: BP 158/82; PULSE 88; RESP 16; O2SAT 93
--- NOTE | 2024-08-27 10:29 | A.OFFVIS_ITS ---
Vital Signs 08/27/24 10:29 08/27/24 11:22 BP 158/82 H 140/84 H Blood Pressure Location Rt brachial Lt brachial Position Sitting Sitting Respiration 16 16 Pulse 88 78 Pulse Source Pulse Oximeter Pulse Oximeter Pulse Oximetry (%) 93 94 Oxygen Delivery Method Room Air Room Air Intake Visit Reasons: BILATERAL L3, L4 TFESI Vp [employer] Required: No Allergies No Known Allergies Allergy (Verified 08/27/24 10:29) Medication List - Last Reconciled 08/27/24 by Regla Juan LPN acetaminophen-codeine 300-30 mg 1 tab PO Q8H PRN 10 days aspirin 81 mg PO DAILY atorvastatin 40 mg PO DAILY lisinopril 40 mg PO DAILY sertraline 100 mg PO DAILY trazodone mg PO PFSH Medical History (Updated 08/27/24 @ 12:52 by Stephen Cohen MD) Greater trochanteric bursitis of right hip Polyarthralgia Lumbosacral spondylosis Chronic pain syndrome Degenerative arthritis of lumbar spine Bilateral hip pain Surgical History History of shoulder surgery H/O right knee surgery Social History Household Members: Family Housing: House Alcohol intake: current Alcohol intake frequency: 0-2 drinks per day Alcohol type: other Comment: [employer] and Jovi Caballerosal[employer] Patient Tobacco Use Status: Never used Tobacco Physical Exam Vital Signs: Last Vital Signs Pulse 78 08/27/24 11:22 Resp 16 08/27/24 11:22 BP 140/84 H 08/27/24 11:22 Pulse Ox 94 08/27/24 11:22 Oxygen Delivery Method Room Air 08/27/24 11:22 Assessment & Plan Assessment & Plan (1) Radiculopathy, lumbar region: Code(s): M54.16 - Radiculopathy, lumbar region Category: Medical Plan Transforaminal bilateral L3-L4 epidural steroid injection . Informed consent was thoroughly explained to the patient before the procedure.? The patient came to the operating room.? He was positioned prone on operating table with a pillow under his abdomen.? Time-out was performed delineating correct site and side of the procedure, nature of the injection, name and date of of the patient. The lower back of the patient was prepped with ChloraPrep and draped with sterile utility towels.? C-arm was brought over the operating field and sq picture of L3 was demonstrated on the screen.? The right side was chosen 1st as the side of the injection.? Tilting machine ipsilateral to the right at the level of L3 1st the most prominent picture of the right pedicle was obtained on the screen.? 3 mm below the level of the lowest point of the pedicle projection to the skin small amount of lidocaine 1% 3-4 cc was injected to anesthetize the skin.? After that 5 in 22 gauge Quincke point needle was inserted through the skin wheal and was advanced toward the L3-L4 right foramina on anterior posterior ,and oblique views intermittently.? When needle reached appropriate positioned injection of the contrast was performed delineating epidural and perineural spread of the contrast. No intravascular no intraneural and no intrathecal spread of the contrast was noted. After that injection of the 3 cc of lidocaine 1% mixed with Kenalog 20 mg was performed into the needle. Upon completion of the injection needle was removed and the procedure was repeated on the left side in the mirroring fashion. Upon completion of the procedure needle was removed, sterile Band-Aid was applied. Patient tolerated the procedure well. Orders: Orders FL guidance in treatment room Today M54.50 - Low back pain, unspecified, M79.604 - Pain in right leg, M79.605 - Pain in left leg Coding Level of Care Code Procedure Only Diagnoses Radiculopathy, lumbar region M54.16
--- OUTSIDE RECORDS SUMMARY | 2024-08-27 10:47 | XMS_ITS | Clinical Summary ---
Author Organization [address] [place] [address] [place] [phone] Phone Care Team Providers Care Instructional Systems Designer Name Role Phone Mohsen Boles MD Primary Care Provider [phone] Encounters Date Type Department Care Team Description 07/11/2024 1:30 PM EST Office Visit [facility] [address] [id number] Zachery Horton MD Acute rhinitis [...] Priority Date/Time Associated Diagnosis Comments POC RAPID [id number], MOLECULAR Routine 07/11/2024 3:27 PM EST Acute rhinitis from Last 3 Months Results * Poc Rapid [id number], MOLECULAR (07/11/2024 3:27 PM EST) COVID-19/SARS- COV-2 Rapid POC Negative Negative Internal Control Pass Yes Yes Swab Nasopharyngeal structure / Unknown 07/11/2024 3:27 PM EST Zachery Horton MD POINT OF CARE TEST E NTER/EDIT ORDERABLES from Last 3 Months Care Teams Instructional Systems Designer Relationship Specialty Start Date End Date Mohsen Boles MD [address] [place] [id number] PCP - General Internal Medicine 01/30/18
[2024-08-27 11:22] VITALS: BP 140/84; PULSE 78; RESP 16; O2SAT 94
== END 2024-08-27 11:45 | disposition home or self-care (01) ==
LOC: HO.PMCPRC 10:04
PROVIDERS: PCP Internal Medicine; Visit Provider Anesthesiology
DX: M54.16 Radiculopathy, lumbar region (principal)
CPT/HCPCS: 64483

== ENCOUNTER 2024-09-12 10:30 | Outpatient (AMB) | payer OTHER, SELFPAY ==
--- NOTE | 2024-09-12 10:40 | A.OFFVIS_ITS ---
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 Cohen. Patient reports 20-30% pain relief since procedure with minimal improvement in his daily activities and functioning, mobility and sleep. He reports persistent right hip pain with radiation into his right buttock and lateral hip with mild to moderate groin pain. Patient requests referral to Dr. Roach for Orthopedic re-evaluation given ongoing right hip pain and recent right hip MRI findings. He has not started PT and will reach out to [facility] today to schedule PT. Patient continues to endorse significant right hip and right buttock pain with walking, climbing stairs or sleeping on his right side. Denies any recent cough, cold, infection, fever or other significant changes in medical history since last office visit. Past Procedures: 08/27/24: Bilateral L3-L4 TFESI-20-30% pain relief PRIOR: Patient presents today for follow up to discuss recent lumbar spine MRI and xray results. Patient reports worsening low back pain with right leg weakness and pain and intermittent left leg pain. He also suffers from chronic right hip pain without significant groin pain. He was seen by Rheumatology last month, right hip MRI was ordered on 06/28/24 but has not been scheduled yet. Patient request to resubmit this to [facility] as his hip pain is worsening. He is seeing Orthopedic provider at [facility] tomorrow morning for diagnostic right GTB injection. Aj is interested to undergo therapeutic CHATA injection to address lumbar spinal stenosis related pain. Denies bladder or bowel dysfunction or saddle anesthesia. Pain radiates into his buttocks and lateral hips and into right anterior thigh and lateral right leg with weakness, numbness and tingling. Denies any recent cough, cold, infection, fever, or any significant changes in his medical history, medications or recent hospitalizations. PRIOR: Patient is a pleasant 79-year-old male with prior history of polyarthralgia, lumbar degenerative arthritis, bilateral hip pain, h/o C7-C8 ACDF (1986), right shoulder surgery, and right knee arthroscopic surgery, presents today for initial evaluation of low back pain with radiation into hips and down into his bilateral lower extremities, worse on the right side. Pain affects his daily activities and functioning, mood, recreational and social activities, mobility, and quality of life. Patient was previously seen by Neurosurgery few years ago and was told he was not a surgical candidate and that there was nothing that they could offer him. Patient reports I was kicked out from PT one month ago due to not able to do what they wanted me to do due to severe pain in my back and hips. He reports multiple stairs at home which increases his pain with climbing stairs. Patient also reports he has to stop on the road when driving over 20-30 minutes due to worsening low back and right leg pain with increasing numbness and paresthesia. Patient was previously treated by Orthopedic surgeons and pain management and has received multiple injections including PRP injections, right hip and greater trochanteric bursitis cortisone injections with temporary but good pain relief. He was recently evaluated by his Orthopedic provider and was deemed nonsurgical. He has pending right hip MRI per Rheumatology. Patient reports radicular back pain and right hip pain have been progressively getting worse and limiting his daily functioning and walking capacity. Patient denies fever, chills, cough, shortness of breath, abdominal pain, bladder or bowel dysfunction or saddle anesthesia. Reports right lower extremity weakness. Location: Lower back radiates down bilateral legs, right hip, RLE weakness Duration: Chronic pain for > 10 + years Characteristics of symptom or complaint: Spasming, stabbing, shooting, burning, numbness, tingling, sore, sharp Aggravating or associated factors: Prolonged driving, sitting, bending, lifting, twisting, climbing stairs Relieving factors: Tylenol, tried opioids and pregabalin in the past, activity modifications Treatment: PT, right hip/GTBinjections, h/o Ortho and Neurosugery evaluations, cane [facility] Medical History Greater trochanteric bursitis of right hip Polyarthralgia Lumbosacral spondylosis Chronic pain syndrome Degenerative arthritis of lumbar spine Bilateral hip pain Surgical History History of shoulder surgery H/O right knee surgery Social History Household Members: Family Housing: House Alcohol intake: current Alcohol intake frequency: 0-2 drinks per day Alcohol type: other Comment: [employer] Child and Jovi Caballeroa Patient Tobacco Use Status: Never used Tobacco Review of Systems Const All systems reviewed & are unremarkable except as noted in HPI and below Physical Exam Vital Signs: Last Vital Signs Pulse 78 09/12/24 10:45 BP 178/96 H 09/12/24 10:45 Pulse Ox 97 09/12/24 10:45 Oxygen Delivery Method Room Air 09/12/24 10:45 General: Appears afebrile. Alert and oriented. Mood and affect appropriate. Follows and participates in conversation appropriately. Respiratory effort is unlabored. No cough. Able to transition from sit to stand unassisted. Uses cane with ambulation. Ambulates with normal heel strike and toe off on the left, increased back and right leg pain with weakness with heel and toe standing. General: Yes no CVA tenderness Back/Spine/Pelvis Other: Limited lumbar ROM due to pain. Antalgic gait with limping. Lumbar extension, flexion forward and bending reproduce moderate pain. Demonstrates 5/5 left and 4/5 right strength of quadriceps bilaterally as well as flexion/dorsiflexion of bilateral feet against resistance. 2+ pedal pulses bilaterally. Straight leg rise with dorsiflexion positive bilaterally, worse on the right. Diminished patellar and achilles reflexes bilaterally. Facet loading test positive bilaterally. María sign positive bilaterally, Oscar?s limited test reproduces lateral right hip pain and mild groin pain. Pelvic compression and Stinchfield tests are positive on the right. Moderate right and mild left groin pain with I/E hip rotations, worse on the right with external hip rotations and weight bearing. Mild TTP to right GTB. Valsalva maneuver is positive. Back: no CVA tenderness Cervical Spine: cervical muscular tenderness, pain with cervical ROM, Cervical spine scars present (anterior neck) and No Cervical spine tenderness Thoracic/Lumbar Spine: thoracic and lumbar spine normal to inspection, No Thoracic/lumbar spine scar(s), Lasegue's sign positive bilateral and diffuse, pain with thoraco-lumbar ROM, paraspinal muscle tenderness on the right greater than left, thoraco-lumbar ROM limited, No thoracic spinal tenderness and lumbar spinal tenderness (L4-S1) Pelvis: buttock tenderness bilaterally Sacroiliac joints: bilaterally tender to palpation Extrem General: Yes capillary refill normal, Yes no clubbing, cyanosis or edema and Yes no calf tenderness Results Reviewed Results Reviewed: MR SPINE LUMBAR without CONTRAST 07/30/24 at [facility] INDICATION: Spondylosis, lumbar region. Spinal stenosis. Lower back pain radiating to bilateral hips, legs and feet for 20 years. TECHNIQUE: Unenhanced multiplanar, multisequence MR imaging of the lumbar spine. COMPARISON: MR lumbar spine 01/07/2022. FINDINGS: Normal lumbar alignment is demonstrated. Vertebral heights are well maintained. Bone marrow signal is within normal limits, and no suspicious osseous lesion is identified. There appears to be some congenital narrowing of the lumbar portion of the canal. This is causing a generalized mild stenosis starting at L2-3 and extending down to L4-5. The findings are again most severe at L3-4 where there is facet joint arthropathy and hypertrophy of the ligamentum flavum, as well as a mild diffuse bulge causing a moderate stenosis. There has been slight worsening when compared to the prior exam. Normal signal intensity in the distal cord. Conus ends normally at L1 level. Paraspinal soft tissues are unremarkable. Incidental finding of multiple cystic lesions in both renal cortices. At L1-2 there is no significant disc herniation or protrusion. No central canal or neural foraminal stenosis is demonstrated. At L2-3 there is no significant disc herniation or protrusion. No neural foraminal stenosis is demonstrated. At L3-4 there is no significant disc herniation or protrusion. There is facet joint arthropathy and hypertrophy of the ligamentum flavum, as well as a mild diffuse bulge causing a moderate stenosis. There has been slight worsening when compared to the prior exam. No neural foraminal stenosis is demonstrated. At L4-5 there is no significant disc herniation or protrusion. There is bilateral facet joint arthropathy not causing any significant mass effect at L4-5. No central canal or neural foraminal stenosis is demonstrated. At L5-S1 there is no significant disc herniation or protrusion. There is bilateral facet joint arthropathy not causing any significant mass effect at L5-S1. No neural foraminal stenosis is demonstrated. 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 More moderate stenosis at L3-4 due to the narrowing and diffuse bulge facet joint arthropathy and hypertrophy of ligamentum flavum. Slight worsening when compared to the prior exam. Assessment & Plan Assessment & Plan (1) Bilateral hip pain: Code(s): M25.551 - Pain in right hip; M25.552 - Pain in left hip Category: Medical (2) Tear of right gluteus medius tendon: Code(s): S76.011A - Strain of muscle, fascia and tendon of right hip, initial encounter Category: Medical (3) Tear of right gluteus minimus tendon: Code(s): S76.011A - Strain of muscle, fascia and tendon of right hip, initial encounter Category: Medical (4) Osteoarthritis of right hip: Code(s): M16.11 - Unilateral primary osteoarthritis, right hip Category: Medical (5) Greater trochanteric bursitis of right hip: Code(s): M70.61 - Trochanteric bursitis, right hip Category: Medical (6) Lumbar spinal stenosis: Code(s): M48.061 - Spinal stenosis, lumbar region without neurogenic claudication Category: Medical (7) Low back pain radiating to both legs: Code(s): M54.50 - Low back pain, unspecified; M79.604 - Pain in right leg; M79.605 - Pain in left leg Category: Medical Plan Reviewed right hip MRI results again with patient and his with patient today as noted above. Plan to proceed with Orthopedic re-evaluation for right hip tendinopathy related to right gluteal medius and minimus tears. He requests referral to Dr. Roach. Recommend dedicated formal PT for right hip tendinopathy to reduce pain, strengthen both hip muscles and improve range of motion and stability. Script was sent to location closer to patient's home, he will reach out to PT today for scheduling. Patient reports minimal pain relief with recent Bilateral L3-L4 TFESI on 08/27/24 for radicular low back pain. He reports right hip and right buttock pain is worse than low back with radicular symptoms. He tried several right hip and GTB cortisone injections in the past and physical therapy with continued symptoms and debilitating pain which affects his ADLs, mobility, sleep and quality of life. All questions were answered and the patient is in agreement of plan. Follow-up as needed. Orders: Referrals 2 Orthopedics Referral M16.11 - Unilateral primary osteoarthritis, right hip, M25.551 - Pain in right hip, M25.552 - Pain in left hip, S76.011A - Strain of muscle, fascia and tendon of right hip, initial encounter Medications: New 2 oxycodone Partial Fill upon patient request. 5 mg PO BID 10 days PRN 20 tabs 0RF pain M16.11 - Unilateral primary osteoarthritis, right hip, S76.011A - Strain of muscle, fascia and tendon of right hip, initial encounter Discontinued 2 acetaminophen-codeine 300-30 mg Discontinued Reason: Patient Completed Course 1 tab PO Q8H 10 days PRN 30 tabs 0RF pain M25.551 - Pain in right hip, M25.552 - Pain in left hip, M47.896 - Other spondylosis, lumbar region, M48.061 - Spinal stenosis, lumbar region without neurogenic claudication Coding Level of Care Code Est Pt Level 4 (96843) Complex EM visit Add On G2211 Diagnoses Bilateral hip pain M25.551; M25.552 Tear of right gluteus medius tendon S76.011A Tear of right gluteus minimus tendon S76.011A Osteoarthritis of right hip M16.11 Greater trochanteric bursitis of right hip M70.61 Lumbar spinal stenosis M48.061 Low back pain radiating to both legs M54.50; M79.604; M79.605
[2024-09-12 10:45] VITALS: BP 178/96; PULSE 78; O2SAT 97
--- OUTSIDE RECORDS SUMMARY | 2024-09-12 11:39 | XMS_ITS | Clinical Summary ---
Author Organization [address] [place] [address] [place] [phone] Phone Care Team Providers Care Fisheries Diver Name Role Phone Mohsen Boles MD Primary Care Provider [phone] Encounters Date Type Department Care Team Description 07/11/2024 1:30 PM EST Office Visit [facility] [address] [phone] Zachery Horton MD Acute rhinitis (Primary Dx); COVID-19 ruled out by laboratory testing from Last 3 Months Social History Tobacco Use Types Packs/Day Years Used Date Smoking Tobacco: Never Assessed Sex and Gender Information Value Date Recorded Sex Assigned at Not on file Legal Sex Male 11:49 PM EST Gender Identity Not on file Sexual Orientation Not on file Last Filed Vital Signs [...] BMP Blood Test 03/09/2025 03/09/2024 Pneumococcal Vaccine: 50+ Years Completed 10/11/2017, 04/12/2011 COVID-19 Vaccine Completed [...] patient's age to complete this topic Meningococcal B Vacine Aged Out No lo nger eligible based on patient's age to complete this topic RSV Immunization Patients Under 20 months Aged Out No longer eligible based on patient's age to complete this topic Varicella Vaccines Aged Out No longer eligible based on patient's age to complete this topic Procedures Procedure Name Priority Date/Time Associated Diagnosis Comments POC RAPID [id number], MOLECULAR Routine 07/11/2024 3:27 PM EST Acute rhinitis from Last 3 Months Results * Poc Rapid [id number], MOLECULAR (07/11/2024 3:27 PM EST) COVID-19/SARS- COV-2 Rapid POC Negative Negative Internal Control Pass Yes Yes Swab Nasopharyngeal structure / Unknown 07/11/2024 3:27 PM EST Zachery Horton MD POINT OF CARE TEST ENTER/EDIT OR DERABLES Final Result from Last 3 Months Insurance [employer] Care Teams Fisheries Diver Relationship Specialty Start Date End Date Mohsen Boles MD [address] [place] [phone] PCP - General Internal Medicine 01/30/18
--- OUTSIDE RECORDS SUMMARY | 2024-09-12 11:40 | XMS_ITS | Data Portability ---
Author Organization [place] [facility] [place] Address [address] [place] [address] Care Team Providers Care Commercial Loan Reviewer Name Role Phone MADELAINEAUDRA JANICE Referring Provider Unavailable ARABELLA BREEN OTHER [phone] Assessment Encounter Date Assessment Date Assessment LastModified [...] this patient on the date of the [id number] encounter (including direct patient interaction, wound care, review of applicable labs and imaging, documentation, and communication with other providers involved in patient s care): 25 minutes Patient was seen and evaluated by Gildardo Cullen PA-C in indirect conjunction with Documenting Provider: Zachery Hernandez MD He agrees with history, physical examination, tests/diagnostic imaging, and treatment plan Not available 03/27/2024 15:47:07 04/11/2024 04/11/2024 79-year-old [...] type disease and should be evaluated by it technical support specialist . He lives in the [facility] and is interested in finding a it technical support specialist near his home. We make the appropriate referral. In anticipation of seeing the it technical support specialist will order laboratory studies as noted below. He will follow-up with us on an as-needed basis [email or web address] Not available 04/11/2024 17:03:45 Plan of Treatment Reminders Order Date Submit Date Provider Last Modified By Organization Details Last Modified Time Details Appointments None recorded. Lab rf (rheumatoid factor) + anti-ccp abs, serum 2023 024 [email or web address] Not available 13:46:47 TSH, serum or plasma 2023 024 [email or web address] Not available 11:29:48 uric acid, serum or plasma 2023 024 [email or web address] Not available 11:29:48 CBC w/ diff 2023 [...] X-rays,MRI. ?? Inflammator y arthritis?? 2023 024 [email or web address] Arabella Breen MD, [address], [place], [address], 17:15:27 Procedures None recorded. Surgeries None recorded. Imaging MRI, lumbar spine, w/o contrast - r/o canal stenosis 2023 024 [facility] [address], [place], [address], 14:07:21 XR, lumbosacral spine, 2 or 3 view 2023 024 [email or web address] [facility], [address], [place], [address], 4 16:40:17 XR, hip, unilateral, 2 or 3 view 2023 024 [email or web address] 2 [facility], [address], [place], [address], 4 12:59:56 XR, hip, unilateral, 2 or 3 view 2023 024 [email or web address] [facility], [address], [place], [address], 4 12:59:56 Medication Orders meloxicam 15 mg tablet 2023 024 [email or web address] [id number], [address] , [place], [address], 4 15:14:40 Patient TargetsNo targets recorded. Patient Instructions Encounter Date Encounter Id Patient Instructions Last Modified By Organization Details Last Modified Time 02/01/2024 [id number] views of the bilateral hips were obtained today 02/01/2024 in the [place] office. Mild to moderate degenerative changes. Trace spurring versus calcification adjacent to the greater trochanters. No acute fracture or dislocation appreciated. Not available 03/02/2024 12:23:24 03/27/2024 [id number] AP and lateral x-rays of the lumbar spine were obtained on 03/2024 which demonstrates multilevel degenerative changes. No acute osseous abnormalities. [email or web address] Not available 03/27/2024 15:46:42 Reason for Referral Section Crews Activities Clerk Referral for Total body pain syndrome Wide spread body pain. Normal X-rays,MRI. ?? Inflammatory arthritis?? Referring Physician: Zachery Hernandez, Orthopedic Surgery, Encounter Date: 04/11/2024 Results Created Date Observation Date Name Description Value Unit Range Abnormal Flag Note LastModifiedBy Organization Detail LastModifiedTime 01/29/20 MRI, hip, w/o contr ast No observ ation record ed. [email or web address] Not Available 2023 10:17:43 04/04/20 24 04/02/2024 MRI, lumba r spine , w/o contr ast No observ ation record ed. [email or web address] [facility] [address] [place], [address], 04/04/2024 14:14:32 Result Notes None recorded. 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 Procedures Surgical History Date Name Laterality Status Provider Name and Address Organization Details Recorded Time Shoulder Surgery completed Renetta Daniel [facility] 02/01/2024 12:06:54 Knee Surgery completed Renetta Daniel [place] [facility] 02/01/2024 12:07:00 Imaging Results Imaging Date Name Status LastModified by Organiz ation Details LastModified Time 01/29/2024 MRI, hip, w/o contrast completed Information not available 01/29/2024 10:17:43 04/02/2024 MRI, lumbar spine, w/o contrast completed [email or web address] [facility] [address] [place], [address], 04/04/2024 14:14:32 Procedure Notes None recorded. Medical [...] Address Organization Details Last Updated DateTime 02/01/2024 [address] [place] [facility] 02/01/2024 12:06:02 Social History Question Answer Notes LastModified by Organizat ion Details LastModified Time Tobacco Smoking Status Never Smoker Renetta Daniel null, [place] [facility] 02/01/2024 12:06:26 What Is Your Level Of Alcohol Consumption? Moderate [email or web address] Information not available 02/01/2024 How Many Times Per Week Do You Consume Alcohol? 3-4 Times Per Week [email or web address] Information not available 02/01/2024 Do You Use Any Illicit Or Recreational Drugs? Yes [email or web address] Information not available 03/11/2024 Do You Or Have You Ever Used Any Other Forms Of Tobacco Or Nicotine? No [email or web address] Information not available 02/01/2024 Sex: Unknown Functional Status None recorded. Mental Status None recorded. Family History Nothing Reported. Medical History Condition Response Cancer Y Hypertension Y Past Encounters Encounter ID Performer Location Encounter Start Date Encounter Closed Date Diagnosis/Indication Diagnosis SNOMED-CT Code Diagnosis ICD10 Code Diagnosis Note [id number] Jose Kiran MD [place] [id number] 02/01/2024 10:36:07 02/01/2024 12:12:21 Pain in right hip joint 2576417479 12074 M25.551 Additional diagnosis detail: Hip pain, right Hip pain 60555080 M25.55 2 Additional diagnosis detail: Left hip pain [id number] Jose Kiran MD [place] [id number] 03/06/2024 15:10:07 03/06/2024 15:45:57 Pain in right hip joint 1815172685 61582 M25.551 Additional diagnosis detail: Hip pain, right Hip pain 24931945 M25.55 2 Additional diagnosis detail: Left hip pain [id number] Jose Kiran MD [address] [address] 03/11/2024 10:31:19 03/11/2024 11:22:02 Pain in right hip joint 3678242034 95719 M25.551 Additional diagnosis detail: Hip pain, right Hip pain 26262236 M25.55 2 Additional diagnosis detail: Left hip pain [id number] Zachery Hernandez MD [place] [id number] 03/27/2024 13:50:16 03/27/2024 14:43:09 Low back pain 520755664 M54.50 Lumbar spondylosis 27773 0009 M47.816 [id number] MD GUILLERMO LubinSID Younon [address] [place] [address] [place] [address] 04/11/2024 15:30:02 04/11/2024 16:31:06 Total body pain syndrome 030137668 R52 Health Concerns Section Related Observation LastModified by Organization Detai ls LastModified Time None Recorded Concern Status LastModified by Organization Details LastModified Time None Recorded Advance Directives Directive None Recorded Payers Encounter Date Sequence Insurance Name Policy Number Policy Blevins Covered Member ID Blevins Member ID Guarantor Name 02/01/2024 1 [employer] - MEDICARE ADVANTAGE PLAN (MEDICARE REPLACEMENT HMO) [id number] Negro Salinas [id number] Negro [place]inas 03/06/2024 1 [employer] - MED[employer]ARE ADVANTAGE PLAN (MEDICARE REPLACEMENT HMO) [id number] [employer] [place] [id number] [employer] [place] 03/11/2024 1 [employer] - MEDICARE ADVANTAGE PLAN (MEDICARE REPLACEMENT HMO) [id number] Negro [place] [id number] Negro [place] 03/27/2024 1 [employer] - MEDICARE ADVANTAGE PLAN (MEDICARE REPLACEMENT HMO) [id number] [employer] [place] [id number] Negro [place] 04/11/2024 1 [employer] - MEDICARE ADVANTAGE PLAN (MEDICARE REPLACEMENT HMO) [id number] Negro [place] [id number] Negro [place] Notes Date Note Type Note [...] RAINER STAFFORD PA-C [address], [place], [address], [place] [facility] 03/02/2024 12:23:39 03/06/2024 text/html Patient returns [...] RAINER STAFFORD PA-C [address], [place], [address], [place] [facility] 03/11/2024 10:35:59 03/11/2024 text/html Patient returns [...] Jose Kiran MD [address], [place], [address], [place] [facility] 04/25/2024 19:53:23
== END 2024-09-12 11:28 | disposition home or self-care (01) ==
PROVIDERS: PCP Internal Medicine; Visit Provider Nurse Practitioner Family
DX: M25.551 Pain in right hip (principal); M25.552 Pain in left hip; S76.011A Strain of muscle, fascia and tendon of right hip, initial encounter; M16.11 Unilateral primary osteoarthritis, right hip; M70.61 Trochanteric bursitis, right hip; M48.061 Spinal stenosis, lumbar region without neurogenic claudication; M54.50 Low back pain, unspecified; M79.604 Pain in right leg; M79.605 Pain in left leg
CPT/HCPCS: 99214

== ENCOUNTER 2025-04-11 14:59 | Outpatient (AMB) | payer OTHER, SELFPAY ==
--- NOTE | 2025-04-11 15:02 | MHC.OFFVIS ---
Vital Signs 04/11/25 15:05 Height 5 ft 10 in Weight 201 lb BMI 28.8 BP 138/69 Blood Pressure Location Rt brachial Position Sitting Pulse 82 Pulse Source Pulse Oximeter Pulse Oximetry (%) 98 Oxygen Delivery Method Room Air Intake Visit Reasons: Back Pain Intake Note: Pain today 01/30 Ground Hand Required: No Accompanied by: Self / Same As Patient Allergies No Known Allergies Allergy (Verified 10/10/24 09:38) HPI Comments Details: The patient is an 80-year-old male presenting with back pain and swelling in the feet post-hip surgery. The patient underwent hip surgery on February 03, which was initially planned for October but postponed due to an emergency. Post-surgery, the patient reports that his right hip pain has been manageable, but he has developed significant back pain and swelling in the feet with numbness and tingling in his right calf and foot. The patient describes the back pain as tender and affecting the lower back region, with numbness extending to the right foot. He has been receiving physical therapy and had an MRI of the back in July, which showed no significant disc herniation or protrusion. There is bilateral facet joint arthropathy not causing any significant mass effect at L4-L5 and L5-S1. No neural foraminal stenosis is demonstrated at these levels. 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 More moderate stenosis at L3-4 due to the narrowing and diffuse bulge facet joint arthropathy and hypertrophy of ligamentum flavum. Despite receiving a L3-L4 TFESI injection in August, the patient experienced only minimal pain relief. The swelling in the feet began the day after the hip surgery, with the patient noting that his feet were not swollen prior to the procedure. The surgeon suggested the symptoms might originate from the back, but the patient is unsure about this explanation. The patient has been advised to continue physical therapy and is awaiting an EMG study to further investigate the cause of his symptoms. - Onset: Pain began post-hip surgery on February 03. - Quality: Described as tender in the lower back, with numbness and burning sensation in the right foot. - Location: Lower back, radiating to the right lower leg and right foot. - Exacerbating factors: Movement and pressure on the foot. - Relieving factors: None - Affect: Pain impacts daily activities and mood, causing frustration. - Analgesia: Currently taking gabapentin and oxycodone, with limited relief from gabapentin. - Adverse Effects: No specific adverse effects mentioned. - Activities of Daily Living: Pain limits mobility and daily functioning. - Aberrant Drug Related Behaviors: None reported. Past Procedures: 02/03/25: Right hip tendon repair surgery Dr. Roach 08/27/24: Bilateral L3-L4 TFESI-20-30% pain relief PRIOR: Patient presents today for follow up to discuss recent lumbar spine MRI and xray results. Patient reports worsening low back pain with right leg weakness and pain and intermittent left leg pain. He also suffers from chronic right hip pain without significant groin pain. He was seen by Rheumatology last month, right hip MRI was ordered on 06/28/24 but has not been scheduled yet. Patient request to resubmit this to [facility] as his hip pain is worsening. He is seeing Orthopedic provider at [facility] tomorrow morning for diagnostic right GTB injection. Aj is interested to undergo therapeutic CHATA injection to address lumbar spinal stenosis related pain. Denies bladder or bowel dysfunction or saddle anesthesia. Pain radiates into his buttocks and lateral hips and into right anterior thigh and lateral right leg with weakness, numbness and tingling. Denies any recent cough, cold, infection, fever, or any significant changes in his medical history, medications or recent hospitalizations. PRIOR: Patient is a pleasant 79-year-old male with prior history of polyarthralgia, lumbar degenerative arthritis, bilateral hip pain, h/o C7-C8 ACDF (1986), right shoulder surgery, and right knee arthroscopic surgery, presents today for initial evaluation of low back pain with radiation into hips and down into his bilateral lower extremities, worse on the right side. Pain affects his daily activities and functioning, mood, recreational and social activities, mobility, and quality of life. Patient was previously seen by Neurosurgery few years ago and was told he was not a surgical candidate and that there was nothing that they could offer him. Patient reports I was kicked out from PT one month ago due to not able to do what they wanted me to do due to severe pain in my back and hips. He reports multiple stairs at home which increases his pain with climbing stairs. Patient also reports he has to stop on the road when driving over 20-30 minutes due to worsening low back and right leg pain with increasing numbness and paresthesia. Patient was previously treated by Orthopedic surgeons and pain management and has received multiple injections including PRP injections, right hip and greater trochanteric bursitis cortisone injections with temporary but good pain relief. He was recently evaluated by his Orthopedic provider and was deemed nonsurgical. He has pending right hip MRI per Rheumatology. Patient reports radicular back pain and right hip pain have been progressively getting worse and limiting his daily functioning and walking capacity. Patient denies fever, chills, cough, shortness of breath, abdominal pain, bladder or bowel dysfunction or saddle anesthesia. Reports right lower extremity weakness. Location: Lower back radiates down bilateral legs, right hip, RLE weakness Duration: Chronic pain for > 10 + years Characteristics of symptom or complaint: Spasming, stabbing, shooting, burning, numbness, tingling, sore, sharp Aggravating or associated factors: Prolonged driving, sitting, bending, lifting, twisting, climbing stairs Relieving factors: Tylenol, tried opioids and pregabalin in the past, activity modifications Treatment: PT, right hip/GTBinjections, h/o Ortho and Neurosugery evaluations, cane [facility] Medical History (Updated 04/11/25 @ 15:17 by COOPER Mccabe) Greater trochanteric bursitis of right hip Polyarthralgia Lumbosacral spondylosis Chronic pain syndrome Degenerative arthritis of lumbar spine Bilateral hip pain Surgical History (Updated 04/11/25 @ 16:17 by COOPER Mccabe) History of hip surgery (~02/03/25) History of shoulder surgery H/O right knee surgery Social History Household Members: Family Housing: House Alcohol intake: current Alcohol intake frequency: 0-2 drinks per day Alcohol type: other Comment: [employer] Child and Jovi Diaz Patient Tobacco Use Status: Never used Tobacco Review of Systems Const Details: - Musculoskeletal: Reports back pain and tenderness, swelling in feet. - Neurological: Reports numbness and burning sensation in the right foot. - General: Denies significant hip pain post-surgery. All systems reviewed & are unremarkable except as noted in HPI and below Physical Exam Vital Signs: Last Vital Signs Pulse 82 04/11/25 15:05 BP 138/69 04/11/25 15:05 Pulse Ox 98 04/11/25 15:05 Oxygen Delivery Method Room Air 04/11/25 15:05 BMI result Body Mass Index 28.8 General: Appears afebrile. Alert and oriented. Mood and affect appropriate. Follows and participates in conversation appropriately. Respiratory effort is unlabored. No cough. Able to transition from sit to stand unassisted. Uses cane with ambulation. Ambulates with normal heel strike and toe off on the left, increased back and right leg pain with weakness with heel and toe standing. General: Yes no CVA tenderness Back/Spine/Pelvis Other: Limited lumbar ROM due to pain. Antalgic gait with mild limping. Lumbar extension, flexion forward and bending reproduce mild to moderate pain. Demonstrates 5/5 left and 4/5 right strength of quadriceps bilaterally as well as flexion/dorsiflexion of bilateral feet against resistance. 2+ pedal pulses bilaterally. Straight leg rise with dorsiflexion positive bilaterally, worse on the right. Diminished patellar and achilles reflexes bilaterally. Facet loading test positive bilaterally. Back: no CVA tenderness Cervical Spine: cervical ROM normal, Cervical spine scars present (anterior neck) and No Cervical spine tenderness Thoracic/Lumbar Spine: thoracic and lumbar spine normal to inspection, No Thoracic/lumbar spine scar(s), Lasegue's sign positive bilateral and diffuse, pain with thoraco-lumbar ROM, paraspinal muscle tenderness on the right greater than left, thoraco-lumbar ROM limited, No thoracic spinal tenderness and lumbar spinal tenderness (L4-S1) Pelvis: buttock tenderness bilaterally Sacroiliac joints: bilaterally tender to palpation Extrem General: Yes capillary refill normal, Yes no clubbing, cyanosis or edema and Yes no calf tenderness Results Reviewed Results Reviewed: MR SPINE LUMBAR without CONTRAST 07/30/[address] [facility] INDICATION: Spondylosis, lumbar region. Spinal stenosis. Lower back pain radiating to bilateral hips, legs and feet for 20 years. TECHNIQUE: Unenhanced multiplanar, multisequence MR imaging of the lumbar spine. COMPARISON: MR lumbar spine 01/07/2022. FINDINGS: Normal lumbar alignment is demonstrated. Vertebral heights are well maintained. Bone marrow signal is within normal limits, and no suspicious osseous lesion is identified. There appears to be some congenital narrowing of the lumbar portion of the canal. This is causing a generalized mild stenosis starting at L2-3 and extending down to L4-5. The findings are again most severe at L3-4 where there is facet joint arthropathy and hypertrophy of the ligamentum flavum, as well as a mild diffuse bulge causing a moderate stenosis. There has been slight worsening when compared to the prior exam. Normal signal intensity in the distal cord. Conus ends normally at L1 level. Paraspinal soft tissues are unremarkable. Incidental finding of multiple cystic lesions in both renal cortices. At L1-2 there is no significant disc herniation or protrusion. No central canal or neural foraminal stenosis is demonstrated. At L2-3 there is no significant disc herniation or protrusion. No neural foraminal stenosis is demonstrated. At L3-4 there is no significant disc herniation or protrusion. There is facet joint arthropathy and hypertrophy of the ligamentum flavum, as well as a mild diffuse bulge causing a moderate stenosis. There has been slight worsening when compared to the prior exam. No neural foraminal stenosis is demonstrated. At L4-5 there is no significant disc herniation or protrusion. There is bilateral facet joint arthropathy not causing any significant mass effect at L4-5. No central canal or neural foraminal stenosis is demonstrated. At L5-S1 there is no significant disc herniation or protrusion. There is bilateral facet joint arthropathy not causing any significant mass effect at L5-S1. No neural foraminal stenosis is demonstrated. 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 More moderate stenosis at L3-4 due to the narrowing and diffuse bulge facet joint arthropathy and hypertrophy of ligamentum flavum. Slight worsening when compared to the prior exam. Assessment & Plan Assessment & Plan (1) Osteoarthritis of right hip: Code(s): M16.11 - Unilateral primary osteoarthritis, right hip Category: Medical (2) Radiculopathy, lumbar region: Code(s): M54.16 - Radiculopathy, lumbar region Category: Medical (3) Right leg paresthesias: Code(s): R20.2 - Paresthesia of skin Category: Medical (4) Degenerative arthritis of lumbar spine: Code(s): M47.816 - Spondylosis without myelopathy or radiculopathy, lumbar region Category: Medical Qualifiers: Spinal osteoarthritis complication: other spinal osteoarthritis Qualified Code(s): M47.896 - Other spondylosis, lumbar region (5) Lumbosacral spondylosis: Code(s): M47.817 - Spondylosis without myelopathy or radiculopathy, lumbosacral region Category: Medical (6) Lumbar spinal stenosis: Code(s): M48.061 - Spinal stenosis, lumbar region without neurogenic claudication Category: Medical Plan The plan includes continuing physical therapy to manage symptoms, continue right hip rehab s/p recent surgery and improve mobility. An EMG study is scheduled to determine if the symptoms are due to peripheral neuropathy and rule out lumbar radiculopathy. Depending on the EMG results, further imaging such as an MRI may be considered to further evaluate acute radiculopathy. All questions and concerns have been answered and patient agreed with the treatment plan. Follow up for EMG results and sooner as needed. Patient was informed and verbally consented to the use of an ambient scribe for clinic note documentation during this visit. Orders: Orders NE electromyogram (EMG) Today M54.16 - Radiculopathy, lumbar region, R20.2 - Paresthesia of skin NE nerve conduction velocity Today M54.16 - Radiculopathy, lumbar region, R20.2 - Paresthesia of skin Coding Level of Care Code Est Pt Level 4 (06579) Complex EM visit Add On G2211 Diagnoses Osteoarthritis of right hip M16.11 Radiculopathy, lumbar region M54.16 Right leg paresthesias R20.2 Other osteoarthritis of spine, lumbar region M47.896 Spinal osteoarthritis complication: other spinal osteoarthritis Lumbosacral spondylosis M47.817 Lumbar spinal stenosis M48.061
--- OUTSIDE RECORDS SUMMARY | 2025-04-11 15:02 | XMS_ITS | Encounter Summary ---
Author Organization [facility] Address [address] [place] [address] Care Team Providers Care Frame Stripper And Crusher Name Role Phone Mohsen Boles MD Primary Care Provider [phone] Encounter Details Date Type Department Care Team (Late st Contact Info) Description 02/08/2025 Lab Requisition [facility] - Main Lab [address] [place] [address] Brad Laboy MD [address] [place] [address] Essential (primary) hypertension; Hyperlipidemia, unspecified; Trochanteric bursitis, unspecified hip Social History Tobacco Use Types Packs/Day Years Used Date Smoking Tobacco: Never Assessed Sex and Gender Information Value Date Recorded Sex Assigned at Not on file Legal Sex Male 11:49 PM EST Gender Identity Not on file Sexual Orientation Not on file documented as of this encounter Plan of Treatment Not on file documented as of this encounter Procedures Procedure Name Priority Date/Time Associated Diagnosis Comments COMPLETE BLOOD COUNT Routine 02/10/2025 7:43 AM EDT Essential (primary) hypertension Hyperlipidemia, unspecified Trochanteric bursitis, unspecified hip BASIC METABOLIC PANEL Routine 02/10/2025 7:43 AM EDT Essential (primary) hypertension Hyperlipidemia, unspecified Trochanteric bursitis, unspecified hip documented in this encounter Results * (ABNORMAL) Basic metabolic panel (02/10/2025 7:43 AM EDT) Sodium 140 133 - 145 mmol/L LAB CHEMISTRY METHOD 02/10/2025 3:14 PM [facility] Potassium 4.2 3.5 - 5.5 mmol/L LAB CHEMISTRY METHOD 02/10/2025 3:14 PM [facility] Chloride 106 96 - 110 mmol/L LAB CHEMISTRY METHOD 02/10/2025 3:14 PM [facility] CO2 28 21 - 32 mmol/L LAB CHEMISTRY METHOD 02/10/2025 3:14 PM [facility] Anion Gap 6 3 - 11 LAB CHEMISTRY METHOD 02/10/2025 3:14 PM [facility] Glucose 106(H) 70 - 100 mg/dL LAB CHEMISTRY METHOD 02/10/2025 3:14 PM [facility] BUN 18 5 - 25 mg/dL LAB CHEMISTRY METHOD 02/10/2025 3:14 PM [facility] Creatinine 1.24 0.70 - 1.30 mg/dL LAB CHEMISTRY METHOD 02/10/2025 3:14 PM [facility] eGFR 59(L) >=60 mL/min/1. 73m2 LAB CHEMISTRY METHOD 02/10/2025 3:14 PM [facility] Comment:Calculation based on the Chronic Kidney Disease Epidemiology Collaboration (CKD-EPI) equation refit without adjustment for race. BUN/Creatinine Ratio 14.5 LAB CHEMISTRY METHOD 02/10/2025 3:14 PM [facility] Calcium 8.6 8.5 - 10.5 mg/dL LAB CHEMISTRY METHOD 02/10/2025 3:14 PM [facility] Blood Venous blood specimen / Unknown Venipuncture / Unknown 02/10/2025 7:43 AM EDT 02/10/2025 11:46 AM EDT us Brad Laboy MD LAB BLOOD ORDERABLES Final Result [facility] [address] [place] [address], * (ABNORMAL) Complete blood count (02/10/2025 7:43 AM EDT) [facility] WBC 5.6 4.8 - 10.8 K/mcL LAB HEMETOLOGY [facility] RBC 3.60(L) 4.50 - 5.50 M/mcL LAB HEMETOLOGY METHOD [facility]25 [facility] Hemoglobin 11.2(L) 13.5 - 17.5 g/dL LAB HEMETOLOGY METHOD 02/10/2025 1:05 PM [facility] Hematocrit 34.8(L) 42.0 - 54.0 % LAB HEMETOLOGY METHOD 02/10/2025 1:05 PM [facility] MCV 96.9 79.0 - 98.0 FL LAB HEMETOLOGY METHOD 02/10/2025 1:05 PM [facility] MCH 31.2 27.0 - 32.0 pcg LAB HEMETOLOGY METHOD 02/10/2025 1:05 PM [facility] MCHC 32.2 32.0 - 37.0 g/dL LAB HEMETOLOGY METHOD 02/10/2025 1:05 PM [facility] RDW 12.9 11.0 - 15.0 % LAB HEMETOLOGY METHOD 02/10/2025 1:05 PM [facility] Platelets 234 130 - 400 K/mcL LAB HEMETOLOGY METHOD 02/10/2025 1:05 PM [facility] MPV 11.3(H) 7.0 - 11.0 FL LAB HEMETOLOGY METHOD 02/10/2025 1:05 PM [facility] NRBC 0.0 <1.0 % LAB HEMETOLOGY METHOD 02/10/2025 1:05 PM EDT [facility] NRBC Absolute 0.00 <0.10 K/mcL LAB HEMETOLOGY METHOD 02/10/2025 1:05 PM EDT [facility] Blood Venous blood specimen / Unknown Venipuncture / Unknown 02/10/2025 7:43 AM EDT 02/10/2025 11:46 AM EDT us Brad Laboy MD LAB BLOOD ORDERABLES Final Result [facility] [address] [place] [address], documented in this encounter Visit Diagnoses Diagnosis Essential (primary) hypertension Unspecified essential hypertension Hyperlipidemia, unspecified Trochanteric bursitis, unspecified hip documented in this encounter Care Teams Frame Stripper And Crusher Relationship Specialty Start Date End Date Mohsen Boles MD [address] [place] [address] PCP - General Internal Medicine 01/30/18 documented as of this encounter
--- OUTSIDE RECORDS SUMMARY | 2025-04-11 15:02 | XMS_ITS | Encounter Summary ---
Author Organization [facility] Address [address] [place] [address] Care Team Providers Care Windows Systems Engineer Name Role Phone Mohsen Boles MD Primary Care Provider [phone] Encounter Details Date Type Department Care Team (Late st Contact Info) Description 02/14/2025 Lab Requisition [facility] - Main Lab [address] [place] [address] Brad Laboy MD [address] [place] [address] Essential (primary) hypertension; Hyperkalemia Social History Tobacco Use Types Packs/Day Years [...] Associated Diagnosis Comments COMPLETE BLOOD COUNT Routine 02/17/2025 8:30 AM EDT Essential (primary) hypertension Hyperkalemia BASIC METABOLIC PANEL Routine 02/17/2025 8:30 AM EDT Essential (primary) hypertension Hyperkalemia documented in this encounter Results * (ABNORMAL) Basic metabolic panel (02/17/2025 8:30 AM EDT) Sodium 138 133 - 145 mmol/L LAB CHEMISTRY METHOD 02/17/2025 1:48 PM EDT [facility] Potassium 4.3 3.5 - 5.5 mmol/L LAB CHEMISTRY METHOD 02/17/2025 1:48 PM EDT [facility] Chloride 105 96 - 110 mmol/L LAB CHEMISTRY METHOD 02/17/2025 1:48 PM EDT [facility] CO2 28 21 - 32 mmol/L LAB CHEMISTRY METHOD 02/17/2025 1:48 PM [facility] Anion Gap 5 3 - 11 LAB CHEMISTRY METHOD 02/17/2025 1:48 PM EDT [facility] Glucose 146(H) 70 - 100 mg/dL LAB [facility]STR[facility] BUN 21 5 - 25 mg/dL LAB CHEMISTRY METHOD 02/17/2025 1:48 PM [facility] Creatinine 1.28 0.70 - 1.30 mg/dL LAB CHE[facility]STR[facility] METHOD [facility] eGFR 57(L) >=60 mL/min/1. 73m2 LAB CHEMISTRY METHOD 02/17/2025 1:48 PM EDT [facility] Comment:Calculation based on the Chronic Kidney Disease Epidemiology Collaboration (CKD-EPI) equation refit without adjustment for race. BUN/Creatinine Ratio 16.4 LAB CHEMISTRY METHOD 02/17/2025 1:48 PM [facility] Calcium 9.4 8.5 - 10.5 mg/dL LAB CHEMISTRY METHOD 02/17/2025 1:48 PM [facility] Blood Venous blood specimen / Unknown Venipuncture / Unknown 02/17/2025 8:30 AM EDT 02/17/2025 11:45 AM EDT us Brad Laboy MD LAB BLOOD ORDERABLES Final Result [facility] [address] [place] [address], * (ABNORMAL) Complete blood count (02/17/2025 8:30 AM EDT) [facility] Signature WBC 6.8 4.8 - 10.8 K/mcL LAB HEMETOLOGY METHOD 02/17/2025 12:45 PM [facility] RBC 4.20(L) 4.50 - 5.50 M/mcL LAB HEMETOLOGY METHOD [facility] Hemoglobin 13.0(L) 13.5 - 17.5 g/dL LAB HEMETOLOGY METHOD 02/17/2025 12:45 PM [facility] Hematocrit 39.8(L) 42.0 - 54.0 % LAB HEMETOLOGY METHOD 02/17/2025 12:45 PM [facility] MCV 94.8 79.0 - 98.0 FL LAB HEMETOLOGY METHOD 02/17/2025 12:45 PM [facility] MCH 31.0 27.0 - 32.0 pcg LAB HEMETOLOGY METHOD 02/17/2025 12:45 PM [facility] MCHC 32.7 32.0 - 37.0 g/dL LAB HEMETOLOGY METHOD 02/17/2025 12:45 PM [facility] RDW 13.0 11.0 - 15.0 % LAB HEMETOLOGY METHOD 02/17/2025 12:45 PM [facility] Platelets 394 130 - 400 K/mcL LAB HEMETOLOGY METHOD 02/17/2025 12:45 PM [facility] MPV 10.3 7.0 - 11.0 FL LAB HEMETOLOGY METHOD [facility] NRBC 0.0 <1.0 % LAB HEMETOLOGY METHOD [facility] NRBC Absolute 0.00 <0.10 K/mcL LAB HEMETOLOGY METHOD 02/17/2025 12:45 PM EDT [facility] Blood Venous blood specimen / Unknown Venipuncture / Unknown 02/17/2025 8:30 AM EDT 02/17/2025 11:45 AM EDT us Brad Laboy MD LAB BLOOD ORDERABLES Final Result [facility] [address] [place] [address], [place] [phone] documented in this encounter Visit Diagnoses Diagnosis Essential (primary) hypertension Unspecified essential hypertension Hyperkalemia Hyperpotassemia documented in this encounter Care Teams Windows Systems Engineer Relationship Specialty Start Date End Date Mohsen Boles MD [address] [place] [address] PCP - General Internal Medicine 01/30/18 documented as of this encounter
--- OUTSIDE RECORDS SUMMARY | 2025-04-11 15:02 | XMS_ITS | Clinical Summary ---
Author Organization [facility] Address [address] [place] [phone] Phone Care Team Providers Care Special Projects Coordinator Name Role Phone Pcp, Unknown Primary Care Provider Unavailabl e Social History Tobacco Use Types Packs/Day Years Used Date Smoking Tobacco: Never Assessed Education Answer Date Recorded Are you interested in more education? Not on radha e 04/19/2024 Are you concerned about learning? Not on file 04/19/2024 No 04/19/2024 No 04/19/2024 Digital Access Answer Date Recorded No 04/19/2024 No 04/19/2024 Reliable internet access at home? Not on file 04/19/2024 Device with a working camera? Not on file Sex and Gender Information Value Date Recorded Sex Assigned at Not on file Legal Sex Male 6:35 PM EST Gender Identity Not on file Sexual Orientation Not on file Plan of Treatment Health Maintenance Due Date Last Done Comments Adult Td,Tdap Booster 1945 LIPID PANEL 1945 DEPRESSION SCREENING 1957 SMOKING Hx and SMOKELESS TOB ACCO SCREENING 1958 PNEUMOCOCCAL VACCINES (50+ y ears) (1 of 1 - PCV) 1995 ZOSTER VACCINES (1 of 2) 1995 RSV VACCINE (1 - 1-dose 75+ series) 02/24/2020 INFLUENZA VACCINE (#1) 2025 COVID-19 VACCINE ( - 2023-2 5 season) 2025 HEPATITIS A VACCINES Aged Out No long er eligible based on patient's age to complete this topic HIB VACCINES Aged Out No longer eligi ble based on patient's age to complete this topic MENINGOCOCCAL VACCINES (ACWY) Aged Out No longer eligible based on patient's age to complete this topic MENINGOCOCCAL VACCINES (B) Aged Out N o longer eligible based on patient's age to complete this topic Medical Devices Not on file Insurance MEDICARE HMO REPLACEMENT MEDICARE HMO REPLACEMENT MEDICARE HMO REPLACEMENT [employer] MED[employer] H[employer]PLACEMENT [employer] MED[employer] HMO REPLACEMENT [employer] MED[employer] HMO REPLACEMENT Care Teams Special Projects Coordinator Relationship Specialty Start Date End Date Pcp, Unknown PCP - General 04/17/24 Additional Source Comments The information contained in this document represents components of the legal health record. It is not the complete legal health record.[facility]
--- OUTSIDE RECORDS SUMMARY | 2025-04-11 15:02 | XMS_ITS | Clinical Summary ---
Author Organization [address] [place] [address] [place] [phone] Phone Care Team Providers Care Esthetician/Owner Name Role Phone Mohsen Boles MD Primary Care Provider [phone] Encounters Date Type Department Care Team Description 2025 Lab Requisition [facility] Lab [address] [place] [phone] Brad Laboy MD Essential (primary) hypertension; Hyperkalemia; Trochanteric bursitis, unspecified hip 02/14/2025 Lab Requisition [facility] Lab [address] [place] [phone] Brad Laboy MD Essential (primary) hypertension; Hyperkalemia 02/08/2025 Lab Requisition [facility] Lab [address] [place] [phone] Brad Laboy MD Essential (primary) hypertension; Hyperlipidemia, unspecified; Trochanteric bursitis, unspecified hip 02/07/2025 Lab Requisition [facility] Lab [address] [place] [phone] Brad Laboy MD Essential (primary) hypertension; Hyperlipidemia, unspecified; Trochanteric bursitis, unspecified hip from Last 3 Months Social History Tobacco [...] 78 07/11/2024 1:24 PM EST Temperature 36.2 C (97.2 F) 07/11/2024 1:24 PM EST Respiratory Rate - - Oxygen Saturation 97% 07/11/2024 1:24 PM EST Inhaled Oxygen Concentration - - Weight - - Height - - Body Mass Index - - Plan of Treatment Health Maintenance Due Date Last Done Comments RSV Immunization Adult Patients (1 - 1-dose 75+ series) 02/24/2020 Zoster Vaccines (2 of 2) 06/30/2021 05/05/2021 DTaP,Tdap,and Td Vaccines (3 - Td or Tdap) 02/18/2024 02/17/2014, 02/21/2011 Cholesterol Screening (Lipid Panel) 04/30/2024 Falls Risk Assessment 04/30/2024 Medicare Annual Wellness Visit 04/30/2024 Social Influencers of Health Screening 04/30/2024 Depression Screening 07/24/2024 COVID-19 Vaccine ( season) 2025 04/08/2024, 04/13/2023, 04/27/2022, Additional history exists Influenza Vaccine (#1) 2025 , 04/13/2023, 05/03/2022, Additional history exists Hypertension/CHF/CAD Annual BMP Blood Test 02/17/2026 02/17/2025, 02/10/2025, 02/07/2025, Additional history exists Pneumococcal Vaccine: 50+ Years Completed 10/11/2017, 04/12/2011 HIB Vaccines Aged Out No longer eligi [...] age to complete this topic Meningococcal B Vaccine Aged Out No l onger eligible based on patient's age to complete this topic RSV Immunization Patients Under 20 months Aged Out No longer eligible based on patient's age to complete this topic Varicella Vaccines Aged Out No longer eligible based on patient's age to complete this topic Procedures Procedure Name Priority Date/Time Associated Diagnosis Comments BASIC METABOLIC PANEL Routine 02/17/2025 8:30 AM EDT Essential (primary) hypertension Hyperkalemia COMPLETE BLOOD COUNT Routine 02/17/2025 8:30 AM EDT Essential (primary) hypertension Hyperkalemia BASIC METABOLIC PANEL Routine 02/10/2025 7:43 AM EDT Essential (primary) hypertension Hyperlipidemia, unspecified Trochanteric bursitis, unspecified hip COMPLETE BLOOD COUNT Routine 02/10/2025 7:43 AM EDT Essential (primary) hypertension Hyperlipidemia, unspecified Trochanteric bursitis, unspecified hip CBC WITH AUTO DIFFERENTIAL Routine 02/07/2025 5:50 AM EDT Essential (primary) hypertension Hyperlipidemia, unspecified Trochanteric bursitis, unspecified hip COMPREHENSIVE METABOLIC PANEL Routine 02/07/2025 5:50 AM EDT Essential (primary) hypertension Hyperlipidemia, unspecified Trochanteric bursitis, unspecified hip CBC AND DIFFERENTIAL Routine 02/07/2025 5:50 AM EDT Essential (primary) hypertension Hyperlipidemia, unspecified Trochanteric bursitis, unspecified hip from Last 3 Months Results * (ABNORMAL) Complete blood count (02/17/2025 8:30 AM EDT) Only the most recent of2 resultswithin the time period is included. WBC 6.8 4.8 - 10.8 K/[facility] LAB HEMETOLOGY METHOD 02/17/2025 12:45 PM EDT [facility] RBC 4.20(L) 4.50 - 5.50 M/[facility] LAB [facility] Hemoglobin 13.0(L) 13.5 - 17.5 g/dL LAB HEMETOLOGY METHOD 02/17/2025 12:45 PM EDT [facility] LAB Hematocrit 39.8(L) 42.0 - 54.0 % LAB HEMETOLOGY METHOD 02/17/2025 12:[address] [facility] LAB MCV 94.8 79.0 - 98.0 FL LAB HEMETOLOGY METHOD 02/17/2025 12:45 PM EDT [facility] LAB MCH 31.0 27.0 - 32.0 pcg LAB HEMETOLOGY METHOD 02/17/2025 12:[address] [facility] MCHC 32.7 32.0 - 37.0 g/dL LAB HEMETOLOGY METHOD 02/17/2025 12:[address] [facility] RDW 13.0 11.0 - 15.0 % LAB HEMETOLOGY METHOD 02/17/2025 12:[address] [facility] Platelets 394 130 - 400 K/mcL LAB HEMETOLOGY METHOD 02/17/2025 12:[address] [facility] MPV 10.3 7.0 - 11.0 FL LAB HEMETOLOGY METHOD 02/17/2025 12:[address] [facility] NRBC 0.0 <1.0 % LAB HEMETOLOGY METHOD 02/17/2025 12:45 PM T [facility] LAB NRBC Absolute 0.00 <0.10 K/mcL LAB HEMETOLOGY METHOD 02/17/2025 12:[address] [facility] Blood Venous blood specimen / Unknown Venipuncture / Unknown 02/17/2025 8:30 AM EDT 02/17/2025 11:45 AM EDT Brad Laboy MD LAB BLOOD ORDERABLES Final Result [facility] LAB [address] [place] [address], * (ABNORMAL) Basic metabolic panel (02/17/2025 8:30 AM EDT) Only the most recent of2 resultswithin the time period is included. Sodium 138 133 - 145 mmol/L LAB CHEMISTRY METHOD 02/[facility]/2025 1[facility]48 [facility] Potassium 4.3 3.5 - 5.5 mmol/L LAB CHEMISTRY METHOD 02/17/2025 1:48 PM EDT [facility] LAB Chloride 105 96 - 110 mmol/L LAB CHEMISTRY METHOD 02/17/2025 1:[address] [facility] CO2 28 21 - 32 mmol/L LAB CHEMISTRY METHOD 02/17/2025 1:48 PM EDT [facility] Anion Gap 5 3 - 11 LAB CHEMISTRY METHOD 02/17/2025 1:48 [facility] Glucose 146(H) 70 - 100 mg/dL LAB CHEMISTRY METHOD 02/17/2025 1:48 [facility] BUN 21 5 - 25 mg/dL LAB CHEMISTRY METHOD 02/17/2025 1:48 [facility] Creatinine 1.28 0.70 - 1.30 mg/dL LAB CHEMISTRY METHOD 02/17/2025 1:48 PM EDT [facility] LAB eGFR 57(L) >=60 mL/min/1. 73m2 LAB CHEMISTRY METHOD 02/17/2025 1:48 [facility] Comment:Calculation based on the Chronic Kidney Disease Epidemiology Collaboration (CKD-EPI) equation refit without adjustment for race. BUN/Creatinine Ratio 16.4 LAB CHEMISTRY METHOD 02/17/2025 1:48 PM EDT [facility] LAB Calcium 9.4 8.5 - 10.5 mg/dL LAB CHEMISTRY METHOD 02/17/2025 1:48 PM EDT [facility] LAB Blood Venous blood specimen / Unknown Venipuncture / Unknown 02/17/2025 8:30 AM EDT 02/17/2025 11:45 AM EDT us Brad Laboy MD LAB BLOOD ORDERABLES Final Result [facility] [address] [place] [address], * (ABNORMAL) CBC auto differential (02/07/2025 5:50 AM EDT) WBC 6.6 4.8 - 10.8 K/mcL LAB HEMETOLOGY METHOD 02/07/2025 10:55 AM EDT [facility] LAB RBC 3.50(L) 4.50 - 5.50 M/mcL LAB HEMETOLOGY METHOD 02/07/2025 10:55 AM EDT [facility] LAB Hemoglobin 11.0(L) 13.5 - 17.5 g/dL LAB HEMETOLOGY METHOD 02/07/2025 10:55 AM EDT [facility] LAB Hematocrit 33.3(L) 42.0 - 54.0 % LAB HEMETOLOGY METHOD 02/07/2025 10:55 AM EDT [facility] LAB MCV 96.2 79.0 - 98.0 FL LAB HEMETOLOGY METHOD 02/07/2025 10:55 AM EDT [facility] LAB MCH 31.8 27.0 - 32.0 pcg LAB HEMETOLOGY METHOD 02/07/2025 10:55 AM EDT [facility] LAB MCHC 33.0 32.0 - 37.0 g/dL LAB HEMETOLOGY METHOD 02/07/2025 10:55 AM EDT [facility] LAB RDW 12.9 11.0 - 15.0 % LAB HEMETOLOGY METHOD 02/07/2025 10:[address] [facility] Platelets 197 130 - 400 K/mcL LAB HEMETOLOGY METHOD 02/07/2025 10:[address] [facility] LAB MPV 11.1(H) 7.0 - 11.0 FL LAB HEMETOLOGY METHOD 02/07/2025 10:[address] [facility] NRBC 0.0 <1.0 % LAB HEMETOLOGY METHOD 02/07/2025 10:[address] [facility] LAB NRBC Absolute 0.00 <0.10 K/mcL LAB HEMETOLOGY METHOD 02/07/2025 10:[address] [facility] Neutrophils Relative 62.8 % LAB HEMETOLOGY METHOD 02/07/2025 10:[address] [facility] Lymphocytes Relative 19.0 % LAB HEMETOLOGY METHOD 02/07/2025 10:[address] [facility] Monocytes Relative 14.0 % LAB HEMETOLOGY METHOD 02/07/2025 10:[address] [facility] Eosinophils Relative 3.6 % LAB HEMETOLOGY METHOD 02/07/2025 10:[address] [facility] Basophils Relative 0.3 % LAB HEMETOLOGY METHOD 02/07/2025 10:[address] [facility] Immature Granulocytes Relative 0.3 % LAB HEMETOLOGY METHOD 02/07/2025 10:[address] [facility] LAB Neutrophils Absolute 4.17 1.50 - 7.00 K/mcL LAB HEMETOLOGY METHOD 02/07/2025 10:[address] [facility] Lymphocytes Absolute 1.26 1.00 - 5.00 K/mcL LAB HEMETOLOGY METHOD 02/07/2025 10:[address] [facility] Monocytes Absolute 0.93 0.20 - 1.00 K/mcL LAB HEMETOLOGY METHOD 02/07/2025 10:55 AM EDT [facility] LAB Eosinophils Absolute 0.24 0.00 - 0.50 K/[facility] LAB HEMETOLOGY METHOD 02/07/2025 10:55 AM EDT [facility] LAB Basophils Absolute 0.02 0.00 - 0.20 K/[facility] LAB HEMETOLOGY METHOD 02/07/2025 10:55 AM EDT [facility] LAB Immature Granulocytes Absolute 0.02 0.00 - 0.03 K[facility] 02/07/2025 10:55 AM EDT [facility] Blood Venous blood specimen / Unknown 02/07/2025 5:50 AM EDT 02/07/2025 10:15 AM EDT Brad Laboy MD LAB BLOOD ORDERABLES Final Result [facility] [address] [place] [address], [place] [phone] * (ABNORMAL) Comprehensive metabolic panel (02/07/2025 5:50 AM EDT) Sodium 140 133 - 145 mmol/L LAB CHEMISTRY METHOD 02/07/2025 11:[address] [facility] Potassium 3.9 3.5 - 5.5 mmol/L LAB CHEMISTRY METHOD 02/07/2025 11:[address] [facility] Chloride 106 96 - 110 mmol/L LAB CHEMISTRY METHOD 02/07/2025 11:[address] [facility] CO2 29 21 - 32 mmol/L LAB CHEMISTRY METHOD 02/07/2025 11:[address] [facility] Anion Gap 5 3 - 11 LAB CHEMISTRY METHOD 02/07/2025 11:[address] [facility] Glucose 87 70 - 100 mg/dL LAB CHEMISTRY METHOD 02/07/2025 11:[address] [facility] BUN 19 5 - 25 mg/dL LAB CHEMISTRY METHOD 02/07/2025 11:[address] [facility] Creatinine 1.16 0.70 - 1.30 mg/dL LAB CHEMISTRY METHOD 02/07/2025 11:[address] [facility] LAB eGFR 64 >=60 mL/min/1. 73m2 LAB CHEMISTRY METHOD 02/07/2025 11:[address] [facility] LAB Comment:Calculation based on the Chronic Kidney Disease Epidemiology Collaboration (CKD-EPI) equation refit without adjustment for race. BUN/Creatinine Ratio 16.4 LAB CHEMISTRY METHOD 02/07/2025 11:[address] [facility] Calcium 8.3(L) 8.5 - 10.5 mg/dL LAB CHEMISTRY METHOD 02/07/2025 11:[address] [facility] AST (SGOT) 23 10 - 42 unit/L LAB CHEMISTRY METHOD 02/07/2025 11:[address] [facility] ALT (SGPT) 18 10 - 60 unit/L LAB CHEMISTRY METHOD 02/07/2025 11:[address] [facility] Alkaline Phosphatase 51 42 - 121 unit/L LAB CHEMISTRY METHOD 02/07/2025 11:[address] [facility] Total Protein 5.9(L) 6.0 - 8.0 g/dL LAB CHEMISTRY METHOD 02/07/2025 11:[address] [facility] Albumin 3.0(L) 3.2 - 5.0 g/dL LAB CHEMISTRY METHOD 02/07/2025 11:[address] [facility] Total Bilirubin 1.5(H) 0.0 - 1.4 mg/dL LAB CHEMISTRY METHOD 02/07/2025 11:[address] [facility] Blood Venous blood specimen / Unknown Venipuncture / Unknown 02/07/2025 5:50 AM EDT 02/07/2025 10:15 AM EDT us Brad Laboy MD LAB BLOOD ORDERABLES Final Result [facility] LAB [address] [place] [address], from Last 3 Months Insurance [employer] Care Teams Esthetician/Owner Relationship Specialty Start Date End Date Mohsen Boles MD [address] [place] [phone] PCP - General Internal Medicine 01/30/18
--- OUTSIDE RECORDS SUMMARY | 2025-04-11 15:02 | XMS_ITS | Encounter Summary ---
Author Organization [facility] Address [address] [place] [address] Care Team Providers Care Medical Coding Instructor Name Role Phone Mohsen Boles MD Primary Care Provider [phone] Encounter Details Date Type Department Care Team (Late st Contact Info) Description 2025 Lab Requisition [facility] Lab [address] [facility] [place] [phone] Brad Laboy MD [address] [place] [address] Essential (primary) hypertension; Hyperkalemia; Trochanteric bursitis, unspecified hip Social History Tobacco Use Types Packs/Day Years Used Date Smoking Tobacco: Never Assessed Sex and Gender Information Value Date Recorded Sex Assigned at Not on file Legal Sex Male 11:49 PM EST Gender Identity Not on file Sexual Orientation Not on file documented as of this encounter Plan of Treatment Not on file documented as of this encounter Visit Diagnoses Diagnosis Essential (primary) hypertension Unspecified essential hypertension Hyperkalemia Hyperpotassemia Trochanteric bursitis, unspecified hip documented in this encounter Care Teams Medical Coding Instructor Relationship Specialty Start Date End Date Mohsen Boles MD [address] [place] [phone] PCP - General Internal Medicine 01/30/18 documented as of this encounter
--- OUTSIDE RECORDS SUMMARY | 2025-04-11 15:02 | XMS_ITS ---
Author Name [facility] Organization Unknown History of Medication Use Medication Directions Dispensed Refills Start Date End Date [facility] meloxicam 15 mg tablet TAKE 1 TABLET BY MOUTH EVERY DAY 02/28/2024 03/06/2024 active aspirin 81 mg tablet,delayed release TAKE 1 TABLET BY MOUTH EVERY DAY active codeine 10 mg-guaifenesin 100 mg/5 mL oral liquid TAKE 5ML BY MOUTH EVERY 4 HOURS NEEDED FOR COUGH active diclofenac 1 % topical gel DIRECTED APPLY 3-4 GRAMS TO AFFECTED AREA 3X DAILY active oxycodone 5 mg tablet TAKE ONE TAB THREE TIMES A DAY DO NOT DRIVE WHILE TAKING THIS MEDICATION active tramadol 50 mg tablet TAKE 1 TO 2 TABS BY MOUTH EVERY 6 HOURS NEEDED FOR PAIN DO NOT DRIVE WHILE TAKING THIS MEDICATION active trazodone 50 mg tablet TAKE 1 TABLET BY MOUTH EVERYDAY AT BEDTIME active Problems Problem Status Onset Date Problem Type Date of Resoluti on Source Lumbar spondylosis active 2024-03-27 ProblemAct [facility] Pain in right hip joint active 2024-03-06 ProblemAct [facility] 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 [facility] Hip pain active 2024-03-06 ProblemAct [facility] Encounters Encounter Type Encounter Reason Primary Diagnosis Location Date Ambulatory [facility] [place] 04/26/2024 Ambulatory [facility] [place] 04/12/2024 Ambulatory [facility] [place] 04/11/2024 Ambulatory [facility] [place] 03/28/2024 Ambulatory [facility] [place] 03/28/2024 Ambulatory [facility] [place] 03/27/2024 Ambulatory [facility] [place] 03/12/2024 Ambulatory [facility] [place] 03/11/2024 Ambulatory [facility] [place] 03/06/2024 Ambulatory [facility] [place] 03/05/2024 Ambulatory [facility] [place] 03/04/2024 Ambulatory [facility] [place] 02/01/2024 Ambulatory [facility] [place] 02/01/2024 Ambulatory [facility] [place] 02/01/2024 Ambulatory [facility] [place] 01/22/2024 Ambulatory [facility] [place] 01/22/2024
--- OUTSIDE RECORDS SUMMARY | 2025-04-11 15:02 | XMS_ITS | Encounter Summary ---
Author Organization [facility] Address [address] [place] [address] Care Team Providers Care Rn Homecare Name Role Phone Mohsen Boles MD Primary Care Provider [phone] Encounter Details Date Type Department Care Team (Late st Contact Info) Description 02/07/2025 Lab Requisition [facility] - Main Lab [address] [facility] [place] [phone] Brad Laboy MD [address] [place] [address] Essential (primary) hypertension; Hyperlipidemia, unspecified; Trochanteric bursitis, [...] Procedure Name Priority Date/Time Associated Diagnosis Comments CBC WITH AUTO DIFFERENTIAL Routine 02/07/2025 5:50 AM EDT Essential (primary) hypertension Hyperlipidemia, unspecified Trochanteric bursitis, unspecified hip CBC AND DIFFERENTIAL Routine 02/07/2025 5:50 AM EDT Essential (primary) hypertension Hyperlipidemia, unspecified Trochanteric bursitis, unspecified hip COMPREHENSIVE METABOLIC PANEL Routine 02/07/2025 5:50 AM EDT Essential (primary) hypertension Hyperlipidemia, unspecified Trochanteric bursitis, unspecified hip documented in this encounter Results * (ABNORMAL) CBC auto differential (02/07/2025 5:50 AM EDT) [facility] WBC 6.6 4.8 - 10.8 K/mcL LAB HEMETOLOGY METHOD 02/07/2025 10:[address] [facility] LAB RBC 3.50(L) 4.50 - 5.50 M/mcL LAB HEMETOLOGY METHOD 02/07/2025 10:[address] [facility] LAB Hemoglobin 11.0(L) 13.5 - 17.5 g/dL LAB HEMETOLOGY METHOD 02/07/2025 10:[address] [facility] LAB Hematocrit 33.3(L) 42.0 - 54.0 % LAB HEMETOLOGY METHOD 02/07/2025 10:[address] [facility] LAB MCV 96.2 79.0 - 98.0 FL LAB HEMETOLOGY METHOD 02/07/2025 10:[address] [facility] LAB MCH 31.8 27.0 - 32.0 pcg LAB HEMETOLOGY METHOD 02/07/2025 10:[address] [facility] LAB MCHC 33.0 32.0 - 37.0 g/dL LAB HEMETOLOGY METHOD 02/07/2025 10:[address] [facility] LAB RDW 12.9 11.0 - 15.0 % LAB HEMETOLOGY METHOD 02/07/2025 10:[address] [facility] LAB Platelets 197 130 - 400 K/mcL LAB HEMETOLOGY METHOD 02/07/2025 10:[address] [facility] LAB MPV 11.1(H) 7.0 - 11.0 FL LAB HEMETOLOGY METHOD 02/07/2025 10:[address] [facility] LAB NRBC 0.0 <1.0 % LAB HEMETOLOGY [facility] NRBC Absolute 0.00 <0.10 K/mcL LAB HEMETOLOGY METHOD 02/07/2025 10:[address] [facility] Neutrophils Relative 62.8 % LAB HEMETOLOGY METHOD 02/07/2025 10:[address] [facility] Lymphocytes Relative 19.0 % LAB HEMETOLOGY METHOD [facility]/07[facility] Monocytes Relative 14.0 % LAB HEMETOLOGY METHOD 02/07/2025 10:[address] [facility] Eosinophils Relative 3.6 % LAB HEMETOLOGY METHOD 02/07/2025 10:[address] [facility] Basophils Relative 0.3 % LAB HEMETOLOGY METHOD 02/07/2025 10:[address] [facility] Immature Granulocytes Relative 0.3 % LAB HEMETOLOGY METHOD 02/07/2025 10:[address] [facility] LAB Neutrophils Absolute 4.17 1.50 - 7.00 K/mcL LAB HEMETOLOGY METHOD 02/07/2025 10:[address] [facility] Lymphocytes Absolute 1.26 1.00 - 5.00 K/mcL LAB HEMETOLOGY METHOD 02/07/2025 10:[address] [facility] Monocytes Absolute 0.93 0.20 - 1.00 K/mcL LAB HEMETOLOGY METHOD 02/07/2025 10:[address] [facility] LAB Eosinophils Absolute 0.24 0.00 - 0.50 K/mcL LAB HEMETOLOGY METHOD 02/07/2025 10:[address] [facility] Basophils Absolute 0.02 0.00 - 0.20 K/mcL LAB HEMETOLOGY METHOD 02/07/2025 10:[address] [facility] Immature Granulocytes Absolute 0.02 0.00 - 0.03 K/mcL LAB HEMETOLOGY METHOD 02[facility]07[facility] Blood Venous blood specimen / Unknown 02/07/2025 5:50 AM EDT 02/07/2025 10:15 AM EDT Brad Laboy MD LAB BLOOD ORDERABLES Final Result [facility] [address] [place] [address], [place] [phone] * (ABNORMAL) Comprehensive metabolic panel (02/07/2025 5:50 AM EDT) Sodium 140 133 - 145 mmol/L LAB CHEMISTRY METHOD 02/07/2025 11:[address] [facility] Potassium 3.9 3.5 - 5.5 mmol/L LAB CHEMISTRY METHOD 02/07/2025 11:[address] [facility] Chloride 106 96 - 110 mmol/L LAB CHEMISTRY METHOD 02/07/2025 11:[address] [facility] CO2 29 21 - 32 mmol/L LAB CHEMISTRY METHOD 02/07/2025 11:[address] [facility] Anion Gap 5 3 - 11 LAB CHEMISTRY METHOD 02/07/2025 11:[address] [facility] Glucose 87 70 - 100 mg/dL LAB CHEMISTRY METHOD 02/07/2025 11:[address] [facility] BUN 19 5 - 25 mg/dL LAB CHEMISTRY METHOD 02/07/2025 11:[address] [facility] Creatinine 1.16 0.70 - 1.30 mg/dL LAB CHEMISTRY METHOD 02/07/2025 11:[address] [facility] LAB eGFR 64 >=60 mL/min/1. 73m2 LAB CHEMISTRY METHOD 02/07/2025 11:[address] [facility] Comment:Calculation based on the Chronic Kidney Disease Epidemiology Collaboration (CKD-EPI) equation refit without adjustment for race. BUN/Creatinine Ratio 16.4 LAB CHEMISTRY METHOD 02/07/2025 11:[address] [facility] Calcium 8.3(L) 8.5 - 10.5 mg/dL LAB CHEMISTRY METHOD 02/07/2025 11:[address] [facility] AST (SGOT) 23 10 - 42 unit/L LAB CHEMISTRY METHOD 02/07/2025 11:[address] [facility] ALT (SGPT) 18 10 - 60 unit/L LAB CHEMISTRY METHOD 02/07/2025 11:[address] [facility] Alkaline Phosphatase 51 42 - 121 unit/L LAB CHEMISTRY METHOD 02/07/2025 11:[address] [facility] Total Protein 5.9(L) 6.0 - 8.0 g/dL LAB CHEMISTRY METHOD 02/07/2025 11:[address] [facility] Albumin 3.0(L) 3.2 - 5.0 g/dL LAB CHEMISTRY METHOD 02/07/2025 11:[address] [facility] Total Bilirubin 1.5(H) 0.0 - 1.4 mg/dL LAB CHEMISTRY METHOD 02/07/2025 11:[address] [facility] Blood Venous blood specimen / Unknown Venipuncture / Unknown 02/07/2025 5:50 AM EDT 02/07/2025 10:15 AM EDT us Brad Laboy MD LAB BLOOD ORDERABLES Final Result [facility] [address] [place] [address], documented in this encounter Visit Diagnoses Diagnosis Essential (primary) hypertension Unspecified essential hypertension Hyperlipidemia, unspecified Trochanteric bursitis, unspecified hip documented in this encounter Care Teams Rn Homecare Relationship Specialty Start Date End Date Mohsen Boles MD [address] [place] [phone] PCP - General Internal Medicine 01/30/18 documented as of this encounter
[2025-04-11 15:05] VITALS: BP 138/69; PULSE 82; O2SAT 98; BMI 28.8
== END 2025-04-11 15:23 | disposition home or self-care (01) ==
LOC: HO.PMC 15:00
PROVIDERS: PCP Internal Medicine; Visit Provider Nurse Practitioner Family
DX: M16.11 Unilateral primary osteoarthritis, right hip (principal); M54.16 Radiculopathy, lumbar region; R20.2 Paresthesia of skin; M47.896 Other spondylosis, lumbar region; M47.817 Spondylosis without myelopathy or radiculopathy, lumbosacral region; M48.061 Spinal stenosis, lumbar region without neurogenic claudication
CPT/HCPCS: 99214; G2211

== ENCOUNTER 2025-04-23 09:29 | Outpatient (REF) | payer OTHER, SELFPAY ==
--- NOTE | 2025-04-23 09:44 | EMG_ITS ---
Chief complaint: Right hip tendon repair surgery 02/03/2025. One day after, started noticing numbness on right foot, particularly plantar aspect and 3rd 5th digits. Difficulty with both dorsiflexion and plantar flexion. Reason for referral: Evaluate for lumbar radiculopathy Referred by: Zeenat Morse NP Procedure done: Right lower extremity NCS/EMG Precautions and/or limitations: None The limb temperature was monitored continuously and remained between 32-36 degrees C during the performance of the NCS. Nerve Conduction Studies Anti Sensory Summary Table ?Stim Site NR Onset (ms) Norm Onset (ms) Peak (ms) Norm Peak (ms) O-P Amp (?V) Norm O-P Amp Site1 Site2 Delta-0 (ms) Dist (cm) Deo (m/s) Norm Deo (m/s) Right Sural Anti Sensory (Lat Mall) Calf ? 3.5 4.5 <4.0 1.5 >5.0 Calf Lat Mall 3.5 14.0 40 Motor Summary Table ?Stim Site NR Onset (ms) Norm Onset (ms) O-P Amp (mV) Norm O-P Amp iAmp (mV) Amp (1st) (%) Site1 Site2 Delta-0 (ms) Dist (cm) Deo (m/s) Norm Deo (m/s) Right Peroneal Motor (Ext Dig Brev) Ankle ? 4.1 <4.0 3.5 >2.5 4.1 100.0 Ankle Ext Dig Brev 4.1 0.0 B Fib ? 11.6 3.5 4.2 100.0 B Fib Ankle 7.5 33.5 45 >40 Poplt ? 13.6 3.4 4.2 97.1 Poplt B Fib 2.0 6.5 33 >40 Right Tibial Motor (Abd Zuniga Brev) Ankle ? 5.1 <5 0.8 >2.5 0.7 100.0 Ankle Abd Zuniga Brev 5.1 0.0 Knee ? 13.4 1.1 1.1 137.5 Knee Ankle 8.3 45.0 54 >40 EMG ?Side Muscle Nerve Root Ins Act Fibs Psw Amp Dur Poly Recrt Int Pat Comment Right AbdHallucis MedPlantar S1-2 Nml Nml Nml Nml Nml 0 Nml Complete Right AntTibialis Dp Br Peron L4-5 Nml Nml Nml Nml Nml 0 Reduced Complete Right MedGastroc Tibial S1-2 Nml Nml Nml Nml Nml 0 Nml Complete Right VastusMed Femoral L2-4 Nml Nml Nml Nml Nml 0 Nml Complete Right Peroneus Long Sup Br Peron L5-S1 Nml Nml Nml Nml Nml 0 Nml Complete Right BicepsFemS Sciatic L5-S1 Nml Nml Nml Nml Nml 0 Nml Complete Right GluteusMed SupGluteal L4-S1 Nml Nml Nml Nml Nml 0 Nml Complete Paraspinal EMG ?Side Muscle Nerve Root Ins Act Fibs Psw Comment Right Lumbar Upper Rami Nml Nml Nml Right Lumbar Mid Rami Nml Nml Nml Right Lumbar Lower Rami Nml Nml Nml FINDINGS: Right peroneal nerve showed prolonged distal latency, normal amplitude and slow conduction velocity across fibular neck. Right tibial nerve showed very small amplitudes, with prolonged distal latency and normal conduction velocity. Right sural nerve showed prolonged peak latencies and small amplitude. Concentric needle EMG was performed in selected muscles of the right lower extremity and lumbar paraspinals. Study revealed signs of electric abnormalities as shown in the table above. Right TA showed reduced recruitment. IMPRESSION: 1. This is an abnormal study. 2. 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 3. There is electrodiagnostic evidence for right acute peroneal neuropathy at fibular neck. 4. There is no electrodiagnostic evidence for lumbar radiculopathy, Thank you for your kind referral. Zita Santos MD, FARZANEH Board Certified, [place] Board [employer] Physical Medicine and Rehabilitation (ABPMR) Board Certified, [place] Board of Electrodiagnostic Medicine (ABEM) CODIN [id number] [facility]
--- OUTSIDE RECORDS SUMMARY | 2025-04-23 10:22 | XMS_ITS | Encounter Summary ---
Author Organization [facility] Address [address] [place] [address] Care Team Providers Care Health Education Assistant Name Role Phone Mohsen Boles MD Primary Care Provider [phone] Encounter Details Date Type Department Care Team (Late st Contact Info) Description 02/08/2025 Lab Requisition [facility] - Main Lab [address] [place] [address] Brad Laboy MD [address] [place] [address] Essential (primary) hypertension; Hyperlipidemia, unspecified; Trochanteric bursitis, [...] mmol/L LAB CHEMISTRY METHOD 02/10/2025 3:14 PM [facility] Potassium 4.2 3.5 - 5.5 mmol/L LAB CHEMISTRY METHOD 02/10/2025 3:14 PM [facility] Chloride 106 96 - 110 mmol/L LAB CHEMISTRY METHOD 02/10/2025 3:14 PM [facility] CO2 28 21 - 32 mmol/L LAB CHEMISTRY METHOD 02/10/2025 3:14 PM [facility] Anion Gap 6 3 - 11 LAB CHEMISTRY METHOD 02/10/2025 3:14 PM [facility] Glucose 106(H) 70 - 100 mg/dL LAB CHEMISTRY METHOD 02/10/2025 3:14 PM [facility] BUN 18 5 - 25 mg/dL LAB CHEMISTRY METHOD 02/10/2025 3:14 PM [facility] Creatinine 1.24 0.70 - 1.30 mg/dL LAB CHEMISTRY METHOD 02/10/2025 3:14 PM [facility] eGFR 59(L) >=60 mL/min/1. 73m2 LAB CHEMISTRY METHOD 02/10/2025 3:14 PM [facility] Comment:Calculation based on the Chronic Kidney Disease Epidemiology Collaboration (CKD-EPI) equation refit without adjustment for race. BUN/Creatinine Ratio 14.5 LAB CHEMISTRY METHOD 02/10/2025 3:14 PM [facility] Calcium 8.6 8.5 - 10.5 mg/dL LAB CHEMISTRY METHOD 02/10/2025 3:14 PM [facility] Blood Venous blood specimen / Unknown Venipuncture / Unknown 02/10/2025 7:43 AM EDT 02/10/2025 11:46 AM EDT us Brad Laboy MD LAB BLOOD ORDERABLES Final Result [facility] [address] [place] [address], * (ABNORMAL) Complete blood count (02/10/2025 7:43 AM EDT) [facility] [address] WBC 5.6 4.8 - 10.8 K/mcL LAB HEMETOLOGY METHOD [facility] RBC 3.60(L) 4.50 - 5.50 M/mcL LAB HEMETOLOGY METHOD [facility]25 [facility] Hemoglobin 11.2(L) 13.5 - 17.5 g/dL LAB HEMETOLOGY METHOD 02/10/2025 1:05 PM [facility] Hematocrit 34.8(L) 42.0 - 54.0 % LAB HEMETOLOGY METHOD 02/10/2025 1:05 PM [facility] MCV 96.9 79.0 - 98.0 FL LAB HEMETOLOGY METHOD 02/10/2025 1:05 PM [facility] MCH 31.2 27.0 - 32.0 pcg LAB HEMETOLOGY METHOD 02/10/2025 1:05 PM [facility] MCHC 32.2 32.0 - 37.0 g/dL LAB HEMETOLOGY METHOD 02/10/2025 1:05 PM [facility] RDW 12.9 11.0 - 15.0 % LAB HEMETOLOGY METHOD 02/10/2025 1:05 PM [facility] Platelets 234 130 - 400 K/mcL LAB HEMETOLOGY METHOD 02/10/2025 1:05 PM [facility] MPV 11.3(H) 7.0 - 11.0 FL LAB HEMETOLOGY METHOD 02/10/2025 1:05 PM [facility] NRBC 0.0 <1.0 % LAB HEMETOLOGY METHOD 02/10/2025 1:05 PM EDT [facility] NRBC Absolute 0.00 <0.10 K/mcL LAB HEMETOLOGY METHOD 02/10/2025 1:05 PM EDT [facility] Blood Venous blood specimen / Unknown Venipuncture / Unknown 02/10/2025 7:43 AM EDT 02/10/2025 11:46 AM EDT us Brad Laboy MD LAB BLOOD ORDERABLES Final Result [facility] [address] [place] [address], documented in this encounter Visit Diagnoses Diagnosis Essential (primary) hypertension Unspecified essential hypertension Hyperlipidemia, unspecified Trochanteric bursitis, unspecified hip documented in this encounter Care Teams Health Education Assistant Relationship Specialty Start Date End Date Mohsen Boles MD [address] [place] [address] PCP - General Internal Medicine 01/30/18 documented as of this encounter
--- OUTSIDE RECORDS SUMMARY | 2025-04-23 10:22 | XMS_ITS | Encounter Summary ---
Author Organization [facility] Address [address] [place] [address] Care Team Providers Care Communications Technician Name Role Phone Mohsen Boles MD Primary Care Provider [phone] Encounter Details Date Type Department Care Team (Late st Contact Info) Description 02/14/[address] [facility] - Main Lab [address] [place] [address] Brad Laboy MD [address] [place] [address] Essential (primary) hypertension; Hyperkalemia Social History Tobacco [...] CHEMISTRY METHOD 02/17/2025 1:48 PM EDT [facility] ([facility] Potassium 4.3 3.5 - 5.5 mmol/L LAB CHEMISTRY METHOD 02/17/2025 1:48 PM EDT [facility] LAB Chloride 105 96 - 110 mmol/L LAB CHEMISTRY METHOD 02/17/2025 1:48 PM EDT [facility] LAB CO2 28 21 - 32 mmol/L LAB CHEMISTRY METHOD 02/17/2025 1:[address] [facility] Anion Gap 5 3 - 11 LAB CHEMISTRY METHOD 02/17/2025 1:48 PM EDT [facility] LAB Glucose 146(H) 70 - 100 mg/dL LAB [facility]STR[facility] BUN 21 5 - 25 mg/dL LAB CHEMISTRY METHOD 02/17/2025 1:[address] [facility] Creatinine 1.28 0.70 - 1.30 mg/dL LAB CHEMISTRY METHOD [facility] eGFR 57(L) >=60 mL/min/1. 73m2 LAB CHEMISTRY METHOD 02/17/2025 1:48 PM EDT [facility] LAB Comment:Calculation based on the Chronic Kidney Disease Epidemiology Collaboration (CKD-EPI) equation refit without adjustment for race. BUN/Creatinine Ratio 16.4 LAB CHEMISTRY METHOD 02/17/2025 1:[address] [facility] Calcium 9.4 8.5 - 10.5 mg/dL LAB CHEMISTRY METHOD 02/17/2025 1:[address] [facility] Blood Venous blood specimen / Unknown Venipuncture / Unknown 02/17/2025 8:30 AM EDT 02/17/2025 11:45 AM EDT us Brad Laboy MD LAB BLOOD ORDERABLES Final Result [facility] LAB [address] [place] [address], * (ABNORMAL) Complete blood count (02/17/2025 8:30 AM EDT) [facility] Signature WBC 6.8 4.8 - 10.8 K/mcL LAB HEMETOLOGY METHOD 02/17/2025 12:[address] [facility] RBC 4.20(L) 4.50 - 5.50 M/mcL LAB HEMETOLOGY METHOD [facility] Hemoglobin 13.0(L) 13.5 - 17.5 g/dL LAB HEMETOLOGY METHOD 02/17/2025 12:[address] [facility] Hematocrit 39.8(L) 42.0 - 54.0 % LAB HEMETOLOGY METHOD 02/17/2025 12:[address] [facility] MCV 94.8 79.0 - 98.0 FL LAB HEMETOLOGY METHOD 02/17/2025 12:[address] [facility] MCH 31.0 27.0 - 32.0 [...] FL LAB HEMETOLOGY METHOD [facility] NRBC 0.0 <1.0 % LAB HEMETOLOGY METHOD [facility] NRBC Absolute 0.00 <0.10 K/mcL LAB HEMETOLOGY METHOD 02/17/2025 12:45 PM EDT [facility] LAB Blood Venous blood specimen / Unknown Venipuncture / Unknown 02/17/2025 8:30 AM EDT 02/17/2025 11:45 AM EDT us Brad Laboy MD LAB BLOOD ORDERABLES Final Result [facility] [address] [place] [address], [place] [phone] documented in this encounter Visit Diagnoses Diagnosis Essential (primary) hypertension Unspecified essential hypertension Hyperkalemia Hyperpotassemia documented in this encounter Care Teams Communications Technician Relationship Specialty Start Date End Date Mohsen Boles MD [address] [place] [phone] PCP - General Internal Medicine 01/30/18 documented as of this encounter
--- OUTSIDE RECORDS SUMMARY | 2025-04-23 10:22 | XMS_ITS | Clinical Summary ---
Author Organization [facility] Address [address] [place] [phone] Phone Care Team Providers Care Mold Capper Name Role Phone Pcp, Unknown Primary Care [...] [place] [employer] [place] Care Teams Mold Capper Relationship Specialty Start Date End Date Pcp, Unknown PCP - General 04/17/24 Additional Source Comments The information contained in this document represents components of the legal health record. It is not the complete legal health record.[facility]
--- OUTSIDE RECORDS SUMMARY | 2025-04-23 10:22 | XMS_ITS | Encounter Summary ---
Author Organization [facility] Address [address] [place] [address] Care Team Providers Care Systems Analyst Developer Name Role Phone Mohsen Boles MD Primary Care Provider [phone] Encounter Details Date Type Department Care Team (Late st Contact Info) Description 2025 Lab Requisition [facility] - Main Lab [address] [facility] [place] [phone] Brad Laboy MD [address] [place] [address] Essential (primary) hypertension; Hyperkalemia; Trochanteric bursitis, unspecified [...] hip documented in this encounter Care Teams Systems Analyst Developer Relationship Specialty Start Date End Date Mohsen Boles MD [address] [place] [phone] PCP - General Internal Medicine 01/30/18 documented as of this encounter
--- OUTSIDE RECORDS SUMMARY | 2025-04-23 10:22 | XMS_ITS | Clinical Summary ---
Author Organization [address] [place] [address] [place] [phone] Phone Care Team Providers Care Balance Weigher Name Role Phone Mohsen Boles MD Primary Care Provider [phone] Encounters Date Type Department Care Team Description 2025 Lab Requisition [facility] Lab [address] [place] [phone] Brad Laboy MD Essential (primary) hypertension; Hyperkalemia; Trochanteric bursitis, unspecified hip 02/14/2025 Lab Requisition [facility] Lab [address] [place] [phone] Brad Laboy MD Essential (primary) hypertension; Hyperkalemia 02/08/2025 Lab Requisition [facility] Lab [address] [place] [phone] Brad Laboy MD Essential (primary) hypertension; Hyperlipidemia, unspecified; Trochanteric bursitis, unspecified hip 02/07/2025 Lab Requisition [facility] Lab [address] [place] [phone] Brad Laboy MD Essential (primary) hypertension; Hyperlipidemia, [...] is included. WBC 6.8 4.8 - 10.8 K/[facility] LAB HEMETOLOGY METHOD 02/17/2025 12:45 PM EDT [facility] ([facility] RBC 4.20(L) 4.50 - 5.50 M/[facility] LAB [facility] Hemoglobin 13.0(L) 13.5 - 17.5 g/dL LAB HEMETOLOGY METHOD 02/17/2025 12:45 PM EDT [facility] LAB Hematocrit 39.8(L) 42.0 - 54.0 % LAB HEMETOLOGY METHOD 02/17/2025 12:45 PM [facility] LAB MCV 94.8 79.0 - 98.0 FL LAB HEMETOLOGY METHOD 02/17/2025 12:45 PM EDT [facility] LAB MCH 31.0 27.0 - 32.0 pcg LAB HEMETOLOGY METHOD 02/17/2025 12:45 PM [facility] LAB MCHC 32.7 32.0 - 37.0 g/dL LAB HEMETOLOGY METHOD 02/17/2025 12:45 PM [facility] LAB RDW 13.0 11.0 - 15.0 % LAB HEMETOLOGY METHOD 02/17/2025 12:45 PM [facility] LAB Platelets 394 130 - 400 K/mcL LAB HEMETOLOGY METHOD 02/17/2025 12:45 PM [facility] LAB MPV 10.3 7.0 - 11.0 FL LAB HEMETOLOGY METHOD 02/17/2025 12:45 PM [facility] LAB NRBC 0.0 <1.0 % LAB HEMETOLOGY METHOD 02/17/2025 12:45 PM T [facility] LAB NRBC Absolute 0.00 <0.10 K/mcL LAB HEMETOLOGY METHOD 02/17/2025 12:45 PM [facility] LAB Blood Venous blood specimen / Unknown Venipuncture / Unknown 02/17/2025 8:30 AM EDT 02/17/2025 11:45 AM EDT Brad Laboy MD LAB BLOOD ORDERABLES Final Result [facility] [address] [place] [address], * (ABNORMAL) Basic metabolic panel (02/17/2025 8:30 AM EDT) Only the most recent of2 resultswithin the time period is included. Sodium 138 133 - 145 mmol/L LAB CHEMISTRY METHOD [facility] Potassium 4.3 3.5 - 5.5 mmol/L LAB CHEMISTRY METHOD 02/17/2025 1:48 PM EDT [facility] LAB Chloride 105 96 - 110 mmol/L LAB CHEMISTRY METHOD 02/17/2025 1:48 PM [facility] LAB CO2 28 21 - 32 mmol/L LAB CHEMISTRY METHOD 02/17/2025 1:48 PM EDT [facility] LAB Anion Gap 5 3 - 11 LAB CHEMISTRY METHOD 02/17/2025 1[facility] Glucose 146(H) 70 - 100 mg/dL LAB CHEMISTRY METHOD 02/17/2025 1:[facility] BUN 21 5 - 25 mg/dL LAB CHEMISTRY METHOD 02/17/2025 1:[facility] Creatinine 1.28 0.70 - 1.30 mg/dL LAB CHEMISTRY METHOD 02/17/2025 1:48 PM EDT [facility] LAB eGFR 57(L) >=60 mL/min/1. 73m2 LAB CHEMISTRY METHOD 02/17/2025 1:48 PM [facility] Comment:Calculation based on the Chronic Kidney Disease Epidemiology Collaboration (CKD-EPI) equation refit without adjustment for race. BUN/Creatinine Ratio 16.4 LAB CHEMISTRY METHOD 02/17/2025 1:48 PM EDT [facility] LAB Calcium 9.4 8.5 - 10.5 mg/dL LAB CHEMISTRY METHOD 02/17/2025 1:48 PM EDT [facility] LAB Blood Venous blood specimen / Unknown Venipuncture / Unknown 02/17/2025 8:30 AM EDT 02/17/2025 11:45 AM EDT us Brad Laboy MD LAB BLOOD ORDERABLES Final Result [facility] [address] [place] [address], * (ABNORMAL) CBC auto differential (02/07/2025 5:50 AM EDT) WBC 6.6 4.8 - 10.8 K/mcL LAB HEMETOLOGY METHOD 02/07/2025 10:55 AM EDT [facility] LAB RBC 3.50(L) 4.50 - 5.50 M/mcL LAB HEMETOLOGY METHOD 02/07/2025 10:55 AM EDT [facility] LAB Hemoglobin 11.0(L) 13.5 - 17.5 g/dL LAB HEMETOLOGY METHOD 02/07/2025 10:55 AM EDT [facility] LAB Hematocrit 33.3(L) 42.0 - 54.0 % LAB HEMETOLOGY METHOD 02/07/2025 10:55 AM EDT [facility] LAB MCV 96.2 79.0 - 98.0 FL LAB HEMETOLOGY METHOD 02/07/2025 10:55 AM EDT [facility] LAB MCH 31.8 27.0 - 32.0 pcg LAB HEMETOLOGY METHOD 02/07/2025 10:55 AM EDT [facility] LAB MCHC 33.0 32.0 - 37.0 g/dL LAB HEMETOLOGY METHOD 02/07/2025 10:55 AM EDT [facility] LAB RDW 12.9 11.0 - 15.0 % LAB HEMETOLOGY METHOD 02/07/2025 10:55 AM [facility] LAB Platelets 197 130 - 400 K/mcL LAB HEMETOLOGY METHOD 02/07/2025 10:55 AM [facility] LAB MPV 11.1(H) 7.0 - 11.0 FL LAB HEMETOLOGY METHOD 02/07/2025 10:55 AM [facility] LAB NRBC 0.0 <1.0 % LAB HEMETOLOGY METHOD 02/07/2025 10:55 AM [facility] LAB NRBC Absolute 0.00 <0.10 K/mcL LAB HEMETOLOGY METHOD 02/07/2025 10:55 AM [facility] LAB Neutrophils Relative 62.8 % LAB HEMETOLOGY METHOD 02/07/2025 10:55 AM [facility] LAB Lymphocytes Relative 19.0 % LAB HEMETOLOGY METHOD 02/07/2025 10:55 AM [facility] Monocytes Relative 14.0 % LAB HEMETOLOGY METHOD 02/07/2025 10:55 AM [facility] LAB Eosinophils Relative 3.6 % LAB HEMETOLOGY METHOD 02/07/2025 10:55 AM [facility] Basophils Relative 0.3 % LAB HEMETOLOGY METHOD 02/07/2025 10:55 AM [facility] LAB Immature Granulocytes Relative 0.3 % LAB HEMETOLOGY METHOD 02/07/2025 10:55 AM [facility] LAB Neutrophils Absolute 4.17 1.50 - 7.00 K/mcL LAB HEMETOLOGY METHOD 02/07/2025 10:55 AM [facility] LAB Lymphocytes Absolute 1.26 1.00 - 5.00 K/mcL LAB HEMETOLOGY METHOD 02/07/2025 10:55 AM [facility] LAB Monocytes Absolute 0.93 0.20 - 1.00 K/mcL LAB HEMETOLOGY METHOD 02/07/2025 10:55 AM EDT [facility] LAB Eosinophils Absolute 0.24 0.00 - 0.50 K/[facility] LAB HEMETOLOGY METHOD 02/07/2025 10:55 AM EDT [facility] LAB Basophils Absolute 0.02 0.00 - 0.20 K/[facility] LAB HEMETOLOGY METHOD 02/07/2025 10:55 AM EDT [facility] LAB Immature Granulocytes Absolute 0.02 0.00 - 0.03 K/[facility] 02/07/2025 10:55 AM EDT [facility] LAB Blood Venous blood specimen / Unknown 02/07/2025 5:50 AM EDT 02/07/2025 10:15 AM EDT Brad Laboy MD LAB BLOOD ORDERABLES Final Result [facility] [address] [place] [address], [place] [phone] * (ABNORMAL) Comprehensive metabolic panel (02/07/2025 5:50 AM EDT) Sodium 140 133 - 145 mmol/L LAB CHEMISTRY METHOD 02/07/2025 11:23 AM [facility] Potassium 3.9 3.5 - 5.5 mmol/L LAB CHEMISTRY METHOD 02/07/2025 11:23 AM [facility] LAB Chloride 106 96 - 110 mmol/L LAB CHEMISTRY METHOD 02/07/2025 11:23 AM [facility] LAB CO2 29 21 - 32 mmol/L LAB CHEMISTRY METHOD 02/07/2025 11:23 AM [facility] LAB Anion Gap 5 3 - 11 LAB CHEMISTRY METHOD 02/07/2025 11:23 AM [facility] LAB Glucose 87 70 - 100 mg/dL LAB CHEMISTRY METHOD 02/07/2025 11:23 AM [facility] BUN 19 5 - 25 mg/dL LAB CHEMISTRY METHOD 02/07/2025 11:23 AM [facility] Creatinine 1.16 0.70 - 1.30 mg/dL LAB CHEMISTRY METHOD 02/07/2025 11:23 AM [facility] LAB eGFR 64 >=60 mL/min/1. 73m2 LAB CHEMISTRY METHOD 02/07/2025 11:23 AM [facility] LAB Comment:Calculation based on the Chronic Kidney Disease Epidemiology Collaboration (CKD-EPI) equation refit without adjustment for race. BUN/Creatinine Ratio 16.4 LAB CHEMISTRY METHOD 02/07/2025 11:23 AM [facility] LAB Calcium 8.3(L) 8.5 - 10.5 mg/dL LAB CHEMISTRY METHOD 02/07/2025 11:23 AM [facility] LAB AST (SGOT) 23 10 - 42 unit/L LAB CHEMISTRY METHOD 02/07/2025 11:23 AM [facility] LAB ALT (SGPT) 18 10 - 60 unit/L LAB CHEMISTRY METHOD 02/07/2025 11:23 AM [facility] LAB Alkaline Phosphatase 51 42 - 121 unit/L LAB CHEMISTRY METHOD 02/07/2025 11:23 AM [facility] LAB Total Protein 5.9(L) 6.0 - 8.0 g/dL LAB CHEMISTRY METHOD 02/07/2025 11:23 AM [facility] Albumin 3.0(L) 3.2 - 5.0 g/dL LAB CHEMISTRY METHOD 02/07/2025 11:23 AM [facility] Total Bilirubin 1.5(H) 0.0 - 1.4 mg/dL LAB CHEMISTRY METHOD 02/07/2025 11:23 AM [facility] LAB Blood Venous blood specimen / Unknown Venipuncture / Unknown 02/07/2025 5:50 AM EDT 02/07/2025 10:15 AM EDT us Brad Laboy MD LAB BLOOD ORDERABLES Final Result [facility] ([facility] [address] [place] [address], from Last 3 Months Insurance [employer] [employer] Care Teams Balance Weigher Relationship Specialty Start Date End Date Mohsen Boles MD [address] [place] [phone] PCP - General Internal Medicine 01/30/18
--- OUTSIDE RECORDS SUMMARY | 2025-04-23 10:22 | XMS_ITS | Encounter Summary ---
Author Organization [facility] Address [address] [place] [address] Care Team Providers Care Nurse College Name Role Phone Mohsen Boles MD Primary Care Provider [phone] Encounter Details Date Type Department Care Team (Late st Contact Info) Description 02/07/2025 Lab Requisition [facility] - Main Lab [address] [facility] [place] [address] Brad Laboy MD [address] [place] [address] Essential (primary) hypertension; Hyperlipidemia, unspecified; Trochanteric bursitis, [...] CBC auto differential (02/07/2025 5:50 AM EDT) [facility] WBC 6.6 4.8 - 10.8 K/mcL LAB HEMETOLOGY METHOD 02/07/2025 10:55 AM [facility] LAB RBC 3.50(L) 4.50 - 5.50 M/mcL LAB HEMETOLOGY METHOD 02/07/2025 10:55 AM [facility] LAB Hemoglobin 11.0(L) 13.5 - 17.5 g/dL LAB HEMETOLOGY METHOD 02/07/2025 10:55 AM [facility] LAB Hematocrit 33.3(L) 42.0 - 54.0 % LAB HEMETOLOGY METHOD 02/07/2025 10:55 AM [facility] LAB MCV 96.2 79.0 - 98.0 FL LAB HEMETOLOGY METHOD 02/07/2025 10:55 AM [facility] LAB MCH 31.8 27.0 - 32.0 pcg LAB HEMETOLOGY METHOD 02/07/2025 10:55 AM [facility] LAB MCHC 33.0 32.0 - 37.0 g/dL LAB HEMETOLOGY METHOD 02/07/2025 10:55 AM [facility] LAB RDW 12.9 11.0 - 15.0 % LAB HEMETOLOGY METHOD 02/07/2025 10:55 AM [facility] LAB Platelets 197 130 - 400 K/mcL LAB HEMETOLOGY METHOD 02/07/2025 10:55 AM [facility] LAB MPV 11.1(H) 7.0 - 11.0 FL LAB HEMETOLOGY METHOD 02/07/2025 10:55 AM [facility] LAB NRBC 0.0 <1.0 % LAB HEMETOLOGY METHOD [facility] NRBC Absolute 0.00 <0.10 K/mcL LAB HEMETOLOGY METHOD 02/07/2025 10:55 AM EDT [facility] Neutrophils Relative 62.8 % LAB HEMETOLOGY METHOD 02/07/2025 10:55 AM [facility] Lymphocytes Relative 19.0 % LAB HEMETOLOGY METHOD [facility]/07[facility] Monocytes Relative 14.0 % LAB HEMETOLOGY METHOD 02/07/2025 10:55 AM [facility] Eosinophils Relative 3.6 % LAB HEMETOLOGY METHOD 02/07/2025 10:55 AM [facility] Basophils Relative 0.3 % LAB HEMETOLOGY METHOD 02/07/2025 10:55 AM [facility] LAB Immature Granulocytes Relative 0.3 % LAB HEMETOLOGY METHOD 02/07/2025 10:55 AM [facility] LAB Neutrophils Absolute 4.17 1.50 - 7.00 K/mcL LAB HEMETOLOGY METHOD 02/07/2025 10:55 AM [facility] LAB Lymphocytes Absolute 1.26 1.00 - 5.00 K/mcL LAB HEMETOLOGY METHOD 02/07/2025 10:55 AM [facility] LAB Monocytes Absolute 0.93 0.20 - 1.00 K/mcL LAB HEMETOLOGY METHOD 02/07/2025 10:55 AM [facility] LAB Eosinophils Absolute 0.24 0.00 - 0.50 K/mcL LAB HEMETOLOGY METHOD 02/07/2025 10:55 AM [facility] Basophils Absolute 0.02 0.00 - 0.20 K/mcL LAB HEMETOLOGY METHOD 02/07/2025 10:55 AM [facility] LAB Immature Granulocytes Absolute 0.02 0.00 - 0.03 K/mcL LAB HEMETOLOGY METHOD 02[facility]07[facility] Blood Venous blood specimen / Unknown 02/07/2025 5:50 AM EDT 02/07/2025 10:15 AM EDT Brad Laboy MD LAB BLOOD ORDERABLES Final Result [facility] [address] [place] [address], [place] [phone] * (ABNORMAL) Comprehensive metabolic panel (02/07/2025 5:50 AM EDT) Sodium 140 133 - 145 mmol/L LAB CHEMISTRY METHOD 02/07/2025 11:23 AM [facility] LAB Potassium 3.9 3.5 - 5.5 mmol/L LAB CHEMISTRY METHOD 02/07/2025 11:23 AM [facility] LAB Chloride 106 96 - 110 mmol/L LAB CHEMISTRY METHOD 02/07/2025 11:23 AM [facility] LAB CO2 29 21 - 32 mmol/L LAB CHEMISTRY METHOD 02/07/2025 11:23 AM [facility] LAB Anion Gap 5 3 - 11 LAB CHEMISTRY METHOD 02/07/2025 11:23 AM [facility] LAB Glucose 87 70 - 100 mg/dL LAB CHEMISTRY METHOD 02/07/2025 11:23 AM [facility] BUN 19 5 - 25 mg/dL LAB CHEMISTRY METHOD 02/07/2025 11:23 AM [facility] LAB Creatinine 1.16 0.70 - 1.30 mg/dL LAB CHEMISTRY METHOD 02/07/2025 11:23 AM [facility] LAB eGFR 64 >=60 mL/min/1. 73m2 LAB CHEMISTRY METHOD 02/07/2025 11:23 AM [facility] LAB Comment:Calculation based on the Chronic Kidney Disease Epidemiology Collaboration (CKD-EPI) equation refit without adjustment for race. BUN/Creatinine Ratio 16.4 LAB CHEMISTRY METHOD 02/07/2025 11:23 AM [facility] LAB Calcium 8.3(L) 8.5 - 10.5 mg/dL LAB CHEMISTRY METHOD 02/07/2025 11:23 AM [facility] LAB AST (SGOT) 23 10 - 42 unit/L LAB CHEMISTRY METHOD 02/07/2025 11:23 AM [facility] ALT (SGPT) 18 10 - 60 unit/L LAB CHEMISTRY METHOD 02/07/2025 11:23 AM [facility] LAB Alkaline Phosphatase 51 42 - 121 unit/L LAB CHEMISTRY METHOD 02/07/2025 11:23 AM [facility] LAB Total Protein 5.9(L) 6.0 - 8.0 g/dL LAB CHEMISTRY METHOD 02/07/2025 11:23 AM [facility] LAB Albumin 3.0(L) 3.2 - 5.0 g/dL LAB CHEMISTRY METHOD 02/07/2025 11:23 AM [facility] Total Bilirubin 1.5(H) 0.0 - 1.4 mg/dL LAB CHEMISTRY METHOD 02/07/2025 11:23 AM [facility] LAB Blood Venous blood specimen / Unknown Venipuncture / Unknown 02/07/2025 5:50 AM EDT 02/07/2025 10:15 AM EDT us Brad Laboy MD LAB BLOOD ORDERABLES Final Result [facility] [address] [place] [address], documented in this encounter Visit Diagnoses Diagnosis Essential (primary) hypertension Unspecified essential hypertension Hyperlipidemia, unspecified Trochanteric bursitis, unspecified hip documented in this encounter Care Teams Nurse College Relationship Specialty Start Date End Date Mohsen Boles MD [address] [place] [phone] PCP - General Internal Medicine 01/30/18 documented as of this encounter
--- OUTSIDE RECORDS SUMMARY | 2025-04-23 10:22 | XMS_ITS | Data Portability ---
Author Organization [place] [facility] [place] Address [address] [place] [address] Care Team Providers Care Washroom Cleaner Name Role Phone JANICE REED Referring Provider Unavailable ARABELLA BREEN OTHER [phone] Assessment Encounter Date Assessment Date Assessment LastModified [...] this patient on the date of the [id number]-mz-[id number] encounter (including direct patient interaction, wound care, review of applicable labs and imaging, documentation, and communication with other providers involved in patient s care): 25 minutes Patient was seen and evaluated by Gildardo Cullen PA-C in indirect conjunction with Documenting Provider: Zachery Hernandez MD He agrees with history, physical examination, tests/diagnostic imaging, and treatment plan [email or web address] Not available 03/27/2024 15:47:07 04/11/2024 04/11/2024 79-year-old [...] type disease and should be evaluated by orchid worker . He lives in the [facility] and is interested in finding a orchid worker near his home. We make the appropriate referral. In anticipation of seeing the orchid worker will order laboratory studies as noted below. He will follow-up with us on an as-needed basis [email or web address] Not available 04/11/2024 17:03:45 Plan of Treatment Reminders Order Date Submit Date Provider Last Modified By Organization Details Last Modified Time Details Appointments None recorded. Lab rf (rheumatoid factor) + anti-ccp abs, serum 2023 BILL Not available 4 13:46:47 TSH, serum or plasma 2023 024 [email or web address] Not available 11:29:48 uric acid, serum or plasma 2023 024 [email or web address] Not available 11:29:48 CBC w/ diff 2023 BILL Not available 4 13:46:47 C reactive protein, QN, serum or plasma 2023 024 BILL Not available 4 13:46:47 ESR (erythrocyt e sedimentati on rate), blood 2023 024 BILL Not available 13:46:47 lyme disease Ab, serum 2023 024 BILL Not available 4 13:46:47 Referral rheumatolog ist referral - Wide spread body pain. Normal X-rays,MRI. ?? Inflammator y arthritis?? 2023 [email or web address] Arabella Breen MD, [address], [place], [address], 17:15:27 Procedures None recorded. Surgeries None recorded. Imaging MRI, lumbar spine, w/o contrast - r/o canal stenosis 2023 024 [facility] [address], [place], [address], 4 14:07:21 XR, lumbosacral spine, 2 or 3 view 2023 024 [facility], [address], [address], [place], [address], 4 16:40:17 XR, hip, unilateral, 2 or 3 view 2023 024 [email or web address] 2 [facility], [address], [place], [address], 4 12:59:56 XR, hip, unilateral, 2 or 3 view 2023 024 [email or web address] 2 [facility], [address], [place], [address], 4 12:59:56 Medication Orders meloxicam 15 mg tablet [id number], [address] [facility], [place], [address], 4 15:14:40 Patient TargetsNo targets recorded. Patient Instructions Encounter Date Encounter Id Patient Instructions Last Modified By Organization Details Last Modified Time 02/01/2024 [id number] views of the bilateral hips were obtained today 02/01/2024 in the [place] office. Mild to moderate degenerative changes. Trace spurring versus calcification adjacent to the greater trochanters. No acute fracture or dislocation appreciated. Not available 03/02/2024 12:23:24 03/27/2024 [id number] AP and lateral x-rays of the lumbar spine were obtained on 03/2024 which demonstrates multilevel degenerative changes. No acute osseous abnormalities. 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 Normal X-rays,MRI. ?? Inflammatory arthritis?? Referring Physician: Zachery Hernandez, Orthopedic Surgery, Encounter Date: 04/11/2024 Results Created Date Observation Date Name Description Value Unit Range Abnormal Flag Note LastModifiedBy Organization Detail LastModifiedTime 01/29/20 MRI, hip, w/o contr ast No observ ation record ed. [email or web address] Not Available 2023 10:17:43 04/04/20 24 04/02/2024 MRI, lumba r spine , w/o contr ast No observ ation record ed. [email or web address] [facility] [address] [place], [address], 04/04/2024 14:14:32 Result Notes None recorded. 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 Procedures Surgical History Date Name Laterality Status Provider Name and Address Organization Details Recorded Time Shoulder Surgery completed Renetta Daniel [place] [facility] 02/01/2024 12:06:54 Knee Surgery completed Renetta Daniel [place] [facility] 02/01/2024 12:07:00 Imaging Results None recorded. [...] Address Organization Details Last Updated DateTime 02/01/2024 [address] [place] [facility] 02/01/2024 12:06:02 Social History None recorded. Functional Status Question Answer Note LastModified by Organizat ion Details LastModified Time How many times per week do you consume alcohol? 3-4 times per week [email or web address] Information not available 02/01/2024 Do you use any illicit or recreational drugs? Yes [email or web address] Information not available 03/11/2024 Do you or have you ever used any other forms of tobacco or nicotine? No [email or web address] Information not available 02/01/2024 What is your level of alcohol consumption? Moderate [email or web address] Information not available 02/01/2024 Mental Status None recorded. Family History Nothing Reported. Medical History Condition Response Cancer Y Hypertension Y Past Encounters Encounter ID Performer Location Encounter Start Date Encounter Closed Date Diagnosis/Indication Diagnosis SNOMED-CT Code Diagnosis ICD10 Code Diagnosis IMO Codes Diagnosis Note [id number] RAINER STAFFORD PA-C [address] [address] 02/01/2024 10:36:07 02/01/2024 12:12:21 Pain of right hip joint 7805050354 57677 M25.551 Additional diagnosis detail: Hip pain, right Pain of hip region 31933 002 M25.552 Additional diagnosis detail: Left hip pain [id number] RAINER STAFFORD PA-C [address] [address] 03/06/2024 15:10:07 03/06/2024 15:45:57 Pain of right hip joint 3639223796 77066 M25.551 Additional diagnosis detail: Hip pain, right Pain of hip region 21749 002 M25.552 Additional diagnosis detail: Left hip pain [id number] Jose Kiran MD [address] [address] 03/11/2024 10:31:19 03/11/2024 11:22:02 Pain of right hip joint 7573687836 15682 M25.551 Additional diagnosis detail: Hip pain, right Pain of hip region 86933 002 M25.552 Additional diagnosis detail: Left hip pain [id number] GILDARDO CULLEN PA-C [address] [address] 03/27/2024 13:50:16 03/27/2024 14:43:09 Low back pain 071144346 M54.50 99204 Lumbar spondylosis 96011 0009 M47.816 [id number] MD MAGALY Lubin [address] [address] 04/11/2024 15:30:02 04/11/2024 16:31:06 Total body pain syndrome 303436165 R52 [id number] Health Concerns Section Related Observation LastModified by Organization Detai ls LastModified Time None Recorded Concern Status LastModified by Organization Details LastModified Time None Recorded Advance Directives Directive None Recorded Payers Insurance Date Sequence Insurance Name Policy Number Policy Blevins Covered Member ID Blevins Member ID Guarantor Name 04/08/2024 1 [facility] - MEDICARE ADVANTAGE PLAN (MEDICARE REPLACEMENT HMO) [id number] Negro Salinas [id number] Negro Salinas Notes Date Note Type Note Provider Name and Address Organization Details Recorded Time 02/01/2024 text/html ROS as noted in the HPI 79-year-old male presents to the office today [...] RAINER STAFFORD PA-C [address], [place], [address], [place] [facility] 03/02/2024 12:23:39 03/06/2024 text/html ROS as noted in the HPI Patient returns to the office today for [...] RAINER STAFFORD PA-C [address], [place], [address], [place] [facility] 03/11/2024 10:35:59 03/11/2024 text/html ROS as noted in the HPI Patient returns for ongoing evaluation of his [...] Jose Kiran MD [address], [place], [address], [place] [facility] 04/25/2024 19:53:23
== END 2025-04-23 09:30 | disposition home or self-care (01) ==
LOC: HO.NEURO 09:29
PROVIDERS: PCP Internal Medicine; Visit Provider Nurse Practitioner Family
DX: M54.16 Radiculopathy, lumbar region (principal); R20.2 Paresthesia of skin
CPT/HCPCS: 95886; 95908

== ENCOUNTER → 2025-04-23 09:44 | Outpatient (BNV) | payer OTHER, SELFPAY | PROVIDERS: PCP Internal Medicine; Visit Provider Physical Medicine & Rehabilitation | DX: M54.31 Sciatica, right side (principal); G62.89 Other specified polyneuropathies | CPT/HCPCS: 95886; 95908 ==

== ENCOUNTER 2025-05-08 10:22 | Outpatient (AMB) | payer OTHER, SELFPAY ==
--- NOTE | 2025-05-08 10:30 | MHC.OFFVIS ---
Vital Signs 05/08/25 10:35 05/08/25 10:36 Height 5 ft 10 in Weight 205 lb BMI 29.4 BP 166/92 H 155/67 H Blood Pressure Location Rt brachial Lt brachial Position Sitting Sitting Pulse 72 Pulse Source Pulse Oximeter Pulse Oximetry (%) 97 Oxygen Delivery Method Room Air Comment bp recheck Intake Visit Reasons: Discuss EMG Results Intake Note: Pain today 710 Manager Social Responsibility Required: No Accompanied by: Spouse Allergies No Known Allergies Allergy (Verified 05/08/25 10:36) HPI Comments Details: The patient is an 80-year-old male presenting to discuss recent EMG study finginds. He continues to endorse acute right lower extremity following recent right hip surgery in January after which he developed manageable hip pain but worsening right lower leg and right foot pain in the right calf and foot. He reports swelling in his feet the day after the hip surgery, which has slightly reduced over time. Patient denies back pain. The patient underwent an L3-L4 transforaminal injection in August, which provided minimal pain relief. He has been prescribed gabapentin, which he picked up on April 04, but reports it is not providing significant relief. The patient also mentions taking oxycodone for hip pain, which does not alleviate his neuropathic symptoms. 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 Patient is frustrated about ongoing symptoms and plans to follow up with his Orthopedic provider. In meantime, he is interested to continue with physical therapy and undergo interventional treatments to alleviate his persistent and disabling pain. Pain is rated at 7/10. - Pain onset after right hip surgery on February 03. - Pain is located in the right hip, calf, and foot, with numbness in the toes and bottom of the foot. - Pain worsens with certain movements, such as flexing the leg, and is described as pulling and numb. - Pain interferes with walking, requiring the use of a cane. - Affect: The patient expresses frustration and concern about the persistent pain and its impact on his quality of life. - Analgesia: Currently taking gabapentin 300 mg at bedtime and oxycodone for hip pain, but reports inadequate relief from neuropathic pain. - Adverse Effects: No specific adverse effects from medications were discussed. - Activities of Daily Living: Pain has significantly impacted mobility, requiring the use of a cane and affecting the ability to wear dress shoes. - Aberrant Drug Related Behaviors: No aberrant behaviors were reported or discussed. PRIOR: The patient is an 80-year-old male presenting with back pain and swelling in the feet post-hip surgery. The patient underwent hip surgery on February 03, which was initially planned for October but postponed due to an emergency. Post-surgery, the patient reports that his right hip pain has been manageable, but he has developed significant back pain and swelling in the feet with numbness and tingling in his right calf and foot. The patient describes the back pain as tender and affecting the lower back region, with numbness extending to the right foot. He has been receiving physical therapy and had an MRI of the back in July, which showed no significant disc herniation or protrusion. There is bilateral facet joint arthropathy not causing any significant mass effect at L4-L5 and L5-S1. No neural foraminal stenosis is demonstrated at these levels. 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 More moderate stenosis at L3-4 due to the narrowing and diffuse bulge facet joint arthropathy and hypertrophy of ligamentum flavum. Despite receiving a L3-L4 TFESI injection in August, the patient experienced only minimal pain relief. The swelling in the feet began the day after the hip surgery, with the patient noting that his feet were not swollen prior to the procedure. The surgeon suggested the symptoms might originate from the back, but the patient is unsure about this explanation. The patient has been advised to continue physical therapy and is awaiting an EMG study to further investigate the cause of his symptoms. - Onset: Pain began post-hip surgery on February 03. - Quality: Described as tender in the lower back, with numbness and burning sensation in the right foot. - Location: Lower back, radiating to the right lower leg and right foot. - Exacerbating factors: Movement and pressure on the foot. - Relieving factors: None - Affect: Pain impacts daily activities and mood, causing frustration. - Analgesia: Currently taking gabapentin and oxycodone, with limited relief from gabapentin. - Adverse Effects: No specific adverse effects mentioned. - Activities of Daily Living: Pain limits mobility and daily functioning. - Aberrant Drug Related Behaviors: None reported. Past Procedures: 02/03/25: Right hip tendon repair surgery Dr. Roach 02/04/25: Bilateral L3-L4 TFESI-20-30% pain relief PRIOR: Patient presents today for follow up to discuss recent lumbar spine MRI and xray results. Patient reports worsening low back pain with right leg weakness and pain and intermittent left leg pain. He also suffers from chronic right hip pain without significant groin pain. He was seen by Rheumatology last month, right hip MRI was ordered on 06/28/24 but has not been scheduled yet. Patient request to resubmit this to [facility] as his hip pain is worsening. He is seeing Orthopedic provider at [facility] tomorrow morning for diagnostic right GTB injection. Aj is interested to undergo therapeutic CHATA injection to address lumbar spinal stenosis related pain. Denies bladder or bowel dysfunction or saddle anesthesia. Pain radiates into his buttocks and lateral hips and into right anterior thigh and lateral right leg with weakness, numbness and tingling. Denies any recent cough, cold, infection, fever, or any significant changes in his medical history, medications or recent hospitalizations. PRIOR: Patient is a pleasant 79-year-old male with prior history of polyarthralgia, lumbar degenerative arthritis, bilateral hip pain, h/o C7-C8 ACDF (1986), right shoulder surgery, and right knee arthroscopic surgery, presents today for initial evaluation of low back pain with radiation into hips and down into his bilateral lower extremities, worse on the right side. Pain affects his daily activities and functioning, mood, recreational and social activities, mobility, and quality of life. Patient was previously seen by Neurosurgery few years ago and was told he was not a surgical candidate and that there was nothing that they could offer him. Patient reports I was kicked out from PT one month ago due to not able to do what they wanted me to do due to severe pain in my back and hips. He reports multiple stairs at home which increases his pain with climbing stairs. Patient also reports he has to stop on the road when driving over 20-30 minutes due to worsening low back and right leg pain with increasing numbness and paresthesia. Patient was previously treated by Orthopedic surgeons and pain management and has received multiple injections including PRP injections, right hip and greater trochanteric bursitis cortisone injections with temporary but good pain relief. He was recently evaluated by his Orthopedic provider and was deemed nonsurgical. He has pending right hip MRI per Rheumatology. Patient reports radicular back pain and right hip pain have been progressively getting worse and limiting his daily functioning and walking capacity. Patient denies fever, chills, cough, shortness of breath, abdominal pain, bladder or bowel dysfunction or saddle anesthesia. Reports right lower extremity weakness. Location: Lower back radiates down bilateral legs, right hip, RLE weakness Duration: Chronic pain for > 10 + years Characteristics of symptom or complaint: Spasming, stabbing, shooting, burning, numbness, tingling, sore, sharp Aggravating or associated factors: Prolonged driving, sitting, bending, lifting, twisting, climbing stairs Relieving factors: Tylenol, tried opioids and pregabalin in the past, activity modifications Treatment: PT, right hip/GTBinjections, h/o Ortho and Neurosugery evaluations, cane [facility] Medical History Greater trochanteric bursitis of right hip Polyarthralgia Lumbosacral spondylosis Chronic pain syndrome Degenerative arthritis of lumbar spine Bilateral hip pain Surgical History (Updated 05/08/25 @ 13:02 by COOPER Mccabe) History of hip surgery (~02/03/25) History of shoulder surgery H/O right knee surgery Social History Household Members: Family Housing: House Alcohol intake: current Alcohol intake frequency: 0-2 drinks per day Alcohol type: other Comment: [employer] and Jovi Gentryjason Diaz Patient Tobacco Use Status: Never used Tobacco Review of Systems Const Details: - Musculoskeletal: Reports pain in right hip, calf, and foot; numbness in toes and bottom of foot. - Neurological: Reports numbness in toes and bottom of foot. - Cardiovascular: Denies chest pain or palpitations, dizziness, or dyspnea - General: Reports swelling in feet post-surgery. All systems reviewed & are unremarkable except as noted in HPI and below Physical Exam Vital Signs: Last Vital Signs Pulse 72 05/08/25 10:35 BP 155/67 H 05/08/25 10:36 Pulse Ox 97 05/08/25 10:35 Oxygen Delivery Method Room Air 05/08/25 10:35 BMI result Body Mass Index 29.4 General: Appears afebrile. Alert and oriented. Mood and affect appropriate. Follows and participates in conversation appropriately. Respiratory effort is unlabored. No cough. Able to transition from sit to stand unassisted. Uses cane with ambulation. Ambulates with normal heel strike and toe off on the left, increased right leg pain with weakness with heel and toe standing. General: Yes no CVA tenderness Back/Spine/Pelvis Back: no CVA tenderness Cervical Spine: cervical ROM normal, Cervical spine scars present (anterior neck) and No Cervical spine tenderness Thoracic/Lumbar Spine: thoracic and lumbar spine normal to inspection, No Thoracic/lumbar spine scar(s), Lasegue's sign negative, straight leg raise negative bilaterally, paraspinal muscle tenderness on the right greater than left, thoraco-lumbar ROM limited, No thoracic spinal tenderness and No lumbar spinal tenderness Pelvis: buttock tenderness bilaterally Sacroiliac joints: bilaterally nontender Extrem General: Yes capillary refill normal, Yes no calf tenderness, No clubbing, No cyanosis and Yes pedal edema (nonpitting on the right) Right lower extremity: foot (decreased dorsiflexion strength 4/5) Details: normal capillary refill, normal to inspection, tenderness Location: of the lateral foot (radiates up to right funes and lateral leg) Location: distally and in the mid-section and of the mid foot Location: along the plantar surface (numbness), no edema and motor-sensory exam Details: light-touch normal; no unusual warmth and no ecchymosis Results Reviewed Results Reviewed: MR SPINE LUMBAR without CONTRAST 07/30/24 at [facility] INDICATION: Spondylosis, lumbar region. Spinal stenosis. Lower back pain radiating to bilateral hips, legs and feet for 20 years. TECHNIQUE: Unenhanced multiplanar, multisequence MR imaging of the lumbar spine. COMPARISON: MR lumbar spine 01/07/2022. FINDINGS: Normal lumbar alignment is demonstrated. Vertebral heights are well maintained. Bone marrow signal is within normal limits, and no suspicious osseous lesion is identified. There appears to be some congenital narrowing of the lumbar portion of the canal. This is causing a generalized mild stenosis starting at L2-3 and extending down to L4-5. The findings are again most severe at L3-4 where there is facet joint arthropathy and hypertrophy of the ligamentum flavum, as well as a mild diffuse bulge causing a moderate stenosis. There has been slight worsening when compared to the prior exam. Normal signal intensity in the distal cord. Conus ends normally at L1 level. Paraspinal soft tissues are unremarkable. Incidental finding of multiple cystic lesions in both renal cortices. At L1-2 there is no significant disc herniation or protrusion. No central canal or neural foraminal stenosis is demonstrated. At L2-3 there is no significant disc herniation or protrusion. No neural foraminal stenosis is demonstrated. At L3-4 there is no significant disc herniation or protrusion. There is facet joint arthropathy and hypertrophy of the ligamentum flavum, as well as a mild diffuse bulge causing a moderate stenosis. There has been slight worsening when compared to the prior exam. No neural foraminal stenosis is demonstrated. At L4-5 there is no significant disc herniation or protrusion. There is bilateral facet joint arthropathy not causing any significant mass effect at L4-5. No central canal or neural foraminal stenosis is demonstrated. At L5-S1 there is no significant disc herniation or protrusion. There is bilateral facet joint arthropathy not causing any significant mass effect at L5-S1. No neural foraminal stenosis is demonstrated. 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 More moderate stenosis at L3-4 due to the narrowing and diffuse bulge facet joint arthropathy and hypertrophy of ligamentum flavum. Slight worsening when compared to the prior exam. NE electromyogram (EMG); NE nerve conduction velocity 04/23/25 FINDINGS: Right peroneal nerve showed prolonged distal latency, normal amplitude and slow conduction velocity across fibular neck. Right tibial nerve showed very small amplitudes, with prolonged distal latency and normal conduction velocity. Right sural nerve showed prolonged peak latencies and small amplitude. Concentric needle EMG was performed in selected muscles of the right lower extremity and lumbar paraspinals. Study revealed signs of electric abnormalities as shown in the table above. Right TA showed reduced recruitment. IMPRESSION: 1. This is an abnormal study. 2. 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 3. There is electrodiagnostic evidence for right acute peroneal neuropathy at fibular neck. 4. There is no electrodiagnostic evidence for lumbar radiculopathy, Assessment & Plan Assessment & Plan (1) Lumbosacral spondylosis: Code(s): M47.817 - Spondylosis without myelopathy or radiculopathy, lumbosacral region Category: Medical (2) Right leg paresthesias: Code(s): R20.2 - Paresthesia of skin Category: Medical (3) Osteoarthritis of right hip: Code(s): M16.11 - Unilateral primary osteoarthritis, right hip Category: Medical (4) Chronic pain syndrome: Code(s): G89.4 - Chronic pain syndrome Category: Medical (5) History of hip surgery: Onset Date: ~02/03/25 Comment: Right hip tendon repair surgery Dr. Roach Code(s): Z98.890 - Other specified postprocedural states Category: Surgical Plan The plan includes continuing gabapentin for neuropathic pain management, with consideration of adjusting the dosage if necessary. The patient is advised to continue physical therapy, specifically targeting the sciatic and peroneal neuropathy on the right, and to share the EMG report with the physical therapist for tailored exercises and his Podiatry and Orthopedic providers. Discussed interventional treatments to alleviate his ongoing RLE symtpoms. A brochure on potential procedures, including peripheral nerve stimulation with Sprint PNS system, was provided to explore further pain management options. In meantime, will proceed with exam under US guidance with potential hydrodissection of right peroneal nerve as a diagnostic and therapeutic modality. Expectations, risks and benefits were reviewed. Patient is aware he will be contacted to schedule this procedure. All questions and concerns have been answered and patient agreed with the treatment plan. Follow up after injection/US exam and sooner as needed. Patient was informed and verbally consented to the use of an ambient scribe for clinic note documentation during this visit. Coding Level of Care Code Est Pt Level 4 (44366) Complex EM visit Add On G2211 Diagnoses Lumbosacral spondylosis M47.817 Right leg paresthesias R20.2 Osteoarthritis of right hip M16.11 Chronic pain syndrome G89.4 History of hip surgery Z98.890
[2025-05-08 10:35] VITALS: BP 166/92; PULSE 72; O2SAT 97; BMI 29.4
[2025-05-08 10:36] VITALS: BP 155/67
--- OUTSIDE RECORDS SUMMARY | 2025-05-08 12:48 | XMS_ITS | Data Portability ---
Author Organization [place] [facility] [place] Address [address] [place] [address] Care Team Providers Care Rn Enterostomal Name Role Phone JANICE REED Referring Provider Unavailable ARABELLA BREEN OTHER [phone] Assessment Encounter Date Assessment Date Assessment LastModified [...] this patient on the date of the qrfa-hw-wtil encounter (including direct patient interaction, wound care, [...] type disease and should be evaluated by clinical data management director . He lives in the [facility] and is interested in finding a clinical data management director near his home. We make the appropriate referral. In anticipation of seeing the clinical data management director will order laboratory studies as noted below. He will follow-up with us on an as-needed basis [email or web address] Not available 04/11/2024 17:03:45 Plan of Treatment Reminders Order Date Submit Date Provider Last Modified By Organization Details Last Modified Time Details Appointments None recorded. Lab rf (rheumatoid factor) + anti-ccp abs, serum 2023 BILL Not available 4 13:46:47 TSH, serum or plasma 2023 024 [email or web address] Not available 11:29:48 uric acid, serum or plasma 2023 024 [email or web address] Not available 11:29:48 CBC w/ diff 2023 [...] Normal X-rays,MRI. ?? Inflammator y arthritis?? 2023 [email or web address] Arabella Breen MD, [address], [place], [address], 17:15:27 Procedures None recorded. Surgeries None recorded. Imaging MRI, lumbar spine, w/o contrast - r/o canal stenosis 2023 024 [facility] [address], [place], [address], 4 14:07:21 XR, lumbosacral spine, 2 or 3 view 2023 024 [email or web address] [facility], [address], [place], [address], 4 16:40:17 XR, hip, unilateral, 2 or 3 view 2023 024 [email or web address] 2 [facility], [address], [place], [address], 4 12:59:56 XR, hip, unilateral, 2 or 3 view 2023 024 [email or web address] 2 [facility], [address], [place], [address], 4 12:59:56 Medication Orders meloxicam 15 mg tablet [id number], [address] [facility], [place], [address], 4 15:14:40 Patient TargetsNo targets recorded. Patient Instructions Encounter Date Encounter Id Patient Instructions Last Modified By Organization Details Last Modified Time 02/01/2024 [id number] views of the bilateral hips were obtained today 02/01/2024 in the [place] office. Mild to moderate degenerative changes. Trace spurring versus calcification adjacent to the greater trochanters. No acute fracture or dislocation appreciated. Not available 03/02/2024 12:23:24 03/27/2024 [id number] AP and lateral x-rays of the lumbar spine were obtained on 03/2024 which demonstrates multilevel degenerative changes. No acute osseous abnormalities. 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 Normal X-rays,MRI. ?? Inflammatory arthritis?? Referring Physician: Zachery Hernandez, Orthopedic Surgery, Encounter Date: 04/11/2024 Results Created Date Observation Date Name Description Value Unit Range Abnormal Flag Note LastModifiedBy Organization Detail LastModifiedTime 01/29/20 MRI, hip, w/o contr ast No observ ation record ed. [email or web address] Not Available 2023 10:17:43 04/04/20 24 04/02/2024 MRI, lumba r spine , w/o contr ast No observ ation record ed. [email or web address] [facility] [address] [place], [address], 04/04/2024 14:14:32 Result Notes None recorded. 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 Procedures Surgical History Date Name Laterality Status Provider Name and Address Organization Details Recorded Time Shoulder Surgery completed Renetta Daniel [place] [facility] 02/01/2024 12:06:54 Knee Surgery completed Renetta Daniel [place] [facility] 02/01/2024 12:07:00 Imaging Results None recorded. [...] Address Organization Details Last Updated DateTime 02/01/2024 [address] [place] [facility] 02/01/2024 12:06:02 Social History None recorded. Functional Status Question Answer Note LastModified by Organizat ion Details LastModified Time How many times per week do you consume alcohol? 3-4 times per week Information not available 02/01/2024 Do you use any illicit or recreational drugs? Yes [email or web address] Information not available 03/11/2024 Do you or have you ever used any other forms of tobacco or nicotine? No [email or web address] Information not available 02/01/2024 What is your level of alcohol consumption? Moderate [email or web address] Information not available 02/01/2024 Mental Status None recorded. Family History Nothing Reported. Medical History Condition Response Cancer Y Hypertension Y Past Encounters Encounter ID Performer Location Encounter Start Date Encounter Closed Date Diagnosis/Indication Diagnosis SNOMED-CT Code Diagnosis ICD10 Code Diagnosis IMO Codes Diagnosis Note [id number] RAINER STAFFORD PA-C [address] [address] 02/01/2024 10:36:07 02/01/2024 12:12:21 Pain of right hip joint 7135715004 91971 M25.551 Additional diagnosis detail: Hip pain, right Pain of hip region 43534 002 M25.552 Additional diagnosis detail: Left hip pain [id number] RAINER STAFFORD PA-C [address] [address] 03/06/2024 15:10:07 03/06/2024 15:45:57 Pain of right hip joint 5558240778 39743 M25.551 Additional diagnosis detail: Hip pain, right Pain of hip region 50159 002 M25.552 Additional diagnosis detail: Left hip pain [id number] Jose Kiran MD [address] [address] 03/11/2024 10:31:19 03/11/2024 11:22:02 Pain of right hip joint 5838973644 20886 M25.551 Additional diagnosis detail: Hip pain, right Pain of hip region 24094 002 M25.552 Additional diagnosis detail: Left hip pain [id number] GILDARDO CULLEN PA-C [address] [address] 03/27/2024 13:50:16 03/27/2024 14:43:09 Low back pain 928589907 M54.50 26993 Lumbar spondylosis 84034 0009 M47.816 [id number] MD MAGALY Lubin [address] [address] 04/11/2024 15:30:02 04/11/2024 16:31:06 Total body pain syndrome 481202068 R52 [id number] Health Concerns Section Related Observation LastModified by Organization Detai ls LastModified Time None Recorded Concern Status LastModified by Organization Details LastModified Time None Recorded Advance Directives Directive None Recorded Payers Insurance Date Sequence Insurance Name Policy Number Policy Blevins Covered Member ID Blevins Member ID Guarantor Name 04/08/2024 1 [facility] - MEDICARE ADVANTAGE PLAN (MEDICARE REPLACEMENT HMO) [id number] Negro Salinas [id number] Negro Salinas Notes Date Note Type Note [...] RAINER STAFFORD PA-C [address], [place], [address], [place] [facility] 03/02/2024 12:23:39 03/06/2024 text/html ROS as [...] RAINER STAFFORD PA-C [address], [place], [address], [place] [facility] 03/11/2024 10:35:59 03/11/2024 text/html ROS as [...] Jose Kiran MD [address], [place], [address], [place] [facility] 04/25/2024 19:53:23
== END 2025-05-08 11:09 | disposition home or self-care (01) ==
LOC: HO.PMC 10:22
PROVIDERS: PCP Internal Medicine; Visit Provider Nurse Practitioner Family
DX: M47.817 Spondylosis without myelopathy or radiculopathy, lumbosacral region (principal); R20.2 Paresthesia of skin; M16.11 Unilateral primary osteoarthritis, right hip; G89.4 Chronic pain syndrome; Z98.890 Other specified postprocedural states
CPT/HCPCS: 99214; G2211

== ENCOUNTER 2025-05-29 08:55 | Outpatient (AMB) | payer OTHER, SELFPAY ==
--- NOTE | 2025-05-29 09:00 | MHC.OFFVIS ---
Vital Signs 05/29/25 09:04 Height 5 ft 10 in Weight 205 lb BMI 29.4 BP 183/93 H Blood Pressure Location Rt brachial Position Sitting Pulse 79 Pulse Source Pulse Oximeter Pulse Oximetry (%) 98 Oxygen Delivery Method Room Air Intake Visit Reasons: increased pain Allergies No Known Allergies Allergy (Verified 05/29/25 09:04) HPI Comments Details: The patient is an 80-year-old male presenting with persistent right hip and leg pain. The pain has been ongoing since hip surgery, and the patient reports an inability to put pressure on the leg, necessitating the use of a cane. The patient was scheduled for an ultrasound-guided hydrosection of the right peroneal nerve, which was postponed due to the unavailability of the performing physician due to family emergency. The patient has been without effective pain medication, as previous prescriptions (oxycodone and gabapentin) were not helpful, and he is awaiting the scheduled injection for further management. Denies any recent cough, cold, infection, fever or any other significant changes in medical history since last office visit. PRIOR: The patient is an 80-year-old male presenting to discuss recent EMG study finginds. He continues to endorse acute right lower extremity following recent right hip surgery in January after which he developed manageable hip pain but worsening right lower leg and right foot pain in the right calf and foot. He reports swelling in his feet the day after the hip surgery, which has slightly reduced over time. Patient denies back pain. The patient underwent an L3-L4 transforaminal injection in August, which provided minimal pain relief. He has been prescribed gabapentin, which he picked up on April 04, but reports it is not providing significant relief. The patient also mentions taking oxycodone for hip pain, which does not alleviate his neuropathic symptoms. 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 Patient is frustrated about ongoing symptoms and plans to follow up with his Orthopedic provider. In meantime, he is interested to continue with physical therapy and undergo interventional treatments to alleviate his persistent and disabling pain. Pain is rated at 7/10. - Pain onset after right hip surgery on February 03. - Pain is located in the right hip, calf, and foot, with numbness in the toes and bottom of the foot. - Pain worsens with certain movements, such as flexing the leg, and is described as pulling and numb. - Pain interferes with walking, requiring the use of a cane. - Affect: The patient expresses frustration and concern about the persistent pain and its impact on his quality of life. - Analgesia: Currently taking gabapentin 300 mg at bedtime and oxycodone for hip pain, but reports inadequate relief from neuropathic pain. - Adverse Effects: No specific adverse effects from medications were discussed. - Activities of Daily Living: Pain has significantly impacted mobility, requiring the use of a cane and affecting the ability to wear dress shoes. - Aberrant Drug Related Behaviors: No aberrant behaviors were reported or discussed. PRIOR: The patient is an 80-year-old male presenting with back pain and swelling in the feet post-hip surgery. The patient underwent hip surgery on February 03, which was initially planned for October but postponed due to an emergency. Post-surgery, the patient reports that his right hip pain has been manageable, but he has developed significant back pain and swelling in the feet with numbness and tingling in his right calf and foot. The patient describes the back pain as tender and affecting the lower back region, with numbness extending to the right foot. He has been receiving physical therapy and had an MRI of the back in July, which showed no significant disc herniation or protrusion. There is bilateral facet joint arthropathy not causing any significant mass effect at L4-L5 and L5-S1. No neural foraminal stenosis is demonstrated at these levels. 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 More moderate stenosis at L3-4 due to the narrowing and diffuse bulge facet joint arthropathy and hypertrophy of ligamentum flavum. Despite receiving a L3-L4 TFESI injection in August, the patient experienced only minimal pain relief. The swelling in the feet began the day after the hip surgery, with the patient noting that his feet were not swollen prior to the procedure. The surgeon suggested the symptoms might originate from the back, but the patient is unsure about this explanation. The patient has been advised to continue physical therapy and is awaiting an EMG study to further investigate the cause of his symptoms. - Onset: Pain began post-hip surgery on February 03. - Quality: Described as tender in the lower back, with numbness and burning sensation in the right foot. - Location: Lower back, radiating to the right lower leg and right foot. - Exacerbating factors: Movement and pressure on the foot. - Relieving factors: None - Affect: Pain impacts daily activities and mood, causing frustration. - Analgesia: Currently taking gabapentin and oxycodone, with limited relief from gabapentin. - Adverse Effects: No specific adverse effects mentioned. - Activities of Daily Living: Pain limits mobility and daily functioning. - Aberrant Drug Related Behaviors: None reported. Past Procedures: 02/03/25: Right hip tendon repair surgery Dr. Roach 08/27/24: Bilateral L3-L4 TFESI-20-30% pain relief PRIOR: Patient presents today for follow up to discuss recent lumbar spine MRI and xray results. Patient reports worsening low back pain with right leg weakness and pain and intermittent left leg pain. He also suffers from chronic right hip pain without significant groin pain. He was seen by Rheumatology last month, right hip MRI was ordered on 06/28/24 but has not been scheduled yet. Patient request to resubmit this to [facility] as his hip pain is worsening. He is seeing Orthopedic provider at [facility] tomorrow morning for diagnostic right GTB injection. Patinet is interested to undergo therapeutic CHATA injection to address lumbar spinal stenosis related pain. Denies bladder or bowel dysfunction or saddle anesthesia. Pain radiates into his buttocks and lateral hips and into right anterior thigh and lateral right leg with weakness, numbness and tingling. Denies any recent cough, cold, infection, fever, or any significant changes in his medical history, medications or recent hospitalizations. PRIOR: Patient is a pleasant 79-year-old male with prior history of polyarthralgia, lumbar degenerative arthritis, bilateral hip pain, h/o C7-C8 ACDF (1986), right shoulder surgery, and right knee arthroscopic surgery, presents today for initial evaluation of low back pain with radiation into hips and down into his bilateral lower extremities, worse on the right side. Pain affects his daily activities and functioning, mood, recreational and social activities, mobility, and quality of life. Patient was previously seen by Neurosurgery few years ago and was told he was not a surgical candidate and that there was nothing that they could offer him. Patient reports I was kicked out from PT one month ago due to not able to do what they wanted me to do due to severe pain in my back and hips. He reports multiple stairs at home which increases his pain with climbing stairs. Patient also reports he has to stop on the road when driving over 20-30 minutes due to worsening low back and right leg pain with increasing numbness and paresthesia. Patient was previously treated by Orthopedic surgeons and pain management and has received multiple injections including PRP injections, right hip and greater trochanteric bursitis cortisone injections with temporary but good pain relief. He was recently evaluated by his Orthopedic provider and was deemed nonsurgical. He has pending right hip MRI per Rheumatology. Patient reports radicular back pain and right hip pain have been progressively getting worse and limiting his daily functioning and walking capacity. Patient denies fever, chills, cough, shortness of breath, abdominal pain, bladder or bowel dysfunction or saddle anesthesia. Reports right lower extremity weakness. Location: Lower back radiates down bilateral legs, right hip, RLE weakness Duration: Chronic pain for > 10 + years Characteristics of symptom or complaint: Spasming, stabbing, shooting, burning, numbness, tingling, sore, sharp Aggravating or associated factors: Prolonged driving, sitting, bending, lifting, twisting, climbing stairs Relieving factors: Tylenol, tried opioids and pregabalin in the past, activity modifications Treatment: PT, right hip/GTBinjections, h/o Ortho and Neurosugery evaluations, cane [facility] Medical History Greater trochanteric bursitis of right hip Polyarthralgia Lumbosacral spondylosis Chronic pain syndrome Degenerative arthritis of lumbar spine Bilateral hip pain Surgical History History of hip surgery (~02/03/25) History of shoulder surgery H/O right knee surgery Social History Household Members: Family Housing: House Alcohol intake: current Alcohol intake frequency: 0-2 drinks per day Alcohol type: other Comment: [employer] and Jovi Diaz Patient Tobacco Use Status: Never used Tobacco Review of Systems Const All systems reviewed & are unremarkable except as noted in HPI and below Physical Exam Vital Signs: Last Vital Signs Pulse 79 05/29/25 09:04 BP 183/93 H 05/29/25 09:04 Pulse Ox 98 05/29/25 09:04 Oxygen Delivery Method Room Air 05/29/25 09:04 BMI result Body Mass Index 29.4 General: Appears afebrile. Alert and oriented. Mood and affect appropriate. Follows and participates in conversation appropriately. Respiratory effort is unlabored. No cough. Able to transition from sit to stand unassisted. Uses cane with ambulation. Ambulates with normal heel strike and toe off on the left, increased right leg pain with weakness with heel and toe standing. General: Yes no CVA tenderness Back/Spine/Pelvis Back: no CVA tenderness Cervical Spine: cervical ROM normal, Cervical spine scars present (anterior neck) and No Cervical spine tenderness Thoracic/Lumbar Spine: thoracic and lumbar spine normal to inspection, No Thoracic/lumbar spine scar(s), Lasegue's sign negative, straight leg raise negative bilaterally, paraspinal muscle tenderness on the right greater than left, thoraco-lumbar ROM limited, No thoracic spinal tenderness and No lumbar spinal tenderness Pelvis: buttock tenderness bilaterally Sacroiliac joints: bilaterally nontender Extrem General: Yes capillary refill normal, Yes no calf tenderness, No clubbing, No cyanosis and Yes pedal edema (nonpitting on the right) Right lower extremity: foot (decreased dorsiflexion strength 4/5) Details: normal capillary refill, normal to inspection, tenderness Location: of the lateral foot (radiates up to right funes and lateral leg) Location: distally and in the mid-section and of the mid foot Location: along the plantar surface (numbness), no edema and motor-sensory exam Details: light-touch normal; no unusual warmth and no ecchymosis Results Reviewed Results Reviewed: MR SPINE LUMBAR without CONTRAST 07/30/24 at [facility] INDICATION: Spondylosis, lumbar region. Spinal stenosis. Lower back pain radiating to bilateral hips, legs and feet for 20 years. TECHNIQUE: Unenhanced multiplanar, multisequence MR imaging of the lumbar spine. COMPARISON: MR lumbar spine 01/07/2022. FINDINGS: Normal lumbar alignment is demonstrated. Vertebral heights are well maintained. Bone marrow signal is within normal limits, and no suspicious osseous lesion is identified. There appears to be some congenital narrowing of the lumbar portion of the canal. This is causing a generalized mild stenosis starting at L2-3 and extending down to L4-5. The findings are again most severe at L3-4 where there is facet joint arthropathy and hypertrophy of the ligamentum flavum, as well as a mild diffuse bulge causing a moderate stenosis. There has been slight worsening when compared to the prior exam. Normal signal intensity in the distal cord. Conus ends normally at L1 level. Paraspinal soft tissues are unremarkable. Incidental finding of multiple cystic lesions in both renal cortices. At L1-2 there is no significant disc herniation or protrusion. No central canal or neural foraminal stenosis is demonstrated. At L2-3 there is no significant disc herniation or protrusion. No neural foraminal stenosis is demonstrated. At L3-4 there is no significant disc herniation or protrusion. There is facet joint arthropathy and hypertrophy of the ligamentum flavum, as well as a mild diffuse bulge causing a moderate stenosis. There has been slight worsening when compared to the prior exam. No neural foraminal stenosis is demonstrated. At L4-5 there is no significant disc herniation or protrusion. There is bilateral facet joint arthropathy not causing any significant mass effect at L4-5. No central canal or neural foraminal stenosis is demonstrated. At L5-S1 there is no significant disc herniation or protrusion. There is bilateral facet joint arthropathy not causing any significant mass effect at L5-S1. No neural foraminal stenosis is demonstrated. 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 More moderate stenosis at L3-4 due to the narrowing and diffuse bulge facet joint arthropathy and hypertrophy of ligamentum flavum. Slight worsening when compared to the prior exam. NE electromyogram (EMG); NE nerve conduction velocity 04/23/25 FINDINGS: Right peroneal nerve showed prolonged distal latency, normal amplitude and slow conduction velocity across fibular neck. Right tibial nerve showed very small amplitudes, with prolonged distal latency and normal conduction velocity. Right sural nerve showed prolonged peak latencies and small amplitude. Concentric needle EMG was performed in selected muscles of the right lower extremity and lumbar paraspinals. Study revealed signs of electric abnormalities as shown in the table above. Right TA showed reduced recruitment. IMPRESSION: 1. This is an abnormal study. 2. 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 3. There is electrodiagnostic evidence for right acute peroneal neuropathy at fibular neck. 4. There is no electrodiagnostic evidence for lumbar radiculopathy, Assessment & Plan Assessment & Plan (1) Right leg paresthesias: Code(s): R20.2 - Paresthesia of skin Category: Medical (2) Osteoarthritis of right hip: Code(s): M16.11 - Unilateral primary osteoarthritis, right hip Category: Medical (3) Chronic pain syndrome: Code(s): G89.4 - Chronic pain syndrome Category: Medical (4) History of hip surgery: Onset Date: ~02/03/25 Comment: Right hip tendon repair surgery Dr. Roach Code(s): Z98.890 - Other specified postprocedural states Category: Surgical Plan The plan is to proceed with the ultrasound-guided hydrosection of the right peroneal nerve once the physician is available. In the interim, the patient is advised to contact his primary care physician or orthopedics for pain management options, as patient was informed previously and today that we do not offer opioid program. He reports no relief with gabapentin or oxycodone, most recently prescribed by Orthopedics on 04/11/25. If the pain becomes severe, the patient is instructed to visit the emergency room for immediate care. Proceed as scheduled exam under US guidance with potential hydrodissection of right peroneal nerve as a diagnostic and therapeutic modality. Expectations, risks and benefits were reviewed. Patient is aware he will be contacted to schedule this procedure. All questions and concerns have been answered and patient agreed with the treatment plan. Follow up after injection/US exam and sooner as needed. Patient was informed and verbally consented to the use of an ambient scribe for clinic note documentation during this visit. Coding Level of Care Code Est Pt Level 2 (98554) Complex EM visit Add On G2211 Diagnoses Right leg paresthesias R20.2 Osteoarthritis of right hip M16.11 Chronic pain syndrome G89.4 History of hip surgery Z98.890
[2025-05-29 09:04] VITALS: BP 183/93; PULSE 79; O2SAT 98; BMI 29.4
--- OUTSIDE RECORDS SUMMARY | 2025-05-29 09:37 | XMS_ITS | Encounter Summary ---
Author Organization [facility] Address [address] [place] [address] Care Team Providers Care Press Helper Name Role Phone Mohsen Boles MD Primary Care Provider [phone] Encounter Details Date Type Department Care Team (Late st Contact Info) Description 02/14/2025 Lab Requisition [facility] - Main Lab [address] [place] [address] Brad Laboy MD [address] [place] [address] Essential (primary) hypertension; Hyperkalemia Social History Tobacco [...] LAB CHEMISTRY METHOD 02/17/2025 1:48 PM EDT [facility] Potassium 4.3 3.5 - 5.5 mmol/L LAB CHEMISTRY METHOD 02/17/2025 1:48 PM EDT [facility] Chloride 105 96 - 110 mmol/L LAB CHEMISTRY METHOD 02/17/2025 1:48 PM EDT [facility] CO2 28 21 - 32 mmol/L LAB CHEMISTRY METHOD 02/17/2025 1:48 PM [facility] Anion Gap 5 3 - 11 LAB CHEMISTRY METHOD 02/17/2025 1:48 PM EDT [facility] Glucose 146(H) 70 - 100 mg/dL LAB [facility] BUN 21 5 - 25 mg/dL LAB CHEMISTRY METHOD 02/17/2025 1:48 PM [facility] Creatinine 1.28 0.70 - 1.30 mg/dL LAB CHEMISTRY METHOD [facility] eGFR 57(L) >=60 mL/min/1. 73m2 LAB CHEMISTRY METHOD 02/17/2025 1:48 PM EDT [facility] Comment:Calculation based on the Chronic Kidney Disease Epidemiology Collaboration (CKD-EPI) equation refit without adjustment for race. BUN/Creatinine Ratio 16.4 LAB CHEMISTRY METHOD 02/17/2025 1:48 PM [facility] Calcium 9.4 8.5 - 10.5 mg/dL LAB CHEMISTRY METHOD 02/17/2025 1:48 PM [facility] Blood Venous blood specimen / Unknown Venipuncture / Unknown 02/17/2025 8:30 AM EDT 02/17/2025 11:45 AM EDT us Brad Laboy MD LAB BLOOD ORDERABLES Final Result [facility] [address] [place] [address], * (ABNORMAL) Complete blood count (02/17/2025 8:30 AM EDT) [facility] Signature WBC 6.8 4.8 - 10.8 K/mcL LAB HEMETOLOGY METHOD 02/17/2025 12:45 PM [facility] RBC 4.20(L) 4.50 - 5.50 M/mcL LAB HEMETOLOGY METHOD 02/17/2025 12:[facility] Hemoglobin 13.0(L) 13.5 - 17.5 g/dL LAB HEMETOLOGY METHOD 02/17/2025 12:45 PM [facility] Hematocrit 39.8(L) 42.0 - 54.0 % LAB HEMETOLOGY METHOD 02/17/2025 12:45 PM [facility] MCV 94.8 79.0 - 98.0 FL LAB HEMETOLOGY METHOD 02/17/2025 12:45 PM [facility] MCH 31.0 27.0 - 32.0 pcg LAB HEMETOLOGY METHOD 02/17/2025 12:45 PM [facility] MCHC 32.7 32.0 - 37.0 g/dL LAB HEMETOLOGY METHOD 02/17/2025 12:45 PM [facility] RDW 13.0 11.0 - 15.0 % LAB HEMETOLOGY METHOD 02/17/2025 12:45 PM [facility] Platelets 394 130 - 400 K/mcL LAB HEMETOLOGY METHOD 02/17/2025 12:45 PM [facility] MPV 10.3 7.0 - 11.0 FL LAB HEMETOLOGY METHOD 02/17/2025 12:[facility] NRBC 0.0 <1.0 % LAB HEMETOLOGY METHOD 02/17/2025 12:45 [facility] NRBC Absolute 0.00 <0.10 K/mcL LAB HEMETOLOGY METHOD 02/17/2025 12:45 PM EDT [facility] Blood Venous blood specimen / Unknown Venipuncture / Unknown 02/17/2025 8:30 AM EDT 02/17/2025 11:45 AM EDT us Brad Laboy MD LAB BLOOD ORDERABLES Final Result [facility] [address] [place] [address], [place] [phone] documented in this encounter Visit Diagnoses Diagnosis Essential (primary) hypertension Unspecified essential hypertension Hyperkalemia Hyperpotassemia documented in this encounter Care Teams Press Helper Relationship Specialty Start Date End Date Mohsen Boles MD [address] [place] [address] PCP - General Internal Medicine 01/30/18 documented as of this encounter
--- OUTSIDE RECORDS SUMMARY | 2025-05-29 09:37 | XMS_ITS | Encounter Summary ---
Author Organization [facility] Address [address] [place] [address] Care Team Providers Care French Translator Name Role Phone Mohsen Boles MD Primary Care Provider [phone] Encounter Details Date Type Department Care Team (Late st Contact Info) Description 02/07/2025 Lab Requisition [facility] - Main Lab [address] [facility] [place] [address] Brad Laboy MD [address] [place] [address] Essential (primary) hypertension; Hyperlipidemia, unspecified; Trochanteric bursitis, [...] CBC auto differential (02/07/2025 5:50 AM EDT) [facility] WBC 6.6 4.8 - 10.8 K/mcL LAB HEMETOLOGY METHOD 02/07/2025 10:55 AM [facility] RBC 3.50(L) 4.50 - 5.50 M/mcL LAB HEMETOLOGY METHOD 02/07/2025 10:55 AM [facility] Hemoglobin 11.0(L) 13.5 - 17.5 g/dL LAB HEMETOLOGY METHOD 02/07/2025 10:55 AM [facility] Hematocrit 33.3(L) 42.0 - 54.0 % LAB HEMETOLOGY METHOD 02/07/2025 10:55 AM [facility] MCV 96.2 79.0 - 98.0 FL LAB HEMETOLOGY METHOD 02/07/2025 10:55 AM [facility] MCH 31.8 27.0 - 32.0 pcg LAB HEMETOLOGY METHOD 02/07/2025 10:55 AM [facility] MCHC 33.0 32.0 - 37.0 g/dL LAB HEMETOLOGY METHOD 02/07/2025 10:55 AM [facility] RDW 12.9 11.0 - 15.0 % LAB HEMETOLOGY METHOD 02/07/2025 10:55 AM [facility] Platelets 197 130 - 400 K/mcL LAB HEMETOLOGY METHOD 02/07/2025 10:55 AM [facility] MPV 11.1(H) 7.0 - 11.0 FL LAB HEMETOLOGY METHOD 02/07/2025 10:55 AM [facility] NRBC 0.0 <1.0 % LAB HEMETOLOGY METHOD 02/07/2025 10:[facility] NRBC Absolute 0.00 <0.10 K/mcL LAB HEMETOLOGY METHOD 02/07/2025 10:55 AM EDT [facility] Neutrophils Relative 62.8 % LAB HEMETOLOGY METHOD 02/07/2025 10:55 AM [facility] Lymphocytes Relative 19.0 % LAB HEMETOLOGY METHOD 02/07/2025 10:55 [facility] Monocytes Relative 14.0 % [...] 10:55 AM [facility] Eosinophils Absolute 0.24 0.00 - 0.50 K/mcL LAB HEMETOLOGY METHOD 02/07/2025 10:55 AM [facility] Basophils Absolute 0.02 0.00 - 0.20 K/mcL LAB HEMETOLOGY METHOD 02/07/2025 10:55 AM [facility] Immature Granulocytes Absolute 0.02 0.00 - 0.03 K/mcL LAB HEMETOLOGY METHOD 02/07/2025 10:55 [facility] Blood Venous blood specimen / Unknown 02/07/2025 5:50 AM EDT 02/07/2025 10:15 AM EDT Brad Laboy MD LAB BLOOD ORDERABLES Final Result [facility] [address] [place] [address], [place] [phone] * (ABNORMAL) Comprehensive metabolic panel (02/07/2025 5:50 [...] Laboy MD LAB BLOOD ORDERABLES Final Result [facility] [address] [place] [address], documented in this encounter Visit Diagnoses Diagnosis Essential (primary) hypertension Unspecified essential hypertension Hyperlipidemia, unspecified Trochanteric bursitis, unspecified hip documented in this encounter Care Teams French Translator Relationship Specialty Start Date End Date Mohsen Boles MD [address] [place] [id number] PCP - General Internal Medicine 01/30/18 documented as of this encounter
--- OUTSIDE RECORDS SUMMARY | 2025-05-29 09:37 | XMS_ITS | Encounter Summary ---
Author Organization [facility] Address [address] [place] [address] Care Team Providers Care Psychologist Social Name Role Phone Mohsen Boles MD Primary Care Provider [phone] Encounter Details Date Type Department Care Team (Late st Contact Info) Description 02/08/2025 Lab Requisition [facility] - Main Lab [address] [place] [address] Brad Laboy MD [address] [place] [address] Essential (primary) hypertension; Hyperlipidemia, unspecified; Trochanteric bursitis, [...] mmol/L LAB CHEMISTRY METHOD 02/10/2025 3:14 PM [facility] Potassium 4.2 3.5 - 5.5 mmol/L LAB CHEMISTRY METHOD 02/10/2025 3:14 PM [facility] Chloride 106 96 - 110 mmol/L LAB CHEMISTRY METHOD 02/10/2025 3:14 PM [facility] CO2 28 21 - 32 mmol/L LAB CHEMISTRY METHOD 02/10/2025 3:14 PM [facility] Anion Gap 6 3 - 11 LAB CHEMISTRY METHOD 02/10/2025 3:14 PM [facility] Glucose 106(H) 70 - 100 mg/dL LAB CHEMISTRY METHOD 02/10/2025 3:14 PM [facility] BUN 18 5 - 25 mg/dL LAB CHEMISTRY METHOD 02/10/2025 3:14 PM [facility] Creatinine 1.24 0.70 - 1.30 mg/dL LAB CHEMISTRY METHOD 02/10/2025 3:14 PM [facility] eGFR 59(L) >=60 mL/min/1. 73m2 LAB CHEMISTRY METHOD 02/10/2025 3:14 PM [facility] Comment:Calculation based on the Chronic Kidney Disease Epidemiology Collaboration (CKD-EPI) equation refit without adjustment for race. BUN/Creatinine Ratio 14.5 LAB CHEMISTRY METHOD 02/10/2025 3:14 PM [facility] Calcium 8.6 8.5 - 10.5 mg/dL LAB CHEMISTRY METHOD 02/10/2025 3:14 PM [facility] Blood Venous blood specimen / Unknown Venipuncture / Unknown 02/10/2025 7:43 AM EDT 02/10/2025 11:46 AM EDT us Brad Laboy MD LAB BLOOD ORDERABLES Final Result [facility] [address] [place] [address], * (ABNORMAL) Complete blood count (02/10/2025 7:43 AM EDT) [facility] WBC 5.6 4.8 - 10.8 K/mcL LAB HEMETOLOGY METHOD [facility] RBC 3.60(L) 4.50 - 5.50 M/mcL LAB HEMETOLOGY METHOD 02/[facility]25 [facility] Hemoglobin 11.2(L) 13.5 - 17.5 g/dL LAB HEMETOLOGY METHOD 02/10/2025 1:05 PM [facility] Hematocrit 34.8(L) 42.0 - 54.0 % LAB HEMETOLOGY METHOD 02/10/2025 1:05 PM [facility] MCV 96.9 79.0 - 98.0 FL LAB HEMETOLOGY METHOD 02/10/2025 1:05 PM [facility] MCH 31.2 27.0 - 32.0 pcg LAB HEMETOLOGY METHOD 02/10/2025 1:05 PM [facility] MCHC 32.2 32.0 - 37.0 g/dL LAB HEMETOLOGY METHOD 02/10/2025 1:05 PM [facility] RDW 12.9 11.0 - 15.0 % LAB HEMETOLOGY METHOD 02/10/2025 1:05 PM [facility] Platelets 234 130 - 400 K/mcL LAB HEMETOLOGY METHOD 02/10/2025 1:05 PM [facility] MPV 11.3(H) 7.0 - 11.0 FL LAB HEMETOLOGY METHOD 02/10/2025 1:05 PM [facility] NRBC 0.0 <1.0 % LAB [...] Result [facility] [address] [place] [address], documented in this encounter Visit Diagnoses Diagnosis Essential (primary) hypertension Unspecified essential hypertension Hyperlipidemia, unspecified Trochanteric bursitis, unspecified hip documented in this encounter Care Teams Psychologist Social Relationship Specialty Start Date End Date Mohsen Boles MD [address] [place] [address] PCP - General Internal Medicine 01/30/18 documented as of this encounter
--- OUTSIDE RECORDS SUMMARY | 2025-05-29 09:37 | XMS_ITS | Clinical Summary ---
Author Organization [address] [place] [address] [place] [address] Phone Care Team Providers Care Iron Melter Name Role Phone Mohsen Boles MD Primary Care Provider [phone] Social History Tobacco Use Types Packs/Day Years [...] Additional history exists Influenza Vaccine (#1) 2025 4, 04/13/2023, 05/03/2022, Additional history exists Hypertension/CHF/CAD Annual [...] 8:30 AM EDT Essential (primary) hypertension Hyperkalemia from Last 3 Months or Most Recently Relevant to Health Maintenance Results * (ABNORMAL) Basic metabolic panel (02/17/2025 8:30 AM EDT) Sodium 138 133 - 145 mmol/L LAB CHEMISTRY METHOD 02/17/2025 1:48 PM EDT [facility] Potassium 4.3 3.5 - 5.5 mmol/L LAB CHEMISTRY METHOD 02/17/2025 1:48 PM EDT [facility] Chloride 105 96 - 110 mmol/L LAB CHEMISTRY METHOD 02/17/2025 1:48 PM EDT [facility] CO2 28 21 - 32 mmol/L LAB CHEMISTRY METHOD 02/17/2025 1:48 PM EDT [facility] Anion Gap 5 3 - 11 LAB CHEMISTRY METHOD 02/17/2025 1:48 PM EDT [facility] Glucose 146(H) 70 - 100 mg/dL LAB CHEMISTRY METHOD 02/17/2025 1:48 PM EDT [facility] BUN 21 5 - 25 mg/dL LAB CHEMISTRY METHOD 02/17/2025 1:48 PM EDT [facility] Creatinine 1.28 0.70 - 1.30 mg/dL LAB CHEMISTRY METHOD 02/17/2025 1:48 PM EDT [facility] eGFR 57(L) >=60 mL/min/1. 73m2 LAB CHEMISTRY METHOD 02/17/2025 1:48 PM EDT [facility] Comment:Calculation based on the Chronic Kidney Disease Epidemiology Collaboration (CKD-EPI) equation refit without adjustment for race. BUN/Creatinine Ratio 16.4 LAB CHEMISTRY METHOD 02/17/2025 1:48 PM EDT [facility] Calcium 9.4 8.5 - 10.5 mg/dL LAB CHEMISTRY METHOD 02/17/2025 1:48 PM T [facility] Blood Venous blood specimen / Unknown Venipuncture / Unknown 02/17/2025 8:30 AM EDT 02/17/2025 11:45 AM EDT Brad Laboy MD LAB BLOOD ORDERABLES Final Result [facility] [address] [place] [address], from Last 3 Months or Most Recently Relevant to Health Maintenance Insurance [employer] Care Teams Iron Melter Relationship Specialty Start Date End Date Mohsen Boles MD [address] [place] [address] PCP - General Internal Medicine 01/30/18
--- OUTSIDE RECORDS SUMMARY | 2025-05-29 09:37 | XMS_ITS | Data Portability ---
Author Organization [facility] [place] Address [address] [place] [address] Care Team Providers Care Mobile Battery Technician Name Role Phone JANICE REED Referring Provider [...] this patient on the date of the [id number] encounter (including direct patient interaction, wound care, [...] type disease and should be evaluated by drop hammer setter up . He lives in the [facility] and is interested in finding a drop hammer setter up near his home. We make the appropriate referral. In anticipation of seeing the drop hammer setter up will order laboratory studies as noted below. He will follow-up with us on an as-needed basis [email or web address] Not available 04/11/2024 17:03:45 Plan of Treatment Reminders Order Date Submit Date Provider Last Modified By Organization Details Last Modified Time Details Appointments None recorded. Lab rf (rheumatoid factor) + anti-ccp abs, serum 2023 BILL Not available 4 13:46:47 TSH, serum or plasma 2023 024 [email or web address] Not available 11:29:48 uric acid, serum or plasma 2023 024 [email or web address] Not available 11:29:48 CBC w/ diff 2023 [...] Normal X-rays,MRI. ?? Inflammator y arthritis?? 2023 [email or web address] Arabella Breen MD, [address], [place], [address], 17:15:27 Procedures None recorded. Surgeries None recorded. Imaging MRI, lumbar spine, w/o contrast - r/o canal stenosis 2023 024 [facility] [address], [place], [address], 4 14:07:21 XR, lumbosacral spine, 2 or 3 view 2023 024 [facility], [address], [place], [address], 4 16:40:17 XR, hip, unilateral, 2 or 3 view 2023 024 [email or web address] 2 [facility], [address], [place], [address], 4 12:59:56 XR, hip, unilateral, 2 or 3 view 2023 024 [email or web address] 2 [facility], [address], [place], [address], 4 12:59:56 Medication Orders meloxicam 15 mg tablet [id number], [address] [facility], [place], [address], 4 15:14:40 Patient TargetsNo targets recorded. Patient Instructions Encounter Date Encounter Id Patient Instructions Last Modified By Organization Details Last Modified Time 02/01/2024 [id number] 2 views of the bilateral hips were obtained today 02/01/2024 in the [place] office. Mild to moderate degenerative changes. Trace spurring versus calcification adjacent to the greater trochanters. No acute fracture or dislocation appreciated. Not available 03/02/2024 12:23:24 03/27/2024 [id number] AP and lateral x-rays of the lumbar spine were obtained on 03/2024 which demonstrates multilevel degenerative changes. No acute osseous abnormalities. [email or web address] Not available 03/27/2024 15:46:42 Reason for Referral Glass Etcher Referral for Total body pain syndrome Wide spread body pain. Normal X-rays,MRI. ?? Inflammatory arthritis?? Referring Physician: Zachery Hernandez, Orthopedic Surgery, Encounter Date: 04/11/2024 Results Created Date Observation Date Name Description Value Unit Range Abnormal Flag Note LastModifiedBy Organization Detail LastModifiedTime 01/29/20 MRI, hip, w/o contr ast No observ ation record ed. [email or web address] Not Available 2023 10:17:43 04/04/20 24 04/02/2024 MRI, lumba r spine , w/o contr ast No observ ation record ed. [facility] [address] [place], [address], 04/04/2024 14:14:32 Result Notes None recorded. 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 Procedures Surgical History Date Name Laterality Status Provider Name and Address Organization Details Recorded Time Shoulder Surgery completed Renetta Daniel [place] [facility] 02/01/2024 12:06:54 Knee Surgery completed Renetta Daniel [place] [facility] 02/01/2024 12:07:00 Imaging Results None recorded. [...] Address Organization Details Last Updated DateTime 02/01/2024 [address].[address] [place] [facility] 02/01/2024 12:06:02 Social History None recorded. Functional Status Question Answer Note LastModified by Organizat ion Details LastModified Time How many times per week do you consume alcohol? 3-4 times per week [email or web address] Information not available 02/01/2024 Do you use any illicit or recreational drugs? Yes [email or web address] Information not available 03/11/2024 Do you or have you ever used any other forms of tobacco or nicotine? No [email or web address] Information not available 02/01/2024 What is your level of alcohol consumption? Moderate Information not available 02/01/2024 Mental Status None recorded. Family History Nothing Reported. Medical History Condition Response Cancer Y Hypertension Y Past Encounters Encounter ID Performer Location Encounter Start Date Encounter Closed Date Diagnosis/Indication Diagnosis SNOMED-CT Code Diagnosis ICD10 Code Diagnosis IMO Codes Diagnosis Note [id number] RAINER STAFFORD PA-C [address] [address] 02/01/2024 10:36:07 02/01/2024 12:12:21 Pain of right hip joint 3994208345 45234 M25.551 Additional diagnosis detail: Hip pain, right Pain of hip region 89835 002 M25.552 Additional diagnosis detail: Left hip pain [id number] RAINER STAFFORD PA-C [address] [address] 03/06/2024 15:10:07 03/06/2024 15:45:57 Pain of right hip joint 3193843192 21787 M25.551 Additional diagnosis detail: Hip pain, right Pain of hip region 27435 002 M25.552 Additional diagnosis detail: Left hip pain [id number] Jose Kiran MD [address] [address] 03/11/2024 10:31:19 03/11/2024 11:22:02 Pain of right hip joint 9399234099 20220 M25.551 Additional diagnosis detail: Hip pain, right Pain of hip region 88268 002 M25.552 Additional diagnosis detail: Left hip pain [id number] GILDARDO CULLEN PA-C [address] [address] 03/27/2024 13:50:16 03/27/2024 14:43:09 Low back pain 966989301 M54.50 21315 Lumbar spondylosis 08744 0009 M47.816 [id number] MD MAGALY Lubin [address] [address] 04/11/2024 15:30:02 04/11/2024 16:31:06 Total body pain syndrome 300505804 R52 [id number] Health Concerns Section Related Observation LastModified by Organization Detai ls LastModified Time None Recorded Concern Status LastModified by Organization Details LastModified Time None Recorded Advance Directives Directive None Recorded Payers Insurance Date Sequence Insurance Name Policy Number Policy Blevins Covered Member ID Blevins Member ID Guarantor Name 04/08/2024 1 [facility] - MEDICARE ADVANTAGE PLAN (MEDICARE REPLACEMENT HMO) [id number] Negro Salinas [id number] Negro Salinas Notes Date Note Type Note [...] RAINER STAFFORD PA-C [address], [place], [address], [place] [facility] 03/02/2024 12:23:39 03/06/2024 text/html ROS as [...] RAINER STAFFORD PA-C [address], [place], [address], [place] [facility] 03/11/2024 10:35:59 03/11/2024 text/html ROS as [...] Jose Kiran MD [address], [place], [address], [place] [facility] 04/25/2024 19:53:23
--- OUTSIDE RECORDS SUMMARY | 2025-05-29 09:37 | XMS_ITS | Encounter Summary ---
Author Organization [facility] Address [address] [place] [address] Care Team Providers Care Learning Facilitator Name Role Phone Mohsen Boles MD Primary Care Provider [phone] Encounter Details Date Type Department Care Team (Late st Contact Info) Description 2025 Lab Requisition [facility] - Main Lab [address] [facility] [place] [phone] Brad Laboy MD [address] [place] [address] Essential (primary) hypertension; Hyperkalemia; Trochanteric bursitis, unspecified [...] hip documented in this encounter Care Teams Learning Facilitator Relationship Specialty Start Date End Date Mohsen Boles MD [address] [place] [address] PCP - General Internal Medicine 01/30/18 documented as of this encounter
--- OUTSIDE RECORDS SUMMARY | 2025-05-29 09:37 | XMS_ITS | Clinical Summary ---
Author Organization [facility] Address [address] [place] [address] Phone Care Team Providers Care Flame Channeler Name Role Phone Pcp, Unknown Primary Care [...] VACCINE (#1) 2025 COVID-19 VACCINE ( - 2024-2 6 season) 2025 HEPATITIS A VACCINES Aged Out [...] [place] Care Teams Flame Channeler Relationship Specialty Start Date End Date Pcp, Unknown PCP - General 04/17/24 Additional Source Comments The information contained in this document represents components of the legal health record. It is not the complete legal health record.[facility]
== END 2025-05-29 09:17 | disposition home or self-care (01) ==
PROVIDERS: PCP Internal Medicine; Visit Provider Nurse Practitioner Family
DX: R20.2 Paresthesia of skin (principal); M16.11 Unilateral primary osteoarthritis, right hip; G89.4 Chronic pain syndrome; Z98.890 Other specified postprocedural states
CPT/HCPCS: 99212; G2211

== ENCOUNTER 2025-06-16 09:34 | Outpatient (AMB) | payer OTHER, SELFPAY ==
--- NOTE | 2025-06-16 09:38 | A.OFFVIS_ITS ---
Vital Signs 06/16/25 09:41 Height 5 ft 10 in Weight 200 lb BMI 28.7 BP 170/84 H Blood Pressure Location Rt brachial Position Sitting Respiration 16 Pulse 85 Pulse Source Pulse Oximeter Pulse Oximetry (%) 96 Oxygen Delivery Method Room Air Intake Visit Reasons: US Exam - ? hydrodissection of R peroneal nerve Visual Stylist Required: No Ramp And Cargo Supervisor: Ramp And Cargo Supervisor Present Allergies No Known Allergies Allergy (Verified 06/16/25 09:42) Medication List - Last Reconciled 06/16/25 by Regla Juan LPN aspirin 81 mg PO DAILY atorvastatin 40 mg PO DAILY gabapentin 300 mg PO DAILY lisinopril 40 mg PO DAILY oxycodone 5 mg PO BID PRN 10 days sertraline 100 mg PO DAILY trazodone mg PO HPI HPI US Exam - ? hydrodissection of R peroneal nerve: Details: History of Present Illness The patient is an 80-year-old individual presenting with nerve compression and post-surgical nerve injury. The patient underwent surgery involving the attachment of tendons in the upper thigh, which resulted in nerve issues that were not present prior to the procedure. The patient reported swelling of the feet on the same day as the surgery, which has persisted. The patient experiences sensations in the feet, particularly from the three toes down to the little toe, and describes a feeling of movement and discomfort. The patient has been informed that the nerve problem may be due to the positioning during surgery, which is a common cause of such injuries. Pain Description - Onset: Post-surgical - Quality: Sensation of movement and discomfort in the feet - Location: From the three toes down to the little toe - Exacerbating factors: Positioning during surgery Physical Exam - Neurological: Ultrasound examination of the right common peroneal nerve at the fibular head Results - Ultrasound: Visualization of the right common peroneal nerve at the fibular head Pain Management - Affect: Not discussed - Analgesia: Not discussed - Adverse Effects: Not discussed - Activities of Daily Living: Not discussed - Aberrant Drug Related Behaviors: Not discussed Procedure - Procedure: Ultrasound-guided hydrodissection around the right common peroneal nerve - Informed consent: Obtained prior to the procedure - Patient position: Supine with leg slightly flexed at the knee - Needle: 25 gauge used for injection of 10 mL NS around CPN - Outcome: Patient tolerated the procedure well with no blood loss [facility] Medical History Greater trochanteric bursitis of right hip Polyarthralgia Lumbosacral spondylosis Chronic pain syndrome Degenerative arthritis of lumbar spine Bilateral hip pain Surgical History History of hip surgery (~02/03/25) History of shoulder surgery H/O right knee surgery Social History Household Members: Family Housing: House Alcohol intake: current Alcohol intake frequency: 0-2 drinks per day Alcohol type: other Comment: [employer] Patient Tobacco Use Status: Never used Tobacco Physical Exam Vital Signs: Last Vital Signs Pulse 85 06/16/25 09:41 Resp 16 06/16/25 09:41 BP 170/84 H 06/16/25 09:41 Pulse Ox 96 06/16/25 09:41 Oxygen Delivery Method Room Air 06/16/25 09:41 BMI result Body Mass Index 28.7 Assessment & Plan Assessment & Plan (1) 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 1. Nerve Compression - Follow-up in two weeks to assess response to the intervention - Intervention: Ultrasound-guided hydrodissection performed - Consideration: Possible release of the nerve at other spots if current intervention does not help 2. Post-Surgical Nerve Injury - Monitor symptoms and evaluate nerve positioning during surgery as a potential cause - Follow-up: Scheduled in two weeks to reassess condition Discussion Notes I discussed with the patient the potential causes of the nerve injury, including the possibility of improper positioning during surgery. We reviewed the plan to follow up in two weeks to assess the effectiveness of the ultrasound-guided injection and consider further interventions if necessary. Patient Instructions - Follow up in two weeks to assess the response to the procedure. - Monitor symptoms and report any changes or worsening of the condition. 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
[2025-06-16 09:41] VITALS: BP 170/84; PULSE 85; RESP 16; O2SAT 96; BMI 28.7
--- OUTSIDE RECORDS SUMMARY | 2025-06-16 10:58 | XMS_ITS | Clinical Summary ---
Author Organization [facility] Address [address] [place] [address] Phone Care Team Providers Care Director Of Manufacturing Name Role Phone Pcp, Unknown Primary Care [...] patient's age to complete this topic IPV VACCINES Aged Out No longer eligi ble based on patient's age to complete this topic MENINGOCOCCAL VACCINES (ACWY) Aged Out No longer eligible based on patient's age to complete this topic MENINGOCOCCAL VACCINES (B) Aged Out N o longer eligible based on patient's age to complete this topic Medical Devices Not on file Insurance [employer] H[employer] REPLACEMENT MEDICARE HMO REPLACEMENT MEDICARE HMO REPLACEMENT [employer] [place] [employer] REPLACEMENT [employer] [place] [employer] H[employer] REPLACEMENT MEDICARE HMO REPLACEMENT Care Teams Director Of Manufacturing Relationship Specialty Start Date End Date Pcp, Unknown PCP - General 04/17/24 Additional Source Comments The information contained in this document represents components of the legal health record. It is not the complete legal health record.[facility]
--- OUTSIDE RECORDS SUMMARY | 2025-06-16 10:58 | XMS_ITS | Encounter Summary ---
Author Organization [facility] Address [address] [place] [address] Care Team Providers Care Highway Painter Name Role Phone Mohsen Boles MD Primary Care Provider [phone] Encounter Details Date Type Department Care Team (Late st Contact Info) Description 02/08/[address] [facility] - Main Lab [address] [place] [address] Brad Laboy MD [address] [place] [address] Essential (primary) hypertension; Hyperlipidemia, unspecified; Trochanteric bursitis, [...] mmol/L LAB CHEMISTRY METHOD 02/10/2025 3:14 PM [facility] Potassium 4.2 3.5 - 5.5 mmol/L LAB CHEMISTRY METHOD 02/10/2025 3:14 PM [facility] LAB Chloride 106 96 - 110 mmol/L LAB CHEMISTRY METHOD 02/10/2025 3:14 PM [facility] LAB CO2 28 21 - 32 mmol/L LAB CHEMISTRY METHOD 02/10/2025 3:14 PM [facility] LAB Anion Gap 6 3 - 11 LAB CHEMISTRY METHOD 02/10/2025 3:14 PM [facility] Glucose 106(H) 70 - 100 mg/dL LAB CHEMISTRY METHOD 02/10/2025 3:14 PM [facility] BUN 18 5 - 25 mg/dL LAB CHEMISTRY METHOD 02/10/2025 3:14 PM [facility] Creatinine 1.24 0.70 - 1.30 mg/dL LAB CHEMISTRY METHOD 02/10/2025 3:14 PM [facility] LAB eGFR 59(L) >=60 mL/min/1. 73m2 LAB CHEMISTRY METHOD 02/10/2025 3:14 PM [facility] Comment:Calculation based on the Chronic Kidney Disease Epidemiology Collaboration (CKD-EPI) equation refit without adjustment for race. BUN/Creatinine Ratio 14.5 LAB CHEMISTRY METHOD 02/10/2025 3:14 PM [facility] Calcium 8.6 8.5 - 10.5 mg/dL LAB CHEMISTRY METHOD 02/10/2025 3:14 PM [facility] Blood Venous blood specimen / Unknown Venipuncture / Unknown 02/10/2025 7:43 AM EDT 02/10/2025 11:46 AM EDT us Brad Laboy MD LAB BLOOD ORDERABLES Final Result [facility] [address] [place] [address], * (ABNORMAL) Complete blood count (02/10/2025 7:43 AM EDT) [facility] WBC 5.6 4.8 - 10.8 K/mcL LAB HEMETOLOGY [facility] RBC 3.60(L) 4.50 - 5.50 M/mcL LAB HEMETOLOGY METHOD [facility] Hemoglobin 11.2(L) 13.5 - 17.5 g/dL LAB HEMETOLOGY METHOD 02/10/2025 1:05 PM [facility] Hematocrit 34.8(L) 42.0 - 54.0 % LAB HEMETOLOGY METHOD 02/10/2025 1:05 PM [facility] MCV 96.9 79.0 - 98.0 FL LAB HEMETOLOGY METHOD 02/10/2025 1:05 PM [facility] MCH 31.2 27.0 - 32.0 pcg LAB HEMETOLOGY METHOD 02/10/2025 1:05 PM [facility] LAB MCHC 32.2 32.0 - 37.0 g/dL LAB HEMETOLOGY METHOD 02/10/2025 1:05 PM [facility] RDW 12.9 11.0 - 15.0 % LAB HEMETOLOGY METHOD 02/10/2025 1:05 PM [facility] Platelets 234 130 - 400 K/mcL LAB HEMETOLOGY METHOD 02/10/2025 1:05 PM [facility] MPV 11.3(H) 7.0 - 11.0 FL LAB HEMETOLOGY METHOD 02/10/2025 1:05 PM [facility] NRBC 0.0 <1.0 % LAB HEMETOLOGY METHOD 02/10/2025 1:05 PM EDT [facility] NRBC Absolute 0.00 <0.10 K/mcL LAB HEMETOLOGY METHOD 02/10/2025 1:05 PM EDT [facility] Blood Venous blood specimen / Unknown Venipuncture / Unknown 02/10/2025 7:43 AM EDT 02/10/2025 11:46 AM EDT us Brad Laboy MD LAB BLOOD ORDERABLES Final Result [facility] [address] [place] [address], documented in this encounter Visit Diagnoses Diagnosis Essential (primary) hypertension Unspecified essential hypertension Hyperlipidemia, unspecified Trochanteric bursitis, unspecified hip documented in this encounter Care Teams Highway Painter Relationship Specialty Start Date End Date Mohsen Boles MD [address] [place] [address] PCP - General Internal Medicine 01/30/18 documented as of this encounter
--- OUTSIDE RECORDS SUMMARY | 2025-06-16 10:58 | XMS_ITS | Encounter Summary ---
Author Organization [facility] Address [address] [place] [address] Care Team Providers Care Wire Drawer Name Role Phone Mohsen Boles MD Primary Care Provider Encounter Details Date Type Department Care Team (Late st Contact Info) Description 02/14/2025 Lab Requisition [facility] - Main Lab [address] [place] [address] Brad Laboy MD [address] [place] [address] Essential (primary) hypertension; Hyperkalemia Social History Tobacco [...] LAB CHEMISTRY METHOD 02/17/2025 1:48 PM EDT [facility] Potassium 4.3 3.5 - 5.5 mmol/L LAB CHEMISTRY METHOD 02/17/2025 1:48 PM EDT [facility] Chloride 105 96 - 110 mmol/L LAB CHEMISTRY METHOD 02/17/2025 1:48 PM EDT [facility] CO2 28 21 - 32 mmol/L LAB CHEMISTRY METHOD 02/17/2025 1:48 PM [facility] Anion Gap 5 3 - 11 LAB CHEMISTRY METHOD 02/17/2025 1:48 PM EDT [facility] Glucose 146(H) 70 - 100 mg/dL LAB CHEMISTRY METHOD [facility] BUN 21 5 - 25 mg/dL LAB CHEMISTRY METHOD 02/17/2025 1:48 PM [facility] Creatinine 1.28 0.70 - 1.30 mg/dL LAB CHEMISTRY METHOD 02/17[facility]2025 [facility] eGFR 57(L) >=60 mL/min/1. 73m2 LAB CHEMISTRY METHOD 02/17/2025 1:48 PM EDT [facility] Comment:Calculation based on the Chronic Kidney Disease Epidemiology Collaboration (CKD-EPI) equation refit without adjustment for race. BUN/Creatinine Ratio 16.4 LAB CHEMISTRY METHOD 02/17/2025 1:48 PM [facility] Calcium 9.4 8.5 - 10.5 mg/dL LAB CHEMISTRY METHOD 02/17/2025 1:48 PM [facility] Blood Venous blood specimen / Unknown Venipuncture / Unknown 02/17/2025 8:30 AM EDT 02/17/2025 11:45 AM EDT us Brad Laboy MD LAB BLOOD ORDERABLES Final Result [facility] [address] [place] [address], * (ABNORMAL) Complete blood count (02/17/2025 8:30 AM EDT) [facility] Signature WBC 6.8 4.8 - 10.8 K/mcL LAB HEMETOLOGY METHOD 02/17/2025 12:45 PM [facility] RBC 4.20(L) 4.50 - 5.50 M/mcL LAB HEMETOLOGY METHOD 02/17/2025 12:[facility] Hemoglobin 13.0(L) 13.5 - 17.5 g/dL LAB HEMETOLOGY METHOD 02/17/2025 12:45 PM [facility] Hematocrit 39.8(L) 42.0 - 54.0 % LAB HEMETOLOGY METHOD 02/17/2025 12:45 PM [facility] MCV 94.8 79.0 - 98.0 FL LAB HEMETOLOGY METHOD 02/17/2025 12:45 PM [facility] MCH 31.0 27.0 - 32.0 pcg LAB HEMETOLOGY METHOD 02/17/2025 12:45 PM [facility] MCHC 32.7 32.0 - 37.0 g/dL LAB HEMETOLOGY METHOD 02/17/2025 12:45 PM [facility] RDW 13.0 11.0 - 15.0 % LAB HEMETOLOGY METHOD 02/17/2025 12:45 PM [facility] Platelets 394 130 - 400 K/mcL LAB HEMETOLOGY METHOD 02/17/2025 12:45 PM [facility] MPV 10.3 7.0 - 11.0 FL LAB HEMETOLOGY METHOD 02/17/2025 12[facility] NRBC 0.0 <1.0 % LAB HEMETOLOGY METHOD 02/17[facility]2025 12:[facility] NRBC Absolute 0.00 <0.10 K/mcL LAB HEMETOLOGY METHOD 02/17/2025 12:45 PM EDT [facility] Blood Venous blood specimen / Unknown Venipuncture / Unknown 02/17/2025 8:30 AM EDT 02/17/2025 11:45 AM EDT us Brad Laboy MD LAB BLOOD ORDERABLES Final Result [facility] [address] [place] [address], [place] [phone] documented in this encounter Visit Diagnoses Diagnosis Essential (primary) hypertension Unspecified essential hypertension Hyperkalemia Hyperpotassemia documented in this encounter Care Teams Wire Drawer Relationship Specialty Start Date End Date Mohsen Boles MD [address] [place] [address] PCP - General Internal Medicine 01/30/18 documented as of this encounter
--- OUTSIDE RECORDS SUMMARY | 2025-06-16 10:58 | XMS_ITS | Encounter Summary ---
Author Organization [facility] Address [address] [place] [address] Care Team Providers Care Eradicator Name Role Phone Mohsen Boles MD Primary Care Provider [phone] Encounter Details Date Type Department Care Team (Late st Contact Info) Description 2025 Lab Requisition [facility] - Main Lab [address] [facility] [place] [phone] Brad Laboy MD [address] [place] [address] Essential (primary) hypertension; Hyperkalemia; Trochanteric bursitis, unspecified [...] hip documented in this encounter Care Teams Eradicator Relationship Specialty Start Date End Date Mohsen Boles MD [address] [place] [phone] PCP - General Internal Medicine 01/30/18 documented as of this encounter
--- OUTSIDE RECORDS SUMMARY | 2025-06-16 10:58 | XMS_ITS | Clinical Summary ---
Author Organization [address] [place] [address] [place] [phone] Phone Care Team Providers Care Credit Or Loans Officer Name Role Phone Mohsen Boles MD Primary Care Provider [phone] Social History Tobacco Use Types Packs/Day Years [...] LAB CHEMISTRY METHOD 02/17/2025 1:48 PM EDT [facility] Potassium 4.3 3.5 - 5.5 mmol/L LAB CHEMISTRY METHOD 02/17/2025 1:48 PM EDT [facility] Chloride 105 96 - 110 mmol/L LAB CHEMISTRY METHOD 02/17/2025 1:48 PM EDT [facility] CO2 28 21 - 32 mmol/L LAB CHEMISTRY METHOD 02/17/2025 1:48 PM EDT [facility] Anion Gap 5 3 - 11 LAB CHEMISTRY METHOD 02/17/2025 1:48 PM EDT [facility] Glucose 146(H) 70 - 100 mg/dL LAB CHEMISTRY METHOD 02/17/2025 1:48 PM EDT [facility] BUN 21 5 - 25 mg/dL LAB CHEMISTRY METHOD 02/17/2025 1:48 PM EDT [facility] Creatinine 1.28 0.70 - 1.30 mg/dL LAB CHEMISTRY METHOD 02/17/2025 1:48 PM EDT [facility] eGFR 57(L) >=60 mL/min/1. 73m2 LAB CHEMISTRY METHOD 02/17/2025 1:48 PM EDT [facility] Comment:Calculation based on the Chronic Kidney Disease Epidemiology Collaboration (CKD-EPI) equation refit without adjustment for race. BUN/Creatinine Ratio 16.4 LAB CHEMISTRY METHOD 02/17/2025 1:48 PM EDT [facility] Calcium 9.4 8.5 - 10.5 mg/dL LAB CHEMISTRY METHOD 02/17/2025 1:48 PM T [facility] Blood Venous blood specimen / Unknown Venipuncture / Unknown 02/17/2025 8:30 AM EDT 02/17/2025 11:45 AM EDT Brad Laboy MD LAB BLOOD ORDERABLES Final Result [facility] [address] [place] [address], from Last 3 Months or Most Recently Relevant to Health Maintenance Insurance [employer] Care Teams Credit Or Loans Officer Relationship Specialty Start Date End Date Mohsen Boles MD [address] [place] [phone] PCP - General Internal Medicine 01/30/18
--- OUTSIDE RECORDS SUMMARY | 2025-06-16 10:58 | XMS_ITS | Encounter Summary ---
Author Organization [facility] Address [address] [place] [address] Care Team Providers Care Perinatology Physician Name Role Phone Mohsen Boles MD Primary Care Provider [phone] Encounter Details Date Type Department Care Team (Late st Contact Info) Description 02/07/[address] [facility] - Main Lab [address] [facility] [place] [address] Brad Laboy MD [address] [place] [address] Essential (primary) hypertension; Hyperlipidemia, unspecified; Trochanteric bursitis, [...] CBC auto differential (02/07/2025 5:50 AM EDT) [facility] WBC 6.6 4.8 - 10.8 K/mcL LAB [...] % LAB [facility] NRBC Absolute 0.00 <0.10 K/mcL LAB HEMETOLOGY METHOD 02/07/2025 10:55 AM EDT [facility] Neutrophils Relative 62.8 % LAB HEMETOLOGY METHOD 02/07/2025 10:55 AM [facility] Lymphocytes Relative 19.0 % LAB HEMETOLOGY METHOD [facility]25 [facility] Monocytes Relative 14.0 % LAB [...] K/mcL LAB HEMETOLOGY METHOD [facility] Blood Venous blood specimen / Unknown 02/07/2025 5:50 AM EDT 02/07/2025 10:15 AM EDT Brad Laboy MD LAB BLOOD ORDERABLES Final Result [facility] [address] [place] [address], [place] [phone] * (ABNORMAL) Comprehensive metabolic panel (02/07/2025 5:50 [...] Laboy MD LAB BLOOD ORDERABLES Final Result [facility] [address] [place] [address], documented in this encounter Visit Diagnoses Diagnosis Essential (primary) hypertension Unspecified essential hypertension Hyperlipidemia, unspecified Trochanteric bursitis, unspecified hip documented in this encounter Care Teams Perinatology Physician Relationship Specialty Start Date End Date Mohsen Boles MD [address] [place] [phone] PCP - General Internal Medicine 01/30/18 documented as of this encounter
== END 2025-06-16 10:16 | disposition home or self-care (01) ==
PROVIDERS: PCP Internal Medicine; Visit Provider Internal Medicine
DX: G57.31 Lesion of lateral popliteal nerve, right lower limb (principal)
CPT/HCPCS: 64722; 76942; 99213

== ENCOUNTER → 2025-06-16 09:34 | Outpatient (BNVA) | payer OTHER, SELFPAY | PROVIDERS: PCP Internal Medicine; Visit Provider Internal Medicine | DX: G57.31 Lesion of lateral popliteal nerve, right lower limb (principal); Z98.890 Other specified postprocedural states | CPT/HCPCS: 64722 ==

== ENCOUNTER 2025-07-04 12:04 | Outpatient (AMB) | payer OTHER, SELFPAY ==
--- NOTE | 2025-07-04 12:11 | A.OFFVIS_ITS ---
Vital Signs 07/04/25 12:15 Height 5 ft 10 in Weight 200 lb BMI 28.7 BP 158/85 H Blood Pressure Location Lt brachial Position Sitting Respiration 16 Pulse 79 Pulse Source Pulse Oximeter Pulse Oximetry (%) 95 Oxygen Delivery Method Room Air Intake Visit Reasons: 2 WEEK FOLLOW UP Customs Entry Writer Required: No Allergies No Known Allergies Allergy (Verified 07/04/25 12:17) Medication List - Last Reconciled 07/04/25 by Regla Juan LPN aspirin 81 mg PO DAILY atorvastatin 40 mg PO DAILY gabapentin 300 mg PO DAILY lisinopril 40 mg PO DAILY oxycodone 5 mg PO BID PRN 10 days sertraline 100 mg PO DAILY trazodone mg PO HPI HPI 2 WEEK FOLLOW UP: Details: History of Present Illness The patient is an 80 year old male presenting for a follow-up visit after a trial hydrodissection of the common peroneal nerve. He reports that the recent injection did not provide any relief from his symptoms. The patient describes his pain as originating in his lower leg, wrapping around to the bottom of his foot, and also present at a previous surgery site. He also reports a sensation of numbness or that his feet feel . Functionally, he notes an inability to get on his knees and requires assistance to stand up. Pain Description - Location and Radiation: The pain is located down his leg, wrapping around to the bottom of the foot, and also at the site of a prior surgery. - Quality: The patient describes the sensation as his feet feeling numb or . - Interference with function: The patient is unable to get on his knees and requires assistance to stand up. Physical Exam - Neurological/Extremities: Ultrasound examination of the peroneal nerve was performed. - Musculoskeletal/Extremities: Palpation revealed tenderness over the proximal calf. Results - Ultrasound of the peroneal nerve: Showed a potential area of entrapment in the proximal calf. Pain Management - Analgesia: A recent trial of hydrodissection of the common peroneal nerve did not provide any pain relief. - Activities of Daily Living: The patient reports being unable to get on his knees and needs to pull himself up to stand. [facility] Medical History Greater trochanteric bursitis of right hip Polyarthralgia Lumbosacral spondylosis Chronic pain syndrome Degenerative arthritis of lumbar spine Bilateral hip pain Surgical History History of hip surgery (~02/03/25) History of shoulder surgery H/O right knee surgery Social History Household Members: Family Housing: House Alcohol intake: current Alcohol intake frequency: 0-2 drinks per day Alcohol type: other Comment: [employer] [place] [employer] Patient Tobacco Use Status: Never used Tobacco Physical Exam Vital Signs: Last Vital Signs Pulse 79 07/04/25 12:15 Resp 16 07/04/25 12:15 BP 158/85 H 07/04/25 12:15 Pulse Ox 95 07/04/25 12:15 Oxygen Delivery Method Room Air 07/04/25 12:15 BMI result Body Mass Index 28.7 Assessment & Plan Assessment & Plan (1) 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 1. Common Peroneal Neuropathy - The patient presents for follow-up with continued symptoms despite a recent trial of hydrodissection of the common peroneal nerve. - A ijgaq-ni-wugy ultrasound examination of the peroneal nerve suggested a potential area of entrapment in the proximal calf, which was tender to palpation. - A second hydrodissection procedure will be attempted at this newly identified site. - The patient will return next week for the procedure to assess for response. Discussion Notes I informed the patient that since the first injection did not help, I wanted to investigate further with an ultrasound. During the scan, I identified a tender area in his calf that may be the source of the problem. I explained that we are still trying to determine the exact cause of his pain and that the nerve in that area runs down into the foot. I recommended we try another, different type of shot in this new location to see if it provides relief. The patient consented to this plan, and we scheduled him to return next week for the procedure. Patient Instructions - You will return to the clinic next week to try a different type of injection in your leg to see if it helps with your foot pain. - Your follow-up appointment is scheduled for next Monday, the , at 10:00 AM. 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
[2025-07-04 12:15] VITALS: BP 158/85; PULSE 79; RESP 16; O2SAT 95; BMI 28.7
--- OUTSIDE RECORDS SUMMARY | 2025-07-04 17:26 | XMS_ITS | Data Portability ---
Author Organization [place] [facility] [place] Address [address] [place] [address] Care Team Providers Care Plan Checker Name Role Phone JANICE REED Referring Provider [...] this patient on the date of the [id number] encounter (including direct patient interaction, wound care, review of applicable labs and imaging, documentation, and communication with other providers involved in patient s care): 25 minutes Patient was seen and evaluated by Gildardo Cullen PA-C in indirect conjunction with Documenting Provider: Zachery Hernandez MD He agrees with history, physical examination, tests/diagnostic imaging, and treatment plan [email or web address] Not available 03/27/2024 15:47:07 04/11/2024 04/11/2024 79-year-old [...] type disease and should be evaluated by kiln charger . He lives in the [facility] and is interested in finding a kiln charger near his home. We make the appropriate referral. In anticipation of seeing the kiln charger will order laboratory studies as noted below. He will follow-up with us on an as-needed basis [email or web address] Not available 04/11/2024 17:03:45 Plan of Treatment Reminders Order Date Submit Date Provider Last Modified By Organization Details Last Modified Time Details Appointments None recorded. Lab rf (rheumatoid factor) + anti-ccp abs, serum 2023 BILL Not available 4 13:46:47 TSH, serum or plasma 2023 024 [email or web address] Not available 11:29:48 uric acid, serum or plasma 2023 024 [email or web address] Not available 11:29:48 CBC w/ diff 2023 [...] Normal X-rays,MRI. ?? Inflammator y arthritis?? 2023 [email or web address] Arabella Breen MD, [address], [place], [address], 17:15:27 Procedures None recorded. Surgeries None recorded. Imaging MRI, lumbar spine, w/o contrast - r/o canal stenosis 2023 024 [facility] ([facility]), [address], [place], [address], 4 14:07:21 XR, lumbosacral spine, 2 or 3 view 2023 024 [email or web address] [facility], [address], [place], [address], 4 16:40:17 XR, hip, unilateral, 2 or 3 view 2023 024 [email or web address] [facility], [address], [place], [address], 4 12:59:56 XR, hip, unilateral, 2 or 3 view 2023 024 [email or web address] 2 [facility], [address], [place], [address], 4 12:59:56 Medication Orders meloxicam 15 mg tablet [id number], [address] [facility], [place], [address], 4 15:14:40 Patient TargetsNo targets recorded. Patient Instructions Encounter Date Encounter Id Patient Instructions Last Modified By Organization Details Last Modified Time 02/01/2024 [id number] views of the bilateral hips were obtained today 02/01/2024 in the [place] office. Mild to moderate degenerative changes. Trace spurring versus calcification adjacent to the greater trochanters. No acute fracture or dislocation appreciated. Not available 03/02/2024 12:23:24 03/27/2024 [id number] AP and lateral x-rays of the lumbar spine were obtained on 03/2024 which demonstrates multilevel degenerative changes. No acute osseous abnormalities. [email or web address] Not available 03/27/2024 15:46:42 Reason for Referral Material Expediter Referral for Total body pain syndrome Wide spread body pain. Normal X-rays,MRI. ?? Inflammatory arthritis?? Referring Physician: Zachery Hernandez, Orthopedic Surgery, Encounter Date: 04/11/2024 Results Created Date Observation Date Name Description Value Unit Range Abnormal Flag Note LastModifiedBy Organization Detail LastModifiedTime 01/29/20 MRI, hip, w/o contr ast No observ ation record ed. [email or web address] Not Available 2023 10:17:43 04/04/20 24 04/02/2024 MRI, lumba r spine , w/o contr ast No observ ation record ed. [email or web address] [facility] [address] [place], [address], 04/04/2024 14:14:32 Result Notes None recorded. Problems Name Problem SNOMED Code Status Onset Date Resolution Date Notes Provider Name and Address Organization Details Recorded Time Pain of right hip joint 9203505485881 02 Active 2023 Not Available [facility] 4 11:42:45 Pain of hip region 21918216 Active 2023 RAINER STAFFORD PA-C [address], [place], [address] , [place] [facility] 4 20:12:26 Lumbar spondylosi s 003570558 Active 2023 GILDARDO CULLEN PA-C [address], [place], [address] , [place] [facility] 4 14:35:05 Total body pain syndrome 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 Procedures Surgical History Date Name Laterality Status Provider Name and Address Organization Details Recorded Time Shoulder Surgery completed Renetta Daniel [facility] 02/01/2024 12:06:54 Knee Surgery completed Renetta Daniel [place] [facility] 02/01/2024 12:07:00 Imaging Results None recorded. [...] Address Organization Details Last Updated DateTime 02/01/2024 [address] [place] [facility] 02/01/2024 12:06:02 Social History None recorded. Functional Status Question Answer Note LastModified by Organizat ion Details LastModified Time How many times per week do you consume alcohol? 3-4 times per week Information not available 02/01/2024 Do you use any illicit or recreational drugs? Yes [email or web address] Information not available 03/11/2024 Do you or have you ever used any other forms of tobacco or nicotine? No [email or web address] Information not available 02/01/2024 What is your level of alcohol consumption? Moderate [email or web address] Information not available 02/01/2024 Mental Status None recorded. Family History Nothing Reported. Medical History Condition Response Cancer Y Hypertension Y Past Encounters Encounter ID Performer Location Encounter Start Date Encounter Closed Date Diagnosis/Indication Diagnosis SNOMED-CT Code Diagnosis ICD10 Code Diagnosis IMO Codes Diagnosis Note [id number] RAINER STAFFORD PA-C [address] [address] 02/01/2024 10:36:07 02/01/2024 12:12:21 Pain of right hip joint 8674443401 94990 M25.551 Additional diagnosis detail: Hip pain, right Pain of hip region 19292 002 M25.552 Additional diagnosis detail: Left hip pain [id number] RAINER STAFFORD PA-C [address] [address] 03/06/2024 15:10:07 03/06/2024 15:45:57 Pain of right hip joint 3931340859 17970 M25.551 Additional diagnosis detail: Hip pain, right Pain of hip region 38430 002 M25.552 Additional diagnosis detail: Left hip pain [id number] Jose Kiran MD [address] [address] 03/11/2024 10:31:19 03/11/2024 11:22:02 Pain of right hip joint 8682613710 83584 M25.551 Additional diagnosis detail: Hip pain, right Pain of hip region 79392 002 M25.552 Additional diagnosis detail: Left hip pain [id number] GILDARDO CULLEN PA-C [address] [address] 03/27/2024 13:50:16 03/27/2024 14:43:09 Low back pain 535489431 M54.50 98683 Lumbar spondylosis 38930 0009 M47.816 [id number] MD MAGALY Lubin [address] [address] 04/11/2024 15:30:02 04/11/2024 16:31:06 Total body pain syndrome 921598327 R52 [id number] Health Concerns Section Related Observation LastModified by Organization Detai ls LastModified Time None Recorded Concern Status LastModified by Organization Details LastModified Time None Recorded Advance Directives Directive None Recorded Payers Insurance Date Sequence Insurance Name Policy Number Policy Blevins Covered Member ID Blevins Member ID Guarantor Name 04/08/2024 1 [facility] - MEDICARE ADVANTAGE PLAN (MEDICARE REPLACEMENT HMO) [id number] Negro Salinas [id number] Negro Salinas Notes Date Note Type Note [...] RAINER STAFFORD PA-C [address], [place], [address], [place] [facility] 03/02/2024 12:23:39 03/06/2024 text/html ROS as [...] RAINER STAFFORD PA-C [address], [place], [address], [place] [facility] 03/11/2024 10:35:59 03/11/2024 text/html ROS as [...] Jose Kiran MD [address], [place], [address], [place] [facility] 04/25/2024 19:53:23
--- OUTSIDE RECORDS SUMMARY | 2025-07-04 17:26 | XMS_ITS | Clinical Summary ---
Author Organization [address] [place] [address] [place] [phone] Phone Care Team Providers Care Certified Shorthand Reporter Name Role Phone Mohsen Boles MD Primary Care Provider [phone] Social History Tobacco Use Types Packs/Day Years [...] LAB CHEMISTRY METHOD 02/17/2025 1:[address] [facility] Potassium 4.3 3.5 - 5.5 mmol/L LAB CHEMISTRY METHOD 02/17/2025 1:[address] [facility] Chloride 105 96 - 110 mmol/L LAB CHEMISTRY METHOD 02/17/2025 1:[address] [facility] CO2 28 21 - 32 mmol/L LAB CHEMISTRY METHOD 02/17/2025 1:[address] [facility] Anion Gap 5 3 - 11 LAB CHEMISTRY METHOD 02/17/2025 1:[address] [facility] Glucose 146(H) 70 - 100 mg/dL LAB CHEMISTRY METHOD 02/17/2025 1:[address] [facility] BUN 21 5 - 25 mg/dL LAB CHEMISTRY METHOD 02/17/2025 1:[address] [facility] Creatinine 1.28 0.70 - 1.30 mg/dL LAB CHEMISTRY METHOD 02/17/2025 1:[address] [facility] eGFR 57(L) >=60 mL/min/1. 73m2 LAB CHEMISTRY METHOD 02/17/2025 1:[address] [facility] Comment:Calculation based on the Chronic Kidney Disease Epidemiology Collaboration (CKD-EPI) equation refit without adjustment for race. BUN/Creatinine Ratio 16.4 LAB CHEMISTRY METHOD 02/17/2025 1:[address] [facility] Calcium 9.4 8.5 - 10.5 mg/dL LAB CHEMISTRY METHOD 02/17/2025 1:[address] [facility] Blood Venous blood specimen / Unknown Venipuncture / Unknown 02/17/2025 8:30 AM EDT 02/17/2025 11:45 AM EDT Brad Laboy MD LAB BLOOD ORDERABLES Final Result [facility] [address] [place] [address], from Last 3 Months or Most Recently Relevant to Health Maintenance Insurance [employer]AGE Care Teams Certified Shorthand Reporter Relationship Specialty Start Date End Date Mohsen Boles MD [address] [place] [address] PCP - General Internal Medicine 01/30/18
--- OUTSIDE RECORDS SUMMARY | 2025-07-04 17:26 | XMS_ITS | Encounter Summary ---
Author Organization [facility] Address [address] [place] [address] Care Team Providers Care Health Aide Name Role Phone Mohsen Boles MD Primary Care Provider [phone] Encounter Details Date Type Department Care Team (Late st Contact Info) Description 02/08/2025 Lab Requisition [facility] - Main Lab [address] [place] [address] Brad Laboy MD [address] [place] [address] Essential (primary) hypertension; Hyperlipidemia, unspecified; Trochanteric bursitis, [...] mmol/L LAB CHEMISTRY METHOD 02/10/2025 3:14 PM [facility] Potassium 4.2 3.5 - 5.5 mmol/L LAB CHEMISTRY METHOD 02/10/2025 3:14 PM [facility] Chloride 106 96 - 110 mmol/L LAB CHEMISTRY METHOD 02/10/2025 3:14 PM [facility] CO2 28 21 - 32 mmol/L LAB CHEMISTRY METHOD 02/10/2025 3:14 PM [facility] Anion Gap 6 3 - 11 LAB CHEMISTRY METHOD 02/10/2025 3:14 PM [facility] Glucose 106(H) 70 - 100 mg/dL LAB CHEMISTRY METHOD 02/10/2025 3:14 PM [facility] BUN 18 5 - 25 mg/dL LAB CHEMISTRY METHOD 02/10/2025 3:14 PM [facility] Creatinine 1.24 0.70 - 1.30 mg/dL LAB CHEMISTRY METHOD 02/10/2025 3:14 PM [facility] eGFR 59(L) >=60 mL/min/1. 73m2 LAB CHEMISTRY METHOD 02/10/2025 3:14 PM [facility] Comment:Calculation based on the Chronic Kidney Disease Epidemiology Collaboration (CKD-EPI) equation refit without adjustment for race. BUN/Creatinine Ratio 14.5 LAB CHEMISTRY METHOD 02/10/2025 3:14 PM [facility] Calcium 8.6 8.5 - 10.5 mg/dL LAB CHEMISTRY METHOD 02/10/2025 3:14 PM [facility] Blood Venous blood specimen / Unknown Venipuncture / Unknown 02/10/2025 7:43 AM EDT 02/10/2025 11:46 AM EDT us Brad Laboy MD LAB BLOOD ORDERABLES Final Result [facility] [address] [place] [address], * (ABNORMAL) Complete blood count (02/10/2025 7:43 AM EDT) [facility] WBC 5.6 4.8 - 10.8 K/mcL LAB HEMETOLOGY METHOD [facility] RBC 3.60(L) 4.50 - 5.50 M/mcL LAB HEMETOLOGY METHOD 02/10/2025 1:05 PM [facility] Hemoglobin 11.2(L) 13.5 - 17.5 g/dL LAB HEMETOLOGY METHOD 02/10/2025 1:05 PM [facility] Hematocrit 34.8(L) 42.0 - 54.0 % LAB HEMETOLOGY METHOD 02/10/2025 1:05 PM [facility] MCV 96.9 79.0 - 98.0 FL LAB HEMETOLOGY METHOD 02/10/2025 1:05 PM [facility] MCH 31.2 27.0 - 32.0 pcg LAB HEMETOLOGY METHOD 02/10/2025 1:05 PM [facility] MCHC 32.2 32.0 - 37.0 g/dL LAB HEMETOLOGY METHOD 02/10/2025 1:05 PM [facility] RDW 12.9 11.0 - 15.0 % LAB HEMETOLOGY METHOD 02/10/2025 1:05 PM [facility] Platelets 234 130 - 400 K/mcL LAB HEMETOLOGY METHOD 02/10/2025 1:05 PM [facility] MPV 11.3(H) 7.0 - 11.0 FL LAB HEMETOLOGY METHOD 02/10/2025 1:05 PM [facility] NRBC 0.0 <1.0 % LAB HEMETOLOGY METHOD 02/10/2025 1:05 PM EDT [facility] NRBC Absolute 0.00 <0.10 K/mcL LAB HEMETOLOGY METHOD 02/10/2025 1:05 PM EDT [facility] Blood Venous blood specimen / Unknown Venipuncture / Unknown 02/10/2025 7:43 AM EDT 02/10/2025 11:46 AM EDT us Brad Laboy MD LAB BLOOD ORDERABLES Final Result [facility] [address] [place] [address], documented in this encounter Visit Diagnoses Diagnosis Essential (primary) hypertension Unspecified essential hypertension Hyperlipidemia, unspecified Trochanteric bursitis, unspecified hip documented in this encounter Care Teams Health Aide Relationship Specialty Start Date End Date Mohsen Boles MD [address] [place] [address] PCP - General Internal Medicine 01/30/18 documented as of this encounter
--- OUTSIDE RECORDS SUMMARY | 2025-07-04 17:26 | XMS_ITS | Encounter Summary ---
Author Organization [facility] Address [address] [place] [address] Care Team Providers Care Assembler Sandal Parts Name Role Phone Mohsen Boles MD Primary Care Provider [phone] Encounter Details Date Type Department Care Team (Late st Contact Info) Description 02/14/2025 Lab Requisition [facility] - Main Lab [address] [place] [address] Brad Laboy MD [address] [place] [address] Essential (primary) hypertension; Hyperkalemia Social History Tobacco [...] LAB CHEMISTRY METHOD 02/17/2025 1:[address] [facility] Potassium 4.3 3.5 - 5.5 mmol/L LAB CHEMISTRY METHOD 02/17/2025 1:48 PM EDT [facility] Chloride 105 96 - 110 mmol/L LAB CHEMISTRY METHOD 02/17/2025 1:48 PM EDT [facility] CO2 28 21 - 32 mmol/L LAB CHEMISTRY METHOD 02/17/2025 1:48 PM [facility] Anion Gap 5 3 - 11 LAB CHEMISTRY METHOD 02/17/2025 1:48 PM EDT [facility] Glucose 146(H) 70 - 100 mg/dL LAB CHEMISTRY METHOD [facility] BUN 21 5 - 25 mg/dL LAB CHEMISTRY METHOD 02/17/2025 1:48 PM [facility] Creatinine 1.28 0.70 - 1.30 mg/dL LAB CHEMISTRY METHOD 02/17[facility]2025 [facility] eGFR 57(L) >=60 mL/min/1. 73m2 LAB CHEMISTRY METHOD 02/17/2025 1:48 PM EDT [facility] Comment:Calculation based on [...] Result [facility] [address] [place] [address], * (ABNORMAL) Complete blood count (02/17/2025 8:30 AM EDT) [facility] Signature WBC 6.8 4.8 - 10.8 K/mcL LAB HEMETOLOGY METHOD 02/17/2025 12:45 PM [facility] RBC 4.20(L) 4.50 - 5.50 M/mcL LAB HEMETOLOGY METHOD 02/17/2025 12:[facility] Hemoglobin 13.0(L) 13.5 - 17.5 [...] FL LAB HEMETOLOGY METHOD 02/17/2025 12:[facility] NRBC 0.0 <1.0 % LAB HEMETOLOGY METHOD 02/17/2025 12:[facility] NRBC Absolute 0.00 <0.10 K/mcL LAB HEMETOLOGY METHOD 02/17/2025 12:45 PM EDT [facility] Blood Venous blood specimen / Unknown Venipuncture / Unknown 02/17/2025 8:30 AM EDT 02/17/2025 11:45 AM EDT us Brad Laboy MD LAB BLOOD ORDERABLES Final Result [facility] [address] [place] [address], [place] [phone] documented in this encounter Visit Diagnoses Diagnosis Essential (primary) hypertension Unspecified essential hypertension Hyperkalemia Hyperpotassemia documented in this encounter Care Teams Assembler Sandal Parts Relationship Specialty Start Date End Date Mohsen Boles MD [address] [place] [address] PCP - General Internal Medicine 01/30/18 documented as of this encounter
--- OUTSIDE RECORDS SUMMARY | 2025-07-04 17:26 | XMS_ITS | Encounter Summary ---
Author Organization [facility] Address [address] [place] [address] Care Team Providers Care Corporate Law Assistant Name Role Phone Mohsen Boles MD Primary Care Provider [phone] Encounter Details Date Type Department Care Team (Late st Contact Info) Description 02/07/2025 Lab Requisition [facility] - Main Lab [address] [facility] [place] [address] Brad Laboy MD [address] [place] [address] Essential (primary) hypertension; Hyperlipidemia, unspecified; Trochanteric bursitis, [...] CBC auto differential (02/07/2025 5:50 AM EDT) [facility] [place] [facility] WBC 6.6 4.8 - 10.8 K/mcL LAB HEMETOLOGY METHOD 02/07/2025 10:55 AM [facility] RBC 3.50(L) 4.50 - 5.50 M/mcL LAB HEMETOLOGY METHOD 02/07/2025 10:55 AM [facility] Hemoglobin 11.0(L) 13.5 - 17.5 g/dL LAB HEMETOLOGY METHOD 02/07/2025 10:55 AM [facility] Hematocrit 33.3(L) 42.0 - 54.0 % LAB HEMETOLOGY METHOD 02/07/2025 10:55 AM [facility] MCV 96.2 79.0 - 98.0 FL LAB HEMETOLOGY METHOD 02/07/2025 10:55 AM [facility] MCH 31.8 27.0 - 32.0 pcg LAB HEMETOLOGY METHOD 02/07/2025 10:55 AM [facility] MCHC 33.0 32.0 - 37.0 g/dL LAB HEMETOLOGY METHOD 02/07/2025 10:55 AM [facility] RDW 12.9 11.0 - 15.0 % LAB HEMETOLOGY METHOD 02/07/2025 10:55 AM [facility] Platelets 197 130 - 400 K/mcL LAB HEMETOLOGY METHOD 02/07/2025 10:55 AM [facility] MPV 11.1(H) 7.0 - 11.0 FL LAB HEMETOLOGY METHOD 02/07/2025 10:55 AM [facility] NRBC 0.0 <1.0 % LAB HEMETOLOGY METHOD 02/07[facility]2025 10:55 [facility] NRBC Absolute 0.00 <0.10 K/mcL LAB HEMETOLOGY METHOD 02/07/2025 10:55 AM EDT [facility] Neutrophils Relative 62.8 % LAB HEMETOLOGY METHOD 02/07/2025 10:55 AM [facility] Lymphocytes Relative 19.0 % LAB HEMETOLOGY METHOD 02/07/2025 10:55 [facility] Monocytes Relative 14.0 % LAB HEMETOLOGY METHOD 02/07/2025 10:55 AM [facility] Eosinophils Relative 3.6 % LAB HEMETOLOGY METHOD 02/07/2025 10:55 AM [facility] Basophils Relative 0.3 % LAB HEMETOLOGY METHOD 02/07/2025 10:55 AM [facility] Immature Granulocytes Relative 0.3 % LAB HEMETOLOGY METHOD 02/07/2025 10:55 AM [facility] Neutrophils Absolute 4.17 1.50 - 7.00 K/mcL LAB HEMETOLOGY METHOD 02/07/2025 10:55 AM [facility] Lymphocytes Absolute 1.26 1.00 - 5.00 K/mcL LAB HEMETOLOGY METHOD 02/07/2025 10:55 AM [facility] Monocytes Absolute 0.93 0.20 - 1.00 K/mcL LAB HEMETOLOGY METHOD 02/07/2025 10:55 AM [facility] Eosinophils Absolute 0.24 0.00 - 0.50 K/mcL LAB HEMETOLOGY METHOD 02/07/2025 10:55 AM [facility] Basophils Absolute 0.02 0.00 - 0.20 K/mcL LAB HEMETOLOGY METHOD 02/07/2025 10:55 AM [facility] Immature Granulocytes Absolute 0.02 0.00 - 0.03 K/mcL LAB HEMETOLOGY METHOD 02/07/2025 10:55 AM [facility] Blood Venous blood specimen / Unknown 02/07/2025 5:50 AM EDT 02/07/2025 10:15 AM EDT Brad Laboy MD LAB BLOOD ORDERABLES Final Result [facility] [address] [place] [address], [place] [phone] * (ABNORMAL) Comprehensive metabolic panel (02/07/2025 5:50 AM EDT) Sodium 140 133 - 145 mmol/L LAB CHEMISTRY METHOD 02/07/2025 11:23 AM [facility] Potassium 3.9 3.5 - 5.5 mmol/L LAB CHEMISTRY METHOD 02/07/2025 11:23 AM [facility] Chloride 106 96 - 110 mmol/L LAB CHEMISTRY METHOD 02/07/2025 11:23 AM [facility] CO2 29 21 - 32 mmol/L LAB CHEMISTRY METHOD 02/07/2025 11:23 AM [facility] Anion Gap 5 3 - 11 LAB CHEMISTRY METHOD 02/07/2025 11:23 AM [facility] Glucose 87 70 - 100 mg/dL LAB CHEMISTRY METHOD 02/07/2025 11:23 AM [facility] BUN 19 5 - 25 mg/dL LAB CHEMISTRY METHOD 02/07/2025 11:23 AM [facility] Creatinine 1.16 0.70 - 1.30 mg/dL LAB CHEMISTRY METHOD 02/07/2025 11:23 AM [facility] eGFR 64 >=60 mL/min/1. 73m2 LAB CHEMISTRY METHOD 02/07/2025 11:23 AM [facility] Comment:Calculation based on the Chronic Kidney Disease Epidemiology Collaboration (CKD-EPI) equation refit without adjustment for race. BUN/Creatinine Ratio 16.4 LAB CHEMISTRY METHOD 02/07/2025 11:23 AM [facility] Calcium 8.3(L) 8.5 - 10.5 mg/dL LAB CHEMISTRY METHOD 02/07/2025 11:23 AM [facility] AST (SGOT) 23 10 - 42 unit/L LAB CHEMISTRY METHOD 02/07/2025 11:23 AM [facility] ALT (SGPT) 18 10 - 60 unit/L LAB CHEMISTRY METHOD 02/07/2025 11:23 AM [facility] Alkaline Phosphatase 51 42 - 121 unit/L LAB CHEMISTRY METHOD 02/07/2025 11:23 AM [facility] Total Protein 5.9(L) 6.0 - 8.0 g/dL LAB CHEMISTRY METHOD 02/07/2025 11:23 AM [facility] Albumin 3.0(L) 3.2 - 5.0 g/dL LAB CHEMISTRY METHOD 02/07/2025 11:23 AM [facility] Total Bilirubin 1.5(H) 0.0 - 1.4 mg/dL LAB CHEMISTRY METHOD 02/07/2025 11:23 AM [facility] Blood Venous blood specimen / Unknown Venipuncture / Unknown 02/07/2025 5:50 AM EDT 02/07/2025 10:15 AM EDT us Brad Laboy MD LAB BLOOD ORDERABLES Final Result [facility] [address] [place] [address], documented in this encounter Visit Diagnoses Diagnosis Essential (primary) hypertension Unspecified essential hypertension Hyperlipidemia, unspecified Trochanteric bursitis, unspecified hip documented in this encounter Care Teams Corporate Law Assistant Relationship Specialty Start Date End Date Mohsen Boles MD [address] [place] [address] PCP - General Internal Medicine 01/30/18 documented as of this encounter
--- OUTSIDE RECORDS SUMMARY | 2025-07-04 17:26 | XMS_ITS | Encounter Summary ---
Author Organization [facility] Address [address] [place] [address] Care Team Providers Care Advertising Analyst Name Role Phone Mohsen Boles MD Primary Care Provider [phone] Encounter Details Date Type Department Care Team (Late st Contact Info) Description [address] [facility] - Main Lab [address] [facility] [place] [phone] Brad Laboy MD [address] [place] [address] Essential (primary) hypertension; Hyperkalemia; Trochanteric bursitis, unspecified [...] hip documented in this encounter Care Teams Advertising Analyst Relationship Specialty Start Date End Date Mohsen Boles MD [address] [place] [address] PCP - General Internal Medicine 01/30/18 documented as of this encounter
--- OUTSIDE RECORDS SUMMARY | 2025-07-04 17:27 | XMS_ITS | Clinical Summary ---
Author Organization [facility] Address [address] [place] [address] Phone Care Team Providers Care Rehabilitation Manager Name Role Phone Pcp, Unknown Primary Care [...] [place]ACEMENT Care Teams Rehabilitation Manager Relationship Specialty Start Date End Date Pcp, Unknown PCP - General 04/17/24 Additional Source Comments The information contained in this document represents components of the legal health record. It is not the complete legal health record.[facility]
== END 2025-07-04 12:39 | disposition home or self-care (01) ==
LOC: HO.PMC 12:04
PROVIDERS: PCP Internal Medicine; Visit Provider Internal Medicine
DX: G57.30 Lesion of lateral popliteal nerve, unspecified lower limb (principal)
CPT/HCPCS: 99024

== ENCOUNTER 2025-07-09 09:52 | Outpatient (AMB) | payer OTHER, SELFPAY ==
--- NOTE | 2025-07-09 09:56 | MHC.OFFVIS ---
Vital Signs 07/09/25 09:58 Height 5 ft 10 in Weight 200 lb BMI 28.7 BP 159/82 H Blood Pressure Location Lt brachial Position Sitting Respiration 16 Pulse 82 Pulse Source Pulse Oximeter Pulse Oximetry (%) 95 Oxygen Delivery Method Room Air Intake Visit Reasons: Follow Ok Per Dr. Ryder [facility] Manager Required: No Allergies No Known Allergies Allergy (Verified 07/09/25 10:00) Medication List - Last Reconciled 07/09/25 by Regla Juan LPN aspirin 81 mg PO DAILY atorvastatin 40 mg PO DAILY gabapentin 300 mg PO DAILY lisinopril 40 mg PO DAILY oxycodone 5 mg PO BID PRN 10 days sertraline 100 mg PO DAILY trazodone mg PO HPI HPI Follow Ok Per Dr. Ryder: Details: History of Present Illness The patient is an 80 year old male presenting for a second diagnostic hydrodissection procedure for foot pain. He reports his pain symptoms are the same or possibly a little worse since his last visit. The pain is characterized as a shooting sensation around the outside of the foot, traveling down from a higher point. He also notes a sensation on the bottom of his feet. The patient's previous hydrodissection procedure was performed at a slightly higher location along the nerve. Pain Description - Location: The pain is primarily on the outside of the foot, with a shooting quality that travels down the leg. - Quality: The pain is described as shooting. - Severity: The patient reports his pain has been the same or slightly worse. - Associated symptoms: The patient notes a sensation on the bottom of his feet. Physical Exam - Musculoskeletal: Palpation revealed tenderness over the right peroneal nerve at the fibular head. Results - Tests and Diagnostics: An image from the ultrasound-guided injection was saved to the patient's record. Pain Management: - Analgesia: The patient reports his pain is the same or slightly worse prior to today's procedure. - Activities of Daily Living: The patient experiences an abnormal sensation in his feet when performing certain activities. Procedure - Procedure: Right peroneal nerve hydrodissection. - Consent: Informed consent was obtained, and the patient signed the permission form prior to the procedure. - Procedure Description: The patient was placed in a left lateral decubitus position. - Using ultrasound guidance, the peroneal nerve was tracked to the head of the fibula. - A total of 10 mL of normal saline was injected around the peroneal nerve as it wrapped around the fibular head to separate it from the underlying tissue. - The patient tolerated the procedure well with no reported blood loss. [facility] Medical History Greater trochanteric bursitis of right hip Polyarthralgia Lumbosacral spondylosis Chronic pain syndrome Degenerative arthritis of lumbar spine Bilateral hip pain Surgical History History of hip surgery (~02/03/25) History of shoulder surgery H/O right knee surgery Social History Household Members: Family Housing: House Alcohol intake: current Alcohol intake frequency: 0-2 drinks per day Alcohol type: other Comment: [employer] Patient Tobacco Use Status: Never used Tobacco Physical Exam Vital Signs: Last Vital Signs Pulse 82 07/09/25 09:58 Resp 16 07/09/25 09:58 BP 159/82 H 07/09/25 09:58 Pulse Ox 95 07/09/25 09:58 Oxygen Delivery Method Room Air 07/09/25 09:58 BMI result Body Mass Index 28.7 Assessment & Plan Assessment & Plan (1) 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 1. Lesion Of Right Peroneal Nerve, Right Lower Limb - The patient underwent a second diagnostic right peroneal nerve hydrodissection to address suspected nerve entrapment. - The procedure involved injecting 10 mL of normal saline around the nerve at the fibular head to release it it from surrounding tissue. - The patient was instructed to monitor for changes in the pain on the lateral aspect of his foot. - A follow-up visit will be scheduled in the next 7-10 days to assess his response. - Further hydrodissection procedures may be performed as needed. Discussion Notes I discussed the procedure, a hydrodissection, with the patient and explained that its purpose is to use fluid to separate the peroneal nerve from surrounding tissue to which it may be abnormally attached, potentially relieving his pain. I explained the rationale for performing repeat procedures, noting that we are mapping different locations along the nerve to find the precise source of entrapment and that today's injection was lower than the last one. I confirmed that the procedure aims to alleviate the pain on the outside of his foot and the sensation on the bottom of his foot. Informed consent was obtained for the procedure. I instructed the patient to monitor for any changes in his pain and to arrange a follow-up appointment in 7 to 10 days to assess the outcome of today's injection. Patient Instructions - After today's injection, please pay close attention to the pain on the outside of your foot to see if there is any difference or improvement. - Please schedule a follow-up appointment for sometime in the next week to 10 days so we can check on your progress. 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
[2025-07-09 09:58] VITALS: BP 159/82; PULSE 82; RESP 16; O2SAT 95; BMI 28.7
--- OUTSIDE RECORDS SUMMARY | 2025-07-09 11:48 | XMS_ITS | Patient Health Record ---
Author Organization [facility] Address [address] [place] [address] Care Team Providers Care Stock Clerk Name Role Phone JANICE REED MD Primary Care Provider Unavail able ALLYSSA Brown Unavailable [phone] Allergies No Known Allergies Reason For Referral No Information Medications Medication SIG (Take, Route, Frequency, Duration) Notes Start Date End Date Status Tylenol 8 Hour Arthritis Pain 650 MG Tablet Extended Release 2 tab(s) orally prn Acti ve Lisinopril 20 MG Tablet 1 tab(s) orally once a day Active Social History Tobacco Use: Social History Observation Description Date Details (start date - stop date) Never Smoker NA - NA Social History Tobacco Use: Social Info Question Answer Notes Smoking Are you a: never smoker Additional Details Category Social Info Options Details General Occupation: Retired shuttle bus driver [employer] asbestos exposure: no Past year's travels: None 2020 alcohol use: yes drug use: no Hobbies/Exercise habits: walking Coffee/Tea/Soda: yes Coffee 1 cup a day Marital Status experience no Living with smokers in household no pt never sm jarred Problems Problem Type SNOMED Code ICD Code Onset Dates Problem Status W/U Status Risk Notes Problem Lumbar radicular pain (5334229277) Lumbar radicular pain (M54.16) Active confirmed Problem Localized, primary osteoarthritis of the pelvic region and thigh (804245010) 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) Active confirmed Problem Localized, primary osteoarthritis of the shoulder region (232575033) 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) Active confirmed Problem Neurogenic claudication (838425669) 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) Active confirmed Problem Osteoarthritis of patellofemoral joint (766203697) 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) Active confirmed Problem Primary osteoarthritis (488537755) Primary osteoarthritis involving multiple joints (M89.49) Active confirmed Plan Of Treatment Pending Test Test Name Order Date AST ( SGOT) 09/28/2021 ALT(DO NOT USE) 09/28/2021 Insurance Providers Payer Name Payer Address Payer Phone Subscriber Number Group Number Insured Name Patient Relationship to Insured Coverage Start Date Coverage End Date [employer] [address] [place] [phone] [id number] PAUL NUNES Self - patient is the insured Medications Administered Medication Instructions Date of Administration Dosage Notes Triamcinolone Acetonide, mul ti-dose vial, 09/28/2021 60 mg Medical (General) History Medical History History ICD Code prostate cancer hypertension osteoarthritis Surgical History Surgery Date(Month/Year) right hand carpal tunnel 2018 right knee arthroscopic surgery 2011 right shoulder surgery 2010 and 2012 prostate surgery 1996 cholecystectomy 1996 neck surgery 1987 Hospitalization History Reason Date(Month/Year) [facility] chest pain 02/2022
--- OUTSIDE RECORDS SUMMARY | 2025-07-09 11:48 | XMS_ITS | Encounter Summary ---
Author Organization [facility] Address [address] [place] [address] Care Team Providers Care Zipper Setter Lockstitch Name Role Phone Mohsen Boles MD Primary Care Provider [phone] Encounter Details Date Type Department Care Team (Late st Contact Info) Description 02/14/2025 Lab Requisition [facility] - Main Lab [address] [place] [address] Brad Laboy MD [address] [place] [address] Essential (primary) hypertension; Hyperkalemia Social History Tobacco [...] LAB CHEMISTRY METHOD 02/17/2025 1:48 PM EDT [facility] Potassium 4.3 3.5 - 5.5 mmol/L LAB CHEMISTRY METHOD 02/17/2025 1:[address] [facility] Chloride 105 96 - 110 mmol/L LAB CHEMISTRY METHOD 02/17/2025 1:[address] [facility] CO2 28 21 - 32 mmol/L LAB CHEMISTRY METHOD 02/17/2025 1:48 PM [facility] Anion Gap 5 3 - 11 LAB CHEMISTRY METHOD 02/17/2025 1:[address] [facility] Glucose 146(H) 70 - 100 mg/dL LAB [facility]STR[facility] BUN 21 5 - 25 mg/dL LAB CHEMISTRY METHOD 02/17/2025 1:48 PM [facility] Creatinine 1.28 0.70 - 1.30 mg/dL LAB CHEMISTRY METHOD [facility] eGFR 57(L) >=60 mL/min/1. 73m2 LAB CHEMISTRY METHOD 02/17/2025 1:[address] [facility] Comment:Calculation based on the Chronic Kidney Disease Epidemiology Collaboration (CKD-EPI) equation refit without adjustment for race. BUN/Creatinine Ratio 16.4 LAB CHEMISTRY METHOD 02/17/2025 1:48 PM [facility] Calcium 9.4 8.5 - 10.5 mg/dL LAB CHEMISTRY METHOD 02/17/2025 1:48 PM [facility] Blood Venous blood specimen / Unknown Venipuncture / Unknown 02/17/2025 8:30 AM EDT 02/17/2025 11:45 AM EDT us Brad Laboy MD LAB BLOOD ORDERABLES Final Result [facility] [address] [place] [address], * (ABNORMAL) Complete blood count (02/17/2025 8:30 AM EDT) [facility] Signature WBC 6.8 4.8 - 10.8 K/mcL LAB HEMETOLOGY METHOD 02/17/2025 12:45 PM [facility] RBC 4.20(L) 4.50 - 5.50 M/mcL LAB HEMETOLOGY METHOD [facility] Hemoglobin 13.0(L) 13.5 - 17.5 g/dL LAB HEMETOLOGY METHOD 02/17/2025 12:45 PM [facility] Hematocrit 39.8(L) 42.0 - 54.0 % LAB HEMETOLOGY METHOD 02/17/2025 12:45 PM [facility] MCV 94.8 79.0 - 98.0 FL LAB HEMETOLOGY METHOD 02/17/2025 12:45 PM [facility] MCH 31.0 27.0 - 32.0 pcg LAB HEMETOLOGY METHOD 02/17/2025 12:45 PM [facility] MCHC 32.7 32.0 - 37.0 g/dL LAB HEMETOLOGY METHOD 02/17/2025 12:45 PM [facility] RDW 13.0 11.0 - 15.0 % LAB HEMETOLOGY METHOD 02/17/2025 12:45 PM [facility] Platelets 394 130 - 400 K/mcL LAB HEMETOLOGY METHOD 02/17/2025 12:45 PM [facility] MPV 10.3 7.0 - 11.0 FL LAB HEMETOLOGY METHOD [facility] NRBC 0.0 <1.0 % LAB HEMETOLOGY METHOD 02/17[facility]2025 12[facility] NRBC Absolute 0.00 <0.10 K/mcL LAB HEMETOLOGY METHOD 02/17/2025 12:[address] [facility] Blood Venous blood specimen / Unknown Venipuncture / Unknown 02/17/2025 8:30 AM EDT 02/17/2025 11:45 AM EDT us Brad Laboy MD LAB BLOOD ORDERABLES Final Result [facility] [address] [place] [address], [place] [phone] documented in this encounter Visit Diagnoses Diagnosis Essential (primary) hypertension Unspecified essential hypertension Hyperkalemia Hyperpotassemia documented in this encounter Care Teams Zipper Setter Lockstitch Relationship Specialty Start Date End Date Mohsen Boles MD [address] [place] [address] PCP - General Internal Medicine 01/30/18 documented as of this encounter
--- OUTSIDE RECORDS SUMMARY | 2025-07-09 11:48 | XMS_ITS | Clinical Summary ---
Author Organization [address] [place] [address] [place] [phone] Phone Care Team Providers Care Splunk Consultant Name Role Phone Mohsen Boles MD Primary Care Provider [phone] Social History Tobacco Use Types Packs/Day Years [...] Final Result [facility] [address] [place] [address], from Last 3 Months or Most Recently Relevant to Health Maintenance Insurance [employer] [place] [employer] Care Teams Splunk Consultant Relationship Specialty Start Date End Date Mohsen Boles MD [address] [place] [phone] PCP - General Internal Medicine 01/30/18
--- OUTSIDE RECORDS SUMMARY | 2025-07-09 11:48 | XMS_ITS | Encounter Summary ---
Author Organization [facility] Address [address] [place] [address] Care Team Providers Care Tube Roller Name Role Phone Mohsen Boles MD Primary Care Provider [phone] Encounter Details Date Type Department Care Team (Late st Contact Info) Description 2025 Lab Requisition [facility] - Main Lab [address] [facility] [place] [phone] Brad Laboy MD [address] [place] [address] Essential (primary) hypertension; Hyperkalemia; Trochanteric bursitis, unspecified [...] hip documented in this encounter Care Teams Tube Roller Relationship Specialty Start Date End Date Mohsen Boles MD [address] [place] [phone] PCP - General Internal Medicine 01/30/18 documented as of this encounter
--- OUTSIDE RECORDS SUMMARY | 2025-07-09 11:49 | XMS_ITS | Encounter Summary ---
Author Organization [facility] Address [address] [place] [address] Care Team Providers Care Water Safety Teacher Name Role Phone Mohsen Boles MD Primary Care Provider [phone] Encounter Details Date Type Department Care Team (Late st Contact Info) Description 02/07/2025 Lab Requisition [facility] - Main Lab [address] [facility] [place] [address] Brad Laboy MD [address] [place] [address] Essential (primary) hypertension; Hyperlipidemia, unspecified; Trochanteric bursitis, [...] CBC auto differential (02/07/2025 5:50 AM EDT) [facility] WBC 6.6 4.8 - 10.8 K/mcL LAB HEMETOLOGY METHOD 02/07/2025 10:55 AM [facility] RBC 3.50(L) 4.50 - 5.50 M/mcL LAB HEMETOLOGY METHOD 02/07/2025 10:55 AM [facility] Hemoglobin 11.0(L) 13.5 - 17.5 g/dL LAB HEMETOLOGY METHOD 02/07/2025 10:55 AM [facility] Hematocrit 33.3(L) 42.0 - 54.0 % LAB HEMETOLOGY METHOD 02/07/2025 10:55 AM [facility] MCV 96.2 79.0 - 98.0 FL LAB HEMETOLOGY METHOD 02/07/2025 10:55 AM [facility] MCH 31.8 27.0 - 32.0 pcg LAB HEMETOLOGY METHOD 02/07/2025 10:55 AM [facility] MCHC 33.0 32.0 - 37.0 g/dL LAB HEMETOLOGY METHOD 02/07/2025 10:55 AM [facility] RDW 12.9 11.0 - 15.0 % LAB HEMETOLOGY METHOD 02/07/2025 10:55 AM [facility] Platelets 197 130 - 400 K/mcL LAB HEMETOLOGY METHOD 02/07/2025 10:55 AM [facility] MPV 11.1(H) 7.0 - 11.0 FL LAB HEMETOLOGY METHOD 02/07/2025 10:55 AM [facility] NRBC 0.0 <1.0 % LAB HEMETOLOGY METHOD [facility] NRBC Absolute 0.00 <0.10 K/mcL LAB HEMETOLOGY METHOD 02/07/2025 10:55 AM EDT [facility] Neutrophils Relative 62.8 % LAB HEMETOLOGY METHOD 02/07/2025 10:55 AM [facility] Lymphocytes Relative 19.0 % LAB HEMETOLOGY METHOD [facility] Monocytes Relative 14.0 % LAB HEMETOLOGY METHOD 02/07/2025 10:55 AM [facility] Eosinophils Relative 3.6 % LAB HEMETOLOGY METHOD 02/07/2025 10:55 AM [facility] Basophils Relative 0.3 % LAB HEMETOLOGY METHOD 02/07/2025 10:55 AM [facility] Immature Granulocytes Relative 0.3 % LAB HEMETOLOGY METHOD 02/07/2025 10:55 AM [facility] Neutrophils Absolute 4.17 1.50 - 7.00 K/mcL LAB HEMETOLOGY METHOD 02/07/2025 10:55 AM [facility] Lymphocytes Absolute 1.26 1.00 - 5.00 K/mcL LAB HEMETOLOGY METHOD 02/07/2025 10:55 AM [facility] Monocytes Absolute 0.93 0.20 - 1.00 K/mcL LAB HEMETOLOGY METHOD 02/07/2025 10:55 AM [facility] Eosinophils Absolute 0.24 0.00 - 0.50 K/mcL LAB HEMETOLOGY METHOD 02/07/2025 10:55 AM [facility] Basophils Absolute 0.02 0.00 - 0.20 K/mcL LAB HEMETOLOGY METHOD 02/07/2025 10:55 AM [facility] Immature Granulocytes Absolute 0.02 0.00 - 0.03 K/mcL LAB HEMETOLOGY METHOD 02/07[facility]2025 [facility] Blood Venous blood specimen / Unknown 02/07/2025 5:50 AM EDT 02/07/2025 10:15 AM EDT Brad Laboy MD LAB BLOOD ORDERABLES Final Result [facility] [address] [place] [address], [place] [phone] * (ABNORMAL) Comprehensive metabolic panel (02/07/2025 5:50 AM EDT) Sodium 140 133 - 145 mmol/L LAB CHEMISTRY METHOD 02/07/2025 11:23 AM [facility] Potassium 3.9 3.5 - 5.5 mmol/L LAB CHEMISTRY METHOD 02/07/2025 11:23 AM [facility] Chloride 106 96 - 110 mmol/L LAB CHEMISTRY METHOD 02/07/2025 11:23 AM [facility] CO2 29 21 - 32 mmol/L LAB CHEMISTRY METHOD 02/07/2025 11:23 AM [facility] Anion Gap 5 3 - 11 LAB CHEMISTRY METHOD 02/07/2025 11:23 AM [facility] Glucose 87 70 - 100 mg/dL LAB CHEMISTRY METHOD 02/07/2025 11:23 AM [facility] BUN 19 5 - 25 mg/dL LAB CHEMISTRY METHOD 02/07/2025 11:23 AM [facility] Creatinine 1.16 0.70 - 1.30 mg/dL LAB CHEMISTRY METHOD 02/07/2025 11:23 AM [facility] eGFR 64 >=60 mL/min/1. 73m2 LAB CHEMISTRY METHOD 02/07/2025 11:23 AM [facility] Comment:Calculation based on the Chronic Kidney Disease Epidemiology Collaboration (CKD-EPI) equation refit without adjustment for race. BUN/Creatinine Ratio 16.4 LAB CHEMISTRY METHOD 02/07/2025 11:23 AM [facility] Calcium 8.3(L) 8.5 - 10.5 mg/dL LAB CHEMISTRY METHOD 02/07/2025 11:23 AM [facility] AST (SGOT) 23 10 - 42 unit/L LAB CHEMISTRY METHOD 02/07/2025 11:23 AM [facility] ALT (SGPT) 18 10 - 60 unit/L LAB CHEMISTRY METHOD 02/07/2025 11:23 AM [facility] Alkaline Phosphatase 51 42 - 121 unit/L LAB CHEMISTRY METHOD 02/07/2025 11:23 AM [facility] Total Protein 5.9(L) 6.0 - 8.0 g/dL LAB CHEMISTRY METHOD 02/07/2025 11:23 AM [facility] Albumin 3.0(L) 3.2 - 5.0 g/dL LAB CHEMISTRY METHOD 02/07/2025 11:23 AM [facility] Total Bilirubin 1.5(H) 0.0 - 1.4 mg/dL LAB CHEMISTRY METHOD 02/07/2025 11:23 AM [facility] Blood Venous blood specimen / Unknown Venipuncture / Unknown 02/07/2025 5:50 AM EDT 02/07/2025 10:15 AM EDT us Brad Laboy MD LAB BLOOD ORDERABLES Final Result [facility] [address] [place] [address], documented in this encounter Visit Diagnoses Diagnosis Essential (primary) hypertension Unspecified essential hypertension Hyperlipidemia, unspecified Trochanteric bursitis, unspecified hip documented in this encounter Care Teams Water Safety Teacher Relationship Specialty Start Date End Date Mohsen Boles MD [address] [place] [phone] PCP - General Internal Medicine 01/30/18 documented as of this encounter
--- OUTSIDE RECORDS SUMMARY | 2025-07-09 11:49 | XMS_ITS | Clinical Summary ---
Author Organization [facility] Address [address] [place] [address] Phone Care Team Providers Care Licensed Aircraft Maintenance Engineer Name Role Phone Pcp, Unknown Primary Care [...] [place] Care Teams Licensed Aircraft Maintenance Engineer Relationship Specialty Start Date End Date Pcp, Unknown PCP - General 04/17/24 Additional Source Comments The information contained in this document represents components of the legal health record. It is not the complete legal health record.[facility]
--- OUTSIDE RECORDS SUMMARY | 2025-07-09 11:49 | XMS_ITS | Encounter Summary ---
Author Organization [facility] Address [address] [place] [address] Care Team Providers Care Thread Laster Name Role Phone Mohsen Boles MD Primary Care Provider [phone] Encounter Details Date Type Department Care Team (Late st Contact Info) Description 02/08/2025 Lab Requisition [facility] - Main Lab [address] [place] [address] Brad Laboy MD [address] [place] [address] Essential (primary) hypertension; Hyperlipidemia, unspecified; Trochanteric bursitis, [...] mmol/L LAB CHEMISTRY METHOD 02/10/2025 3:14 PM [facility] Potassium 4.2 3.5 - 5.5 mmol/L LAB CHEMISTRY METHOD 02/10/2025 3:14 PM [facility] Chloride 106 96 - 110 mmol/L LAB CHEMISTRY METHOD 02/10/2025 3:14 PM [facility] CO2 28 21 - 32 mmol/L LAB CHEMISTRY METHOD 02/10/2025 3:14 PM [facility] Anion Gap 6 3 - 11 LAB CHEMISTRY METHOD 02/10/2025 3:14 PM [facility] Glucose 106(H) 70 - 100 mg/dL LAB CHEMISTRY METHOD 02/10/2025 3:14 PM [facility] BUN 18 5 - 25 mg/dL LAB CHEMISTRY METHOD 02/10/2025 3:14 PM [facility] Creatinine 1.24 0.70 - 1.30 mg/dL LAB CHEMISTRY METHOD 02/10/2025 3:14 PM [facility] eGFR 59(L) >=60 mL/min/1. 73m2 LAB CHEMISTRY METHOD 02/10/2025 3:14 PM [facility] Comment:Calculation based on the Chronic Kidney Disease Epidemiology Collaboration (CKD-EPI) equation refit without adjustment for race. BUN/Creatinine Ratio 14.5 LAB CHEMISTRY METHOD 02/10/2025 3:14 PM [facility] Calcium 8.6 8.5 - 10.5 mg/dL LAB CHEMISTRY METHOD 02/10/2025 3:14 PM [facility] Blood Venous blood specimen / Unknown Venipuncture / Unknown 02/10/2025 7:43 AM EDT 02/10/2025 11:46 AM EDT us Brad Laboy MD LAB BLOOD ORDERABLES Final Result [facility] [address] [place] [address], * (ABNORMAL) Complete blood count (02/10/2025 7:43 AM EDT) [facility] WBC 5.6 4.8 - 10.8 K/mcL LAB HEMETOLOGY [facility] RBC 3.60(L) 4.50 - 5.50 M/mcL LAB HEMETOLOGY METHOD [facility] Hemoglobin 11.2(L) 13.5 - 17.5 g/dL LAB HEMETOLOGY METHOD 02/10/2025 1:05 PM [facility] Hematocrit 34.8(L) 42.0 - 54.0 % LAB HEMETOLOGY METHOD 02/10/2025 1:05 PM [facility] MCV 96.9 79.0 - 98.0 FL LAB HEMETOLOGY METHOD 02/10/2025 1:05 PM [facility] MCH 31.2 27.0 - 32.0 pcg LAB HEMETOLOGY METHOD 02/10/2025 1:05 PM [facility] MCHC 32.2 32.0 - 37.0 g/dL LAB HEMETOLOGY METHOD 02/10/2025 1:05 PM [facility] RDW 12.9 11.0 - 15.0 % LAB HEMETOLOGY METHOD 02/10/2025 1:05 PM [facility] Platelets 234 130 - 400 K/mcL LAB HEMETOLOGY METHOD 02/10/2025 1:05 PM [facility] MPV 11.3(H) 7.0 - 11.0 FL LAB HEMETOLOGY METHOD 02/10/2025 1:05 PM [facility] NRBC 0.0 <1.0 % LAB HEMETOLOGY METHOD 02/10/2025 1:05 PM EDT [facility] NRBC Absolute 0.00 <0.10 K/mcL LAB HEMETOLOGY METHOD 02/10/2025 1:05 PM EDT [facility] Blood Venous blood specimen / Unknown Venipuncture / Unknown 02/10/2025 7:43 AM EDT 02/10/2025 11:46 AM EDT us Brad Laboy MD LAB BLOOD ORDERABLES Final Result [facility] [address] [place] [address], documented in this encounter Visit Diagnoses Diagnosis Essential (primary) hypertension Unspecified essential hypertension Hyperlipidemia, unspecified Trochanteric bursitis, unspecified hip documented in this encounter Care Teams Thread Laster Relationship Specialty Start Date End Date Mohsen Boles MD [address] [place] [address] PCP - General Internal Medicine 01/30/18 documented as of this encounter
== END 2025-07-09 10:38 | disposition home or self-care (01) ==
LOC: HO.PMC 09:53
PROVIDERS: PCP Internal Medicine; Visit Provider Internal Medicine
DX: G57.30 Lesion of lateral popliteal nerve, unspecified lower limb (principal)
CPT/HCPCS: 64722

== ENCOUNTER → 2025-07-09 09:52 | Outpatient (BNVA) | payer OTHER, SELFPAY | PROVIDERS: PCP Internal Medicine; Visit Provider Internal Medicine | DX: G57.31 Lesion of lateral popliteal nerve, right lower limb (principal) | CPT/HCPCS: 64722 ==